=== PATIENT | female | born 1945 | race Caucasian/White ===

== ENCOUNTER → 2017-02-07 | Outpatient (REF) | payer MEDICARE ==
[~2017-02-07] MED LIST: ASPI81TA85 PO; ATEN100T PO; ATEN50TA2 PO; DIOV320T6 PO; GLIM4TAB PO; JANU100T PO; LANTINJ4 SC; LASI40TA PO; MULT1TAB10 PO; OMEG12002 PO; PROAAER10 INH; PROBCAP8 PO; PROC90TA PO; SIMV80TA PO; VITA-182 PO
== END ==
LOC: M LAB REF 14:00
PROVIDERS: ATTEND Ophthalmology
DX: D23.12 Other benign neoplasm of skin of left eyelid, including canthus (principal)

== ENCOUNTER → 2017-03-11 | Outpatient (REF) | payer MEDICARE ==
[2017-03-11 15:02] LABS: FERRITIN 73 NG/ML (8-252); PERCENT SATURATION 22.6 % (13.2-45.0); TOTAL IRON BINDING CAPACITY 318 UG/DL (250-450)
[2017-03-11 15:47] LABS: FOLATE > 24.0 NG/ML; VITAMIN B12 LEVEL 837 PG/ML
== END ==
LOC: M LAB REF 13:29
PROVIDERS: ATTEND Internal Medicine Nephrology
DX: D64.9 Anemia, unspecified (principal)

== ENCOUNTER → 2017-07-21 | Outpatient (CLI) | payer MEDICARE | LOC: M RAD 12:37 | DX: I13.0 Hypertensive heart and chronic kidney disease with heart failure and stage 1 through stage 4 chronic kidney disease, or unspecified chronic kidney disease (principal); N18.3 Chronic kidney disease, stage 3 (moderate); E11.9 Type 2 diabetes mellitus without complications | CPT/HCPCS: G0365 ==

== ENCOUNTER 2017-10-30 07:19 | Day surgery (SDC) | payer MEDICARE ==
[2017-10-30] MEDS ORDERED: NS 1,000 ML IV (07:30)
[2017-10-30] MEDS ORDERED: LIDOCAINE 2% INJ 100 MG/5 ML SDV (FOR ANES.) As Ordered (07:32)
[2017-10-30] MEDS ORDERED: PROPOFOL 200 MG/20 ML VIAL As Ordered (07:32)
[2017-10-30] MEDS ORDERED: MIDAZOLAM INJ 2 MG/2 ML VIAL (J2250) As Ordered (07:32)
[2017-10-30] MEDS ORDERED: fentaNYL 100 MCG/2 ML INJECTION (J3010) As Ordered (07:33)
[2017-10-30 08:43] LABS: POTASSIUM SERUM 3.9 MEQ/L (3.5-5.1)
[2017-10-30 08:50] LABS: BEDSIDE GLUCOSE 204 MG/DL (83-110)
[2017-10-30] MEDS ORDERED: HumaLOG INSULIN (NovoLOG) PER UNIT As Ordered (08:54)
[2017-10-30] MEDS: HumaLOG INSULIN (NovoLOG) PER UNIT SC (09:05)
[2017-10-30] MEDS: ATENOLOL 25 MG TAB PO (09:12)
[2017-10-30] MEDS: BUPIVACAINE HCL 0.5% 10 ML VIAL As Ordered (10:07)
[2017-10-30] MEDS: HEPARIN SOD (PORCINE) 5000 UNITS/ML VIAL As Ordered (10:07)
[2017-10-30] MEDS: LIDOCAINE 1% MDV 20ML VIAL As Ordered (10:07)
[2017-10-30] MEDS ORDERED: ePHEDrine SULFATE 25 MG/5 ML(5MG/ML) SYRINGE As Ordered ×2 (10:12→10:16)
[2017-10-30] MEDS ORDERED: LABETALOL HCL 100 MG/20 ML VIAL As Ordered (10:20)
[2017-10-30] MEDS ORDERED: ONDANSETRON 4MG/2ML VIAL (J2405) As Ordered (10:27)
== END 2017-10-30 13:05 | disposition home or self-care (01) ==
LOC: M SDC 07:19
DX: N18.9 Chronic kidney disease, unspecified (principal); I12.9 Hypertensive chronic kidney disease with stage 1 through stage 4 chronic kidney disease, or unspecified chronic kidney disease; E78.5 Hyperlipidemia, unspecified; E10.9 Type 1 diabetes mellitus without complications; Z79.4 Long term (current) use of insulin; Z88.8 Allergy status to other drugs, medicaments and biological substances; Z79.899 Other long term (current) drug therapy; Z79.82 Long term (current) use of aspirin; Z86.73 Personal history of transient ischemic attack (TIA), and cerebral infarction without residual deficits; K21.9 Gastro-esophageal reflux disease without esophagitis
CPT/HCPCS: 36821

== ENCOUNTER → 2017-11-27 | Outpatient (REF) | payer MEDICARE ==
[2017-11-27 18:13] LABS: URINE TOTAL PROTEIN 451.2 MG/DL (0-12)
[2017-12-01 13:05] LABS: ALBUMIN % 54.1 % (55.8-66.1)
[2017-12-01 13:06] LABS: ALBUMIN 3.79 GM/DL (3.29-5.55); ALPHA-1-GLOBULIN % 4.6 % (2.9-4.9); ALPHA-1-GLOBULINS 0.32 GM/DL (0.17-0.41); ALPHA-2-GLOBULINS % 18.6 % (7.1-11.8); BETA-1-GLOBULINS 0.41 GM/DL (0.28-0.60); BETA-1-GLOBULINS % 5.9 % (4.7-7.2); BETA-2-GLOBULINS 0.42 GM/DL (0.19-0.55); GAMMA GLOBULIN % 10.8 % (11.1-18.8); GAMMA GLOBULINS 0.76 GM/DL (0.65-1.58)
[2017-12-02 00:06] LABS: KAPPA/LAMBDA RATIO URINE 7.61 (2.04-10.37)
== END ==
LOC: M LAB REF 17:11
DX: R80.9 Proteinuria, unspecified (principal)
CPT/HCPCS: 84165

== ENCOUNTER → 2017-12-26 | Outpatient (CLI) | payer MEDICARE | LOC: M IRPRO 07:58 | DX: Z53.8 Procedure and treatment not carried out for other reasons (principal) ==

== ENCOUNTER 2018-01-29 08:33 | Day surgery (SDC) | payer MEDICARE ==
[2018-01-29] MEDS: ISOVUE-300 61% 50ML VIAL (Q9967) As Ordered (07:19)
[2018-01-29] MEDS ORDERED: D5W/0.2% SODIUM CHLORIDE 1,000 ML IV (08:45)
[2018-01-29 09:49] LABS: BEDSIDE GLUCOSE 236 MG/DL (83-110)
[2018-01-29] MEDS ORDERED: HumaLOG INSULIN (NovoLOG) PER UNIT As Ordered (09:53)
[2018-01-29] MEDS ORDERED: PROPOFOL 200 MG/20 ML VIAL As Ordered ×2 (09:56→11:06)
[2018-01-29] MEDS: HumaLOG INSULIN (NovoLOG) PER UNIT SC (09:56)
[2018-01-29] MEDS ORDERED: LIDOCAINE 2% INJ 100 MG/5 ML SDV (FOR ANES.) As Ordered (09:56)
[2018-01-29] MEDS ORDERED: fentaNYL 100 MCG/2 ML INJECTION (J3010) As Ordered (09:56)
[2018-01-29] MEDS ORDERED: MIDAZOLAM INJ 2 MG/2 ML VIAL (J2250) As Ordered (09:57)
[2018-01-29] MEDS ORDERED: NS 1,000 ML IV (10:00)
[2018-01-29] MEDS ORDERED: LABETALOL HCL 100 MG/20 ML VIAL As Ordered (10:21)
[2018-01-29] MEDS: HEPARIN SOD (PORCINE) 5000 UNITS/ML VIAL As Ordered (10:50)
[2018-01-29] MEDS: LIDOCAINE 1% SDV INJ 30 ML VIAL As Ordered (10:50)
[2018-01-29] MEDS: BUPIVACAINE HCL 0.5% 30 ML VIAL As Ordered (10:50)
[2018-01-29] MEDS ORDERED: ONDANSETRON 4MG/2ML VIAL (J2405) As Ordered (11:23)
== END 2018-01-29 13:00 | disposition home or self-care (01) ==
LOC: M SDC 08:33
DX: E11.22 Type 2 diabetes mellitus with diabetic chronic kidney disease (principal); I12.9 Hypertensive chronic kidney disease with stage 1 through stage 4 chronic kidney disease, or unspecified chronic kidney disease; N18.9 Chronic kidney disease, unspecified; E78.5 Hyperlipidemia, unspecified; I25.10 Atherosclerotic heart disease of native coronary artery without angina pectoris; T82.868A Thrombosis due to vascular prosthetic devices, implants and grafts, initial encounter; Z86.73 Personal history of transient ischemic attack (TIA), and cerebral infarction without residual deficits; Z79.4 Long term (current) use of insulin
CPT/HCPCS: 36821

== ENCOUNTER → 2018-05-28 | Outpatient (CLI) | payer MEDICARE ==
[~2018-05-28] MED LIST changes: -ASPI81TA85 PO; -ATEN100T PO; -ATEN50TA2 PO; -DIOV320T6 PO; -GLIM4TAB PO; +ISOVUE-300 61% 50ML VIAL (Q9967) As Ordered; -JANU100T PO; -LANTINJ4 SC; -LASI40TA PO; +LIDOCAINE 2% MDV 20 ML VIAL As Ordered; -MULT1TAB10 PO; -OMEG12002 PO; -PROAAER10 INH; -PROBCAP8 PO; -PROC90TA PO; -SIMV80TA PO; -VITA-182 PO
== END ==
LOC: M IRPRO 08:39
DX: N18.6 End stage renal disease (principal); Z53.8 Procedure and treatment not carried out for other reasons

== ENCOUNTER → 2018-06-19 | Outpatient (REF) | payer MEDICARE ==
[~2018-06-19] MED LIST changes: +ALEN70TA57 PO; +ASPI81TA85 PO; +ATEN100T PO; +ATEN50TA2 PO; +CALC1CAP31; +DIOV320T6 PO; +GLIM4TAB PO; +HYDR10TAB PO; -ISOVUE-300 61% 50ML VIAL (Q9967) As Ordered; +JANU100T PO; +JANU25TA PO; +LANTINJ4 SC; +LASI40TA9 PO; -LIDOCAINE 2% MDV 20 ML VIAL As Ordered; +MULT1TAB10 PO; +OMEG12002 PO; +PROAAER10 INH; +PROBCAP4 PO; +PROBCAP8 PO; +PROC90TA PO; +RENATAB5 PO; +SIMV80TA13 PO; +VITA-182 PO; +VITA-199 PO; +VITA1TAB27 PO
[2018-06-19 13:58] LABS: CHOLESTEROL LEVEL 216 MG/DL (<200); CHOLESTEROL RISK RATIO 3.085 (<5); HDL CHOLESTEROL 70 MG/DL (>40); LDL CHOLESTEROL 112 MG/DL (<100); NON-HDL-C 146 MG/DL; TRIGLYCERIDES LEVEL 168 MG/DL (<150)
[2018-06-19 14:15] LABS: HEPATITIS B SURFACE ANTIBODY NEGATIVE (POSITIVE)
[2018-06-19 14:59] LABS: HEPATITIS B CORE ANTIBODY IGM NEGATIVE (NEGATIVE); HEPATITIS C VIRUS ABY INDEX 0.1 INDEX (<0.8)
[2018-06-19 15:01] LABS: HEPATITIS B SURFACE ANTIGEN QNS (NEGATIVE)
== END ==
LOC: M LAB REF 13:08
PROVIDERS: ATTEND Internal Medicine Nephrology
DX: N18.5 Chronic kidney disease, stage 5 (principal)

== ENCOUNTER → 2018-07-09 | Outpatient (CLI) | payer MEDICARE ==
[~2018-07-09] MED LIST changes: +HEPARIN 1,000 UNITS/ML 10ML VIAL (FOR RADIOLOGY& DIALYSIS ONLY) As Ordered ONE; +LIDOCAINE 2% MDV 20 ML VIAL As Ordered ONE
--- NOTE | 2018-07-09 14:03 | ROOPDOC ---
[facility] Report Of Operation Report of Operation DATE OF PROCEDURE: 07/09/2018 PREPROCEDURE DIAGNOSES: End-stage renal disease requiring access for renal replacement therapy. Dysfunctional right brachiocephalic arteriovenous fistula with bleeding and hematoma formation. POSTPROCEDURE DIAGNOSES: End-stage renal disease requiring access for renal replacement therapy. Dysfunctional right brachiocephalic arteriovenous fistula with bleeding and hematoma formation. PROCEDURE: Ultrasound guided right internal jugular vein cannulation. Fluoroscopic guided right internal jugular vein 19 cm tip to cuff tunneled central venous catheter insertion. ATTENDING SURGEON: DR. Bobbi Huang M.D. MANUFACTURING DESIGN ENGINEER: Maria Isabel Cortes INDICATION:Patient is an 73-year-old female who has renal failure who requires access for renal replacement therapy. Patient has a right brachiocephalic arterial venous fistula which was used successfully once and since has not been able to be used due to extravasation, difficulty with cannulation and hematoma formation. Patient will undergo placement of a tunneled central venous catheter for hemodialysis access while the right upper extremity hematoma resolves and the patient will require a right brachiocephalic arteriovenous fistulogram to evaluate the fistula and possibly perform angioplasty for maturation of the fistula. Patient will undergo ultrasound and fluoroscopic guided placement of a right internal jugular vein tunneled central venous catheter. The procedure was described and explained to the patient in detail including drawing of pictures demonstrating the procedure and pertinent anatomy. Risks, benefits and alternative treatment options were discussed with the patient. Alternative treatment options included but were not limited to no intervention with continued conservative management. Benefits included but were not limited to access for hemodialysis until permanent access for renal replacement therapy is created and functioning. Risks included, but were not limited to infection, bleeding, pneumothorax, hemothorax, cannulation site deep venous thrombosis, possible need for open surgical intervention, allergic reaction or complication from prepping and draping materials, possible need for transfusion of blood products, anesthetic complications and/or reaction to sedation medications, cerebrovascular accident, myocardial infarction, pulmonary embolus, deep venous thrombosis, loss of limb, loss of life, poor satisfaction, poor outcome and or results. Risks of not performing the procedure included but were not limited to inability to obtain renal replacement therapy via hemodialysis and . The patient's questions were answered. The patient voices understanding and acceptance of these risks, benefits and alternative treatment options and agrees to proceed with an ultrasound and fluoroscopic guided right internal jugular vein tunneled central venous catheter insertion for access for renal replacement therapy via hemodialysis. All of the patient's questions were answered. There were no promises or guarantees made to the patient regarding the outcome or results of the procedure. ANESTHESIA: Local with 20 mL of 2% lidocaine. EBL: 15 ml. IVF: 100 ml. FLUORO TIME: 0.1 minutes. CONTRAST: None. COMPLICATIONS: None. DRAINS: None. SPECIMENS: None. IMPLANTS: Right internal jugular vein tunneled central venous catheter with use of a 19 cm tip to cuff [employer] [place] dual lumen hemodialysis catheter. DESCRIPTION OF PROCEDURE: Patient was taken to the angiography suite, placed supine on the angiography room table and then prepped and draped in a standard surgical fashion. A timeout was conducted by myself and the team members in the room confirming the correct patient, procedure and laterality. Ultrasound guidance was used to cannulate the right internal jugular vein, using a micropuncture needle, after anesthetizing the overlying skin and subcutaneous tissue with 2% lidocaine. The cannulation of the right internal jugular vein was performed with real-time concurrent visualization of the entry of the micropuncture needle into the right internal jugular vein with a hardcopy image preserved. The ultrasound showed the right internal jugular vein to be widely patent, easily compressible and free of thrombus. The micropuncture wire was advanced through the micropuncture needle which was upsized to a micropuncture sheath. An Amplatz wire was advanced through the micropuncture sheath which was then used to sequentially dilate the right internal jugular vein under fluoroscopic guidance. An introducer sheath was then placed over the Amplatz wire using fluoroscopic guidance and the wire was removed. The catheter was tunneled through a puncture wound in the right chest after anesthetizing the overlying skin and subcutaneous tissue with 2% lidocaine and brought out through a puncture wound at the right internal jugular vein entry site. The catheter was then advanced through the introducer sheath which had been positioned under fluoroscopic guidance. The catheter was positioned under fluoroscopic guidance with the tip in the superior vena cava right atrial junction. Both ports of the catheter were aspirated, noted to aspirate easily and then flushed with heparinized saline. The catheter was secured to the right anterior chest wall using #2-0 Prolene suture after anesthetizing the overlying skin and subcutaneous tissue with 2% lidocaine. The puncture wound in the right neck was closed using #3-0 Monocryl in inverted interrupted fashion. Dressings were applied. The patient tolerated the procedure well. All instrument, sponge and needle counts were correct at the end of the case. There were no complications. Dr. Huang was present for and directed the entire case. Patient was transferred to the recovery area and subsequently discharged in stable condition. The patient was going to dialysis unit for hemodialysis directly. The tunneled cent ral venous catheter is stable for use for hemodialysis access. The procedure and results were discussed with the patient in the postprocedure holding area with all of her questions being answered. RADIOLOGIC SUPERVISION AND INTERPRETATION: The initial ultrasound showed the right internal jugular vein to be easily compressible, widely patent and free of thrombus. Ultrasound was used to guide cannulation of the right internal jugular vein with real-time concurrent visualization of the entry of the needle into the right internal jugular vein with a hardcopy image preserved. Fluoroscopic guidance was then used to sequentially dilate the right internal jugular vein, place an introducer sheath and position the catheter with the tip in the superior vena cava/right atrial junction. Final fluoroscopic image showed the catheter to be in good position and good alignment with no pneumo- or hemothorax noted, with the tip of the catheter in the superior vena cava/right atrial junction. The tunneled central venous catheter is stable for use for hemodialysis access. Augustine Huang MD Jul 09, 2018 14:03
== END | disposition home or self-care (01) ==
LOC: M IRPRO 09:42
PROVIDERS: ATTEND Surgery Vascular Surgery
DX: N18.6 End stage renal disease (principal); Z99.2 Dependence on renal dialysis; T82.838D Hemorrhage due to vascular prosthetic devices, implants and grafts, subsequent encounter
CPT/HCPCS: 36558; 76937; 77001; C1750; C1769; C1894

== ENCOUNTER → 2018-08-14 | Outpatient (CLI) | payer MEDICARE ==
[~2018-08-14] MED LIST changes: -HEPARIN 1,000 UNITS/ML 10ML VIAL (FOR RADIOLOGY& DIALYSIS ONLY) As Ordered ONE; +ISOVUE-300 61% 50ML VIAL (Q9967) As Ordered ONE; +MIDAZOLAM INJ 2 MG/2 ML VIAL (J2250) As Ordered ONE; +fentaNYL 100 MCG/2 ML INJECTION (J3010) As Ordered ONE
--- NOTE | 2018-08-14 12:43 | ROOPDOC ---
[facility] Report Of Operation Report of Operation DATE OF PROCEDURE: 08/14/18 PREPROCEDURE DIAGNOSES: Stage IV chronic renal insufficiency with poor maturation right upper extremity brachiocephalic AV fistula. POSTPROCEDURE DIAGNOSES: Same. PROCEDURE: 1. Ultrasound-guided access, antegrade and retrograde, right cephalic vein 2. Right upper extremity fistulogram and central venogram 3. Angioplasty of the proximal cephalic vein from an antegrade access with a 7 x 100 Jermyn balloon 4. Angioplasty of the cephalic vein near the AV anastomosis from a retrograde access with a 6 x 40 testing balloon 5. Completion venograms SURGEON: Arabella Tirado MD ANESTHESIA: 5 mL of lidocaine local anesthesia. Conscious IV sedation was superv ised by Dr. Tirado during the entire procedure and the patient was independently monitored by registered nurse assigned to the Department of radiology using automated blood pressure, EKG and pulse oximetry the detailed conscious sedation record is stored in the hospital information system. The following is a conscious sedation record including starting and times: Versed 0.5 mg IV, fentanyl 25 g IV, start time at 09:35, and time 10:39. The patient tolerated sedation well. Postprocedure, she was monitored and remained stable, and was discharged in stable condition. INDICATION FOR PROCEDURE: Ms. Marsh is a 73-year-old patient with chronic renal insufficiency, stage IV progressing toward end stage renal disease requiring access for dialysis. She had a right upper extremity brachiocephalic fistula creation that has been slow to mature and on exam during follow-up in the office we found the thrill was somewhat weak and difficult to feel in the upper arm. We discussed the risks, benefits, alternatives to a fistulogram with potential intervention to see if we could improve flow and maturation. She was agreeable to proceed and informed consent was obtained. INTERPRETATION: 1. The AV anastomosis was widely patent 2. There was an 80% stenosis in the cephalic vein a few centimeters distal to the AV anastomosis focally 3. There was 60% narrowing in the cephalic vein in the shoulder and a focal area of 70% narrowing in the cephalic vein near the junction with the subclavian vein 4. After angioplasty, the stenosis near the AV anastomosis still had about 30% residual stenosis but had significant improvement in flow 5. After angioplasty, the more proximal areas of stenosis were significantly improved with less than 20% residual stenosis PROCEDURE NOTE: The patient was brought to the angiographic suite in stable condition. Her right upper extremity was prepped and draped in a sterile fashion. A timeout was performed. Ultrasound was used to antegrade access to the cephalic vein after anesthetizing the skin with local anesthesia. A wire was passed through this access and a micro-sheath was placed. A Glidewire was advanced into the central system under fluoroscopic guidance. The sheath was exchanged for a 5 [place] sheath and flushed with saline. Venogram was performed and we noted that the more proximal cephalic vein in the shoulder and near the junction with the subclavian vein seemed a little stenotic and we felt this was part of the reason that she had slow maturation. We selected a 7 x 100 Jermyn balloon and angioplastied along the length of the cephalic vein in the shoulder and the upper arm and across the junction and subclavian vein. He translation was for 3 minutes. Following this there was marked improvement in the flow throughout the cephalic vein, but still some stenosis near the shoulder, therefore we did a second angioplasty for three-minute inflation, and following this there is a marked improvement in flow with no significant residual stenosis. We then compressed the cephalic vein proximal to the end of the sheath and performed a reflux study to examine the AV anastomosis in the inflow. We found the AV anastomosis to be widely patent, but a few centimeters proximal to this there was an 80% stenosis in the cephalic vein. I felt this was significant enough that it may impede maturation, therefore we placed a Prolene suture at the existing sheath site and removed. The sheath and gentle pressure was held for a few minutes for good hemostasis. Then, we utilized ultrasound to access the cephalic vein retrograde from the upper arm after anesthetizing the skin with local anesthesia. A wire was passed through this access and a micro-sheath was placed. A Glidewire was advanced through the sheath and then through the AV anastomosis into the brachial artery, and we exchanged her sheath for the 5 [place] sheath now in a retrograde fashion. The sheath was flushed with saline. Over the wire, we placed a 6 x 40 Jermyn balloon across the area of stenosis and inflated the balloon. There was a waist on the balloon despite full inflat ions burst pressures, but it appeared to dilate to almost profile. After 3 minutes of angioplasty, there still appeared to be about a 30% residual stenosis but it was markedly improved from pre-angioplasty dilation. The thrill improved in the upper arm and was easier to palpate over the bicep area. This concluded her procedure. A suture was placed at the sheath site. The sheath was removed. Pressure was held for 5 minutes for good hemostasis. Sterile dressings were placed. No hematoma was present at either access site. She tolerated the procedure well. The patient was taken back to recovery in stable condition and monitored, and eventually discharged home in stable condition. We will see her back in the office in 1-2 weeks to check her status and hopefully we'll see a marked improvement in her fistula maturation. ESTIMATED BLOOD LOSS: Approximately 2 mL. COMPLICATIONS: None. ARABELLA TIRADO MD Aug 14, 2018 12:43
== END | disposition home or self-care (01) ==
LOC: M IRPRO 08:36
PROVIDERS: ATTEND Surgery Vascular Surgery
DX: T82.858A Stenosis of other vascular prosthetic devices, implants and grafts, initial encounter (principal); N18.4 Chronic kidney disease, stage 4 (severe)
CPT/HCPCS: 36902; 36907; 99152; 99153; C1725; C1769; C1894; J2250; J3010; Q9967

== ENCOUNTER 2018-09-15 16:19 | Inpatient (IN) | payer MEDICARE ==
[~2018-09-15] VITALS: Ht 162.6 cm; Wt 79.9 kg
[~2018-09-15 16:19] MED LIST changes: -ISOVUE-300 61% 50ML VIAL (Q9967) As Ordered ONE; -LIDOCAINE 2% MDV 20 ML VIAL As Ordered ONE; -MIDAZOLAM INJ 2 MG/2 ML VIAL (J2250) As Ordered ONE; -fentaNYL 100 MCG/2 ML INJECTION (J3010) As Ordered ONE
[2018-09-15] MEDS: OSELTAMIVIR PHOSPHATE 30MG CAPSULE PO SCH (18:00)
[2018-09-15 19:30] VITALS: BP 140/82
[2018-09-15] MEDS: HumaLOG INSULIN (NovoLOG) PER UNIT SC SCH (21:00)
[2018-09-15] MEDS ORDERED: IPRATROPIUM 0.5MG/ALBUTEROL 2.5MG INH SOL UD 3ML (DUONEB)(J7620) NEB PRN (22:15)
[2018-09-15] MEDS ORDERED: GLUCAGON FOR INJ 1 MG VIAL (J1610) SC PRN (22:15)
[2018-09-15] MEDS ORDERED: GLUCOSE 4 GM CHEW TABLET PO PRN (22:15)
[2018-09-15] MEDS ORDERED: DEXTROSE 50% 50 ML SYRINGE IV PRN (22:15)
[2018-09-15] MEDS ORDERED: ONDANSETRON 4MG/2ML VIAL (J2405) IV PRN (22:15)
[2018-09-15] MEDS ORDERED: OMEG100011 PO (22:17)
[2018-09-15] MEDS ORDERED: ASPI81TAEC PO (22:17)
[2018-09-15] MEDS ORDERED: ATOR40TA75 PO (22:17)
[2018-09-15] MEDS ORDERED: HYDR-3911 PO (22:17)
[2018-09-15] MEDS ORDERED: GLIP5TAB8 PO (22:17)
[2018-09-15] MEDS ORDERED: BACITAB PO (22:17)
[2018-09-15] MEDS ORDERED: NEXI20CA PO (22:17)
--- NOTE | 2018-09-15 22:33 | HPEPDOC ---
[facility] Medical History & Physical Date of Admission Sep 15, 2018 Other Provider Grisel Christianson Attending Physician: GLADYS GAN MD History and Physical CHIEF COMPLAINT: dizziness HISTORY OF PRESENT ILLNESS: Patient is 73-year-old female with past medical history of end-stage renal disease on HD Friday, diabetes mellitus, history of CVA brought into the hospital post dialysis with complaints of dizziness and fevers. Patient reportedly had no symptoms today until after dialysis when she noted to be dizzy with a fever and felt nauseated. She was noted to be positive for influenza prior to arrival with desaturations down to 80s. Patient reports overall feeling unwell with some wheezing and nausea and but otherwise had no other specific complaints. She denies any recent sick contact or travels. No diarrhea. PAST MEDICAL HISTORY: 1. Influenza. 2. Diabetes mellitus [id number]. 3. History of CVA. 4. Recurrent bronchitis PAST SURGICAL HISTORY: Denies tobacco, alcohol or drug use. FAMILY HISTORY: Mother has diabetes and congestive heart failure Father had diabetes ALLERGIES: Please see below. REVIEW OF SYSTEMS: General: generalized unwell Eyes: Denies visual changes/pain HENT: Denies hearing changes, discharge, sore throat Cardiovascular: denies chest pain, palpitations Pulmonary: no cough, dyspnea, wheezing GI: nausea+, denies vomiting or abdominal pain : denies dysuria, urinary frequency Neuro: denies numbness or weakness HOME MEDICATIONS: Please see below. PHYSICAL EXAMINATION: General: No acute distress, Alert Eyes: Normal sclera, EOMI, ANGEL HENT: Atraumatic, neck supple, moist mucous membranes Cardiovascular: Normal rate, normal rhythm. No murmurs appreciated. Pulmonary: mild expiratory wheezing b/l. GI: Soft, nontender, nondistended Skin: Warm and dry Neuro: CN grossly intact. No focal deficits. Strengths equal b/l. Psych: oriented x 3 LABORATORY DATA: See below. IMAGING: f/u CXR MICROBIOLOGY: Please see below. ASSESSMENT: 1. Influenza 2. ESRD on HD T/T/Sat 3. hx CVA 4. DM . PLAN: 1. Influenza - Start on tamiflu. 30 mg now and after HD only. - Clinically appeared well now, not sure if she will need to stay for more than 2 days. 2. ESRD on HD T/T/Sat - Completed HD session today. Next one should be , will consult Nephro. Unsure if patient will stay here that long. 3. hx CVA - Resume home meds 4. DM - Hold home oral glycemic meds now. Start on ISS. Patient is high risk due to influenza with underlying comorbidities Estimated length of stay 2 days with expected disposition to home. Home Medications Scheduled (Gisel-Soraida) 1 Tab Tab, 1 TAB PO DAILY Aspirin (Aspirin EC) 81 Mg Tabec, 81 MG PO QHS Atenolol (Atenolol) 100 Mg Tab, 100 MG PO QPM Atenolol (Atenolol) 50 Mg Tab, 50 MG PO QAM Atorvastatin Calcium (Atorvastatin Calcium) 40 Mg Tab, 40 MG PO QHS Esomeprazole Magnesium Trihydr (Nexium) 20 Mg Cap, 20 MG PO DAILY Glipizide (Glipizide) 5 Mg Tab, 5 MG PO BID Hydralazine HCl (Hydralazine HCl) 50 Mg Tab, 50 MG PO TID Lactobacillus Acidophilus (Bacid) 1 Tab Tab, 1 TAB PO DAILY Nifedipine (Procardia Xl) 90 Mg Tab, 90 MG PO DAILY [place] 3 Polyunsat Fatty Acids ([place] 3 1000 mg) 1 Cap Cap, 1 CAP PO BID Sitagliptin Phosphate (Januvia) 25 Mg Tab, 25 MG PO QHS Scheduled PRN Albuterol Sulfate (Proair Hfa) 108 Mcg/Act Aer, 2 PUFFS INH Q4H PRN for SHORTNESS OF BREATH Allergies Coded Allergies: tramadol (Verified Adverse Reaction, Mild, VOMITING, 09/15/18) GLADYS GAN MD Sep 15, 2018 22:33
[2018-09-15] MEDS: OMEGA-3 1000MG CAPSULE PO SCH (22:54)
[2018-09-15] MEDS: ATORVASTATIN 20 MG TAB PO SCH (22:54)
[2018-09-15] MEDS: **hydrALAZINE** 50 MG TAB PO SCH (22:54)
[2018-09-15] MEDS: ATENOLOL 50 MG TAB PO SCH (22:55)
[2018-09-15] MEDS: ASPIRIN 81 MG ENTERIC TAB PO SCH (22:55)
[2018-09-15] MEDS: ACETAMINOPHEN TAB 650MG DOSE (2X325MG) PO PRN (23:03)
[2018-09-16 02:00] VITALS: BP 162/70
[2018-09-16] MEDS: IPRATROPIUM 0.5MG/ALBUTEROL 2.5MG INH SOL UD 3ML (DUONEB)(J7620) NEB SCH ×4 (02:00→19:18)
[2018-09-16 06:00] VITALS: BP 148/66
[2018-09-16 06:05] LABS: HEMATOCRIT 32.2 % (36.0-47.0); HEMOGLOBIN 10.8 g/dl (12.0-15.5); MEAN CORPUSCULAR HEMOGLOBIN 32.6 pg (27.0-33.0); MEAN CORPUSCULAR HGB CONC 33.5 g/dl (32.0-36.5); MEAN CORPUSCULAR VOLUME 97.3 fl (80.0-96.0); PLATELET COUNT, AUTOMATED 157 10^3/uL (150-450); RED BLOOD COUNT 3.31 10^6/uL (4.00-5.40); WHITE BLOOD COUNT 6.2 10^3/uL (4.0-10.0)
[2018-09-16 06:19] LABS: CALCIUM LEVEL 8.2 MG/DL (8.8-10.2); CREATININE FOR GFR 3.57 MG/DL (0.55-1.30); GLOMERULAR FILTRATION RATE 13.4 (>39); POTASSIUM SERUM 4.1 MEQ/L (3.5-5.1)
--- NOTE | 2018-09-16 08:05 | REP ---
Portable chest x-ray: Single view. History: Wheezing. Findings: A right-sided tunnel catheter is seen in place with its tip in the expected location of the superior vena cava. There is linear opacity in the perihilar and base region on the left consistent with plate-like atelectasis. Heart is not enlarged. There are degenerative changes in the thoracic spine. The aorta is calcific. Pulmonary vasculature is not increased. Impression: Perihilar discoid atelectasis versus scarring. Tunneled central venous catheter noted. Otherwise no acute disease. Electronically Signed by Saleem Carranza MD 09/16/2018 07:56 A
[2018-09-16] MEDS: HumaLOG INSULIN (NovoLOG) PER UNIT SC SCH ×4 (10:14→20:13)
[2018-09-16] MEDS: OMEGA-3 1000MG CAPSULE PO SCH ×2 (10:14→20:14)
[2018-09-16] MEDS: PANTOPRAZOLE 20 MG TAB PO SCH (10:15)
[2018-09-16] MEDS: **hydrALAZINE** 50 MG TAB PO SCH ×3 (10:15→20:15)
[2018-09-16] MEDS: NIFEdipine 30 MG XL TAB PO SCH (10:15)
[2018-09-16] MEDS: ATENOLOL 50 MG TAB PO SCH ×2 (10:16→20:14)
[2018-09-16] MEDS ORDERED: OSEL30CA PO (13:48)
--- NOTE | 2018-09-16 13:54 | IPNPDOC ---
Date Seen The patient was seen on 09/16/18. Progress Note SUBJECTIVE: Patient says "I feel much better." No c/o chills. still with low grade temp overnight. no cough. pulse on on room air not documented. still on supplemental o2. cxr: no acute dz. PHYSICAL EXAMINATION: VITALS: PLS SEE BELOW General: No acute distress, Alert Eyes: Normal sclera, EOMI, ANGEL HENT: Atraumatic, neck supple, moist mucous membranes Cardiovascular: Normal rate, normal rhythm. No murmurs appreciated. Pulmonary: mild expiratory wheezing b/l. GI: Soft, nontender, nondistended Skin: Warm and dry Neuro: CN grossly intact. No focal deficits. Strengths equal b/l. Psych: oriented x 3 LABORATORY DATA, MICROBIOLOGY, IMAGING STUDIES: PLS SEE BELOW ASSESSMENT/PLAN: Patient is 73-year-old female with past medical history of end-stage renal disease on HD Friday, diabetes mellitus, history of CVA transferred from [facility] where she presented status post dialysis with complaints of dizziness and fevers. Patient reportedly had no symptoms today until after dialysis when she noted to be dizzy with a fever and felt nauseated. She was noted to be positive for influenza prior to arrival with desaturations down to 80s. Patient reports overall feeling unwell with some wheezing and nausea and but otherwise had no other specific complaints. She denies any recent sick contact or travels. No diarrhea. Influenza - Start on tamiflu. 30 mg now and after HD only. - Clinically appeared well now, not sure if she will need to stay for more than 2 days. -on supplemental oxygen. will check o2 sat on room air with ambulation -cxr: no acute dz. tunneled catheter. ESRD on HD T/T/Sat - Completed HD session today. Next one should be , will consult Nephro. Unsure if patient will stay here that long. hx CVA - Resume home meds DM - Hold home oral glycemic meds now. Start on ISS. disposition: dc home if passes hse. VS, I&O, 24H, Fishbone Vital Signs/I&O Vital Signs Date Time Temp Pulse Resp B/P (MAP) Pulse Ox O2 Delivery O2 Flow Rate FiO2 09/16/18 10:16 70 156/58 09/16/18 06:00 98.1 20 92 2.0 I&O- Last 24 Hours up to 6 AM 09/16/18 06:00 Intake Total 750 ml Output Total 700 ml Balance 50 ml Laboratory Data 24H LABS Laboratory Tests 2 09/15/18 22:41: Bedside Glucose (Misc Panel) 241H 09/16/18 05:46: Nucleated Red Blood Cells % (auto) 0.0, Anion Gap 9, Glomerular Filtration Rate 13.4L, Blood Urea Nitrogen 28H, Creatinine 3.57H, Sodium Level 137, Potassium Level 4.1, Chloride Level 98, Carbon Dioxide Level 30, Calcium Level 8.2L 09/16/18 11:42: Bedside Glucose (Misc Panel) 188H CBC/BMP Laboratory Tests 09/16/18 05:46 Red Blood Count 3.31 L, Mean Corpuscular Volume 97.3 H, Mean Corpuscular Hemoglobin 32.6, Mean Corpuscular Hemoglobin Concent 33.5, Red Cell Distribution Width 12.7, Calcium Level 8.2 L OTTONIEL JOHNS MD Sep 16, 2018 13:52
[2018-09-16 14:00] VITALS: BP 162/68
[2018-09-16 18:00] VITALS: BP 148/65
[2018-09-16] MEDS: ATORVASTATIN 20 MG TAB PO SCH (20:14)
[2018-09-16] MEDS: ASPIRIN 81 MG ENTERIC TAB PO SCH (20:14)
[2018-09-16 22:00] VITALS: BP 149/66
[2018-09-17 02:00] VITALS: BP 140/68
[2018-09-17] MEDS: IPRATROPIUM 0.5MG/ALBUTEROL 2.5MG INH SOL UD 3ML (DUONEB)(J7620) NEB SCH ×4 (02:00→18:18)
[2018-09-17 06:00] VITALS: BP 140/70
[2018-09-17] MEDS: NIFEdipine 30 MG XL TAB PO SCH (06:31)
[2018-09-17] MEDS: OMEGA-3 1000MG CAPSULE PO SCH ×2 (06:31→22:19)
[2018-09-17] MEDS: **hydrALAZINE** 50 MG TAB PO SCH ×3 (06:31→21:00)
[2018-09-17] MEDS: PANTOPRAZOLE 20 MG TAB PO SCH (06:31)
[2018-09-17] MEDS: ATENOLOL 50 MG TAB PO SCH ×2 (06:32→21:00)
[2018-09-17] MEDS: ACETAMINOPHEN TAB 650MG DOSE (2X325MG) PO PRN (06:36)
[2018-09-17] MEDS: HumaLOG INSULIN (NovoLOG) PER UNIT SC SCH ×4 (07:36→22:15)
[2018-09-17 10:00] VITALS: BP 144/66
[2018-09-17 10:37] LABS: HEMOGLOBIN 10.6 g/dl (12.0-15.5); MEAN CORPUSCULAR HEMOGLOBIN 33.5 pg (27.0-33.0); MEAN CORPUSCULAR HGB CONC 34.2 g/dl (32.0-36.5); MEAN CORPUSCULAR VOLUME 98.1 fl (80.0-96.0); PLATELET COUNT, AUTOMATED 158 10^3/uL (150-450); RED BLOOD COUNT 3.16 10^6/uL (4.00-5.40); WHITE BLOOD COUNT 6.3 10^3/uL (4.0-10.0)
[2018-09-17 11:13] LABS: CALCIUM LEVEL 8.1 MG/DL (8.8-10.2); CREATININE FOR GFR 4.38 MG/DL (0.55-1.30); GLOMERULAR FILTRATION RATE 10.6 (>39)
--- NOTE | 2018-09-17 12:12 | CR ---
DATE OF CONSULTATION: 09/17/2018 NEPHROLOGY CONSULTATION FOR: Nolvia Barajas MD REASON FOR CONSULTATION: To assist in the management of end-stage renal disease. HISTORY OF PRESENT ILLNESS: Mrs. Marsh is a 73-year-old female with known history of type 2 diabetes, hypertension, prior stroke and end-stage renal disease. She was seen in dialysis outpatient clinic on Friday and found to have 102 fever. She was advised to come to the emergency room for ruling out influenza as patient who sits next to her was tested positive for influenza A. Patient went home from dialysis and fell at home as soon as she entered. She was then brought to emergency room and was admitted. She was also tested positive for flu. She did receive her complete dialysis treatments on Friday. PAST MEDICAL AND SURGICAL HISTORY: Significant for: 1. History of type 2 diabetes. 2. Hypertension. 3. Prior stroke. 4. History of end-stage renal disease. 5. History of recurrent bronchitis. 6. Influenza A. PERSONAL AND SOCIAL HISTORY: Patient denies any alcohol or tobacco use. She lives at home by herself. Family history is negative for end-stage renal disease. ALLERGIES: The patient has allergy to TRAMADOL. MEDICATIONS: Her home medications include: - aspirin 81 mg daily - atenolol 100 mg in evening and 50 mg in morning - atorvastatin 40 mg daily - Nexium 20 mg daily - glipizide 5 mg twice a day - hydralazine 50 mg three times a day - nifedipine XL 90 mg 1 tablet daily - Odanah-3 1000 mg twice a day - Januvia 25 mg at bedtime REVIEW OF SYSTEMS: Patient denies any fever or chills at present. She did have 102 fever on Friday. Ears, nose and throat are unremarkable. Cardiovascular system negative for dyspnea or chest pain. Respiratory system is significant for cough and flu. Gastrointestinal (GI) system is negative for nausea, vomiting or diarrhea. Genitourinary () system is negative for dysuria or hematuria. Endocrine system is significant for type 2 diabetes and secondary hyperparathyroidism. Neurological system is significant for prior stroke. She denies any seizure history. Hematological system is significant for anemia of chronic kidney disease. She is only on aspirin and not on any other anticoagulation. Psychosocial system is significant for depression. Skin is negative for rash or ulcers. Musculoskeletal system is significant for history of a fall at home prior to admission. PHYSICAL EXAMINATION: Temperature 97.6 degrees Fahrenheit, heart rate 17 per minute and respiratory rate 16 per minute. Blood pressure 144/66 mmHg and oxygen saturation 97% on 1 liter oxygen. Head is atraumatic. Neck is supple and jugular venous distention (JVD) is not abnormally elevated. She has no oral thrush or ulcers. Heart sounds are regular, and lungs sound clear to auscultation bilaterally. Abdomen soft and nontender, and bowel sounds are normal. Extremities have no cyanosis or clubbing. Neurologically, she is awake, alert and oriented times three. Today's labs show a WBC count 6.3, hemoglobin 10.6 and hematocrit 31.0. Platelets 158. Chemistry from yesterday showed sodium 137, potassium 4.1, CO2 of 30, BUN 28 and creatinine 3.57. Calcium level was 8.2. She had just completed her dialysis treatment prior to this labs. Today's chemistry is still pending. She had a chest x-ray done in emergency room, which showed some perihilar atelectasis and tunneled hemodialysis catheter. No other acute fracture or infiltrate. PROBLEMS: 1. End-stage renal disease. Patient did complete her dialysis treatment on 09/15/2018. She is due for dialysis today and we will plan to dialyze her this afternoon. Her electrolytes are pending from today. 2. Hypertension. Blood pressure seems very well controlled on current antihypertensive meds. I would recommend to continue with the same. 3. Influenza. Patient should be treated mostly symptomatically. She is also getting Tamiflu 30 mg after each dialysis, which is appropriate dose. Her symptoms have already improved significantly. 4. Congestive heart failure. At present, her volume status is very well compensated. She will be dialyzed today and we will remove about 1.5 liters fluid as tolerated. Thank you for involving me in the care of Mrs. Marsh. I will follow her along with you. CHAZ
[2018-09-17 14:00] VITALS: BP 135/63
[2018-09-17] MEDS: OSELTAMIVIR PHOSPHATE 30MG CAPSULE PO SCH (17:56)
[2018-09-17 18:00] VITALS: BP 121/70
--- NOTE | 2018-09-17 18:27 | IPNPDOC ---
Date Seen The patient was seen on 09/17/18. Progress Note SUBJECTIVE: The patient tells me she is feeling better she still having some shortness of breath does not feel quite as strong as usual but otherwise no specific complaints at this time PHYSICAL EXAMINATION: VITALS: PLS SEE BELOW General: No acute distress, Alert oriented 3 Eyes: Normal sclera, EOMI, ANGEL HENT: Atraumatic, neck supple, moist mucous membranes Cardiovascular: Normal rate, normal rhythm. No murmurs appreciated. Pulmonary: mild expiratory wheezing b/l. Abdomen: Soft, nontender, nondistended LABORATORY DATA, MICROBIOLOGY, IMAGING STUDIES: PLS SEE BELOW ASSESSMENT/PLAN: Patient is 73-year-old female with past medical history of end-stage renal disease with hypoxic respiratory failure secondary to influenza and she feels improved could consider steroids Influenza -Continue with tamiflu. 30 mg after HD only. - Clinically appears well now,on supplemental oxygen. Has not cleared PTOT hasn't. Continue with nebulizer treatments ESRD on HD T/T/Sat - Nephrology consult placed for hemodialysis today hx CVA -Continue with atenolol and aspirin hydralazine unclear to me why she is not on a statin will defer to her outpatient providers DM -Continue with sliding scale. 6 uncontrolled. Hypertension Continue with nifedipine and atenolol disposition: Pending improvement in her O2 requirement and passing PTOT VS, I&O, 24H, Daveboncurtis Vital Signs/I&O Vital Signs Date Time Temp Pulse Resp B/P (MAP) Pulse Ox O2 Delivery O2 Flow Rate FiO2 09/17/18 17:36 1.0 09/17/18 16:31 135/63 09/17/18 10:00 97.6 71 16 97 I&O- Last 24 Hours up to 6 AM 09/17/18 06:00 Intake Total 1200 ml Output Total 1150 ml Balance 50 ml Laboratory Data 24H LABS Laboratory Tests 2 09/17/18 10:18: Nucleated Red Blood Cells % (auto) 0.0, Anion Gap 10, Glomerular Filtration Rate 10.6L, Blood Urea Nitrogen 43#H, Creatinine 4.38H, Sodium Level 130#L, Potassium Level 4.0, Chloride Level 96L, Carbon Dioxide Level 24, Calcium Level 8.1L, Procalcitonin 0.46 CBC/BMP Laboratory Tests 09/17/18 10:18 Red Blood Count 3.16 L, Mean Corpuscular Volume 98.1 H, Mean Corpuscular Hemoglobin 33.5 H, Mean Corpuscular Hemoglobin Concent 34.2, Red Cell Distribution Width 12.7, Calcium Level 8.1 L MOOSE MCLAIN MD Sep 17, 2018 18:27
[2018-09-17 22:00] VITALS: BP 148/66
[2018-09-17] MEDS: ATORVASTATIN 20 MG TAB PO SCH (22:19)
[2018-09-17] MEDS: ASPIRIN 81 MG ENTERIC TAB PO SCH (22:19)
[2018-09-18 02:00] VITALS: BP 142/70
[2018-09-18] MEDS: IPRATROPIUM 0.5MG/ALBUTEROL 2.5MG INH SOL UD 3ML (DUONEB)(J7620) NEB SCH ×2 (02:00→08:05)
[2018-09-18 06:00] VITALS: BP 152/68
[2018-09-18] MEDS: HumaLOG INSULIN (NovoLOG) PER UNIT SC SCH ×2 (08:22→12:28)
[2018-09-18] MEDS: OMEGA-3 1000MG CAPSULE PO SCH (08:22)
[2018-09-18] MEDS: PANTOPRAZOLE 20 MG TAB PO SCH (08:22)
[2018-09-18] MEDS: NIFEdipine 30 MG XL TAB PO SCH (08:22)
[2018-09-18 08:23] VITALS: BP 160/62
[2018-09-18 08:23] LABS: HEMATOCRIT 33.8 % (36.0-47.0); HEMOGLOBIN 11.5 g/dl (12.0-15.5); MEAN CORPUSCULAR HEMOGLOBIN 33.1 pg (27.0-33.0); MEAN CORPUSCULAR VOLUME 97.4 fl (80.0-96.0); PLATELET COUNT, AUTOMATED 168 10^3/uL (150-450); RED BLOOD COUNT 3.47 10^6/uL (4.00-5.40); WHITE BLOOD COUNT 4.8 10^3/uL (4.0-10.0)
[2018-09-18] MEDS: **hydrALAZINE** 50 MG TAB PO SCH (08:23)
[2018-09-18] MEDS: ATENOLOL 50 MG TAB PO SCH (08:23)
[2018-09-18 08:49] LABS: CALCIUM LEVEL 8.4 MG/DL (8.8-10.2); CREATININE FOR GFR 3.5 MG/DL (0.55-1.30); GLOMERULAR FILTRATION RATE 13.7 (>39); POTASSIUM SERUM 4.3 MEQ/L (3.5-5.1)
--- NOTE | 2018-09-18 18:11 | DSES ---
DATE OF ADMISSION: 09/15/2018 DATE OF DISCHARGE: 09/18/2018 DISCHARGE DIAGNOSIS: Influenza. SECONDARY DIAGNOSES: 1. End-stage renal disease. 2. History of cerebrovascular accident (CVA). 3. Diabetes mellitus. 4. Hypertension. 5. Hypoxic respiratory failure. HOSPITAL COURSE: The patient is a 73-year-old female who presented from dialysis where she was found to have a cough and hypoxic, was checked for influenza and found to be positive. She was hypoxic. She was admitted to the hospitalist service. She was started on Tamiflu and oxygen therapy. She did improve fairly quickly. She was able to weaned to room air and was able to work past physical therapy and occupational therapy. She was continued on Tamiflu. At this time, the patient is doing much better. OBJECTIVE: The patient tells me that she is feeling well. She is breathing easier. She is getting close to her normal. No other complaints. SUBJECTIVE: VITAL SIGNS: Temperature 97, pulse 72, respiratory rate 20, blood pressure 152/68, oxygen saturation 95% on room air. GENERAL: She is a pleasant, elderly female sitting in the recliner. She does not appear to be in any acute distress. NEUROLOGIC: Cranial nerves are grossly intact. HEENT: She has moist mucous membranes. No appreciable elevation of her central venous pressure (CVP). CARDIOVASCULAR: S1, S2, regular. RESPIRATORY: Quite clear with good air movement and improved aeration from the previous day's examination. ABDOMEN: Obese. EXTREMITIES: No clubbing, cyanosis, or edema. LABORATORY STUDIES: WBC 4.8, hemoglobin 11.5, and platelet count is 168. Chemistry Panel: Sodium 131, potassium 4.3, chloride 97, bicarbonate 25, BUN 29, creatinine 3.5. IMAGING STUDIES: The patient did have a chest x-ray on 09/16/2018 that revealed perihilar and discoid atelectasis versus scarring, tunneled central venous catheter. Otherwise, no acute disease. ASSESSMENT AND PLAN: This is a 73-year-old female with influenza. 1. Hypoxic respiratory failure, secondary to influenza. She did have an oxygen requirement which now has resolved. She is at her baseline. She is continued on Tamiflu after dialysis days and will continue to do so to complete a 10-day course. 2. End-stage renal disease, on hemodialysis Friday, , Friday. Nephrology consult was greatly appreciated. She did have her regular scheduled hemodialysis while hospitalized. 3. Diabetes. Continue with Januvia, glipizide upon discharge. She is on a reasonable diabetic regimen. 4. Hypertension. Continue with atenolol, hydralazine, and nifedipine. 5. History of a cerebrovascular accident (CVA). Her blood pressure is controlled. She is on an aspirin. It is unclear to me why she is not on a statin. I will defer her to outpatient providers. DISPOSITION: She is being discharged home. Her clinical syndrome has resolved. She is to followup with her primary care provider (PCP) within seven days, followup with nephrology for dialysis as scheduled. She is to walk with a walker. She is to have a renal diet. MEDICATIONS AT THE TIME OF DISCHARGE: - Tamiflu 30 mg by mouth Friday, , Friday for three more doses - albuterol ProAir HFA two puffs inhaled every four hours as needed for shortness of breath - aspirin 81 mg at bedtime - atenolol 100 mg every evening and 50 mg every morning - atorvastatin 40 mg at bedtime - Nexium 20 mg daily - glipizide 5 mg twice a day - hydralazine 50 mg three times a day - Bacid one tablet daily - nifedipine extended release 90 mg daily - Arcola-3 polyunsaturated fatty acids one capsule by mouth twice a day - Gisel-Soraida one tablet daily - Januvia 25 mg at bedtime 45 minutes spent organizing disposition and coordinating care.
== END 2018-09-18 15:53 | disposition home or self-care (01) | DRG 193 ==
LOC: M MSPAV 19:29 → INTOOBSV 19:29 → OBSVTOIN 19:29
PROVIDERS: ADMIT General Practice; ATTEND Internal Medicine
PROC: 5A1D70Z Performance of Urinary Filtration, Intermittent, Less than 6 Hours Per Day (ICD-10-PCS; principal; 2018-09-17)
DX: J10.1 Influenza due to other identified influenza virus with other respiratory manifestations (principal); N18.6 End stage renal disease; J96.91 Respiratory failure, unspecified with hypoxia; I13.2 Hypertensive heart and chronic kidney disease with heart failure and with stage 5 chronic kidney disease, or end stage renal disease; N25.81 Secondary hyperparathyroidism of renal origin; E11.22 Type 2 diabetes mellitus with diabetic chronic kidney disease; J42 Unspecified chronic bronchitis; D63.1 Anemia in chronic kidney disease; Z99.2 Dependence on renal dialysis; Z86.73 Personal history of transient ischemic attack (TIA), and cerebral infarction without residual deficits; Z79.82 Long term (current) use of aspirin; Z79.84 Long term (current) use of oral hypoglycemic drugs; Z79.899 Other long term (current) drug therapy; Z88.5 Allergy status to narcotic agent; I50.9 Heart failure, unspecified

== ENCOUNTER → 2018-12-11 | Outpatient (CLI) | payer MEDICARE ==
[~2018-12-11] MED LIST changes: -ALEN70TA57 PO; +ALEN70TA74 PO; +ASPI81TAEC PO; +ATOR40TA75 PO; +BACITAB PO; +BUPIVACAINE HCL 0.5% 10 ML VIAL As Ordered ONE; +GLIP5TAB8 PO; +HYDR-3911 PO; +LIDOCAINE 2% MDV 20 ML VIAL As Ordered ONE; +NEXI20CA PO; +OMEG100011 PO; +OSEL30CA PO
--- NOTE | 2018-12-11 11:47 | ROOPDOC ---
[facility] Report Of Operation Report of Operation DATE OF PROCEDURE: PREPROCEDURE DIAGNOSES: End-stage renal disease,. POSTPROCEDURE DIAGNOSES: End-stage renal disease, . PROCEDURE: internal jugular vein tunneled central venous catheter removal. SURGEON: Dr. Bobbi Huang M.D. ROBOT PROGRAMMER: None INDICATION: Patient is Patient will undergo removal of the internal jugular vein tunneled central venous catheter. The procedure was explained and described to the patient in detail including drawing of pictures describing the procedure and pertinent anatomy associated with the procedure. Risks, benefits and alternative treatment options were discussed with the patient. Benefits included but were not limited to removal of the catheter with reduction in complications from central venous catheters. Alternative treatment options included but were not limited to no intervention. Risks included but were not limited to infection, bleeding, pneumothorax, hemothorax, possible need for open surgical intervention, adverse or allergic reaction to the local anesthetic, adverse or allergic reaction to the material used for surgical prepping and draping, nerve injury, cerebrovascular accident, myocardial infarction, pulmonary embolus, deep venous thrombosis, poor satisfaction, poor outcome, poor results, loss of limb and loss of life. Risks of not performing the procedure included but were not limited to infection, bleeding, central venous stenosis and/or thrombosis, loss of life and poor outcome. Patient's questions were answered. Patient voices understanding of these risks, benefits and alternative treatment options. Patient voices acceptance of these risks, benefits and alternative treatment options and consents to proceed with internal jugular vein tunneled central venous catheter removal. There were no promises or guarantees made to the patient regarding the procedure or outcome. ANESTHESIA: ESTIMATED BLOOD LOSS: mL IV FLUIDS: DRAINS: None CONTRAST: None COMPLICATIONS: None IMPLANTS: None SPECIMENS: None PROCEDURE: Patient was prepped and draped in a standard surgical fashion. A time out was completed by myself and all the team members in the room involved at the initiation of the procedure, confirming the correct patient , procedure and laterality. Manual traction was applied to the catheter which release the subcutaneous cuff spontaneously. [The skin and subcutaneous tissue overlying the catheter and tunnelled subcutaneous cuff were then anesthetized with 2% lidocaine. The cuff was then sharply dissected free via the entry site in the chest.] The catheter was then removed and manual compression applied at the exit site in the chest and at the internal jugular vein entry site for hemostasis. Once hemostasis was achieved, dressings were then applied. Patient tolerated the procedure well and was in stable condition at the end of the removal of the tunneled central venous catheter. All instrument, sponge and needle counts were correct at the end of the case. There were no complications. Dr. Huang was present for and directed the entire case. Patient was [discharged] in stable condition. The procedure and results were discussed with the patient at the end of the case with all of their questions being answered. The procedure and the results were discussed with the patient's at the end of the case with all of their questions being answered. Augustine Huang MD Dec 11, 2018 10:54
== END | disposition home or self-care (01) ==
LOC: M IRPRO 08:15
PROVIDERS: ATTEND Surgery Vascular Surgery
DX: Z45.2 Encounter for adjustment and management of vascular access device (principal); N18.6 End stage renal disease

== ENCOUNTER → 2018-12-25 | Outpatient (REF) | payer MEDICARE ==
[~2018-12-25] MED LIST changes: -BUPIVACAINE HCL 0.5% 10 ML VIAL As Ordered ONE; -GLIM4TAB PO; +GLIM4TAB5 PO; -LIDOCAINE 2% MDV 20 ML VIAL As Ordered ONE
== END ==
LOC: M LAB REF 12:17
PROVIDERS: ATTEND Ophthalmology
DX: N18.6 End stage renal disease (principal)

== ENCOUNTER → 2019-03-02 | Outpatient (REF) | payer MEDICARE ==
[~2019-03-02] MED LIST changes: +GLIM4TAB PO; -GLIM4TAB5 PO
== END ==
LOC: EEVIPCON 17:13 → M LAB REF 17:13
PROVIDERS: ATTEND Nurse Practitioner Family
DX: N39.0 Urinary tract infection, site not specified (principal)

== ENCOUNTER 2019-07-24 18:25 | Inpatient (IN) | payer MEDICARE ==
[~2019-07-24] VITALS: Ht 162.6 cm; Wt 86.0 kg
[~2019-07-24 18:25] MED LIST changes: -GLIM4TAB PO; +GLIM4TAB5 PO
[2019-07-24] MEDS ORDERED: PIPERACILLIN/TAZOBACTAM SOD 2.25 GM in D5W MINI-BAG PLUS 50 ML IV ONE (19:15)
[2019-07-24] MEDS ORDERED: LANTINJ4 SC (19:17)
[2019-07-24] MEDS ORDERED: D 202000 PO (19:21)
[2019-07-24] MEDS ORDERED: SEVE800T3 PO (19:21)
[2019-07-24] MEDS ORDERED: VANCOMYCIN HCL 500 MG in D5W MINI-BAG PLUS 100 ML IV ONE (20:00)
[2019-07-24 20:03] LABS: BASO # 0.1 10^3/uL (0.0-0.2); BASO % 0.9 % (0.0-1.0); EOS # 0.2 10^3/uL (0.0-0.5); EOS % 2.7 % (0.0-3.0); HEMATOCRIT 27.5 % (36.0-47.0); HEMOGLOBIN 9.1 g/dl (12.0-15.5); LYMPH # 1.2 10^3/uL (1.5-5.0); LYMPH % 18.3 % (24.0-44.0); MEAN CORPUSCULAR HGB CONC 33.1 g/dl (32.0-36.5); MEAN CORPUSCULAR VOLUME 99.6 fl (80.0-96.0); MONO # 0.7 10^3/uL (0.0-0.8); MONO % 9.8 % (0.0-5.0); NEUTROPHILS # 4.5 10^3/uL (1.5-8.5); PLATELET COUNT, AUTOMATED 259 10^3/uL (150-450); RED BLOOD COUNT 2.76 10^6/uL (4.00-5.40); WHITE BLOOD COUNT 6.6 10^3/uL (4.0-10.0)
[2019-07-24 20:06] LABS: VENOUS BASE EXCESS 5.9 (-2.0-2.0); VENOUS HCO3 29.6 MEQ/L (23.0-27.0); VENOUS PARTIAL PRESSURE CO2 39.8 mmHg (38.0-50.0); VENOUS STANDARD HCO3 29.8 MEQ/L; VENOUS TOTAL CO2 30.9 MEQ/L (24.0-28.0)
[2019-07-24 20:26] LABS: CALCIUM LEVEL 8.5 MG/DL (8.8-10.2); CREATININE FOR GFR 2.9 MG/DL (0.55-1.30); GLOMERULAR FILTRATION RATE 16.9 (>39); POTASSIUM SERUM 4.2 MEQ/L (3.5-5.1)
--- NOTE | 2019-07-24 21:07 | HPEPDOC ---
[facility] Medical History & Physical Date of Admission Jul 24, 2019 Date of Service: Jul 24, 2019 Primary Care Physician: A Other Provider Grisel Reddy Attending Physician: ALISIA VILA MD History and Physical TIME OF SERVICE: 9:35 PM CHIEF COMPLAINT: Sent by breeder hen service technician HISTORY OF PRESENT ILLNESS: This is a 74-year-old patient that was sent by her breeder hen service technician because she was found to have gram-positive positive blood cultures that drawn at an outside hospital. Currently the patient reports feeling well. Today she denies having nausea, vomiting, fevers, chills or diarrhea. Of note, she did feel a little bit weak yesterday, had a fever and was started on azithromycin. REVIEW OF SYSTEMS: 12 point review of systems negative except as listed in HPI PAST MEDICAL/ SURGICAL HISTORY: ESRD TTS IDDM History of CVA Chronic HTN SOCIAL HISTORY: She doesn't smoke FAMILY HISTORY: n/a ALLERGIES: Please see below. HOME MEDICATIONS: Please see below. PHYSICAL EXAMINATION: VITAL SIGNS: Please see below. GEN: well-nourished / well developed/ NAD INTEGUMENT: not flushed/ not jaundice / she has an AV fistula at the right upper extremity with a patent thrill HEENT: NCAT / mucus membranes moist and pink CVS: RRR/NMRG/ trace lower extremity edema LUNGS: clear to auscultation bilaterally on room air ABDOMEN: contour (flat) / soft & not tender with palpation MSK/EXTREMITIES: range of motion intact in all 4 extremities NEURO: CN 2-12 are grossly intact / speech is not dysarthric PSYCH: alert and oriented to person place and time/ able to understand and follow all commands LABORATORY DATA: See below. IMAGING: Chest x-ray there appears to be cardiomegaly and slight congestion but the final read is pending MICROBIOLOGY: Please see below. ASSESSMENT: Ms. Marsh is a 74-year-old female with a history of ESRD, IDDM, chronic HTN and remote history of CVA who is admitted for evaluation of possible bacteremia. PLAN: 1. Possible gram-positive bacteremia. Today the patient is a symptomatic and does not have a SIRS criteria, this may be due to the fact that she is ready and antibiotics. Plan: admit to medical floor/stop azithromycin and continue Zosyn/follow up repeat blood cultures/obtain final blood culture, results from [facility] [place] 2. ESRD w ACD TTS via right AV fistula. Her Hg is down to 9.1 from 11.5 in September of 2018 Plan: Follow-up Is/ Os & daily weights / renal diet/ pending iron panel w B12 the day time team can discuss if she is a candidate for epogen with Nephrology / continue vitamin D and Sevelamer 3. IDDM Plan: f/u accuchecks & A1C / hypoglycemia protocol / sliding scale insulin / hold glipizide and sitagliptin /continue with detemir 10 units in the morning 4. Chronic HTN Plan: Nifedipine, atenolol, hydralazine 5. History of CVA Plan: Atorvastatin, aspirin 6. Obesity Her BMI is 32 kg/m2, she has co-existing DM This complicates care. Plan: can f/u w PCP for STOP BANG / recommend cardiovascular exercise for 40 min 4-5 days a week DVT PROPHYLAXIS DISPOSITION: Home. After more than 2 midnight's stay Vital Signs Vital Signs Date Time Temp Pulse Resp B/P (MAP) Pulse Ox O2 Delivery O2 Flow Rate FiO2 07/24/19 18:25 97.9 73 18 195/79 (117) 97 Room Air Laboratory Data Labs 24H Laboratory Tests 2 07/24/19 19:50: Immature Granulocyte % (Auto) 0.3, Neutrophils (%) (Auto) 68.0H, Lymphocytes (%) (Auto) 18.3L, Monocytes (%) (Auto) 9.8H, Eosinophils (%) (Auto) 2.7, Basophils (%) (Auto) 0.9, Neutrophils # (Auto) 4.5, Lymphocytes # (Auto) 1.2L, Monocytes # (Auto) 0.7, Eosinophils # (Auto) 0.2, Basophils # (Auto) 0.1, Nucleated Red Blood Cells % (auto) 0.0, Blood Gas Bicarbonate Standard 29.8, Venous Blood pH 7.490H, Venous Blood Partial Pressure CO2 39.8, Venous Blood Partial Pressure O2 102.0H, Venous Blood Total Carbon Dioxide 30.9H, Venous Blood HCO3 29.6H, Venous Blood Oxygen Saturation 97.0H, Venous Blood Base Excess 5.9H, Anion Gap 7L, Glomerular Filtration Rate 16.9L, Calcium Level 8.5L 07/24/19 19:51: Lactic Acid Level 1.0 CBC/BMP Laboratory Tests 07/24/19 19:50 Microbiology Microbiology 07/24/19 Blood Culture, Received Pending Home Medications Scheduled Aspirin (Aspirin EC) 81 Mg Tabec, 81 MG PO QHS Atenolol (Atenolol) 100 Mg Tab, 100 MG PO QPM Atenolol (Atenolol) 50 Mg Tab, 50 MG PO QAM Atorvastatin Calcium (Atorvastatin Calcium) 40 Mg Tab, 40 MG PO QHS Azithromycin (Azithromycin) 250 Mg Tablet, 250 MG PO ASDIRECTED 2 the first day followed by 1 for days 2-5 Cholecalciferol (Vitamin D3) (Vitamin D3) 2,000 Unit Tablet, 2,000 UNITS PO DAILY Esomeprazole Magnesium (Nexium) 20 Mg Cap, 20 MG PO DAILY Folic Acid/Vit B Complex and C (Gisel-Soraida Tablet) 1 Tab Tab, 1 TAB PO DAILY Glipizide (Glipizide) 5 Mg Tab, 5 MG PO BID Hydralazine HCl (Hydralazine HCl) 50 Mg Tab, 50 MG PO TID Insulin Glargine,Hum.rec.anlog (Lantus Solostar) 100 Unit/1 Ml Insuln.pen, 10 UNIT SC QAM L.acidoph/L.bulg/B.bif/S.therm (Bacid Caplet) 1 Tab Tab, 1 TAB PO DAILY Nifedipine (Procardia Xl) 90 Mg Tab, 90 MG PO DAILY Hammond-3 Fatty Acids/Fish Oil (Hammond 3 1,000 mg Softgel) 1 Cap Cap, 1 CAP PO BID Sevelamer Carbonate (Sevelamer Carbonate) 800 Mg Tablet, 800 MG PO TID Sitagliptin Phosphate (Januvia) 25 Mg Tab, 25 MG PO QHS Scheduled PRN Albuterol Sulfate (Proair Hfa) 108 Mcg/Act Aer, 2 PUFFS INH Q4H PRN for SHORTNESS OF BREATH Allergies Coded Allergies: tramadol (Verified Adverse Reaction, Mild, VOMITING, 09/15/18) A-FIB/CHADSVASC A-FIB History Current/History of A-Fib/PAF?: No Current PO Anticoag Therapy: No ALISIA VILA MD Jul 24, 2019 21:07
[2019-07-24] MEDS ORDERED: ACETAMINOPHEN TAB 650MG DOSE (2X325MG) PO PRN (21:15)
[2019-07-24] MEDS ORDERED: MAALOX 30 ML SUSP *UDC PO PRN (21:15)
[2019-07-24] MEDS ORDERED: MOM 30ML SUSPENSION UDC PO PRN (21:15)
[2019-07-24] MEDS ORDERED: AZIT-10 PO (21:52)
[2019-07-24] MEDS: atenoloL 50 MG TAB PO SCH (22:13)
[2019-07-24] MEDS: **hydrALAZINE** 50 MG TAB PO SCH (22:13)
[2019-07-24 23:45] VITALS: BP 158/78
[2019-07-25] MEDS ORDERED: ALBUTEROL 90 MCG/ACT 8GM HFA INHALER INH PRN (01:30)
[2019-07-25] MEDS ORDERED: PIPERACILLIN/TAZOBACTAM SOD 3.375 GM in D5W MINI-BAG PLUS 50 ML IV SCH (04:00)
[2019-07-25] MEDS ORDERED: GLUCOSE 4 GM CHEW TABLET PO PRN ×2 (05:15→20:15)
[2019-07-25] MEDS ORDERED: GLUCAGON FOR INJ 1 MG VIAL (J1610) SC PRN ×2 (05:15→20:15)
[2019-07-25] MEDS ORDERED: DEXTROSE 50% 50 ML SYRINGE IV PRN ×2 (05:15→20:15)
[2019-07-25] MEDS: HEPARIN SOD (PORCINE) 5000 UNITS/ML VIAL (J1644 PER 1000UNITS) SC SCH ×3 (05:56→20:49)
[2019-07-25 06:00] VITALS: BP 150/78
[2019-07-25] MEDS ORDERED: VANCOMYCIN HCL 500 MG, VIAL MATE ADAPTER 1 EACH in D5W 250 ML IV ONE (06:00)
[2019-07-25 07:02] LABS: HEMATOCRIT 26.6 % (36.0-47.0); HEMOGLOBIN 8.7 g/dl (12.0-15.5); MEAN CORPUSCULAR HEMOGLOBIN 32.8 pg (27.0-33.0); MEAN CORPUSCULAR HGB CONC 32.7 g/dl (32.0-36.5); MEAN CORPUSCULAR VOLUME 100.4 fl (80.0-96.0); PLATELET COUNT, AUTOMATED 233 10^3/uL (150-450); RED BLOOD COUNT 2.65 10^6/uL (4.00-5.40); WHITE BLOOD COUNT 5.8 10^3/uL (4.0-10.0)
[2019-07-25 07:17] LABS: HEMOGLOBIN A1c 7.8 %
[2019-07-25 07:34] LABS: CALCIUM LEVEL 8.5 MG/DL (8.8-10.2); GLOMERULAR FILTRATION RATE 11.7 (>39); PERCENT SATURATION 44.6 % (13.2-45.0); POTASSIUM SERUM 3.6 MEQ/L (3.5-5.1)
[2019-07-25] MEDS: (RENVELA) SEVELAMER **CARBONate** 800 MG TAB PO SCH ×3 (08:00→16:54)
[2019-07-25] MEDS: DOCUSATE SODIUM 100 MG CAP PO SCH ×2 (09:00→20:42)
[2019-07-25] MEDS ORDERED: VANCOMYCIN INTERMITTENT/PULSE DOSING BY CLINICAL PHARMACIST PER DOSING PROTOCOL XX SCH (09:15)
--- NOTE | 2019-07-25 09:18 | REP ---
Clinical: Chest pain. Technique: PA and lateral. Comparison: None. Findings: Mild cardiomegaly cannot be excluded. Lung rizo demonstrate chronic-appearing interstitial changes. No focal consolidation, effusion, or pneumothorax. Skeletal structures demonstrate age-related changes. Impression: No prior examinations for comparison. Chronic interstitial changes are suspected. Differential diagnosis would include viral pneumonia / reactive airway disease. Electronically Signed by Alex Batista MD 07/25/2019 09:09 A
[2019-07-25] MEDS: OMEGA-3 1000MG CAPSULE PO SCH ×2 (10:11→20:49)
[2019-07-25] MEDS: VITAMIN D 1,000 INTERNATIONAL UNITS TABLET PO SCH (10:12)
[2019-07-25] MEDS: LEVEMIR (INSULIN DETEMIR) 1 UNITS/0.01ML SC SCH (10:12)
[2019-07-25] MEDS: PANTOPRAZOLE 20 MG TAB PO SCH (10:13)
[2019-07-25] MEDS: NIFEdipine 30 MG XL TAB PO SCH (10:13)
[2019-07-25] MEDS: **hydrALAZINE** 50 MG TAB PO SCH ×3 (10:14→20:48)
[2019-07-25] MEDS: LACTOBACILLUS ACIDOPHILUS CAP (BACID) PO SCH (10:14)
[2019-07-25] MEDS: atenoloL 50 MG TAB PO SCH ×2 (10:14→20:49)
[2019-07-25] MEDS ORDERED: DARBEPOETIN 100 MCG/0.5 ML *DIALYSIS* SYRINGE (J0882) IV SCH (10:15)
[2019-07-25] MEDS ORDERED: VANCOMYCIN HCL 1,000 MG, VIAL MATE ADAPTER 1 EACH in D5W 250 ML IV ONE (12:00)
[2019-07-25 14:00] VITALS: BP 150/66
--- NOTE | 2019-07-25 15:03 | REP ---
Clinical: Bacteremia. Technique: Axial noncontrast images from the thoracic inlet to the upper abdomen with coronal and sagittal re-formations. Findings: Chronic age-related interstitial changes noted. Mild bibasilar atelectasis/early consolidations along with subtle lower lobe ground-glass opacities suggest a early pneumonia. Trace associated pleural reactions are identified. No pneumothorax. Tracheobronchial tree is patent. No significant adenopathy. Further evaluation of the mediastinum demonstrates atherosclerotic changes to the thoracic aorta and coronary arteries without aortic aneurysm. Mild cardiomegaly. No pericardial effusion. Skeletal structures demonstrate age-related degenerative changes. Impression: Findings suggest early bibasilar atelectasis/pneumonia. Electronically Signed by Alex Batista MD 07/25/2019 02:54 P
--- NOTE | 2019-07-25 19:18 | CR ---
DATE OF CONSULTATION: 07/25/2019 REQUESTING PHYSICIAN: Dr. Taty Sanderson. CONSULTING PHYSICIAN: Dr. Waller. REASON FOR CONSULTATION: Management of end-stage renal disease and hemodialysis. CHIEF COMPLAINT: Patient was sent from nephrology office because of positive blood cultures. HISTORY OF PRESENT ILLNESS: Nadya Marsh is a 74-year-old female with past medical history of end-stage renal disease on hemodialysis every Friday. , Friday. She gets dialysis done at [facility] [place]. She is known to nephrology service from outpatient hemodialysis and from nephrology office. She was complaining of having weakness with a progressive shortness of breath for the last four days. Patient also had fever spikes at home. Initially, the shortness of breath was a attributed to fluid overload. We tried to remove more fluid during dialysis. However, patient started having cramps with that. Later on, when she complained that she was having fevers as well, she was empirically covered with azithromycin. Blood cultures were sent from the dialysis center and I was called by [employer] yesterday because of critical results, that she was growing gram-positive cocci in pairs in two out of two blood cultures that were drawn at dialysis center. I immediately called patient's home number and I talked to her yesterday and I asked her to come to the emergency room. Patient presented to the emergency room overnight. She was admitted under the hospitalist service. Nephrology service was called for further help in the management of this patient. I saw and evaluated the patient today morning at the bedside. Patient reports that her fevers and chills are significantly better. She reports her shortness of breath is also getting better. Her repeat cultures were sent yesterday and she is currently getting intravenous (IV) vancomycin. PAST MEDICAL HISTORY: 1. End-stage renal disease on hemodialysis every Friday, , Friday. 2. Diabetes mellitus type 2, insulin dependent. 3. History of costovertebral angle (CVA). 4. Hypertension with chronic kidney disease. 5. Anemia in end-stage renal disease. PAST SURGICAL HISTORY: Status post arteriovenous (AV) fistula creation. ALLERGIES: Patient is allergic to TRAMADOL. FAMILY HISTORY: No significant family history of end-stage renal disease requiring hemodialysis. SOCIAL HISTORY: Patient lives at home. She denies any smoking, illicit drug abuse or alcohol abuse. REVIEW OF SYSTEMS: CONSTITUTIONAL: Patient reported fevers and chills at home about three days ago. EYES: She denies any blurry vision, double vision. EARS, NOSE AND THROAT (ENT): She denies any dysphagia, odynophagia CARDIOVASCULAR: She denies any chest pain or palpitations. RESPIRATORY: She does report some shortness of breath at home. GASTROINTESTINAL (GI): She denies any nausea, vomiting. GENITOURINARY: She denies any dysuria, hematuria. She does report decreased urine output. MUSCULOSKELETAL: She does report cramps in the extremities during dialysis. CENTRAL NERVOUS SYSTEM (BOARD CERTIFIED MUSIC THERAPIST): She denies any strokes or seizures. PSYCHOLOGICAL: She denies any depression or anxiety. ENDOCRINE: She reports history of diabetes. HEMATOLOGY/ONCOLOGY: She denies any easy bleeding or bruising. All other review of systems is negative. PHYSICAL EXAMINATION: GENERAL: Patient is awake, alert, oriented times three, laying in bed, in no apparent distress. VITAL SIGNS: Temperature is 98.4 degrees Fahrenheit, blood pressure is 150/66, pulse is 73, respiratory rate of 18, saturating 92% on room air. HEAD AND NECK EXAM: Extraocular muscles intact. Pupils equally round and reactive to light. Mucous membranes are moist. Neck is supple. There is no jugular venous distention (JVD).. CARDIOVASCULAR: S1, S2. Regular rate. No edema of the bilateral lower extremities. RESPIRATORY: Mildly decreased breath sounds at the bases with mild respiratory crackles. ABDOMEN: Soft. Positive bowel sounds. Nontender. No organomegaly. MUSCULOSKELETAL: No clubbing or cyanosis. She has a right upper arm AV fistula with positive thrill and bruit. CENTRAL NERVOUS SYSTEM (BOARD CERTIFIED MUSIC THERAPIST): No focal deficit. Power is 5/5 in all extremities. PSYCHOLOGIC: Normal mood and affect. SKIN: No rashes or ulcers. LABORATORY REVIEW: Complete blood count (CBC) showed a WBC of 5.8, hemoglobin 8.7, platelets of 233. Basic metabolic panel (BMP) showed sodium 137, potassium 3.6, chloride 99, bicarbonate 28, BUN 34, creatinine is 4, glucose 238. A1c 7.8. iron is 82, total iron binding capacity (TIBC) 184, transferrin saturation 44.6, ferritin is 801. MICROBIOLOGY: Blood cultures done at [facility] yesterday are negative so far. Blood cultures at [facility] were growing gram positive cocci in pairs. IMAGING: A chest x-ray done yesterday showed interstitial changes. Differential diagnosis included viral pneumonia versus reactive airway disease. A CAT scan without contrast was done today morning which showed early bibasilar pneumonia. CURRENT INPATIENT MEDICATIONS: Patient got he initially started on Zosyn. Later on, she was started on IV vancomycin. She is on Tylenol as needed. She is getting DuoNeb nebulizations. Mylanta as needed, aspirin 81 mg daily, atenolol 100 mg at bedtime, Lipitor 40 mg at bedtime. I have started her on Aranesp 200 mcg IV at bedtime once a week, Colace 100 mg by mouth twice a day, hydralazine 50 mg by mouth three times a day, insulin Levemir 10 units in the morning, Milk of Magnesia as needed, nifedipine XL 90 mg by mouth daily, [place] 3 fish oil twice a day, Protonix 40 mg by mouth daily, Renvela 800 mg three times a day with meals, vitamin D 2000 units by mouth daily. ASSESSMENT: A 74-year-old female with past medical history of diabetes mellitus type 2 insulin dependent, hypertension, end-stage renal disease on hemodialysis every Friday, , Friday, admitted this time with pneumonia and gram-positive cocci bacteremia. PLAN: 1. Gram-positive cocci bacteremia. Initial cultures from dialysis show gram-positive cocci in pairs. Most likely it is Streptococcal pneumoniae, which is showing early infiltrate on the CAT scan. Patient is already on IV vancomycin, which adequately covers for Streptococcal infection. IV Zosyn has been stopped. Further tapering down of the antibiotics will be done once the sensitivity results come back; however, to cover the atypical pneumonia, I would start the patient on azithromycin as well. 2. End-stage renal disease. Patient's regular dialysis days are Friday, , Friday. She was dialyzed yesterday. Next hemodialysis will be done on Friday, as per her regular schedule. 3. Hypertension with hypertensive heart disease in end-stage renal disease. Continue current dose of atenolol, hydralazine and nifedipine. 4. Anemia in end-stage renal disease. Patient has been started on Aranesp with dialysis. No need of blood transfusion at this time. 5. Diabetes mellitus type 2 insulin dependent. Continue current dose of insulin Levemir, insulin sliding scale. 6. Chronic kidney disease, mineral bone disease. Continue current dose of Renvela with meals. 7. Bilateral lower lobe pneumonia. Pneumonia on the CAT scan is most likely etiology for gram-positive cocci bacteremia. I have also ordered an echocardiogram to rule out the possibility of vegetation. Thank you for involving me in the care of this patient. I shall be happy to follow the patient along with you tomorrow morning.
[2019-07-25] MEDS: ASPIRIN 81 MG ENTERIC TAB PO SCH (20:48)
[2019-07-25] MEDS: ATORVASTATIN 20 MG TAB PO SCH (20:48)
[2019-07-25] MEDS: AZITHROMYCIN INJ 500 MG, VIAL MATE ADAPTER 1 EACH in D5W 250 ML IV SCH (20:48)
[2019-07-25] MEDS: HumaLOG INSULIN (NovoLOG) PER UNIT SC SCH (21:00)
[2019-07-25] MEDS ORDERED: atenoloL 50 MG TAB PO SCH (21:00)
[2019-07-25 22:00] VITALS: BP 148/78
--- NOTE | 2019-07-25 22:38 | IPNPDOC ---
Date Seen The patient was seen on 07/25/19. Progress Note SUBJECTIVE: 74-year-old female with past medical history of end-stage renal disease on hemodialysis, hypertension and diabetes mellitus presents from home with outpatient blood cultures growing gram-positive cocci. Patient was having fevers and fatigue, cultures were drawn by broomcorn grader, both sets growing gram- positive cocci. Patient was started on Zosyn upon admission, seen in the morning, asymptomatic and comfortable in chair, reports she is at her baseline level of health, chills and fever have resolved. She has no complaints at this time, denies any shortness of breath, chest pain, nausea, vomiting, abdominal pain or diarrhea. 10 point review of system is negative except for above PHYSICAL EXAMINATION: VITAL SIGNS: Please see below. GENERAL: No distress HEENT: Normocephalic, atraumatic, moist mucous membranes NECK: Supple CARDIOVASCULAR EXAMINATION: S1, S2, systolic murmur appreciated RESPIRATORY EXAMINATION: Clear to auscultation, no wheezing ABDOMINAL EXAMINATION: Soft, nontender, nondistended, positive bowel sounds EXTREMITIES: [Right upper extremity AV fistula NEUROLOGICAL EXAMINATION: Alert and oriented 3, no focal deficits PSYCHIATRIC EXAMINATION: Calm and cooperative LABORATORY DATA, IMAGING STUDIES, MICROBIOLOGY: Please see below. ASSESSMENT AND PLAN: 74-year-old female with past medical history of end-stage renal disease, hypertension and diabetes mellitus, was admitted due to outpatient cultures growing gram-positive cocci. PROBLEMS: 1. Bacteremia: Outpatient cultures grew gram-positive cocci in 2 sets, continue vancomycin and Zithromax, CT with early pneumonia, TTE pending. Repeat cultures pending. 2. End-stage renal disease: Hemodialysis on Friday, and Friday, management as per nephrology. 3. Diabetes mellitus: Continue Levemir 10 units along with sliding scale insulin coverage with meals and at bedtime. 4. Hypertension: Continue atenolol, Procardia and hydralazine DVT prophylaxis: Heparin subcutaneous GI prophylaxis: Protonix VS, I&O, 24H, Fishbone Vital Signs/I&O Vital Signs Date Time Temp Pulse Resp B/P (MAP) Pulse Ox O2 Delivery O2 Flow Rate FiO2 07/25/19 20:49 74 146/60 07/25/19 14:00 98.4 18 92 Room Air I&O- Last 24 Hours up to 6 AM 07/25/19 06:00 Intake Total 50 ml Output Total 200 ml Balance -150 ml Laboratory Data 24H LABS Laboratory Tests 2 07/25/19 06:41: Nucleated Red Blood Cells % (auto) 0.0, Anion Gap 10, Glomerular Filtration Rate 11.7L, Estimated Mean Plasma Glucose 177H, Hemoglobin A1c 7.8, Calcium Level 8.5L, Magnesium Level 2.0, Iron Level 82, Total Iron Binding Capacity 184L, Transferrin % Saturation 44.6, Ferritin 801H 07/25/19 16:24: Bedside Glucose (Misc Panel) 281H 07/25/19 20:43: Bedside Glucose (Misc Panel) 244H CBC/BMP Laboratory Tests 07/25/19 06:41 Microbiology Microbiology 07/25/19 Blood Culture, Received Pending 07/24/19 Blood Culture - Preliminary, Resulted No growth after 24 hours . All specim... KAREEN LOGAN MD Jul 25, 2019 22:38
[2019-07-26 06:00] VITALS: BP 158/92
[2019-07-26 06:02] LABS: HEMATOCRIT 26.4 % (36.0-47.0); HEMOGLOBIN 8.5 g/dl (12.0-15.5); MEAN CORPUSCULAR HEMOGLOBIN 32.4 pg (27.0-33.0); MEAN CORPUSCULAR HGB CONC 32.2 g/dl (32.0-36.5); MEAN CORPUSCULAR VOLUME 100.8 fl (80.0-96.0); PLATELET COUNT, AUTOMATED 227 10^3/uL (150-450); RED BLOOD COUNT 2.62 10^6/uL (4.00-5.40); WHITE BLOOD COUNT 5.7 10^3/uL (4.0-10.0)
[2019-07-26] MEDS: HEPARIN SOD (PORCINE) 5000 UNITS/ML VIAL (J1644 PER 1000UNITS) SC SCH ×3 (06:02→21:00)
[2019-07-26 06:22] LABS: CALCIUM LEVEL 8.7 MG/DL (8.8-10.2); CREATININE FOR GFR 5.21 MG/DL (0.55-1.30); GLOMERULAR FILTRATION RATE 8.6 (>39); POTASSIUM SERUM 3.5 MEQ/L (3.5-5.1)
[2019-07-26] MEDS ORDERED: VANCOMYCIN HCL 1,000 MG, VIAL MATE ADAPTER 1 EACH in D5W 250 ML IV SCH (07:00)
--- NOTE | 2019-07-26 07:03 | PHACANCOPD ---
PHARMACY VANCOMYCIN DOSING Pt Demographics Demographics Patient Age:74 , Weight:84.100 , Gender: female Adjusted Body Weight Date: 07/26/19, Adjusted Body Weight: Kg Events Past 24 Hours Events Past 24 Hours: YES: Dialysis Vancomycin Vancomycin Target Ranges: 15-20 mcg/ml Vancomycin Load Y/N: No Load Dose Date Time Vancomycin Load Dose: Date: Time: Vancomycin Dose Date: 07/26/19. Current Vancomycin Dose: [VANCO 1 GM HD] Intermittent Dosing?: No Labs Micro Microbiology 07/25/19 Blood Culture - Preliminary, Resulted No growth after 24 hours . All specim... 07/24/19 Blood Culture - Preliminary, Resulted No growth after 24 hours . All specim... Creatinine Clearance Date:07/26/19. Creatinine Clearance: [~8]. Assessment and Plan Maintaining Current Dose?: Yes Reason for dose change: No Dose Change Pharmacist Note Pharmacist Note Date: 07/26/19. Pharmacist note:74 YOF to begin dialysis T,TH,Sa.SCR this am:5.21,CRCL~8,Received 1 gram Vancomycin 07/25@12noon.Random drawn this am=15.5. Will administer Vancomycin 500mg IV X1@12noon today and begin HD regimen w/ Vancomycin 1 gram after HD on treatment days,Random is ordered for tomorrow w/am labs ILYA [facility] Jul 26, 2019 07:03
[2019-07-26] MEDS: (RENVELA) SEVELAMER **CARBONate** 800 MG TAB PO SCH ×3 (08:00→17:48)
--- NOTE | 2019-07-26 10:04 | IPN ---
DATE: 07/26/2019 Nadya is seen while rounding for the hospitalist. She was admitted after having positive blood cultures with gram positive cocci, reportedly Strep pneumo per nephrology note (Cultures were drawn at [facility] and not available through [facility]). She is currently on vancomycin and azithromycin. CT of the chest suggested possible infiltrates. Echocardiogram is still pending. Technically, she feels well without cough, shortness of breath, fever or chills. PHYSICAL EXAMINATION: 98.2, 158/92, afebrile. General Appearance: Alert, conversant, in no distress. Lungs: Clear. Heart: Regular rhythm. Abdomen: Soft. Nontender. No peripheral edema. LABS: White count 5.7, hemoglobin 8.5, platelets 277. Sodium 138, potassium 3.5. Hemoglobin A1c 7.8%. IMPRESSION: 1. Gram positive bacteremia, reportedly Strep pneumo. Will await for nephrology to round to confirm this as they have access to those culture reports. Continue her current antibiotic regimen. Transthoracic echo pending. For Strep pneumo, I do not think she will need transesophageal echocardiogram. Current blood cultures are pending. 2. Diabetes. Adequate control for her age with hemoglobin A1c of under 8. 3. Hypertension. Well controlled on current regimen. 4. End stage renal disease. Dialysis Friday, , Friday per nephrology.
[2019-07-26] MEDS: OMEGA-3 1000MG CAPSULE PO SCH ×2 (10:12→21:00)
[2019-07-26] MEDS: VITAMIN D 1,000 INTERNATIONAL UNITS TABLET PO SCH (10:12)
[2019-07-26] MEDS: atenoloL 50 MG TAB PO SCH ×2 (10:12→21:00)
[2019-07-26] MEDS: DOCUSATE SODIUM 100 MG CAP PO SCH ×2 (10:12→20:37)
[2019-07-26] MEDS: **hydrALAZINE** 50 MG TAB PO SCH ×3 (10:12→20:59)
[2019-07-26] MEDS: NIFEdipine 30 MG XL TAB PO SCH (10:13)
[2019-07-26] MEDS: PANTOPRAZOLE 20 MG TAB PO SCH (10:13)
[2019-07-26] MEDS: LACTOBACILLUS ACIDOPHILUS CAP (BACID) PO SCH (10:13)
[2019-07-26] MEDS: HumaLOG INSULIN (NovoLOG) PER UNIT SC SCH ×4 (10:14→21:00)
[2019-07-26] MEDS: LEVEMIR (INSULIN DETEMIR) 1 UNITS/0.01ML SC SCH (10:14)
[2019-07-26] MEDS ORDERED: VANCOMYCIN HCL 500 MG in D5W MINI-BAG PLUS 100 ML IV ONE (12:00)
[2019-07-26 12:15] LABS: FOLATE 23.7 NG/ML (>5.4)
[2019-07-26 14:00] VITALS: BP 138/68
[2019-07-26] MEDS ORDERED: **VANCO AFTER HD** MISC XX SCH (16:00)
--- NOTE | 2019-07-26 18:31 | IPNPDOC ---
Text Note Date of Service The patient was seen on 07/26/19. NOTE This note pertains to the nephrology service with Ben Waller MD super vising my work. Please see E attestation below. SUBJECTIVE: Patient was seen at bedside this morning. She has no additional complaints at this time. OBJECTIVE: VITALS: Please see below. GENERAL: Pt appears stated age and is lying in bed in no acute distress. HEENT: Normocephalic, atraumatic. CARDIOVASCULAR: Regular rate and rhythm. No murmurs, rubs, or gallops. PULMONARY: Clear to auscultation b/l. No wheezes, rales, or rhonchi. PSYCHIATRIC: Pt is calm and cooperative. She answers questions appropriately. ASSESSMENT/PLAN: 1. Gram-positive cocci bacteremia - Initial cultures from dialysis show gram-positive cocci in pairs. Streptococcal pneumoniae is most likely. - Blood cultures drawn during this admission (after initiation of antibiotics) have showed no growth after 24 hours. - Continue IV vancomycin (day 3) and azithromycin (day 4). From a nephrology standpoint, pt will likely be stable for discharge after dialysis tomorrow. 2. End-stage renal disease - Pt's regular dialysis days are Friday, , and Friday. She was last dialyzed on Friday. - She is scheduled for inpatient hemodialysis tomorrow. 3. Hypertension with hypertensive heart disease in end-stage renal disease - Continue current dose of atenolol, hydralazine, and nifedipine. 4. Anemia in end-stage renal disease - Continue Aranesp with dialysis. No need for blood transfusion at this time. 5. Insulin-dependent diabetes mellitus type 2 - Continue current insulin detemir regimen and insulin sliding scale. 6. Chronic kidney disease, mineral bone disease - Continue current dose of Renvela with meals. 7. Bilateral lower lobe pneumonia - Pneumonia on the CAT scan is most likely etiology for gram-positive cocci bacteremia. - Echocardiogram was ordered and performed; report is pending. VS,Fishbone, I+O VS, Fishbone, I+O Laboratory Tests 07/26/19 05:35 Vital Signs Date Time Temp Pulse Resp B/P (MAP) Pulse Ox O2 Delivery O2 Flow Rate FiO2 07/26/19 10:12 152/84 07/26/19 06:00 98.2 62 18 90 Room Air I&O- Last 24 Hours up to 6 AM 07/26/19 06:00 Intake Total 120 ml Output Total 450 ml Balance -330 ml GME ATTESTATION GME ATTESTATION My faculty preceptor for this patient encounter was physically present during the encounter and was fully available. All aspects of the patient interview, examination, medical decision making process, and medical care plan development were reviewed and approved by the faculty preceptor. The faculty preceptor is aware and concurs with the plan as stated in the body of this note and will attest to such by his/her cosignature. ATTENDING NOTE Pt was seen and examined with the student today AM A/P ESRD Streptoccal /bacteremia Bilateral pneumonia HTN Cont gavino Camacho. DC after HD tomorrow. Finish 2 week of Abx after negative culture. Follow Echo. THANG VERMA OMS-III Jul 26, 2019 13:11 BEN WALLER MD Jul 26, 2019 22:07
[2019-07-26 20:59] VITALS: BP 158/64
[2019-07-26] MEDS: ASPIRIN 81 MG ENTERIC TAB PO SCH (20:59)
[2019-07-26] MEDS: AZITHROMYCIN INJ 500 MG, VIAL MATE ADAPTER 1 EACH in D5W 250 ML IV SCH (20:59)
[2019-07-26] MEDS: ATORVASTATIN 20 MG TAB PO SCH (21:00)
[2019-07-26 22:00] VITALS: BP 158/64
[2019-07-27 06:00] VITALS: BP 130/62
[2019-07-27] MEDS: DOCUSATE SODIUM 100 MG CAP PO SCH (06:50)
[2019-07-27] MEDS: HEPARIN SOD (PORCINE) 5000 UNITS/ML VIAL (J1644 PER 1000UNITS) SC SCH (06:50)
[2019-07-27] MEDS: LACTOBACILLUS ACIDOPHILUS CAP (BACID) PO SCH (06:50)
[2019-07-27 06:51] LABS: HEMATOCRIT 27.5 % (36.0-47.0); HEMOGLOBIN 8.9 g/dl (12.0-15.5); MEAN CORPUSCULAR HEMOGLOBIN 32.8 pg (27.0-33.0); MEAN CORPUSCULAR HGB CONC 32.4 g/dl (32.0-36.5); MEAN CORPUSCULAR VOLUME 101.5 fl (80.0-96.0); PLATELET COUNT, AUTOMATED 266 10^3/uL (150-450); RED BLOOD COUNT 2.71 10^6/uL (4.00-5.40); WHITE BLOOD COUNT 6.3 10^3/uL (4.0-10.0)
[2019-07-27] MEDS: OMEGA-3 1000MG CAPSULE PO SCH (06:51)
[2019-07-27] MEDS: VITAMIN D 1,000 INTERNATIONAL UNITS TABLET PO SCH (06:51)
[2019-07-27] MEDS: PANTOPRAZOLE 20 MG TAB PO SCH (06:51)
[2019-07-27] MEDS: (RENVELA) SEVELAMER **CARBONate** 800 MG TAB PO SCH ×2 (07:08→11:45)
[2019-07-27 07:16] LABS: ALBUMIN 3.2 GM/DL (3.2-5.2); CALCIUM LEVEL 8.9 MG/DL (8.8-10.2); CREATININE FOR GFR 6.2 MG/DL (0.55-1.30); PHOSPHORUS LEVEL 4.6 MG/DL (2.5-4.9); POTASSIUM SERUM 4.2 MEQ/L (3.5-5.1); VANCOMYCIN RANDOM 18.4 UG/ML
[2019-07-27] MEDS: NIFEdipine 30 MG XL TAB PO SCH (08:08)
[2019-07-27] MEDS: LEVEMIR (INSULIN DETEMIR) 1 UNITS/0.01ML SC SCH (08:09)
[2019-07-27] MEDS: HumaLOG INSULIN (NovoLOG) PER UNIT SC SCH ×2 (08:10→11:44)
[2019-07-27] MEDS: **hydrALAZINE** 50 MG TAB PO SCH (09:00)
[2019-07-27] MEDS ORDERED: HEPARIN 1,000 UNITS/ML 10ML VIAL (FOR RADIOLOGY& DIALYSIS ONLY)(J1644-10) IV ONE (12:00)
--- NOTE | 2019-07-27 12:12 | ECHO ---
DATE OF PROCEDURE: 07/26/2019 DATE OF : 1945 AGE: 74 HEIGHT: 64 inches WEIGHT: 185 pounds BODY SURFACE AREA: 1.9 meters squared INPATIENT: 4 [place] - Room 4220 REFERRING PHYSICIAN: Dr. Waller INDICATION: Dyspnea. MEASUREMENTS 2-D Measurements: RV: 4.2 cm LV: 4.2 cm Septum: 1.3 cm Posterior wall: 1.3 cm Aortic root: 3.1 cm LA: 4.7 cm LVEF: 75% Doppler Measurements: AV: 1.64 m/s LVOT: 0.8 m/s LVOT diameter: 2.1 cm MV - E 157 A 109 EA A ratio 1.4 Early mitral deceleration time: 116 ms E prime medial: 5.7 A prime medial: 8 E prime lateral: 6 Average E/E prime ratio: 26.8 PV: 1.25 m/s Pulmonary artery acceleration time: 70 ms RVSP: 77 mmHg IVC: 2.4 cm COMMENTS: Normal sinus rhythm without intraventricular conduction disturbance. M-mode and two-dimensional echocardiography was performed with pulsed, continuous wave, color flow and tissue Doppler studies. Mild concentric left ventricle hypertrophy with hyperkinetic wall motion. At least moderately dilated left atrium. Somewhat difficult to define left ventricular diastolic function in the presence of this degree of mitral insufficiency, but undoubtedly her mean left atrial pressure is significantly elevated. Interatrial septum was still bulging towards the right atrium and estimated right atrial pressure was 20 mmHg. Mildly dilated right ventricle with normal wall motion and severe pulmonary hypertension. At least mild to moderately dilated right atrium and inferior vena cava with reduced respiratory collapse in keeping with an elevated central venous pressure/heart failure. Mild aortic valvular sclerosis without stenosis and only trace insufficiency. Normal aortic dimensions. Moderate mitral annular calcification with some thickening of the mitral leaflets with adequate leaflet excursion, but moderately severe mitral insufficiency. Normal appearing tricuspid valve with at least mild insufficiency. No apparent intracardiac mass or pericardial effusion.
[2019-07-27] MEDS ORDERED: AZIT500T5 PO (13:31)
--- NOTE | 2019-07-27 13:59 | DS.PDOC ---
Discharge Summary General Date of Admission Jul 24, 2019 at 20:58 Date of Discharge 07/27/2019 Attending Physician: REBECCA LOZANO MD Specialist/Consultants Involve: BEN GOSS MD Discharge Summary PROCEDURES PERFORMED DURING STAY: None. ADMITTING/DISCHARGE DIAGNOSES: 1. Gram-positive bacteremia with Streptococcus viridans 2. Diabetes 3. Hypertension 4. End-stage renal disease 5. Anemia and end-stage renal disease 6. Bilateral lower lobe pneumonia COMPLICATIONS/CHIEF COMPLAINT: Patient was sent by men's golf coach secondary to gram-positive bacteremia HISTORY OF PRESENT ILLNESS/HOSPITAL COURSE: Patient is a 74-year-old female who had blood cultures drawn at her dialysis center and [facility]. Patient was sent by nephrology to the hospital for further treatment. Patient says that she did feel a little bit weak and had a fever and was started on azithromycin. Patient had a shortness of breath which was initially attributed to fluid overload however, since the patient was spiking fevers at home this was thought to may be caused by pneumonia. Patient had blood cultures drawn which showed gram-positive cocci in pairs and 2 of the 2 blood cultures that were drawn. The patient's men's golf coach, Dr. Goss call the patient and advised her to com e to the hospital to be admitted. Patient says that her fever and chills are significantly better and she is feeling quite well on the day of discharge. An echocardiogram was performed and did not show any vegetation however, did show moderately severe mitral insufficiency with moderate mitral annular calcification. Throughout her hospitalization, patient did not grow any positive blood cultures . Patient was feeling well on the day of discharge and was deemed ready for discharge with continued outpatient antibiotics with dialysis. Patient will be following up with Cardiology as an outpatient for evaluation within 2 weeks. Will continue with 2 weeks of antibiotic therapy with Vancomycin during HD. DISCHARGE MEDICATIONS: Please see below. ALLERGIES: Please see below. PHYSICAL EXAMINATION ON DISCHARGE: Vitals: (see below) General: Alert and oriented female patient who is sitting in the chair when I walked into the room. Patient was in no acute distress. HEENT: Normocephalic, atraumatic, moist mucous membranes. Neck: No lymphadenopathy or thyromegaly Cardiac: Regular rate and rhythm, grade 2/6 systolic murmur heard over the right second intercostal space. Pulm: Clear to auscultation bilaterally. No wheezes, rhonchi, rales Abd: Nondistended, nontender to palpation, normal bowel sounds Ext: No edema bilateral lower extremities LABORATORY DATA: Please see below. IMAGING: A chest x-ray performed on 07/24/2019 was reported to show no prior examinations for comparison. Chronic interstitial changes are suspected. Differential diagnosis would include viral pneumonia/reactive airway disease. A CT of the chest without contrast performed on 07/25/2019 was reported to show findings suggestive early bibasilar atelectasis/pneumonia An echocardiogram performed on 07/26/[address] Augustine Albrecht as: Normal sinus rhythm without intraventricular conduction disturbance. M-mode and two-dimensional echocardiography was performed with pulsed, continuous wave, color flow and tissue Doppler studies. Mild concentric left ventricle hypertrophy with hyperkinetic wall motion. At least moderately dilated left atrium. Somewhat difficult to define left ventricular diastolic function in the presence of this degree of mitral insufficiency, but undoubtedly her mean left atrial pressure is significantly elevated. Interatrial septum was still bulging towards the right atrium and estimated right atrial pressure was 20 mmHg. Mildly dilated right ventricle with normal wall motion and severe pulmonary hypertension. At least mild to moderately dilated right atrium and inferior vena cava with reduced respiratory collapse in keeping with an elevated central venous pressure/heart failure. Mild aortic valvular sclerosis without stenosis and only trace insufficiency. Normal aortic dimensions. Moderate mitral annular calcification with some thickening of the mitral leaflets with adequate leaflet excursion, but moderately severe mitral insufficiency. Normal appearing tricuspid valve with at least mild insufficiency. No apparent intracardiac mass or pericardial effusion. PROGNOSIS: Fair ACTIVITY: As tolerated. DIET: Renal diet with consistent carbohydrate DISCHARGE PLAN/DISPOSITION: Discharge home DISCHARGE INSTRUCTIONS: 1. Follow-up with nephrology within the next 7-10 days. 2. Continue dialysis on a Friday, , and Friday schedule with vancomycin to be given after dialysis treatment. This has been arranged by Dr. Goss. 3. Follow-up with cardiology within the next 2 weeks to follow-up echocardiogram findings of moderately severe mitral insufficiency with moderate mitral annular calcifications 4. Follow-up with primary care physician in 7-10 days. DISCHARGE CONDITION: Stable. TIME SPENT ON DISCHARGE: 30 minutes. Vital Signs/I&Os Vital Signs Date Time Temp Pulse Resp B/P (MAP) Pulse Ox O2 Delivery O2 Flow Rate FiO2 07/27/19 06:00 98.8 63 17 130/62 (84) 91 Room Air I&O- Last 24 Hours up to 6 AM 07/27/19 06:00 Intake Total 1395 ml Output Total 450 ml Balance 945 ml Laboratory Data Labs 24H Laboratory Tests 2 07/26/19 16:43: Bedside Glucose (Misc Panel) 181H 07/26/19 20:49: Bedside Glucose (Misc Panel) 202H 07/27/19 06:36: Nucleated Red Blood Cells % (auto) 0.0, Anion Gap 11, Glomerular Filtration Rate 7.0L, Calcium Level 8.9, Phosphorus Level 4.6, Albumin 3.2, Random Vancomycin Level 18.4 CBC/BMP Laboratory Tests 07/27/19 06:36 FSBS Laboratory Tests Test 07/26/19 16:43 07/26/19 20:49 Range/Units Bedside Glucose (Misc Panel) 181 202 83-110 MG/DL Microbiology Microbiology 07/25/19 Blood Culture - Preliminary, Resulted No Growth after 48 hours. All Specime... 07/24/19 Blood Culture - Preliminary, Resulted No Growth after 48 hours. All Specime... Discharge Medications Scheduled Aspirin (Aspirin EC) 81 Mg Tabec, 81 MG PO QHS, (Reported) Atenolol (Atenolol) 100 Mg Tab, 100 MG PO QPM, (Reported) Atenolol (Atenolol) 50 Mg Tab, 50 MG PO QAM, (Reported) Atorvastatin Calcium (Atorvastatin Calcium) 40 Mg Tab, 40 MG PO QHS, (Reported) Azithromycin (Azithromycin) 500 Mg Tablet, 1 TAB PO DAILY Cholecalciferol (Vitamin D3) (Vitamin D3) 2,000 Unit Tablet, 2,000 UNITS PO DAILY, (Reported) Esomeprazole Magnesium (Nexium) 20 Mg Cap, 20 MG PO DAILY, (Reported) Folic Acid/Vit B Complex and C (Gisel-Soraida Tablet) 1 Tab Tab, 1 TAB PO DAILY, (Reported) Glipizide (Glipizide) 5 Mg Tab, 5 MG PO BID, (Reported) Hydralazine HCl (Hydralazine HCl) 50 Mg Tab, 50 MG PO TID, (Reported) Insulin Glargine,Hum.rec.anlog (Lantus Solostar) 100 Unit/1 Ml Insuln.pen, 10 UNIT SC QAM, (Reported) L.acidoph/L.bulg/B.bif/S.therm (Bacid Caplet) 1 Tab Tab, 1 TAB PO DAILY, (Reported) Nifedipine (Procardia Xl) 90 Mg Tab, 90 MG PO DAILY, (Reported) [place]-3 Fatty Acids/Fish Oil ([place] 3 1,000 mg Softgel) 1 Cap Cap, 1 CAP PO BID, (Reported) Sevelamer Carbonate (Sevelamer Carbonate) 800 Mg Tablet, 800 MG PO TID, (Reported) Sitagliptin Phosphate (Januvia) 25 Mg Tab, 25 MG PO QHS, (Reported) Scheduled PRN Albuterol Sulfate (Proair Hfa) 108 Mcg/Act Aer, 2 PUFFS INH Q4H PRN for SHORTNESS OF BREATH, (Reported) Allergies Coded Allergies: tramadol (Verified Adverse Reaction, Mild, VOMITING, 09/15/18) GME ATTESTATION GME ATTESTATION My faculty preceptor for this patient encounter was physically present during the encounter and was fully available. All aspects of the patient interview, examination, medical decision making process, and medical care plan development were reviewed and approved by the faculty preceptor. The faculty preceptor is aware and concurs with the plan as stated in the body of this note and will at test to such by his/her cosignature. ATTENDING NOTE I, Rebecca Lozano, have independently examined this patient and performed my own physical exam, as well as reviewed the documentation and edited where necessary. I have discussed in detail with the resident / student the findings and plan of treatment as documented by the resident / student and edited their note. I agree with their findings and treatment plan and have edited their documentation. I will continue to follow the patient during this hospital stay. Time spend on discharge 35 minutes JAYA RAMIREZ DO Jul 27, 2019 13:59 REBECCA LOZANO MD Jul 27, 2019 14:52
[2019-07-27 14:35] VITALS: BP 132/64
--- NOTE | 2019-07-27 16:02 | IPNPDOC ---
Text Note Date of Service The patient was seen on 07/27/19. NOTE This note pertains to the nephrology service with Carolyn Waller MD super vising my work. Please see [facility] attestation below. SUBJECTIVE: Patient was seen at bedside this morning. Pt was asked about her dental history. She denies any recent dental work. She states that she does floss occasionally, and has a dentist which she has not seen for some time. She has no additional complaints at this time. OBJECTIVE: VITALS: Please see below. GENERAL: Pt appears stated age and is lying in bed in no acute distress. HEENT: Normocephalic, atraumatic. DENTAL: No apparent abscesses, swelling, or exudate. Pt has several damaged teeth. CARDIOVASCULAR: Regular rate and rhythm. No murmurs, rubs, or gallops. PULMONARY: Clear to auscultation b/l. No wheezes, rales, or rhonchi. PSYCHIATRIC: Pt is calm and cooperative. She answers questions appropriately. ASSESSMENT/PLAN: 1. Gram-positive cocci bacteremia - [facility] dialysis clinic cultures came back positive for Streptococcus viridans. The result printout was added to pt's chart. This organism is vancomycin- sensitive, and Dr. Waller has contacted [facility] dialysis clinic to arrange for pt to complete the IV vancomycin course as an outpatient through 08/08/2019. Pt's bacteremia is possible via infection through her damaged teeth. She was encouraged to see a dentist soon after discharge. Echocardiogram was done yesterday to assess for possible vegetations. - Blood cultures drawn during this admission (after initiation of antibiotics) have showed no growth after 48 hours. - Continue IV vancomycin (day 4). Discontinue azithromycin (day 5) today. - Pt will be dialyzed today. From a nephrology standpoint, pt will be stable for discharge if yesterday's echocardiogram does not reveal further unstable pathology. Report is pending. 2. End-stage renal disease - Pt's regular dialysis days are Friday, , and Friday. She was last dialyzed on Friday. - She will undergo inpatient dialysis today and then continue outpatient as scheduled. 3. Hypertension with hypertensive heart disease in end-stage renal disease - Continue current dose of atenolol, hydralazine, and nifedipine. 4. Anemia in end-stage renal disease - Continue Aranesp with dialysis. No need for blood transfusion at this time. 5. Insulin-dependent diabetes mellitus type 2 - Continue current insulin detemir regimen and insulin sliding scale. 6. Chronic kidney disease, mineral bone disease - Continue current dose of Renvela with meals. 7. Bilateral lower lobe pneumonia - Pneumonia found on CT scan is most likely etiology for gram-positive cocci bacteremia. - Echocardiogram was ordered and performed; report is still pending. VS,Fishbone, I+O VS, Fishbone, I+O Laboratory Tests 07/27/19 06:36 Vital Signs Date Time Temp Pulse Resp B/P (MAP) Pulse Ox O2 Delivery O2 Flow Rate FiO2 07/27/19 06:00 98.8 63 17 130/62 (84) 91 Room Air I&O- Last 24 Hours up to 6 AM 07/27/19 06:00 Intake Total 1395 ml Output Total 450 ml Balance 945 ml GME ATTESTATION GME ATTESTATION My faculty preceptor for this patient encounter was physically present during the encounter and was fully available. All aspects of the patient interview, examination, medical decision making process, and medical care plan development were reviewed and approved by the faculty preceptor. The faculty preceptor is aware and concurs with the plan as stated in the body of this note and will attest to such by his/her cosignature. THANG VERMA S-III Jul 27, 2019 11:42
== END 2019-07-27 16:42 | disposition home or self-care (01) | DRG 193 ==
LOC: M ED 18:25 → M ED INP 20:58 → M MSPAV 23:41
PROVIDERS: ADMIT Internal Medicine; ATTEND Internal Medicine
PROC: 5A1D70Z Performance of Urinary Filtration, Intermittent, Less than 6 Hours Per Day (ICD-10-PCS; principal; 2019-07-27)
DX: J15.4 Pneumonia due to other streptococci (principal); N18.6 End stage renal disease; R78.81 Bacteremia; I13.2 Hypertensive heart and chronic kidney disease with heart failure and with stage 5 chronic kidney disease, or end stage renal disease; E11.22 Type 2 diabetes mellitus with diabetic chronic kidney disease; Z86.73 Personal history of transient ischemic attack (TIA), and cerebral infarction without residual deficits; E66.9 Obesity, unspecified; Z68.32 Body mass index [BMI] 32.0-32.9, adult; Z79.82 Long term (current) use of aspirin; Z79.4 Long term (current) use of insulin; Z79.899 Other long term (current) drug therapy; Z88.8 Allergy status to other drugs, medicaments and biological substances; E11.65 Type 2 diabetes mellitus with hyperglycemia; D63.1 Anemia in chronic kidney disease; I50.9 Heart failure, unspecified

== ENCOUNTER 2020-03-21 19:20 | Inpatient (IN) | payer MEDICARE ==
[~2020-03-21] VITALS: Ht 162.6 cm; Wt 82.9 kg
[~2020-03-21 19:20] MED LIST changes: -ASPI81TA85 PO; +ASPI81TA86 PO; +AZIT-10 PO; +AZIT500T5 PO; +D 202000 PO; +SEVE800T3 PO
[2020-03-21 20:30] VITALS: BP 172/70
[2020-03-21] MEDS: HumaLOG INSULIN (NovoLOG) PER UNIT SC SCH (21:00)
[2020-03-21 22:04] LABS: BASO % 0.2 % (0.0-1.0); EOS % 0.2 % (0.0-3.0); HEMATOCRIT 27.5 % (36.0-47.0); HEMOGLOBIN 9.2 g/dl (12.0-15.5); LYMPH % 21.8 % (24.0-44.0); MEAN CORPUSCULAR HEMOGLOBIN 33.6 pg (27.0-33.0); MEAN CORPUSCULAR HGB CONC 33.5 g/dl (32.0-36.5); MEAN CORPUSCULAR VOLUME 100.4 fl (80.0-96.0); MONO # 0.5 10^3/uL (0.0-0.8); MONO % 10.7 % (0.0-5.0); NEUTROPHILS # 3.1 10^3/uL (1.5-8.5); NEUTROPHILS % 66.9 % (36.0-66.0); PLATELET COUNT, AUTOMATED 178 10^3/uL (150-450); RED BLOOD COUNT 2.74 10^6/uL (4.00-5.40); WHITE BLOOD COUNT 4.7 10^3/uL (4.0-10.0)
[2020-03-21 22:15] LABS: INR 1.05; PROTHROMBIN TIME 13.9 SECONDS (12.5-14.3)
[2020-03-21 22:16] LABS: PARTIAL THROMBOPLASTIN TIME 28.4 SECONDS (24.2-38.5)
[2020-03-21 22:19] LABS: D-DIMER QUANT 1616.12 ng/ml (<500)
[2020-03-21 22:24] LABS: ALBUMIN 2.7 GM/DL (3.2-5.2); ALT/SGPT 25 U/L (12-78); BILIRUBIN,DIRECT 0.1 MG/DL (0.0-0.2); BILIRUBIN,TOTAL 0.3 MG/DL (0.2-1.0); BLOOD UREA NITROGEN 44 MG/DL (7-18); CALCIUM LEVEL 8.1 MG/DL (8.8-10.2); CARBON DIOXIDE LEVEL 29 MEQ/L (21-32); CHLORIDE LEVEL 98 MEQ/L (98-107); CK-MB VALUE MASS 1.5 NG/ML (<3.6); CPK CREATINE PHOSPHOKINASE 76 U/L (26-192); CREATININE FOR GFR 6.03 MG/DL (0.55-1.30); FERRITIN 1622 NG/ML (8-252); GLOMERULAR FILTRATION RATE 7.3 (>39); GLUCOSE, FASTING 124 MG/DL (70-100); LDH LACTATE DEHYDROGENASE 218 U/L (84-246); MB/CK RELATIVE INDEX 1.97 (< OR =4); NT-PRO BNP 9410 PG/ML (<125); POTASSIUM SERUM 3.9 MEQ/L (3.5-5.1); SODIUM LEVEL 135 MEQ/L (136-145); TOTAL PROTEIN 6.6 GM/DL (6.4-8.2); TRIGLYCERIDES LEVEL 218 MG/DL (<150); TROPONIN I < 0.02 NG/ML (< 0.10)
[2020-03-21] MEDS ORDERED: HYDR-3910 PO ×3 (22:47)
[2020-03-21] MEDS ORDERED: D31000TA2 PO (22:47)
[2020-03-21] MEDS ORDERED: LEVO250T12 PO (22:47)
[2020-03-21] MEDS ORDERED: NS 1,000 ML IV SCH (23:30)
[2020-03-21] MEDS: AZITHROMYCIN INJ 500 MG, VIAL MATE ADAPTER 1 EACH in D5W 250 ML IV SCH (23:41)
[2020-03-21] MEDS ORDERED: ALBUTEROL 90 MCG/ACT 8GM HFA INHALER INH PRN (23:45)
--- NOTE | 2020-03-21 23:50 | HPEPDOC ---
[facility] Medical History & Physical Date of Admission Mar 21, 2020 Date of Service: Mar 21, 2020 History and Physical CHIEF COMPLAINT: Need for isolation hemodialysis due to Covid HISTORY OF PRESENT ILLNESS: Patient is a 75-year-old female with a past medical history of CVA with left-sided residual weakness, insulin-dependent diabetes, HLD, HTN, ESRD on HD MWF. Patient was transferred to [facility] from [facility] to get hemodialysis in isolation as she tested positive for covid. Chest x-ray at [facility] was reviewed and showed a suspected pneumonia. Patient denies any shortness of breath at this time and is sitting comfortably on room air saturating at 97% when I saw her. Patient had hemanalysis yesterday and 2.4 L were removed. Nephrology was consulted and patient to get dialysis tomorrow. Patient has a right-sided fistula. Patient endorses some chills cough and clear sputum but no fevers. He has a history of chronic lower back pain which sometimes bothers her. She was treated about 5 days ago empirically for UTI. Patient notes that 3 of her family members recently visiting are all positive for covid She endorses some mild shortness of breath with exertion but feels it has now resolved. PAST MEDICAL HISTORY: CVA with left-sided residual weakness, insulin-dependent diabetes, HLD, HTN, ESRD on HD MWF SOCIAL HISTORY: Patient denies drinking alcohol or smoking tobacco or using illicit drugs. FAMILY HISTORY: Noncontributory ALLERGIES: Please see below. REVIEW OF SYSTEMS: Constitutional: No sweating or weight loss Eyes: No eye pain or acute blurred vision HENT: No complaints of headache or sore throat Cadiovascular: No Chest pain or palpitations Pulm: No SOB currently. has a mild cough with clear sputum Gastrointestinal: No N/V, no abdominal pain. Genitourinary: No dysuria or hematuria Musculoskeletal: No back pain or joint pain Skin: No rash or jaundice Neurological: No weakness. HOME MEDICATIONS: Please see below. PHYSICAL EXAMINATION: Constitutional: Awake and alert, in no apparent distress ENT: Sclera are clear. Mucosa is moist. Respiratory: Lungs CTA bilaterally. No respiratory distress. No use of accessory muscles. Cardiovascular: RRR S1 and S2 are normal, no murmur Gastrointestinal: Abdomen is soft, non distended, non tender, BS present. Musculoskeletal: No edema. Mental Status: A&O x3, normal affect Skin: Warm, dry LABORATORY DATA: See below. IMAGING: Chest x-ray from [facility] reviewed showing pneumonia. MICROBIOLOGY: Please see below. ASSESSMENT/PLAN Patient is a 75-year-old female with a past medical history of CVA with left- sided residual weakness, insulin-dependent diabetes, HLD, HTN, ESRD on HD MWF. Patient was transferred to [facility] from [facility] to get hemodialysis in isolation as she tested positive for covid. Chest x-ray at [facility] was reviewed and showed a suspected pneumonia. Patient admitted to receive hemodialysis in isolation room and for Covid pneumonia. # COVID PNA: IV ceftx, azithro. ID, pulm consulted. gentle IVF hydration. Decadron. Albutrol inhaler PRN. ferritin, D-dimer 1600, LDH, CRP, procalcitonin. repeat CXR. BCx.UCx.Follow up on EKG for qtc # ESRD on HD: Isolation. dialysis per nephro. # DM: Hold home meds. ISS, accuchecks, hypoglycemic protocol. # HTN: continue home meds. Monitor and titrate. # Hx CVA: asa, statin # Anemia: likely ACD. goal ok for ESRD patient. # DVT proph: lovenox 40 daily therapeutic for covid with ESRD. Check with nephro in AM for preferred dosing. Check with Pulm in am if they wish to continue with decadron. Vital Signs Vital Signs Date Time Temp Pulse Resp B/P (MAP) Pulse Ox O2 Delivery O2 Flow Rate FiO2 03/21/20 20:30 98.0 74 16 172/70 (104) 97 Room Air Laboratory Data Labs 24H Laboratory Tests 2 03/21/20 21:48: Bedside Glucose (Misc Panel) 105 03/21/20 21:49: Immature Granulocyte % (Auto) 0.2, Neutrophils (%) (Auto) 66.9H, Lymphocytes (%) (Auto) 21.8L, Monocytes (%) (Auto) 10.7H, Eosinophils (%) (Auto) 0.2, Basophils (%) (Auto) 0.2, Neutrophils # (Auto) 3.1, Lymphocytes # (Auto) 1.0L, Monocytes # (Auto) 0.5, Eosinophils # (Auto) 0.0, Basophils # (Auto) 0.0, Nucleated Red Blood Cells % (auto) 0.0, Prothrombin Time 13.9, Prothromb Time International Ratio 1.05, Activated Partial Thromboplast Time 28.4, Fibrinogen 417, D-Dimer, Quantitative 1616.12H, Anion Gap 8, Glomerular Filtration Rate 7.3L, Lactic Acid Level 1.0, Calcium Level 8.1L, Ferritin 1622H, Total Bilirubin 0.3, Direct Bilirubin 0.1, Aspartate Amino Transf (AST/SGOT) 35, Alanine Aminotransferase (A LT/SGPT) 25, Alkaline Phosphatase 126H, Lactate Dehydrogenase 218, Total Creatine Kinase 76, Creatine Kinase MB 1.5, Creatine Kinase MB Relative Index 1.97, Troponin I < 0.02, C-Reactive Protein, Quantitative 1.00H, JJ-Ykl-[id number]-Type Natriuretic Peptide 9410H, Total Protein 6.6, Albumin 2.7L, Albumin/Globulin Ratio 0.7L, Triglycerides Level 218H CBC/BMP Laboratory Tests 03/21/20 21:49 Home Medications Scheduled Aspirin (Aspirin EC) 81 Mg Tabec, 81 MG PO QHS Atenolol (Atenolol) 100 Mg Tab, 100 MG PO QHS Atorvastatin Calcium (Atorvastatin Calcium) 40 Mg Tab, 40 MG PO QHS Cholecalciferol (Vitamin D3) (Vitamin D3) 1,000 Unit Tablet, 2,000 UNITS PO DAILY Esomeprazole Magnesium (Nexium) 20 Mg Cap, 20 MG PO DAILY Folic Acid/Vit B Complex and C (Gisel-Soraida Tablet) 1 Tab Tab, 1 TAB PO DAILY Glipizide (Glipizide) 5 Mg Tab, 5 MG PO BID Hydralazine HCl (Hydralazine HCl) 25 Mg Tablet, 50 MG PO 4XWK FRIDAY, FRIDAY, FRIDAY AND FRIDAY: TAKES 50MG IN THE MORNING Hydralazine HCl (Hydralazine HCl) 25 Mg Tablet, 25 MG PO 3XW FRIDAY, FRIDAY AND FRIDAY: TAKES 25 MG IN THE MORNING PRIOR TO DIALYSIS Hydralazine HCl (Hydralazine HCl) 25 Mg Tablet, 50 MG PO BID IN THE AFTERNOON AND AT BEDTIME Insulin Glargine,Hum.rec.anlog (Lantus Solostar) 100 Unit/1 Ml Insuln.pen, 10 UNIT SC DAILY Levofloxacin (Levofloxacin) 250 Mg Tablet, 250 MG PO QPM WAS TAKING IN AFTERNOON: LAST DOSE WAS TO BE TODAY 03/21/20 Nifedipine (Procardia Xl) 90 Mg Tab, 90 MG PO QHS [place]-3 Fatty Acids/Fish Oil ([place] 3 1,000 mg Softgel) 1 Cap Cap, 1 CAP PO BID Sevelamer Carbonate (Sevelamer Carbonate) 800 Mg Tablet, 1,600 MG PO WM Scheduled PRN Albuterol Sulfate (Proair Hfa) 108 Mcg/Act Aer, 2 PUFFS INH Q4H PRN for SHORTNESS OF BREATH Allergies Coded Allergies: tramadol (Verified Adverse Reaction, Mild, VOMITING, 09/15/18) A-FIB/CHADSVASC A-FIB History Current/History of A-Fib/PAF?: No ROBBIE GUADALUPE MD Mar 21, 2020 23:45
[2020-03-22] VITALS (20 sets, daily range): BP systolic 83–199; BP diastolic 43–79
[2020-03-22] MEDS ORDERED: GLUCOSE 4GM CHEW TABLET PO PRN
[2020-03-22] MEDS ORDERED: GLUCAGON INJ 1MG VIAL SC PRN
[2020-03-22] MEDS ORDERED: DEXTROSE 50% 50 ML SYRINGE IV PRN
[2020-03-22] MEDS: **hydrALAZINE HCL** 25 MG TAB PO SCH ×4 (00:38→22:29)
[2020-03-22] MEDS ORDERED: PNEUMOCOCCAL VACCINE 0.5ML SYRINGE (PNEUMOVAX 23) IM SCH (01:00)
[2020-03-22] MEDS ORDERED: atenoloL 50 MG TAB PO ONE (02:00)
[2020-03-22] MEDS ORDERED: NIFEdipine 30 MG XL TAB PO ONE (02:00)
[2020-03-22] MEDS: cefTRIAXone SOD 1 GM in D5W MINI-BAG PLUS 50 ML IV SCH (02:24)
[2020-03-22] MEDS ORDERED: ONDANSETRON 4MG/2ML VIAL As Ordered ONE (06:12)
[2020-03-22] MEDS ORDERED: ONDANSETRON 4MG/2ML VIAL IV ONE (06:30)
[2020-03-22 06:42] LABS: HEMATOCRIT 28.2 % (36.0-47.0); HEMOGLOBIN 9.5 g/dl (12.0-15.5); MEAN CORPUSCULAR HEMOGLOBIN 33.8 pg (27.0-33.0); MEAN CORPUSCULAR HGB CONC 33.7 g/dl (32.0-36.5); MEAN CORPUSCULAR VOLUME 100.4 fl (80.0-96.0); PLATELET COUNT, AUTOMATED 172 10^3/uL (150-450); RED BLOOD COUNT 2.81 10^6/uL (4.00-5.40); WHITE BLOOD COUNT 5.8 10^3/uL (4.0-10.0)
[2020-03-22 07:14] LABS: ALBUMIN 2.7 GM/DL (3.2-5.2); BILIRUBIN,TOTAL 0.2 MG/DL (0.2-1.0); CALCIUM LEVEL 8.4 MG/DL (8.8-10.2); CREATININE FOR GFR 6.56 MG/DL (0.55-1.30); GLOMERULAR FILTRATION RATE 6.6 (>39); POTASSIUM SERUM 4.2 MEQ/L (3.5-5.1); TOTAL PROTEIN 6.6 GM/DL (6.4-8.2)
[2020-03-22] MEDS: HumaLOG INSULIN (NovoLOG) PER UNIT SC SCH ×4 (07:30→20:31)
[2020-03-22] MEDS ORDERED: ACETAMINOPHEN TAB 650MG DOSE (2X325MG) As Ordered ONE (08:34)
[2020-03-22] MEDS: PANTOPRAZOLE 20 MG TAB PO SCH (08:54)
[2020-03-22] MEDS: (RENVELA) SEVELAMER **CARBONate** 800 MG TAB PO SCH ×3 (08:54→17:09)
[2020-03-22] MEDS: HEPARIN SOD (PORCINE) 5000UNITS/ML 1ML VIAL/SYRINGE SQ SCH ×2 (08:55→20:35)
[2020-03-22] MEDS: ACETAMINOPHEN TAB 650MG DOSE (2X325MG) PO PRN ×3 (08:56→23:04)
[2020-03-22] MEDS ORDERED: dexameTHASONE 4 MG/ML 1ML VIAL (J1100 PER 1MG) IV SCH (09:00)
[2020-03-22] MEDS ORDERED: ENOXAPARIN 40MG/0.4ML SYRINGE (J1650 PER 10MG) SC SCH (09:00)
[2020-03-22] MEDS ORDERED: DARBEPOETIN 100 MCG/0.5 ML *DIALYSIS* SYRINGE (J0882) IV SCH (09:15)
--- NOTE | 2020-03-22 12:30 | IPNPDOC ---
Subjective Date Seen The patient was seen on 03/22/20. Subjective Chief Complaint/HPI Patient is a 75 year old female with ESRD on dialysis MWF here for dialysis in the setting of COVID positive patient. She tells me that about a week ago, she was at a family gathering and started coughing after aspirating on apple cider vinegar. The cough persisted as a dry cough. Then, some of her family members tested positive for COVID. Since she was receiving dialysis, she was also tested for COVID. She was positive. She was transferred here since [facility] dialysis center cannot handle COVID patients. This morning, she had a temp erature of 100.9 which improved with Tylenol. She was seen with the nurse today in PPE equipment. She feels okay. No change in taste. Still has persistent dry cough. Denies chest pain, dyspnea, abdominal pain, or dysuria. Constitutional: Reports: Fever Pulmonary: Denies: Dyspnea Cardiovascular: Denies: Chest Pain Gastrointestinal: Denies: Abdominal Pain Genitourinary: Denies: Dysuria Objective Physical Examination General Exam: Positive: Alert, Cooperative, No Acute Distress Eye Exam: Positive: EOMI; Negative: Sclera icteric ENT Exam: Positive: Atraumatic Neck Exam: Positive: Supple Chest Exam: Positive: Clear to auscultation Heart Exam: Positive: Rate Normal, Regular Rhythm Abdomen Exam: Positive: Normal bowel sounds, Soft; Negative: Tenderness Extremity Exam: Positive: Edema (Mild bilateral pitting edema) Neuro Exam: Positive: Normal Speech Psych Exam: Positive: Mental status NL, Mood NL Assessment /Plan Assessment Patient is a 75 year old female with ESRD on dialysis MWF here for dialysis in the setting of COVID positive patient. [facility] dialysis center cannot handle COVID positive patients which is why she was transferred to [facility]. During morning rounds, spoke with team about disposition. Unknown when she would be able to go back to outpatient dialysis. She may be COVID positive for several weeks. Plan/VTE VTE Prophylaxis Ordered?: Yes Plan 1. COVID PNA -IV ceftriaxone and azithromcyin -No Decadron as patient is not on ventilator -EKG obtained this morning, will follow up with results -Pending procalcitonin 2. ESRD on dialysis MWF -Nephrology following, recommendations appreciated -Dialysis today -Continue Sevelamer 3. HTN -Continue atenolol, nifedipine, and hydralazine 4. DM -Continue insulin sliding scale 5. History of CVA -Continue statin and aspirin 6. Anemia -Secondary to ESRD -Darbepoetin timo during hemodialysis today 7. DVT ppx -Heparin subq BID. Confirmed with nephrology VS, I&O, 24H, Fishbone Vital Signs/I&O Vital Signs Date Time Temp Pulse Resp B/P (MAP) Pulse Ox O2 Delivery O2 Flow Rate FiO2 03/22/20 09:00 99.1 76 18 146/63 (90) 94 Room Air 03/22/20 06:00 2.0 I&O- Last 24 Hours up to 6 AM 03/22/20 06:00 Intake Total 1065 ml Output Total 275 ml Balance 790 ml Laboratory Data 24H LABS Laboratory Tests 2 03/21/20 21:48: Bedside Glucose (Misc Panel) 105 03/21/20 21:49: Immature Granulocyte % (Auto) 0.2, Neutrophils (%) (Auto) 66.9H, Lymphocytes (%) (Auto) 21.8L, Monocytes (%) (Auto) 10.7H, Eosinophils (%) (Auto) 0.2, Basophils (%) (Auto) 0.2, Neutrophils # (Auto) 3.1, Lymphocytes # (Auto) 1.0L, Monocytes # (Auto) 0.5, Eosinophils # (Auto) 0.0, Basophils # (Auto) 0.0, Nucleated Red Blood Cells % (auto) 0.0, Prothrombin Time 13.9, Prothromb Time International Ratio 1.05, Activated Partial Thromboplast Time 28.4, Fibrinogen 417, D-Dimer, Quantitative 1616.12H, Anion Gap 8, Glomerular Filtration Rate 7.3L, Lactic Acid Level 1.0, Calcium Level 8.1L, Ferritin 1622H, Total Bilirubin 0.3, Direct Bilirubin 0.1, Aspartate Amino Transf (AST/SGOT) 35, Alanine Aminotransferase (ALT/SGPT) 25, Alkaline Phosphatase 126H, Lactate Dehydrogenase 218, Total Creatine Kinase 76, Creatine Kinase MB 1.5, Creatine Kinase MB Relative Index 1.97, Troponin I < 0.02, C-Reactive Protein, Quantitative 1.00H, QX-[place]-G-Type Natriuretic Peptide 9410H, Total Protein 6.6, Albumin 2.7L, Albumin/Globulin Ratio 0.7L, Triglycerides Level 218H 03/22/20 06:00: Nucleated Red Blood Cells % (auto) 0.0, Anion Gap 8, Glomerular Filtration Rate 6.6L, Calcium Level 8.4L, Total Bilirubin 0.2, Aspartate Amino Transf (AST/SGOT) 35, Alanine Aminotransferase (ALT/SGPT) 25, Alkaline Phosphatase 123H, Total Protein 6.6, Albumin 2.7L, Albumin/Globulin Ratio 0.7L 03/22/20 08:31: Bedside Glucose (Misc Panel) 43L 03/22/20 08:52: Bedside Glucose (Misc Panel) 65L CBC/BMP Laboratory Tests 03/21/20 21:49 03/22/20 06:00 Microbiology Microbiology 03/22/20 Blood Culture, Received Pending 03/22/20 Blood Culture, Received Pending GUADALUPE JOHNSON DO Mar 22, 2020 12:30
[2020-03-22 18:57] LABS: PERCENT SATURATION 15.9 % (13.2-45.0)
[2020-03-22] MEDS ORDERED: IRON SUCROSE 100MG 5ML VIAL (J1756 PER 1MG) IV SCH (20:30)
[2020-03-22] MEDS: ATORVASTATIN 20 MG TAB PO SCH (20:33)
[2020-03-22] MEDS: ASPIRIN 81 MG ENTERIC TAB PO SCH (20:34)
[2020-03-22] MEDS: NIFEdipine 30 MG XL TAB PO SCH ×2 (20:46→22:27)
[2020-03-22] MEDS: atenoloL 50 MG TAB PO SCH ×2 (20:47→22:28)
[2020-03-22] MEDS ORDERED: CYCLOBENZAPRINE 5MG TABLET PO ONE (21:45)
[2020-03-22] MEDS: AZITHROMYCIN INJ 500 MG, VIAL MATE ADAPTER 1 EACH in D5W 250 ML IV SCH (23:00)
[2020-03-23] VITALS (14 sets, daily range): BP systolic 127–178; BP diastolic 53–106
[2020-03-23] MEDS: cefTRIAXone SOD 1 GM in D5W MINI-BAG PLUS 50 ML IV SCH (01:25)
[2020-03-23] MEDS ORDERED: hydrALAZINE 20MG/ML 1ML VIAL (J0360 PER 20MG) IV ONE (01:45)
[2020-03-23 04:55] LABS: HEMATOCRIT 25.3 % (36.0-47.0); HEMOGLOBIN 8.4 g/dl (12.0-15.5); MEAN CORPUSCULAR HEMOGLOBIN 33.3 pg (27.0-33.0); MEAN CORPUSCULAR HGB CONC 33.2 g/dl (32.0-36.5); MEAN CORPUSCULAR VOLUME 100.4 fl (80.0-96.0); PLATELET COUNT, AUTOMATED 148 10^3/uL (150-450); RED BLOOD COUNT 2.52 10^6/uL (4.00-5.40); WHITE BLOOD COUNT 4.4 10^3/uL (4.0-10.0)
[2020-03-23 05:28] LABS: CALCIUM LEVEL 7.7 MG/DL (8.8-10.2); CREATININE FOR GFR 4.83 MG/DL (0.55-1.30); GLOMERULAR FILTRATION RATE 9.4 (>39); POTASSIUM SERUM 3.8 MEQ/L (3.5-5.1)
[2020-03-23] MEDS: HumaLOG INSULIN (NovoLOG) PER UNIT SC SCH ×4 (07:30→21:00)
[2020-03-23] MEDS: ACETAMINOPHEN TAB 650MG DOSE (2X325MG) PO PRN ×4 (07:35→21:07)
[2020-03-23] MEDS: (RENVELA) SEVELAMER **CARBONate** 800 MG TAB PO SCH ×3 (07:36→17:02)
[2020-03-23] MEDS: HEPARIN SOD (PORCINE) 5000UNITS/ML 1ML VIAL/SYRINGE SQ SCH ×2 (07:36→21:09)
[2020-03-23] MEDS: PANTOPRAZOLE 20 MG TAB PO SCH (07:36)
[2020-03-23] MEDS ORDERED: DARBEPOETIN 200MCG/0.4ML *DIALYSIS* SYRINGE (J0882 PER 1MCG) IV SCH (10:15)
[2020-03-23] MEDS: **hydrALAZINE HCL** 25 MG TAB PO SCH ×2 (13:44→21:09)
[2020-03-23] MEDS: guaiFENesin ER 600 MG TAB PO SCH ×2 (14:35→21:09)
[2020-03-23 16:03] LABS: HEPATITIS B SURFACE ANTIGEN NEGATIVE (NEGATIVE)
--- NOTE | 2020-03-23 16:31 | IPNPDOC ---
Subjective Date Seen The patient was seen on 03/23/20. Subjective Chief Complaint/HPI Patient is a 75 year old female with ESRD on dialysis MWF here for dialysis in the setting of COVID positive patient. Overnight, her oxygenation dropped to 86% and was put on NC, 2L. When she was awake, she saturated well at room air and NC was removed. She may have underlying KYLE causing periodic desaturations. She denies any problems overnight. Denies dyspnea in the night time. Denies dyspnea in the day time. Denies chest pain or abdominal pain. She felt a little weak. Otherwise she lives at home independently and drives herself to dialysis. We spoke about the possibility of going home tomorrow, pending results of physical therapy and response of her dialysis center. One of her main concerns is getting home from the hospital. Pulmonary: Reports: Cough; Denies: Dyspnea Cardiovascular: Denies: Chest Pain Gastrointestinal: Denies: Abdominal Pain Musculoskeletal: Reports: Spasms (During dialysis yesterday) Neurological: Reports: Weakness Objective Physical Examination General Exam: Positive: Alert, Cooperative, No Acute Distress Eye Exam: Positive: EOMI; Negative: Sclera icteric ENT Exam: Positive: Atraumatic Neck Exam: Positive: Supple Chest Exam: Positive: Clear to auscultation Heart Exam: Positive: Rate Normal, Regular Rhythm Abdomen Exam: Positive: Normal bowel sounds, Soft; Negative: Tenderness Extremity Exam: Positive: Edema (Mild bilateral pitting edema) Neuro Exam: Positive: Normal Speech Psych Exam: Positive: Mental status NL, Mood NL Assessment /Plan Assessment Patient is a 75 year old female with ESRD on dialysis MWF here for dialysis in the setting of COVID positive patient. [facility] dialysis center cannot h andle COVID positive patients which is why she was transferred to [facility]. During morning rounds, spoke with team about disposition. PFS communicating with [facility] (dialysis center) about dialysis set up for COVID patients. Will need to work out transportation home, otherwise, she says she can drive to dialysis center. May need to figure out other logistics such as shopping/groceries/food Plan/VTE VTE Prophylaxis Ordered?: Yes Plan 1. COVID PNA -IV ceftriaxone and azithromcyin -No Decadron as patient is not on ventilator -Procalcitonin low at 0.28 2. ESRD on dialysis MWF -Nephrology following, recommendations appreciated -Dialysis T,Th,Sat -Continue Sevelamer -PFS working with [facility] for [employer] dialysis logistics 3. HTN -Continue atenolol, nifedipine, and hydralazine 4. DM -Continue insulin sliding scale 5. History of CVA -Continue statin and aspirin 6. Anemia -Secondary to ESRD -Darbepoetin timo during hemodialysis today 7. DVT ppx -Heparin subq BID. Confirmed with nephrology Dispo: Pending physical therapy recommendations, how she does overnight, and dialysis logistics VS, I&O, 24H, Fishbone Vital Signs/I&O Vital Signs Date Time Temp Pulse Resp B/P (MAP) Pulse Ox O2 Delivery O2 Flow Rate FiO2 03/23/20 14:00 71 18 162/67 (98) 94 Room Air 03/23/20 12:00 99.8 03/23/20 08:00 1.0 I&O- Last 24 Hours up to 6 AM 03/23/20 06:00 Intake Total 1185 ml Output Total 1675 ml Balance -490 ml Laboratory Data 24H LABS Laboratory Tests 2 03/22/20 16:56: Bedside Glucose (Misc Panel) 123H 03/22/20 17:12: Urine Color YELLOW, Urine Appearance HAZY, Urine pH 7.0, Urine Specific Starks 1.013, Urine Protein 3+H, Urine Glucose (UA) 1+H, Urine Ketones NEGATIVE, Urine Blood NEGATIVE, Urine Nitrite NEGATIVE, Urine Bilirubin NEGATIVE, Urine U robilinogen 0.2, Urine Leukocyte Esterase NEGATIVE, Urine WBC (Auto) 1, Urine RBC (Auto) 2, Urine Hyaline Casts (Auto) 0, Urine Bacteria (Auto) NEGATIVE, Urine Squamous Epithelial Cells 10, Urine Sperm (Auto) , Iron Level 28L, Total Iron Binding Capacity 176L, Transferrin % Saturation 15.9 03/22/20 20:29: Bedside Glucose (Misc Panel) 97 03/23/20 04:43: Nucleated Red Blood Cells % (auto) 0.0, Anion Gap 8, Glomerular Filtration Rate 9.4L, Calcium Level 7.7L 03/23/20 07:30: Bedside Glucose (Misc Panel) 94 03/23/20 11:42: Bedside Glucose (Misc Panel) 214H CBC/BMP Laboratory Tests 03/23/20 04:43 Microbiology Microbiology 03/22/20 Blood Culture - Preliminary, Resulted No growth after 24 hours . All specim... 03/22/20 Blood Culture - Preliminary, Resulted No growth after 24 hours . All specim... GUADALUPE JOHNSON DO Mar 23, 2020 16:31
[2020-03-23 16:32] LABS: HIV 1&2 SCREEN CENTAUR NEGATIVE (NEGATIVE)
--- NOTE | 2020-03-23 19:25 | ECGEPIP ---
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
[2020-03-23] MEDS: ATORVASTATIN 20 MG TAB PO SCH (21:08)
[2020-03-23] MEDS: atenoloL 50 MG TAB PO SCH (21:08)
[2020-03-23] MEDS: ASPIRIN 81 MG ENTERIC TAB PO SCH (21:08)
[2020-03-23] MEDS: NIFEdipine 30 MG XL TAB PO SCH (21:08)
[2020-03-24] VITALS (8 sets, daily range): BP systolic 111–213; BP diastolic 51–82
[2020-03-24] MEDS: AZITHROMYCIN INJ 500 MG, VIAL MATE ADAPTER 1 EACH in D5W 250 ML IV SCH (00:21)
[2020-03-24] MEDS: cefTRIAXone SOD 1 GM in D5W MINI-BAG PLUS 50 ML IV SCH (01:37)
[2020-03-24] MEDS: ACETAMINOPHEN TAB 650MG DOSE (2X325MG) PO PRN ×2 (01:37→05:12)
[2020-03-24 05:26] LABS: HEMATOCRIT 26.2 % (36.0-47.0); HEMOGLOBIN 8.6 g/dl (12.0-15.5); MEAN CORPUSCULAR HEMOGLOBIN 33.3 pg (27.0-33.0); MEAN CORPUSCULAR HGB CONC 32.8 g/dl (32.0-36.5); MEAN CORPUSCULAR VOLUME 101.6 fl (80.0-96.0); PLATELET COUNT, AUTOMATED 155 10^3/uL (150-450); RED BLOOD COUNT 2.58 10^6/uL (4.00-5.40); WHITE BLOOD COUNT 4.3 10^3/uL (4.0-10.0)
[2020-03-24 05:59] LABS: ALBUMIN 2.2 GM/DL (3.2-5.2); CALCIUM LEVEL 7.5 MG/DL (8.8-10.2); CREATININE FOR GFR 6.79 MG/DL (0.55-1.30); GLOMERULAR FILTRATION RATE 6.3 (>39); PHOSPHORUS LEVEL 4.8 MG/DL (2.5-4.9); POTASSIUM SERUM 4.3 MEQ/L (3.5-5.1)
--- NOTE | 2020-03-24 07:22 | CR ---
DATE OF CONSULTATION: 03/22/2020 REQUESTING PHYSICIAN: Dr. Yeu Montejo CONSULTING PHYSICIAN: Dr. Cabrera REASON FOR CONSULTATION: Management of end-stage renal disease, on hemodialysis. HISTORY OF PRESENT ILLNESS: History of obtained from chart review and discussion with other healthcare providers. Patient is a 75-year-old female, previously known to me from dialysis unit with a past medical history of end- stage renal disease, on hemodialysis on a Friday, Friday, Friday schedule, history of cerebrovascular accident (CVA) with left-sided weakness, insulin- dependent diabetes mellitus, hypertension, dyslipidemia, and other comorbid conditions mentioned below. Patient was transferred from [facility] to [facility] for hemodialysis and isolation, as she recently tested positive for COVID after three of her family members also tested positive. Patient reports intermittent fevers, chills, occasional cough with clear sputum, on and off back pain, and mild dyspnea on exertion. Has intermittently required oxygen. Dialysis was arranged for her in isolation in the intensive care unit (ICU). MEDICAL HISTORY: 1. As above, end-stage renal disease, on hemodialysis. 2. Hypertension. 3. Dyslipidemia. 4. Insulin-dependent diabetes mellitus. 5. CVA with left-sided residual weakness. SURGICAL HISTORY: Right upper extremity arteriovenous (AV) fistula. SOCIAL HISTORY: Denies alcohol, drugs, or tobacco. FAMILY HISTORY: No significant family history of end-stage renal disease requiring dialysis. REVIEW OF SYSTEMS: CONSTITUTIONAL: Intermittent fevers and chills. EYES: Denies blurry vision or double vision. ENT: Denies dysphagia or odynophagia. CARDIOVASCULAR: Denies chest pain or palpitations. RESPIRATORY: Reports occasional shortness of breath and cough with clear sputum and episodic desaturation. GASTROINTESTINAL: Denies nausea or vomiting. GENITOURINARY: Makes less urine. Denies dysuria. ENDOCRINE: Reports diabetes and secondary hyperparathyroidism of renal origin. MUSCULOSKELETAL: Reports chronic back pain. Denies gout. HEMATOLOGIC: Reports anemia of chronic renal failure. Denies anticoagulant use. NEUROLOGIC: Denies seizure or syncope. SKIN: Denies any new rashes or ulcers. Vital signs: Maximum temperature 100.9, current temperature 99.1, pulse 70, respiratory rate 16, blood pressure 112/64, saturating 94% on room air. Goal dialysis fluid removal today is 1500 mL. Patient was not examined by myself due to COVID positivity. She was observed from outside the room. Awake, alert, oriented in no apparent distress. Talking on the phone, feeding herself. Extraocular muscles are intact. Makes eye contact. Moving all four extremities. LABORATORY DATA: White count 5.8, hemoglobin 9.5, platelets 172. Sodium 133, potassium 4.2, BUN 47, TSAT 15%. Procalcitonin is pending. Blood cultures are pending. INPATIENT MEDICATIONS: - azithromycin 500 mg IV daily - ceftriaxone 1 gram IV daily - aspirin 81 mg by mouth every night - Tylenol as needed - atenolol 100 mg by mouth every night - Lipitor 40 mg by mouth every night - Aranesp 200 mcg with dialysis - heparin 5000 units subcutaneous every 12 hours - hydralazine 50 mg by mouth twice a day - insulin - Procardia XL 90 mg by mouth every night - Protonix 20 mg by mouth daily - Renvela 1600 mg by mouth with meals PROBLEMS: 1. End-stage renal disease, on hemodialysis on a Friday, Friday, Friday schedule. She is being dialyzed in isolation today with goal fluid removal of 1500 mL. Patient was not examined during the dialysis treatment due to COVID positivity. Volume status and electrolytes are acceptable. Fistula is in good use. No changes are being made to the current prescription. 2. Anemia on chronic renal failure. Hemoglobin is suboptimal. Iron stores are reviewed, and Venofer is ordered with dialysis treatment along with the usual Aranesp. 3. Hypertension. Blood pressures are acceptable, and no changes are being made to the current medications. Atenolol, hydralazine, and nifedipine. 4. COVID pneumonia. She is on IV ceftriaxone and azithromycin as per the primary team. She is presently not requiring supplemental oxygen but is having occasional fever and chills. [facility]
[2020-03-24] MEDS: HumaLOG INSULIN (NovoLOG) PER UNIT SC SCH ×4 (08:37→21:00)
[2020-03-24] MEDS: HEPARIN SOD (PORCINE) 5000UNITS/ML 1ML VIAL/SYRINGE SQ SCH ×2 (08:38→21:16)
[2020-03-24] MEDS: (RENVELA) SEVELAMER **CARBONate** 800 MG TAB PO SCH ×3 (08:38→17:58)
[2020-03-24] MEDS: PANTOPRAZOLE 20 MG TAB PO SCH (08:38)
[2020-03-24] MEDS: guaiFENesin ER 600 MG TAB PO SCH ×2 (08:38→21:15)
[2020-03-24] MEDS: **hydrALAZINE HCL** 25 MG TAB PO SCH ×2 (13:17→21:14)
[2020-03-24 17:12] LABS: HEPATITIS B CORE ANTIBODY IGG Negative (Negative); MYCOPLASMA PNEUMONIAE IgG 235 U/mL (0-99); MYCOPLASMA PNEUMONIAE IgM <770 U/mL (0-769)
[2020-03-24] MEDS: ASPIRIN 81 MG ENTERIC TAB PO SCH (21:12)
[2020-03-24] MEDS: atenoloL 50 MG TAB PO SCH (21:13)
[2020-03-24] MEDS: NIFEdipine 30 MG XL TAB PO SCH (21:15)
[2020-03-24] MEDS: ATORVASTATIN 20 MG TAB PO SCH (21:16)
[2020-03-24] MEDS ORDERED: hydrALAZINE 20MG/ML 1ML VIAL (J0360 PER 20MG) IV ONE (23:00)
[2020-03-24] MEDS ORDERED: CYCLOBENZAPRINE 5MG TABLET PO ONE (23:00)
[2020-03-25] VITALS (13 sets, daily range): BP systolic 101–164; BP diastolic 50–67
[2020-03-25] MEDS: MOXIFLOXACIN 400 MG TAB PO SCH (06:08)
[2020-03-25] MEDS: (RENVELA) SEVELAMER **CARBONate** 800 MG TAB PO SCH ×3 (09:46→17:48)
[2020-03-25] MEDS: HumaLOG INSULIN (NovoLOG) PER UNIT SC SCH ×4 (09:46→20:33)
[2020-03-25] MEDS: HEPARIN SOD (PORCINE) 5000UNITS/ML 1ML VIAL/SYRINGE SQ SCH (09:47)
[2020-03-25] MEDS: PANTOPRAZOLE 20 MG TAB PO SCH (09:47)
[2020-03-25] MEDS: guaiFENesin ER 600 MG TAB PO SCH ×2 (09:47→20:32)
[2020-03-25] MEDS: **hydrALAZINE HCL** 25 MG TAB PO SCH ×2 (14:00→20:33)
[2020-03-25] MEDS: BENZONATATE 100 MG CAP PO SCH ×2 (18:13→20:32)
[2020-03-25] MEDS: ATORVASTATIN 20 MG TAB PO SCH (20:32)
[2020-03-25] MEDS: NIFEdipine 30 MG XL TAB PO SCH (20:32)
[2020-03-25] MEDS: ASPIRIN 81 MG ENTERIC TAB PO SCH (20:32)
[2020-03-25] MEDS: atenoloL 50 MG TAB PO SCH (20:33)
[2020-03-25] MEDS: ACETAMINOPHEN TAB 650MG DOSE (2X325MG) PO PRN (20:34)
[2020-03-26] MEDS: MOXIFLOXACIN 400 MG TAB PO SCH (05:58)
[2020-03-26 08:00] VITALS: BP 121/56
[2020-03-26] MEDS: PANTOPRAZOLE 20 MG TAB PO SCH (09:26)
[2020-03-26] MEDS: (RENVELA) SEVELAMER **CARBONate** 800 MG TAB PO SCH ×3 (09:26→18:20)
[2020-03-26] MEDS: guaiFENesin ER 600 MG TAB PO SCH ×2 (09:26→21:40)
[2020-03-26] MEDS: BENZONATATE 100 MG CAP PO SCH ×3 (09:26→21:41)
[2020-03-26] MEDS: HumaLOG INSULIN (NovoLOG) PER UNIT SC SCH ×4 (09:26→21:00)
[2020-03-26 13:29] VITALS: BP 136/60
[2020-03-26] MEDS: **hydrALAZINE HCL** 25 MG TAB PO SCH ×2 (13:30→21:40)
--- NOTE | 2020-03-26 15:43 | IPN ---
DATE: 03/25/2020 SUBJECTIVE: Mrs. Marsh is seen this afternoon during hemodialysis. She has been admitted to [facility] due to COVID positive test. She has no symptoms and has been feeling well. She has known history of end-stage renal disease and has been on maintenance hemodialysis. Patient/family services has already made arrangements for her to have outpatient dialysis in her chronic unit, however, she could not be dialyzed today, so that is why she is still here and being dialyzed here in the hospital. She remains in isolation. PHYSICAL EXAMINATION: VITALS: Temperature 98 degree Fahrenheit, heart rate 68 per minute, respiratory rate 20 per minute, blood pressure 140/56 mmHg and oxygen saturation 90% on room air. HEENT: Head is atraumatic. NECK: Supple and without JVD or thyroid enlargement. HEART: Heart sounds are regular. LUNGS: Clear to auscultation. ABDOMEN: Soft and benign. EXTREMITIES: Without any cyanosis or clubbing. LABORATORY REVIEW: She did not have any new labs done today. Yesterday, sodium 133, potassium 4.3, BUN 52, creatinine 6.79. Calcium 7.5. Albumin 2.2. WBC 4.3, hemoglobin 8.6, hematocrit 26.2. PROBLEMS: 1. End-stage renal disease: Patient is currently being dialyzed on her bedside in isolation. She is tolerating dialysis well. We are using a 3.0 mEq bath for her potassium. 2. Congestive heart failure: Her volume status seems reasonably well compensated. We are removing 1.5 liter of fluid. She usually does not gain too much weight between dialysis treatments. 3. Hyponatremia: She has mild chronic hyponatremia, which is stable and unchanged. No changes are being made today. 4. Anemia: She has chronic anemia due to end-stage renal disease and has not required any transfusions. She remains on Aranesp 200 mcg once a week. 5. COVID-19 positive: She remains in isolation and currently is symptomatic. MTDD
[2020-03-26 20:00] VITALS: BP 154/66
[2020-03-26] MEDS: ASPIRIN 81 MG ENTERIC TAB PO SCH (21:40)
[2020-03-26] MEDS: ATORVASTATIN 20 MG TAB PO SCH (21:40)
[2020-03-26] MEDS: atenoloL 50 MG TAB PO SCH (21:41)
[2020-03-26] MEDS: NIFEdipine 30 MG XL TAB PO SCH (21:41)
[2020-03-27 05:10] LABS: HEMATOCRIT 25.2 % (36.0-47.0); HEMOGLOBIN 8.2 g/dl (12.0-15.5); MEAN CORPUSCULAR HEMOGLOBIN 32.5 pg (27.0-33.0); MEAN CORPUSCULAR HGB CONC 32.5 g/dl (32.0-36.5); PLATELET COUNT, AUTOMATED 211 10^3/uL (150-450); RED BLOOD COUNT 2.52 10^6/uL (4.00-5.40); WHITE BLOOD COUNT 5.9 10^3/uL (4.0-10.0)
[2020-03-27 05:43] LABS: CALCIUM LEVEL 7.5 MG/DL (8.8-10.2); CREATININE FOR GFR 6.63 MG/DL (0.55-1.30); GLOMERULAR FILTRATION RATE 6.5 (>39); POTASSIUM SERUM 4.1 MEQ/L (3.5-5.1)
[2020-03-27 08:00] VITALS: BP 129/58
[2020-03-27] MEDS: (RENVELA) SEVELAMER **CARBONate** 800 MG TAB PO SCH ×3 (08:08→17:56)
[2020-03-27] MEDS: HumaLOG INSULIN (NovoLOG) PER UNIT SC SCH ×4 (08:08→21:00)
[2020-03-27] MEDS: PANTOPRAZOLE 20 MG TAB PO SCH (08:22)
[2020-03-27] MEDS: guaiFENesin ER 600 MG TAB PO SCH ×2 (08:22→20:55)
[2020-03-27] MEDS: BENZONATATE 100 MG CAP PO SCH ×3 (08:22→20:57)
--- NOTE | 2020-03-27 09:30 | REP ---
PORTABLE CHEST X-RAY: SINGLE VIEW HISTORY: COVID. COMPARISON: Chest x-ray 07/24/2019. FINDINGS: Oxygen delivery tubing is seen. There is mild linear fibrosis in the left base. There is a linear opacity obliquely overlying the right hilus consistent with plate-like atelectasis as well. There is a subtle opacity in the right base, which may be early infiltrate. No other definite infiltrate is apparent. Heart is not felt to be enlarged. The aorta is tortuous. There are degenerative changes in the thoracic spine. IMPRESSION: Question early infiltrate right base. Linear fibrosis left base. Discoid atelectasis right perihilar region. MTDD
[2020-03-27 14:00] VITALS: BP 160/65
[2020-03-27] MEDS: **hydrALAZINE HCL** 25 MG TAB PO SCH ×2 (14:30→20:57)
[2020-03-27 20:00] VITALS: BP 147/60
[2020-03-27] MEDS: FLUTICASONE PROP 0.05% NASAL SPRAY 16 GM (FLONASE) NARES SCH (20:55)
[2020-03-27] MEDS: ATORVASTATIN 20 MG TAB PO SCH (20:55)
[2020-03-27] MEDS: atenoloL 50 MG TAB PO SCH (20:56)
[2020-03-27] MEDS: ASPIRIN 81 MG ENTERIC TAB PO SCH (20:56)
[2020-03-27] MEDS: NIFEdipine 30 MG XL TAB PO SCH (20:57)
[2020-03-28 08:34] VITALS: BP 157/65
[2020-03-28] MEDS: BENZONATATE 100 MG CAP PO SCH ×3 (09:40→21:40)
[2020-03-28] MEDS: (RENVELA) SEVELAMER **CARBONate** 800 MG TAB PO SCH ×3 (09:40→17:42)
[2020-03-28] MEDS: PANTOPRAZOLE 20 MG TAB PO SCH (09:40)
[2020-03-28] MEDS: HumaLOG INSULIN (NovoLOG) PER UNIT SC SCH ×4 (09:40→21:00)
[2020-03-28] MEDS: FLUTICASONE PROP 0.05% NASAL SPRAY 16 GM (FLONASE) NARES SCH ×2 (09:41→21:42)
[2020-03-28] MEDS: guaiFENesin ER 600 MG TAB PO SCH ×2 (09:41→21:42)
[2020-03-28] MEDS ORDERED: IRON SUCROSE 100MG 5ML VIAL (J1756 PER 1MG) IV SCH (11:00)
[2020-03-28] MEDS: **hydrALAZINE HCL** 25 MG TAB PO SCH ×2 (14:00→21:41)
[2020-03-28 14:19] VITALS: BP 138/58
--- NOTE | 2020-03-28 14:57 | NOCOX ---
DATE: 03/27/2020 ORDERING PROVIDER: Isaak Yoder Resting oxygen saturation was 88% on room air with a heart rate of 67. A total sample of 8 hours and 25 minutes was recorded. There was variable oxygen desaturation along with variation in heart rate with heart rate ranging 57-94. Oxygen saturation ranged 80%-97%. The longest continuous time with an oxygen saturation less than 89% was 2 minutes and 44 seconds. The total cumulative time with an oxygen saturation less than 88% was 24 minutes and 8 seconds. Throughout the entire evening, there were Alexander-Acuna respirations. IMPRESSION: Alexander-Acuna respirations with hypoxia. The patient qualifies for nocturnal oxygen therapy. If there is concern for obstructive sleep apnea, consider referral for diagnostic polysomnogram. EARLD
--- NOTE | 2020-03-28 15:02 | IPN ---
DATE: 03/28/2020 SUBJECTIVE: Mrs. Marsh is seen this morning. She is here in isolation with a COVID positive test. She is dialysis dependent and was last dialyzed on Friday. Initially plan was for her to be discharged on Friday; however, she could not be discharged as there is no transportation for her to bring her to outpatient dialysis clinic due to COVID positive test. Now nursing staff reports that she is likely to go tomorrow if she remains afebrile. PHYSICAL EXAMINATION: Temperature 96.8 degrees Fahrenheit, heart rate 64 per minute, respiratory rate 18 per minute. Blood pressure 157/65 mmHg and oxygen saturation 92% on room air. Her physical exam has been essentially unchanged. No JVD or peripheral edema. She has clear lungs and regular heart sounds. Abdomen: Soft and benign. LABORATORY DATA: Her labs done yesterday showed WBC count is 5.9, hemoglobin 8.2, hematocrit 25.2. Sodium 133 and potassium 4.1. BUN 56 and creatinine 6.5. PROBLEMS: 1. End-stage renal disease: Patient will be dialyzed this afternoon. She is likely to be discharged tomorrow and then she will get outpatient dialysis. 2. Anemia: She has iron deficiency and end-stage renal disease. We will give her Venofer 100 mg with dialysis. 3. Hypertension: Blood pressure has been well controlled and no changes are being made. 4. Disposition: Patient is likely to be discharged to home tomorrow if she remains afebrile and if arrangements for her outpatient dialysis and transportation get finalized. MTDReji
[2020-03-28] MEDS: ATORVASTATIN 20 MG TAB PO SCH (21:40)
[2020-03-28 21:41] VITALS: BP 152/66
[2020-03-28] MEDS: NIFEdipine 30 MG XL TAB PO SCH (21:41)
[2020-03-28] MEDS: ASPIRIN 81 MG ENTERIC TAB PO SCH (21:41)
[2020-03-28] MEDS: atenoloL 50 MG TAB PO SCH (21:42)
[2020-03-29 08:00] VITALS: BP 152/70
[2020-03-29] MEDS: PANTOPRAZOLE 20 MG TAB PO SCH (08:03)
[2020-03-29] MEDS: guaiFENesin ER 600 MG TAB PO SCH (08:03)
[2020-03-29] MEDS: (RENVELA) SEVELAMER **CARBONate** 800 MG TAB PO SCH ×2 (08:03→13:05)
[2020-03-29] MEDS: BENZONATATE 100 MG CAP PO SCH (08:03)
[2020-03-29] MEDS: HumaLOG INSULIN (NovoLOG) PER UNIT SC SCH ×2 (08:03→13:05)
[2020-03-29] MEDS: FLUTICASONE PROP 0.05% NASAL SPRAY 16 GM (FLONASE) NARES SCH (08:03)
--- NOTE | 2020-03-29 10:33 | DS.PDOC ---
Discharge Summary General Date of Admission Mar 21, 2020 at 20:27 Date of Discharge March 29, 2020 Discharge Summary DISCHARGE DIAGNOSES: COVID-19 Pneumonia end-stage renal disease, on hemodialysis on a Friday, Friday, Friday schedule, history of cerebrovascular accident (CVA) with left-sided weakness, insulin-dependent diabetes mellitus, hypertension, dyslipidemia, COMPLICATIONS/CHIEF COMPLAINT: SOB, Fever, Chills, needs maintenance dialysis. HISTORY OF PRESENT ILLNESS: 75-year-old female with a past medical history of end-stage renal disease, on hemodialysis on a Friday, Friday, Friday schedule, history of cerebrovascular accident (CVA) with left-sided weakness, insulin-dependent diabetes mellitus, hypertension, dyslipidemia, and other comorbid conditions mentioned below. Carina ent was transferred from [facility] to [facility] from [facility] to get hemodialysis in isolation as she tested positive for covid with 3 family members being positive at home. Chest x-ray at [facility] was reviewed and showed a suspected pneumonia. Patient denies any shortness of breath at this time and is sitting comfortably on room air saturating at 97%[facility] Dialysis was arranged for her in isolation in the intensive care unit (ICU).Nephrology was consulted and patient to get dialysis via her right-sided fistula. HOSPITAL COURSE: COVID PNA -treated with IV ceftriaxone and azithromcyin,No Decadron as patient is not on ventilator,Procalcitonin low at 0.28 ESRD on dialysis MWF -Nephrology managed her dialysis needs HTN -controlled on her home doses of atenolol, nifedipine, and hydralazine DM -she was kept on a renal consistent carbs diet with fingersticks and insulin sliding scale with coverage History of CVA -Continued her statin and aspirin Anemia -Secondary to ESRD -given Darbepoetin timo during hemodialysis today DVT ppx -Heparin subq BID. C DISCHARGE MEDICATIONS: Please see below. ALLERGIES: Please see below. LABORATORY DATA: Please see below. IMAGING: PORTABLE CHEST X-RAY: SINGLE VIEW HISTORY: COVID. COMPARISON: Chest x-ray 07/24/2019. FINDINGS: Oxygen delivery tubing is seen. There is mild linear fibrosis in the left base. There is a linear opacity obliquely overlying the right hilus consistent with plate-like atelectasis as well. There is a subtle opacity in the right base, which may be early infiltrate. No other definite infiltrate is apparent. Heart is not felt to be enlarged. The aorta is tortuous. There are degenerative changes in the thoracic spine. IMPRESSION: Question early infiltrate right base. Linear fibrosis left base. Discoid atelectasis right perihilar region. PROCEDURES DURING THIS ADMISSION: NOCTURNAL OXIMETRY: IMPRESSION: Alexander-Acuna respirations with hypoxia. The patient qualifies for nocturnal oxygen therapy. If there is concern for obstructive sleep apnea, consider referral for diagnostic polysomnogram. DD: ROD SMITHP 03/28/20 0800 DT: MADDIE 03/28/20 100 DS: CANDY 03/29/20137 <Electronically signed by ROD SMITHP> 03/29/20137 TIME SPENT ON DISCHARGE: 30 MIN Vital Signs/I&Os Vital Signs Date Time Temp Pulse Resp B/P (MAP) Pulse Ox O2 Delivery O2 Flow Rate FiO2 03/29/20 08:00 97.2 68 16 152/70 (97) 92 Room Air 03/26/20 20:15 2.0 I&O- Last 24 Hours up to 6 AM 03/29/20 06:00 Intake Total 1080 ml Output Total 1500 ml Balance -420 ml Laboratory Data Labs 24H Laboratory Tests 2 03/28/20 12:07: Bedside Glucose (Misc Panel) 247H 03/28/20 21:38: Bedside Glucose (Misc Panel) 160H 03/29/20 07:50: Bedside Glucose (Misc Panel) 288H FSBS Laboratory Tests Test 03/28/20 12:07 03/28/20 21:38 03/29/20 07:50 Range/Units Bedside Glucose (Misc Panel) 247 160 288 83-110 MG/DL Microbiology Microbiology 03/22/20 Blood Culture - Final, Complete NO GROWTH AFTER 5 DAYS 03/22/20 Blood Culture - Final, Complete NO GROWTH AFTER 5 DAYS Discharge Medications Scheduled Aspirin (Aspirin EC) 81 Mg Tabec, 81 MG PO QHS, (Reported) Atenolol (Atenolol) 100 Mg Tab, 100 MG PO QHS, (Reported) Atorvastatin Calcium (Atorvastatin Calcium) 40 Mg Tab, 40 MG PO QHS, (Reported) Cholecalciferol (Vitamin D3) (Vitamin D3) 1,000 Unit Tablet, 2,000 UNITS PO DAILY, (Reported) Esomeprazole Magnesium (Nexium) 20 Mg Cap, 20 MG PO DAILY, (Reported) Folic Acid/Vit B Complex and C (Gisel-Soraida Tablet) 1 Tab Tab, 1 TAB PO DAILY, (Reported) Glipizide (Glipizide) 5 Mg Tab, 5 MG PO BID, (Reported) Hydralazine HCl (Hydralazine HCl) 25 Mg Tablet, 50 MG PO 4XWK, (Reported) FRIDAY, FRIDAY, FRIDAY AND FRIDAY: TAKES 50MG IN THE MORNING Hydralazine HCl (Hydralazine HCl) 25 Mg Tablet, 25 MG PO 3XW, (Reported) FRIDAY, FRIDAY AND FRIDAY: TAKES 25 MG IN THE MORNING PRIOR TO DIALYSIS Hydralazine HCl (Hydralazine HCl) 25 Mg Tablet, 50 MG PO BID, (Reported) IN THE AFTERNOON AND AT BEDTIME Insulin Glargine,Hum.rec.anlog (Lantus Solostar) 100 Unit/1 Ml Insuln.pen, 10 UNIT SC DAILY, (Reported) Nifedipine (Procardia Xl) 90 Mg Tab, 90 MG PO QHS, (Reported) Ellington-3 Fatty Acids/Fish Oil (Ellington 3 1,000 mg Softgel) 1 Cap Cap, 1 CAP PO BID, (Reported) Sevelamer Carbonate (Sevelamer Carbonate) 800 Mg Tablet, 1,600 MG PO WM, (Reported) Scheduled PRN Albuterol Sulfate (Proair Hfa) 108 Mcg/Act Aer, 2 PUFFS INH Q4H PRN for SHORTNES S OF BREATH, (Reported) Allergies Coded Allergies: tramadol (Verified Adverse Reaction, Mild, VOMITING, 09/15/18) OTTONIEL JOHNS MD Mar 29, 2020 10:21
[2020-03-29 13:05] VITALS: BP 167/70
[2020-03-29] MEDS: **hydrALAZINE HCL** 25 MG TAB PO SCH (13:05)
== END 2020-03-29 15:26 | disposition home health service (06) | DRG 177 ==
LOC: M ICU 20:27 → EEVIPCON 20:27
PROVIDERS: ADMIT Family Medicine; ATTEND General Practice
PROC: 5A1D70Z Performance of Urinary Filtration, Intermittent, Less than 6 Hours Per Day (ICD-10-PCS; principal; 2020-03-21)
DX: U07.1 COVID-19 (principal); J18.9 Pneumonia, unspecified organism; N18.6 End stage renal disease; I13.2 Hypertensive heart and chronic kidney disease with heart failure and with stage 5 chronic kidney disease, or end stage renal disease; I69.354 Hemiplegia and hemiparesis following cerebral infarction affecting left non-dominant side; N25.81 Secondary hyperparathyroidism of renal origin; E87.1 Hypo-osmolality and hyponatremia; R06.3 Periodic breathing; R09.02 Hypoxemia; I50.9 Heart failure, unspecified; E11.22 Type 2 diabetes mellitus with diabetic chronic kidney disease; D63.1 Anemia in chronic kidney disease; E78.5 Hyperlipidemia, unspecified; M54.5 Low back pain; Z99.2 Dependence on renal dialysis; Z79.4 Long term (current) use of insulin; Z79.82 Long term (current) use of aspirin; Z79.899 Other long term (current) drug therapy; Z88.5 Allergy status to narcotic agent

== ENCOUNTER 2020-05-15 11:18 | Outpatient (CLI) | payer MEDICARE ==
[~2020-05-15] VITALS: Ht 162.6 cm; Wt 82.9 kg
[~2020-05-15 11:18] MED LIST changes: +D31000TA2 PO; +HYDR-3910 PO; +LEVO250T12 PO
[2020-05-15 11:52] VITALS: BP 145/64
[2020-05-15 13:36] VITALS: BP 171/71
[2020-05-15 13:50] VITALS: BP 142/62
[2020-05-15 14:50] VITALS: BP 150/70
[2020-05-15 15:36] VITALS: BP 136/78
== END 2020-05-15 16:15 | disposition home or self-care (01) ==
LOC: M INFU 11:18
PROVIDERS: ATTEND Internal Medicine Nephrology
DX: N18.6 End stage renal disease (principal); D63.1 Anemia in chronic kidney disease
CPT/HCPCS: 36415; 36430; 86850; 86900; 86901; 86920; P9016

== ENCOUNTER 2020-06-16 11:52 | Inpatient (IN) | payer MEDICARE ==
[~2020-06-16] VITALS: Ht 162.6 cm; Wt 83.1 kg
[2020-06-16] MEDS ORDERED: ACETAMINOPHEN TAB 650MG DOSE (2X325MG) PO PRN (17:00)
[2020-06-16 17:30] VITALS: BP 165/76
--- NOTE | 2020-06-16 17:43 | REP ---
INDICATION: chf COMPARISON: 03/22/2020 TECHNIQUE: Portable AP view of the chest FINDINGS: Examination is limited by portable technique, underpenetration and poor inspiratory effort. Mediastinum and cardiac silhouette are stable. Lung rizo demonstrate stable chronic interstitial changes. Mild pulmonary vascular congestion as well as subtle left lower lobe airspace disease cannot be excluded. No obvious effusion. No pneumothorax. IMPRESSION: 1. Stable chronic changes. 2. Examination limitations cannot exclude mild pulmonary vascular congestion or subtle left lower lobe airspace disease. <Electronically signed by Alex Batista > 06/16/20 [id number]
[2020-06-16] MEDS ORDERED: GLUCOSE 4GM CHEW TABLET PO PRN (18:15)
[2020-06-16] MEDS ORDERED: GLUCAGON INJ 1MG VIAL SC PRN (18:15)
[2020-06-16] MEDS ORDERED: DEXTROSE 50% 50 ML SYRINGE IV PRN (18:15)
--- NOTE | 2020-06-16 18:29 | HPEPDOC ---
General Date of Admission Jun 16, 2020 at 16:32 Date of Service: Jun 16, 2020 Chief Complaint The patient is a 75-year-old female admitted with a reason for visit of Fluid Overload. Source: Patient, RN/, Old records History of Present Illness 75-year-old female with a past medical history of end-stage renal disease, on hemodialysis on a Friday, Friday, Friday schedule, history of cerebrovascular accident (CVA) with left-sided weakness, insulin-dependent diabetes mellitus, hypertension, dyslipidemia, obesity, COVID-19 pneumonia in Mar 2020, CHF was transferred from [facility] to [facility] from [facility] for fluid overload needing urgent dialysis. Patient presented to [facility] for sudden onset chest pain and SOB which woke her up from sleep this morning. She thought she was having a heart attack so she called the EMS. She did not have any dizziness or nausea or diaphoresis. Her chest pain was located retrosternally was about 8/10 and dull aching in nature. She was also having SOB and coughing. Work up in Outside hospital was negative for any ACS. Here she complained of SOB and cough and some heaviness of chest but not as bad as in the morning. She was admitted for CHF exacerbation with fluid overload needing urgent HD. Home Medications Scheduled Aspirin (Aspirin EC) 81 Mg Tabec, 81 MG PO QHS, (Reported) Atenolol (Atenolol) 100 Mg Tab, 100 MG PO QHS, (Reported) Atorvastatin Calcium (Atorvastatin Calcium) 40 Mg Tab, 40 MG PO QHS, (Reported) Cholecalciferol (Vitamin D3) (Vitamin D3) 1,000 Unit Tablet, 2,000 UNITS PO DAILY, (Reported) Esomeprazole Magnesium (Nexium) 20 Mg Cap, 20 MG PO DAILY, (Reported) Folic Acid/Vit B Complex and C (Gisel-Soraida Tablet) 1 Tab Tab, 1 TAB PO DAILY, (Reported) Glipizide (Glipizide) 5 Mg Tab, 5 MG PO BID, (Reported) Hydralazine HCl (Hydralazine HCl) 25 Mg Tablet, 50 MG PO 4XWK, (Reported) FRIDAY, FRIDAY, FRIDAY AND FRIDAY: TAKES 50MG IN THE MORNING Hydralazine HCl (Hydralazine HCl) 25 Mg Tablet, 25 MG PO 3XW, (Reported) FRIDAY, FRIDAY AND FRIDAY: TAKES 25 MG IN THE MORNING PRIOR TO DIALYSIS Hydralazine HCl (Hydralazine HCl) 25 Mg Tablet, 50 MG PO BID, (Reported) IN THE AFTERNOON AND AT BEDTIME Insulin Glargine,Hum.rec.anlog (Lantus Solostar) 100 Unit/1 Ml Insuln.pen, 10 UNIT SC DAILY, (Reported) Nifedipine (Procardia Xl) 90 Mg Tab, 90 MG PO QHS, (Reported) [place]-3 Fatty Acids/Fish Oil ([place] 3 1,000 mg Softgel) 1 Cap Cap, 1 CAP PO BID, (Reported) Sevelamer Carbonate (Sevelamer Carbonate) 800 Mg Tablet, 1,600 MG PO WM, (Reported) Scheduled PRN Albuterol Sulfate (Proair Hfa) 108 Mcg/Act Aer, 2 PUFFS INH Q4H PRN for SHORTNESS OF BREATH, (Reported) Allergies Coded Allergies: tramadol (Verified Adverse Reaction, Mild, VOMITING, 09/15/18) Past Medical History Medical History ESRD Right heart failure Diastolic CHF Severe mitral regurgitation Severe pulmonary hypertension Obesity Dm HTN LVH HLD Alexander davies respiration with nocturnal hypoxia. Surgical History AVF creation. Family History Mother has diabetes and congestive heart failure Father had diabetes Social History * Smoker: Denies Alcohol: Denies Drugs: denies A-FIB/CHADSVASC A-FIB History Current/History of A-Fib/PAF?: No Review of Systems Constitutional: Denies: Chills, Fever, Night Sweats Eyes: Denies: Pain, Vision change ENT: Denies: Head Aches, Ear Pain, Dysphagia Skin: Denies: Rash, Lesions, Breakdown Pulmonary: Reports: Dyspnea, Cough Cardiovascular: Reports: Chest Pain, Edema Gastrointestinal: Denies: Nausea, Vomiting, Abdominal Pain, Diarrhea Genitourinary: Denies: Dysuria, Frequency, Incontinence, Retention Physical Examination General Exam: Positive: Alert, Cooperative, Mild Distress Eye Exam: Positive: PERRLA, Conjunctiva & lids normal, EOMI; Negative: Sclera icteric ENT Exam: Positive: Atraumatic, Mucous membr. moist/pink, Pharynx Normal Neck Exam: Positive: Supple, JVD; Negative: thyromegaly Chest Exam: Positive: Normal air movement, Diminished (at saul bases), Other (Bilateral basal crackles) Heart Exam: Positive: Rate Normal, Regular Rhythm, Normal S1, Normal S2, Murmurs (systolic murmur present); Negative: Rubs Telemetry: Positive: No significant arrhythmia Abdomen Exam: Positive: Normal bowel sounds, Soft; Negative: Tenderness, Hepatospenomegaly Extremity Exam: Positive: Edema (3+ bipedal edema.); Negative: Clubbing, Cyanosis Skin Exam: Positive: Nl turgor and temperature; Negative: Breakdown, Lesion Vital Signs Vital Signs Date Time Temp Pulse Resp B/P (MAP) Pulse Ox O2 Delivery O2 Flow Rate FiO2 06/16/20 17:30 98.3 69 20 165/76 (105) 92 Nasal Cannula 2.0 Assessment/Plan 75-year-old female with a past medical history of end-stage renal disease, on hemodialysis on a Friday, Friday, Friday schedule, history of cerebrovascular accident (CVA) with left-sided weakness, insulin-dependent diabetes mellitus, hypertension, dyslipidemia, obesity, COVID-19 pneumonia in Mar 2020, CHF was transferred from [facility] from [facility] for fluid overload needing urgent dialysis. Patient presented to [facility] for sudden onset chest pain and SOB which woke her up from sleep this morning. She thought she wa s having a heart attack so she called the EMS. She was ruled out for ACS. Here she complained of SOB and cough and some heaviness of chest but not as bad as in the morning. She was admitted for CHF exacerbation. Diastolic CHF exacerbation and acute on chronic right heart failure fluid overload to be managed by HD. ESRD with fluid overload will go for urgent HD today. Nephrology managed her dialysis needs Severe mitral regurgitation and severe pulmonary hypertension fluid management by HD. HTN with hypertensive heart disease atenolol, nifedipine, and hydralazine will put hold parameters as we want high BP to be able to remove good amouts of fluid during HD. DM Levemir and lispro FS Ac and HS. History of CVA with residual left weakness statin and aspirin Anemia Secondary to ESRD DVT ppx Heparin subq BID. C Plan / VTE VTE Prophylaxis Ordered?: Yes SRINI LUGO MD Jun 16, 2020 18:29
[2020-06-16 18:48] LABS: HEMATOCRIT 28.4 % (36.0-47.0); MEAN CORPUSCULAR HEMOGLOBIN 32.6 pg (27.0-33.0); MEAN CORPUSCULAR HGB CONC 31.7 g/dl (32.0-36.5); MEAN CORPUSCULAR VOLUME 102.9 fl (80.0-96.0); PLATELET COUNT, AUTOMATED 218 10^3/uL (150-450); RED BLOOD COUNT 2.76 10^6/uL (4.00-5.40); WHITE BLOOD COUNT 10.3 10^3/uL (4.0-10.0)
[2020-06-16 19:15] LABS: ALBUMIN 3.1 GM/DL (3.2-5.2); ALT/SGPT 31 U/L (12-78); BILIRUBIN,TOTAL 0.7 MG/DL (0.2-1.0); BLOOD UREA NITROGEN 44 MG/DL (7-18); CALCIUM LEVEL 8.7 MG/DL (8.8-10.2); CARBON DIOXIDE LEVEL 27 MEQ/L (21-32); CHLORIDE LEVEL 99 MEQ/L (98-107); CPK CREATINE PHOSPHOKINASE 44 U/L (26-192); CREATININE FOR GFR 5.18 MG/DL (0.55-1.30); GLOMERULAR FILTRATION RATE 8.6 (>39); GLUCOSE, FASTING 277 MG/DL (70-100); MB/CK RELATIVE INDEX 2.27 (< OR =4); PHOSPHORUS LEVEL 3.2 MG/DL (2.5-4.9); POTASSIUM SERUM 4.7 MEQ/L (3.5-5.1); SODIUM LEVEL 135 MEQ/L (136-145); TOTAL PROTEIN 7.1 GM/DL (6.4-8.2); TROPONIN I < 0.02 NG/ML (< 0.10)
[2020-06-16] MEDS: HumaLOG INSULIN (NovoLOG) PER UNIT SC SCH (21:00)
[2020-06-16 22:00] VITALS: BP 155/75
[2020-06-16] MEDS: atenoloL 50 MG TAB PO SCH (22:23)
[2020-06-16] MEDS: DOCUSATE SODIUM 100MG CAPSULE PO SCH (22:23)
[2020-06-17 06:00] VITALS: BP 161/62
[2020-06-17 07:02] LABS: BASO % 0.3 % (0.0-1.0); EOS # 0.1 10^3/uL (0.0-0.5); EOS % 0.8 % (0.0-3.0); HEMATOCRIT 29.3 % (36.0-47.0); HEMOGLOBIN 9.3 g/dl (12.0-15.5); LYMPH # 0.6 10^3/uL (1.5-5.0); MEAN CORPUSCULAR HEMOGLOBIN 33.7 pg (27.0-33.0); MEAN CORPUSCULAR HGB CONC 31.7 g/dl (32.0-36.5); MEAN CORPUSCULAR VOLUME 106.2 fl (80.0-96.0); MONO # 0.9 10^3/uL (0.0-0.8); MONO % 9.6 % (0.0-5.0); NEUTROPHILS # 7.2 10^3/uL (1.5-8.5); NEUTROPHILS % 81.8 % (36.0-66.0); PLATELET COUNT, AUTOMATED 186 10^3/uL (150-450); RED BLOOD COUNT 2.76 10^6/uL (4.00-5.40); WHITE BLOOD COUNT 8.9 10^3/uL (4.0-10.0)
[2020-06-17 07:29] LABS: CALCIUM LEVEL 8.5 MG/DL (8.8-10.2); CREATININE FOR GFR 3.64 MG/DL (0.55-1.30); POTASSIUM SERUM 4.3 MEQ/L (3.5-5.1)
[2020-06-17] MEDS: HumaLOG INSULIN (NovoLOG) PER UNIT SC SCH ×4 (08:09→20:21)
[2020-06-17] MEDS: atenoloL 50 MG TAB PO SCH ×2 (08:10→20:22)
[2020-06-17] MEDS: DOCUSATE SODIUM 100MG CAPSULE PO SCH ×2 (08:10→20:21)
[2020-06-17] MEDS: HEPARIN SOD (PORCINE) 5000UNITS/ML 1ML VIAL/SYRINGE SC SCH ×2 (08:10→20:22)
[2020-06-17] MEDS: NEPHRO-VIT TAB (NEPHROCAPS) PO SCH (09:00)
[2020-06-17] MEDS ORDERED: LEVEMIR (INSULIN DETEMIR) 1 UNITS/0.01ML SC SCH (09:00)
[2020-06-17] MEDS ORDERED: SODIUM CHLORIDE 0.9% 1000ML IV PRN (10:30)
[2020-06-17] MEDS ORDERED: LIDOCAINE 1% SDV 5ML VIAL SC PRN (10:30)
--- NOTE | 2020-06-17 11:54 | IPNPDOC ---
Subjective Date Seen The patient was seen on 06/17/20. Subjective Chief Complaint/HPI Patient feeling better today after HD last night. Cough and chest heaviness better. She is going for UF today. Objective Physical Examination General Exam: Positive: Alert, Cooperative, No Acute Distress Eye Exam: Positive: PERRLA, Conjunctiva & lids normal, EOMI; Negative: Sclera icteric ENT Exam: Positive: Atraumatic, Mucous membr. moist/pink, Pharynx Normal Neck Exam: Positive: Supple, JVD; Negative: thyromegaly Chest Exam: Positive: Normal air movement, Diminished (at saul bases), Other (crackles at the right base.) Heart Exam: Positive: Rate Normal, Regular Rhythm, Normal S1, Normal S2, Murmurs (systolic murmur present); Negative: Rubs Telemetry: Positive: No significant arrhythmia Abdomen Exam: Positive: Normal bowel sounds, Soft; Negative: Tenderness, Hepatospenomegaly Extremity Exam: Positive: Edema (2+ bipedal edema), Other (right upper arm fistula); Negative: Clubbing, Cyanosis Skin Exam: Positive: Nl turgor and temperature; Negative: Breakdown, Lesion Assessment /Plan Assessment 75-year-old female with a past medical history of end-stage renal disease, on hemodialysis on a Friday, Friday, Friday schedule, history of cerebrovascular accident (CVA) with left-sided weakness, insulin-dependent diabetes mellitus, hypertension, dyslipidemia, obesity, COVID-19 pneumonia in Mar 2020, CHF was transferred from [facility] from [facility] for fluid overload needing urgent dialysis. Patient presented to [facility] for sudden onset chest pain and SOB which woke her up from sleep this morning. She thought she was having a heart attack so she called the EMS. She was ruled out for ACS. Here she complained of SOB and cough and some heaviness of chest but not as bad as in the morning. She was admitted for CHF exacerbation. Diastolic CHF exacerbation and acute on chronic right heart failure fluid overload to be managed by HD. I/O, 2 gm Na diet, fluid restriction 1.5 liter. ESRD with fluid overload will go for urgent HD today. Nephrology managed her dialysis needs continue sevelemer, nephrovite. Severe mitral regurgitation and severe pulmonary hypertension fluid management by HD. HTN with hypertensive heart disease atenolol, nifedipine, and hydralazine will hold nifedipine and hydralazine. will put hold parameters as we want higher BP to be able to remove good amounts of fluid during HD. Hyponatremia due to volume overload and hyperglycemia DM Levemir and lispro FS Ac and HS. History of CVA with residual left weakness statin and aspirin Anemia Secondary to ESRD DVT ppx Heparin subq BID. C Plan/VTE VTE Prophylaxis Ordered?: Yes VS, I&O, 24H, Fishbone Vital Signs/I&O Vital Signs Date Time Temp Pulse Resp B/P (MAP) Pulse Ox O2 Delivery O2 Flow Rate FiO2 06/17/20 08:10 60 156/76 06/17/20 08:00 2.0 06/17/20 06:00 98.6 20 98 Nasal Cannula I&O- Last 24 Hours up to 6 AM 06/17/20 06:00 Intake Total 500 ml Output Total 3000 ml Balance -2500 ml Laboratory Data 24H LABS Laboratory Tests 2 06/16/20 18:29: Nucleated Red Blood Cells % (auto) 0.0, Anion Gap 9, Glomerular Filtration Rate 8.6L, Calcium Level 8.7L, Phosphorus Level 3.2, Total Bilirubin 0.7, Aspartate Amino Transf (AST/SGOT) 22, Alanine Aminotransferase (ALT/SGPT) 31, Alkaline Phosphatase 160H, Total Creatine Kinase 44, Creatine Kinase MB 1.0, Creatine Kinase MB Relative Index 2.27, Troponin I < 0.02, Total Protein 7.1, Albumin 3.1L, Albumin/Globulin Ratio 0.8L 06/16/20 22:08: Bedside Glucose (Misc Panel) 199H 06/17/20 06:09: Nucleated Red Blood Cells % (auto) 0.0, Anion Gap 9, Glomerular Filtration Rate 13.0L, Calcium Level 8.5L, Immature Granulocyte % (Auto) 0.5, Neutrophils (%) (Auto) 81.8H, Lymphocytes (%) (Auto) 7.0L, Monocytes (%) (Auto) 9.6H, Eosinophils (%) (Auto) 0.8, Basophils (%) (Auto) 0.3, Neutrophils # (Auto) 7.2, Lymphocytes # (Auto) 0.6L, Monocytes # (Auto) 0.9H, Eosinophils # (Auto) 0.1, Basophils # (Auto) 0.0 06/17/20 11:28: Bedside Glucose (Misc Panel) 144H CBC/BMP Laboratory Tests 06/16/20 18:29 06/17/20 06:09 SRINI LUGO MD Jun 17, 2020 11:54
[2020-06-17] MEDS: (RENVELA) SEVELAMER **CARBONate** 800 MG TAB PO SCH ×2 (12:29→18:20)
[2020-06-17] MEDS: PANTOPRAZOLE 20 MG TAB PO SCH (12:29)
--- NOTE | 2020-06-17 12:37 | IPN ---
PROGRESS NOTE DATE: 06/17/2020 SUBJECTIVE: The patient is seen and examined this morning sitting out of bed in a chair. She reports her breathing is much more comfortable since she was dialyzed yesterday and had 3 liters of fluid removed. She is for an extra dialysis treatment this afternoon. I discussed discharge plans with her as well. She denies any fever, chills, nausea, vomiting or diarrhea. She complains of chronic leg edema. PHYSICAL EXAMINATION: VITAL SIGNS: Temperature is 98.6, pulse is 80, respiratory rate is 20, blood pressure is 161/62, saturating 98% on 2 liter nasal cannula. Dialysis yesterday removed 3 liters. Weight on the bed scale today is 83.1 kg. GENERAL: The patient is seen sitting out of bed to the chair. Elderly female, obese, awake, alert and oriented x3. In no apparent distress. HEENT: Extraocular muscles are intact. Tongue is moist. NECK: Supple. Jugular veins were not elevated while she was sitting upright. HEART: Heart sounds are regular. S1 and S2. There is a systolic murmur. EXTREMITIES: There is 2+ leg edema on the right and 1+ leg edema on the left. There are diminished breath sounds at the bases with rale. ABDOMEN: Obese and soft. EXTREMITIES: Negative for clubbing or cyanosis but do show pitting edema bilaterally. There is a fistula in the arm which is patent. NEUROLOGIC: She was oriented x3, interactive and conversational. LABORATORY DATA: White count 8.9, hemoglobin 9.3, platelets 186,000, sodium 130, potassium 4.3. INPATIENT MEDICATIONS: Reviewed by myself. She was started on Heparin subcutaneously and her insulin was adjusted by the Primary Service and she was started on Nephro-Soraida one tablet daily. The remainder of medications are unchanged from prior. PROBLEMS: 1. Decompensated congestive heart failure (diastolic congestive heart failure and chronic right heart failure). The patient had three liters of fluid removed with dialysis yesterday. She is receiving an extra ultrafiltration session today to remove another 2 to 2.5 liters of fluid. She will need her dry weight to be adjusted in the outpatient hemodialysis unit. She has trouble removing aggressive fluid with dialysis because of hypotension of hemodialysis and her antihypertensives are being adjusted in view of the same. 2. Endstage renal disease, on hemodialysis with present fluid overload and decompensated heart failure. She was dialyzed yesterday with 3 liters of fluid removed. She will be dialyzed today with another 2 to 2.5 liters of fluid to removed. Outpatient dialysis is Friday, Friday and Friday. Her dry weight will be adjusted as an outpatient. Continue oral fluid restriction 1.5 liters daily. 3. Hypertension. At home, she takes Atenolol, hydralazine and Nifedipine. She complains of hypotension with hemodialysis in her outpatient unit. Because of that, she has become hypervolemic. Once she is discharged this time, she should be discontinued off of hydralazine. She can continue atenolol and Nifedipine. Her blood pressures will improve with fluid removal. 4. Hyponatremia, it is due to fluid overload and also due to hyperglycemia, insulin was adjusted by the primary team and we are doing an extra filtration treatment today to remove further fluid. 5. Disposition: Patient is being taken for an additional ultra filtration session this afternoon and will most likely be able to be optimized for discharge on June 18.
[2020-06-17 14:00] VITALS: BP 131/88
[2020-06-17] MEDS: glipiZIDE (GLUCOTROL) 5 MG TAB PO SCH (18:20)
[2020-06-17] MEDS: LEVEMIR (INSULIN DETEMIR) 1 UNITS/0.01ML SC SCH (20:21)
[2020-06-17] MEDS ORDERED: ASPIRIN 81 MG ENTERIC TAB PO SCH (21:00)
[2020-06-17] MEDS ORDERED: ATORVASTATIN 20 MG TAB PO SCH (21:00)
[2020-06-17 22:00] VITALS: BP 147/82
[2020-06-18 06:00] VITALS: BP 140/81
[2020-06-18 06:52] LABS: BASO # 0.1 10^3/uL (0.0-0.2); BASO % 0.8 % (0.0-1.0); EOS # 0.2 10^3/uL (0.0-0.5); EOS % 3.5 % (0.0-3.0); HEMATOCRIT 27.4 % (36.0-47.0); HEMOGLOBIN 8.6 g/dl (12.0-15.5); LYMPH # 1.1 10^3/uL (1.5-5.0); LYMPH % 16.9 % (24.0-44.0); MEAN CORPUSCULAR HEMOGLOBIN 32.6 pg (27.0-33.0); MEAN CORPUSCULAR HGB CONC 31.4 g/dl (32.0-36.5); MEAN CORPUSCULAR VOLUME 103.8 fl (80.0-96.0); MONO # 0.8 10^3/uL (0.0-0.8); MONO % 12.8 % (0.0-5.0); NEUTROPHILS # 4.2 10^3/uL (1.5-8.5); NEUTROPHILS % 65.7 % (36.0-66.0); PLATELET COUNT, AUTOMATED 226 10^3/uL (150-450); RED BLOOD COUNT 2.64 10^6/uL (4.00-5.40); WHITE BLOOD COUNT 6.3 10^3/uL (4.0-10.0)
[2020-06-18 07:24] LABS: CALCIUM LEVEL 8.7 MG/DL (8.8-10.2); CREATININE FOR GFR 5.27 MG/DL (0.55-1.30); GLOMERULAR FILTRATION RATE 8.5 (>39)
[2020-06-18] MEDS: HumaLOG INSULIN (NovoLOG) PER UNIT SC SCH (07:30)
[2020-06-18] MEDS: glipiZIDE (GLUCOTROL) 5 MG TAB PO SCH (07:30)
[2020-06-18] MEDS: LEVEMIR (INSULIN DETEMIR) 1 UNITS/0.01ML SC SCH (08:16)
[2020-06-18 08:25] VITALS: BP 157/80
[2020-06-18] MEDS: HEPARIN SOD (PORCINE) 5000UNITS/ML 1ML VIAL/SYRINGE SC SCH (08:25)
[2020-06-18] MEDS: NEPHRO-VIT TAB (NEPHROCAPS) PO SCH (08:25)
[2020-06-18] MEDS: PANTOPRAZOLE 20 MG TAB PO SCH (08:25)
[2020-06-18] MEDS: DOCUSATE SODIUM 100MG CAPSULE PO SCH (08:25)
[2020-06-18] MEDS: atenoloL 50 MG TAB PO SCH (08:25)
[2020-06-18] MEDS: (RENVELA) SEVELAMER **CARBONate** 800 MG TAB PO SCH (08:25)
[2020-06-18] MEDS ORDERED: ATEN100T PO (09:41)
--- NOTE | 2020-06-18 09:55 | DS.PDOC ---
Discharge Summary General Date of Admission Jun 16, 2020 at 16:32 Date of Discharge 06/18/20 Discharge Summary PROCEDURES PERFORMED DURING STAY: [None]. DISCHARGE DIAGNOSES: Acute on chronic Diastolic CHF Acute on chronic right heart failure ESRD with fluid overload Severe Mitral regurgitation Severe Pulmonary hypertension. Hypertensive with hypertensive heart disease. Hyponatremia Diabetes HLD Obesity Anemia of Chronic disease. H/O CVA with residual left weakness. COMPLICATIONS/CHIEF COMPLAINT: Fluid Overload. HOSPITAL COURSE: 75-year-old female with a past medical history of end-stage renal disease, on hemodialysis on a Friday, Friday, Friday schedule, history of cerebrovascular accident (CVA) with left-sided weakness, insulin-dependent diabetes mellitus, hypertension, dyslipidemia, obesity, COVID-19 pneumonia in Mar 2020, CHF was transferred [facility] from [facility] for fluid overload needing urgent dialysis. Patient presented to [facility] for sudden onset chest pain and SOB which woke her up from sleep this morning. She thought she was having a heart attack so she called the EMS. She was ruled out for ACS. Here she complained of SOB and cough and some heaviness of chest but not as bad as in the morning. She was admitted for CHF exacerbation. Diastolic CHF exacerbation and acute on chronic right heart failure fluid overload to be managed by HD. I/O, 2 gm Na diet, fluid restriction 1.5 liter. ESRD with fluid overload will go for urgent HD today. Nephrology managed her dialysis needs continue sevelemer, nephrovite. Severe mitral regurgitation and severe pulmonary hypertension fluid management by HD. HTN with hypertensive heart disease Has episodes of low BP during dialysis we want higher BP to be able to remove good amounts of fluid during HD. atenolol dose reduced from 150mg to 100 mg stopped hydralazine will continue Nifedipine 90 mg daily. Hyponatremia due to volume overload and hyperglycemia DM glipizide. HLD atorvastatin History of CVA with residual left weakness statin and aspirin Anemia Secondary to ESRD DVT ppx Heparin subq BID. C DISCHARGE MEDICATIONS: Please see below. ALLERGIES: Please see below. PHYSICAL EXAMINATION ON DISCHARGE: VITAL SIGNS: Please see below. General Exam: Positive: Alert, Cooperative, No Acute Distress Eye Exam: Positive: PERRLA, Conjunctiva & lids normal, EOMI; Negative: Sclera icteric ENT Exam: Positive: Atraumatic, Mucous membr. moist/pink, Pharynx Normal Neck Exam: Positive: Supple, Negative: thyromegaly, JVD Chest Exam: Positive: Normal air movement, clear to auscultation. Heart Exam: Positive: Rate Normal, Regular Rhythm, Normal S1, Normal S2, Murmurs (systolic murmur present); Negative: Rubs Telemetry: Positive: No significant arrhythmia Abdomen Exam: Positive: Normal bowel sounds, Soft; Negative: Tenderness, Hepatosplenomegaly Extremity Exam: Positive: Edema (2+ bipedal edema), Other (right upper arm fistula); Negative: Clubbing, Cyanosis Skin Exam: Positive: Nl turgor and temperature; Negative: Breakdown, Lesion LABORATORY DATA: Please see below. ACTIVITY: [As tolerated]. DIET: 2 gm sodium, 1.5 l fluid retention, carb consistent DISCHARGE PLAN: Home DISCHARGE INSTRUCTIONS: Follow up Dr Cabrera in 1 to 2 weeks DISCHARGE CONDITION: [Stable]. TIME SPENT ON DISCHARGE: 35 minutes. Vital Signs/I&Os Vital Signs Date Time Temp Pulse Resp B/P (MAP) Pulse Ox O2 Delivery O2 Flow Rate FiO2 06/18/20 08:25 60 157/80 06/18/20 06:00 98.6 18 95 Room Air 06/17/20 14:00 2.0 I&O- Last 24 Hours up to 6 AM 06/18/20 06:00 Intake Total 828 ml Output Total 2500 ml Balance -1672 ml Laboratory Data Labs 24H Laboratory Tests 2 06/17/20 11:28: Bedside Glucose (Misc Panel) 144H 06/17/20 18:14: Bedside Glucose (Misc Panel) 218H 06/17/20 19:59: Bedside Glucose (Misc Panel) 227H 06/18/20 06:10: Immature Granulocyte % (Auto) 0.3, Neutrophils (%) (Auto) 65.7, Lymphocytes (%) (Auto) 16.9L, Monocytes (%) (Auto) 12.8H, Eosinophils (%) (Auto) 3.5H, Basophils (%) (Auto) 0.8, Neutrophils # (Auto) 4.2, Lymphocytes # (Auto) 1.1L, Monocytes # (Auto) 0.8, Eosinophils # (Auto) 0.2, Basophils # (Auto) 0.1, Nucleated Red Blood Cells % (auto) 0.0, Anion Gap 8, Glomerular Filtration Rate 8.5L, Calcium Level 8.7L 06/18/20 08:26: Bedside Glucose (Misc Panel) 110 CBC/BMP Laboratory Tests 06/18/20 06:10 FSBS Laboratory Tests Test 06/17/20 11:28 06/17/20 18:14 06/17/20 19:59 06/18/20 08:26 Range/Units Bedside Glucose (Misc Panel) 144 218 227 110 83-110 MG/DL Discharge Medications Scheduled Aspirin (Aspirin EC) 81 Mg Tabec, 81 MG PO QHS, (Reported) Atenolol (Atenolol) 100 Mg Tab, 100 MG PO QHS Atorvastatin Calcium (Atorvastatin Calcium) 40 Mg Tab, 40 MG PO QHS, (Reported) Cholecalciferol (Vitamin D3) (Vitamin D3) 1,000 Unit Tablet, 1,000 UNITS PO QHS, (Reported) Esomeprazole Magnesium (Nexium) 20 Mg Cap, 20 MG PO DAILY, (Reported) Folic Acid/Vit B Complex and C (Gisel-Soraida Tablet) 1 Tab Tab, 1 TAB PO QHS, (Reported) Glipizide (Glipizide) 5 Mg Tab, 5 MG PO BID, (Reported) Insulin Glargine,Hum.rec.anlog (Lantus Solostar) 100 Unit/1 Ml Insuln.pen, 10 UNIT SC DAILY, (Reported) Nifedipine (Procardia Xl) 90 Mg Tab, 90 MG PO DAILY, (Reported) Sevelamer Carbonate (Sevelamer Carbonate) 800 Mg Tablet, 800 MG PO TID, (Reported) WITH MEALS Scheduled PRN Albuterol Sulfate (Proair Hfa) 108 Mcg/Act Aer, 2 PUFFS INH Q4H PRN for SHORTNESS OF BREATH, (Reported) Allergies Coded Allergies: tramadol (Verified Adverse Reaction, Mild, VOMITING, 09/15/18) SRINI LUGO MD Jun 18, 2020 09:55
--- NOTE | 2020-06-18 17:12 | IPN ---
PROGRESS NOTE DATE: 06/18/2020 SUBJECTIVE: Nadya is seen and examined this morning at the bedside. She feels good, reports that her breathing is back to baseline, she wants to go home. She was dialyzed yesterday with 2500 mL of fluid removed, that was an extra treatment for her, her next dialysis will be Friday as an outpatient. Vital signs: Temperature 98.6, pulse 65, respiratory rate 18, blood pressure 140/81, saturating 95% on room air. Intake yesterday was 1130, dialysis removed 2500, net negative 1300, weight in the bed scale today is not recorded. General: Patient is seen sitting out of bed to the chair, elderly female, awake, awake, oriented, interactive, conversational, no apparent distress. Extraocular muscles are intact. Tongue is moist. Neck is supple. Jugular veins were not elevated while she was sitting upright. Heart sounds are regular, S1, S2, there is a systolic murmur. Extremities show 1+ leg edema on the right leg and trace edema on the left leg. Lungs show symmetric air entry with no crackles. Abdomen is obese and soft. Extremities are negative for clubbing or cyanosis. There is some asymmetric pitting edema right more so than left. There is a fistula in the arm which is patent. Neurologic: She is oriented times three, interactive and conversational. Today's labs show white count 6.3, hemoglobin 8.6, platelet 226, sodium 134, potassium 4.0. INPATIENT MEDICATIONS: Reviewed by myself and no change as compared to yesterday. PROBLEMS: 1. End-stage renal disease on hemodialysis on a Friday, Friday, Friday schedule. Patient came in with fluid overload. She had hypotension of hemodialysis as an outpatient and was having inadequate fluid removed with her outpatient hemodialysis treatments. She was dialyzed in the hospital on Friday and she had an extra ultrafiltration session on Friday and her volume status is now much improved. We will adjust her dry weight as an outpatient and I have also cut back her antihypertensives so that we are able to remove more fluid with her dialysis treatments as an outpatient. 2. Decompensated congestive heart failure (diastolic congestive heart failure and chronic right heart failure). Volume status is principally regulated by dialysis. She had a total of 5.5 liters removed the past 2 days with her two treatments. Her dry weight will be adjusted outpatient. She will continue on chronic fluid restriction and her antihypertensive regimen is scaled back in view of hypotension of hemodialysis which was previously limiting the amount of fluid that was removed. 3. Hypertension. Continue home regimen of atenolol and nifedipine. I have instructed her to take hydralazine on non-dialysis days only, 25 mg three times a day. She should not take hydralazine on dialysis days because of hypotension of hemodialysis. 4. Anemia of chronic renal failure. She will continue with the usual Aranesp and iron in the outpatient dialysis unit. 5. Hypervolemic hyponatremia. It was due to fluid overload and it has improved nicely with fluid removal and dialysis. 6. Disposition. Patient is acceptable for discharge from nephrology point of view and will followup in the outpatient dialysis unit on 06/19/2020.
== END 2020-06-18 13:42 | disposition home or self-care (01) | DRG 291 ==
LOC: M MSPAV 16:32
PROVIDERS: ADMIT Internal Medicine; ATTEND Internal Medicine Nephrology
DX: I13.2 Hypertensive heart and chronic kidney disease with heart failure and with stage 5 chronic kidney disease, or end stage renal disease (principal); N18.6 End stage renal disease; I50.33 Acute on chronic diastolic (congestive) heart failure; E87.1 Hypo-osmolality and hyponatremia; E11.9 Type 2 diabetes mellitus without complications; E66.9 Obesity, unspecified; D63.1 Anemia in chronic kidney disease; I34.0 Nonrheumatic mitral (valve) insufficiency; I27.20 Pulmonary hypertension, unspecified; I69.364 Other paralytic syndrome following cerebral infarction affecting left non-dominant side; Z79.4 Long term (current) use of insulin; E78.5 Hyperlipidemia, unspecified; Z79.82 Long term (current) use of aspirin; Z79.899 Other long term (current) drug therapy; Z88.8 Allergy status to other drugs, medicaments and biological substances

== ENCOUNTER 2020-08-02 22:29 | Observation (INO) | payer MEDICARE ==
[~2020-08-02] VITALS: Ht 162.6 cm; Wt 78.6 kg
[~2020-08-02 22:29] MED LIST changes: -ALEN70TA74 PO; +ALEN70TA82 PO; +ASPIRIN 81 MG ENTERIC TAB PO SCH; +ATORVASTATIN 20 MG TAB PO SCH; +HumaLOG INSULIN (NovoLOG) PER UNIT SC SCH; +VITAMIN D 1,000 INTERNATIONAL UNITS TABLET PO SCH; +atenoloL 50 MG TAB PO SCH
[2020-08-02 23:26] VITALS: BP 106/51
--- OUTSIDE RECORDS SUMMARY | 2020-08-02 23:35 | CCD | Continuity of Care Document ---
Author Author [facility] Address [address] [place] [address] Phone Support Name Relationship Address Phone [place] [address] Shantel Ramos PRS [address] [place] [address] Doctor Provided, Family No [place] [address] [place] [address] [place] [address] [place] [address] Reginaldo Lucero PRS [address] [place] [address] [place] Mas PRS [address] [place] [address] [place] [address] [place] [address] Reginaldo King PRS [address] [place] [address] Juan Rai PRS [address] [place] [address] Allergies, Adverse Reactions, Alerts Allergen Type Severity Reaction Last Updated Verified Status tramadol Adverse Reaction Mild Nausea/Vomit/Gastric June 16 9:08am Yes Active Medications Medication Status Dose Units Route Directions Qty Days Start Date End Date Instructions Atenolol Discontinued 100 MG PO At Bedtime 135 February 17, 2019 12:16pm September 07, 2019 7:26am Insulin Glargine (Lantus Solostar U-100 Insulin) 100 unit/mL (3 mL) insulin pen Discontinued 10 UNIT SQ daily February 17, 2019 12:20pm April 22, 2019 11:43am Albuterol Sulfate (Proventil Hfa) 90 mcg /actuation HFA aerosol inhaler Discontinued 1 PUFFS INH NEEDED 8.5 August 18, 2019 1:36pm August 22 9:13am Atorvastatin Active 40 MG PO At Bedtime August 18, 2019 1:36pm Glipizide Active 5 MG PO 2 Times Per Day 180 90 August 04, 2019 1:22pm Glimepiride Discontinued 4 MG PO 2 Times Per Day November 24, 2014 4:37pm June 18, 2018 4:07pm Valsartan (Diovan) 320 MG tablet Dis continued 320 MG PO Once Per Day November 24, 2014 4:37 pm October 04, 2016 2:14am Calcitriol Discontinued 0.25 MCG PO Week days January 16, 2016 6:20am August 17, 2018 2:19pm Esomeprazole Magnesium (Nexium) 20 MG ca psule,delayed release(DR/EC) Discontinued 10 MG PO Once Per Day IF NEEDED January 16, 2016 6:20am August 17, 2018 2:19pm Alendronate Discontinued 70 MG PO TU@0700 October 04, 2016 2:13am June 18, 2018 4:07pm Atenolol Discontinued 100 MG PO At Bedtime October 04, 2016 9:38am September 25, 2018 8:27am Sitagliptin (Januvia) 50 MG tablet D iscontinued 25 MG PO A t Bedtime October 04, 2016 9:4 4am August 17, 2018 2:19pm Ciprofloxacin Hcl Discontinued 250 MG PO 0600,1800 October 06, 2016 9:00am June 18, 2018 4:07pm B Complex-Vitamin C-Folic Acid (Nephro-V ite Tablet) 0.8 MG tablet Discontinued 1 TAB PO Once Per Day September 15, 2018 12:26pm September 25, 2018 8:27am Atenolol Discontinued 1 TAB PO Once Per Day September 15, 2018 12:26pm September 07, 2019 7:26am Esomeprazole Magnesium Active 1 TAB PO Once Per Day September 15, 2018 12:26pm Albuterol Sulfate (Proventil Hfa) 6.7 GM HFA aerosol i nhaler Discontinued 1 PUFFS INH NEEDED September 15, 2018 12:32pm March 4th, 2 020 1:36pm Ciprofloxacin Hcl (Cipro) 250 mg tablet Discontinued 250 MG PO 2 Times Per Day March 16, 2020 2:32pm April 06, 2020 10:16am Atenolol Discontinued 50 MG PO Once Per Day September 26, 2015 6:49am June 18, 2018 4:07pm Insulin Glargine (Lantus U-100 Insulin) 100 UNIT/1 ML solution Discontinued 20 UNITS SQ Once Per Day September 26, 2015 6:53am June 18, 2018 4:07pm Nifedipine (Procardia) 10 MG capsule Discontinued 90 MG PO O nce Per Day September 26, 2015 6:53am August 17, 2018 2:19pm Aspirin (Aspirin Low-Strength) 81 MG tablet,chewable Active 81 MG PO Once Per Day September 26, 2015 6:53am Sitagliptin (Januvia) 100 MG tablet Discontinued 100 MG PO Once Per Day September 26, 2015 6:53am October 04, 2016 9:52am Multivitamin (Daily Multiple) 1 EACH tablet Discontinued 1 EACH PO Once Per Day September 26, 2015 6:56am September 15, 2018 12:27pm Furosemide (Lasix) 40 MG tablet Disc ontinued 40 MG PO O nce Per Day September 26, 2015 6: 56am October 06, 2016 9:05am Simvastatin Discontinued 80 MG PO At Bedtime September 26, 2015 6:56am June 18, 2018 4:07pm Cholecalciferol (Vitamin D3) (Vitamin D3) 1000 UNIT ca psule Discontinued 1000 UNIT PO Once Per Day September 26, 2015 6:56am August 17 019 2:19pm [place]-3 Fatty Acids-Fish Oil (One-Per-Da y [place]-3) 1 EACH capsule,delayed release(DR/EC) Active 3 EACH PO 2 Times Per Day September 26, 2015 6:56am Lactobacillus Acidophilus (Probiotic) 1 EACH capsule Discontinued 1 EACH PO Once Per Day September 26, 2015 6:56am June 18, 2018 4:07pm Atorvastatin Discontinued 1 TAB PO At Bedtime June 18, 2018 4:08pm March 01, 2019 9:05am Hydralazine Discontinued 2 TAB PO Three times a day June 18, 2018 4:08pm July 08, 2019 4:48pm Nifedipine Discontinued 1 TAB PO Once Per Day June 18, 2018 4:08pm February 17, 2019 12:16pm Glipizide Discontinued 1 TAB PO 2 Times Per Day June 18, 2018 4:08pm May 07, 2019 3:40pm Sitagliptin (Januvia) 25 MG tablet D iscontinued 1 TAB PO A t Bedtime June 18, 2018 4: 08pm November 24, 2018 8:37am Insulin Glargine (Lantus Solostar) 100 UNIT/1 ML insul in pen Discontinued Mc 2018 4:08pm August 17, 2018 2:19pm Amoxicillin Discontinued 500 MG PO Every 8 hours 30 June 18, 2018 4:22pm August 17, 2018 2:19pm Loratadine Discontinued 10 MG PO Once Per Day 30 June 18, 2018 4:22pm August 17, 2018 2:19pm Alendronate Sodium Discontinued 70 MG PO 1 Time Per Week 12 August 10 9 4:25pm August 10, 2018 4:26pm Alendronate Sodium Discontinued 70 MG PO 1 Time Per Week August 10 9 4:26pm September 15, 2018 12:29pm Alendronate Sodium Discontinued 70 MG PO 1 Time Per Week 12 September 29, 2018 7 :09am September 29, 2018 7:10am Alendronate Sodium Discontinued 70 MG PO 1 Time Per Week 12 September 29, 2018 7 :10am February 17, 2019 12:16pm Nifedipine Discontinued 90 MG PO daily October 30, 2018 7:54am October 24, 2019 11:05pm Sitagliptin (Januvia) 25 mg tablet D iscontinued 25 MG PO A t Bedtime November 24, 2018 8: 37am October 27, 2019 10:57am Blood Sugar Diagnostic (Blood Glucose Test) strip Active 0 .ROUTE .MEDSUPPLY December 10, 2018 2:57pm use one strip to t est glucose three times a day Pen Needle, Diabetic (Comfort Ez Pen Nee dles) 31 gauge x 1/4" needle Active 0 .ROUTE .MEDSUPPLY 100 January 25, 2019 2:52pm USE ONE PER DAY WITH INSULIN PEN Atorvastatin Discontinued 40 MG PO At Bedtime March 01, 2019 9:05am August 18, 2019 1:36pm Insulin Glargine (Lantus Solostar U-100 Insulin) 100 unit/mL (3 mL) insulin pen Active 10 UNIT SQ daily April 22, 2019 11:42am Glipizide Discontinued 5 MG PO 2 Times Per Day 180 90 May 07, 2019 3:40pm August 04, 2019 1:22pm Blood Sugar Diagnostic (Accu-Chek Evelyn Plus Test Strp ) strip Active 0 .ROUTE .MEDSUPPLY 100 June 15, 2019 1:22pm Dx E11.9 - use to test BS BID and PRN Hydralazine Discontinued 50 MG PO Three times a day 180 30 July 08, 2019 4:48pm June 12, 2020 11:54am Albuterol Sulfate (Proair Hfa) 90 mcg/ac tuation HFA aerosol inhaler Active 1 INH IH Four Times a Day 18 August 23, 2019 9:12am Atenolol Active 150 MG PO At Bedtime 135 90 September 07, 2019 7:25am Sitagliptin (Januvia) 25 mg tablet D iscontinued 25 MG PO d aily 90 90 October 27, 2019 10: 56am April 06, 2020 10:17am Nifedipine Active 90 MG PO daily 90 90 January 17, 2020 9:36am Pen Needle, Diabetic (Relion Pen [place] ) 32 gauge x 5/32" needle Active 0 .ROUTE .MEDSUPPLY 100 March 30, 2020 3:28pm use one pen needle once daily with Insulin pen Hydralazine Active 0 .ROUTE .COMPLEX 180 June 12, 2020 11:54am TAKE 2 TABLETS BY MOUTH THREE TIMES KULDIP Y Problems Active Problems Medical Problem Onset Date Status Urinary tract infection October 04, 2016 Active Pneumonia due to COVID-19 virus Active Influenza A Active Diabetes mellitus Acti ve Hypoxemia Active Hyperlipidemia Active Neoplasm of uncertain behavior Active Sepsis Active End stage renal disease on dialysis Active E coli bacteremia October 04, 2016 Active Procedures Procedure Date Performed Status Xray Chest One View June 16 1 9:02am completed Influenza-Like Illness (PCR) June 16, 2020 completed June 16, 2020 comp leted DIG MAMMO DIAG RT 2D ONLY April 202019 9:33am completed US Breast - Limited Unilat April 20, 2020 10:12am completed Xray Chest One View March 21 0 1:45pm completed CT Thorax without contrast March 212019 2:58pm completed Blood Culture March 21, 2020 completed Urine Culture March 21, 2020 completed SARS-CoV-2 (PCR) Interpretation Octo 2019 completed 3D DIG MAMMO SCREEN BILAT April 042019 1:27pm completed US Breast - Complete Bilat March 172019 1:47pm completed Urine Culture March 15, 2020 completed Xray Chest 2 view PA/LAT August 18, 2019 2:06pm completed Xray Chest 2 view PA/LAT July 3:00pm completed Blood Culture July 22, 2019 cancelled Relevant Diagnostic Tests and/or Laboratory Data Laboratory Results Test Date/Time Result Interpretation Reference Range Result Comment Performing Site White Blood Count June 16, 2020 8:55am 12.0 10e3/uL 4.45-10.71 [facility], [address] [place] [address] [phone] White Blood Count March 21, 2020 2:05pm 5.5 10e3/uL 4.45-10.71 [facility], [address] [place] [address] [id number] Red Blood Count June 16, 2020 8:55am 2.80 10e6/uL 4.20-5.40 [facility], [address] [place] [address] 55045 Red Blood Count March 21, 2020 2:05pm 3.12 10e6/uL 4.20-5.40 [facility], [address] [place] [address] 52033 Hemoglobin June 16, 2020 8:55am 9.6 g/dL 10.7-15.4 [facility], [address] [place] [address] 77074 Hemoglobin March 21, 2020 2:05pm 10.4 g/dL 10.7-15.4 [facility], [address] [place] [address] 09250 Hematocrit June 16, 2020 8:55am 29.7 % 37-47 [facility], [address] [place] [address] 88558 Hematocrit March 21, 2020 2:05pm 31.5 % 37-47 [facility], [address] [place] [address] 74574 Mean Corpuscular Volume June 16, 2020 8:55am 106.1 fl 80-96 [facility], [address] [place] [address] 60875 Mean Corpuscular Volume March 21, 2020 2:05pm 101.0 fl 80-96 [facility], [address] [place] [address] 58058 Mean Corpuscular Hemoglobin June 16, 2020 8:55am 34.3 pg 27-31 [facility], [address] [place] [address] Mean Corpuscular Hemoglobin March 21, 2020 2:05pm 33.3 pg -31 [facility], [address] [place] [address] 31969 Mean Corpuscular Hemoglobin Concent June 16, 2020 8:55am 32.3 g/dl 37 [facility], [address] [place] [address] Mean Corpuscular Hemoglobin Concent March 21, 2020 2:05pm 33.0 g/dl 37 [facility], [address] [place] [address] 92662 Red Cell Distribution Width June 16, 2020 8:55am 15 % 11-15 [facility], [address] [place] [address] Red Cell Distribution Width March 21, 2020 2:05pm 13 % 11-15 [facility], [address] [place] [address] 09303 Platelet Count June 16, 2020 8:55am 231 10e3/ul 130-472 [facility], [address] [place] [address] Platelet Count March 21, 2020 2:05pm 189 10e3/ul 130-472 [facility], [address] [place] [address] 30253 Mean Platelet Volume June 16 8:55am 11.7 fl 9.1-13.1 [facility], [address] [place] [address] 91482 Mean Platelet Volume March 21 2:05pm 10.6 fl 9.1-13.1 [facility], [address] [place] [address] 58794 Neutrophils (%) (Auto) June 16, 2020 8:55am 88.4 % 41-77 [facility], [address] [place] [address] 91110 Neutrophils (%) (Auto) March 21, 2020 2:05pm 75.5 % 41-[address] [place] [address] LABORATORY, [address] [place] [address] 54855 Absolute Neutrophil June 16 8:55am 10.6 # 1.7-7.6 [facility], [address] [place] [address] 58934 Absolute Neutrophil March 21 2:05pm 4.2 # 1.7-7.6 [facility], [address] [place] [address] 10730 Lymphocytes (%) (Auto) June 16, 2020 8:55am 2.9 % 14-46 [facility], [address] [place] [address] 17787 Lymphocytes (%) (Auto) March 21, 2020 2:05pm 15.0 % 14-46 [facility], [address] [place] [address] 12879 Lymphocytes # (Auto) June 16 8:55am 0.4 # 0.6-4.6 [facility], [address] [place] [address] 85848 Lymphocytes # (Auto) March 21 2:05pm 0.8 # 0.6-4.6 [facility], [address] [place] [address] 60751 Monocytes (%) (Auto) June 16 8:55am 7.3 % 4-12 [facility], [address] [place] [address] 78691 Monocytes (%) (Auto) March 21 2:05pm 7.6 % 4-12 [facility], [address] [place] [address] 19754 Monocytes # June 16, 2020 8:55am 0.9 # 0.2-1.2 [facility], [address] [place] [address] 22250 Monocytes # March 21, 2020 2:05pm 0.4 # 0.2-1.2 [facility], [address] [place] [address] 48424 Eosinophils (%) (Auto) June 16, 2020 8:55am 0.7 % 0-7 [facility], [address] [place] [address] 40876 Eosinophils (%) (Auto) March 21, 2020 2:05pm 1.1 % 0-7 [facility], [address] [place] [address] 23418 Absolute Eosinophils (CBC) June 162020 8:55am 0.1 # 0.0-0.5 [facility], [address] [place] [address] 45733 Absolute Eosinophils (CBC) March 212019 2:05pm 0.1 # 0.0-0.5 [facility], [address] [place] [address] 22527 Basophils (%) (Auto) June 16 8:55am 0.4 % 0.4-1.3 [facility], [address] [place] [address] 98397 Basophils (%) (Auto) March 21 2:05pm 0.4 % 0.4-1.3 [facility], [address] [place] [address] Absolute Basophils (CBC) June 8:55am 0.1 # 0.0-0.2 [facility], [address] [place] [address] Absolute Basophils (CBC) March 2:05pm 0.0 # 0.0-0.2 [facility], [address] [place] [address] 74514 Immature Granulocyte % (Auto) Januar y 2020 8:55am 0.3 % 0-2 [facility], [address] [place] [address] Immature Granulocyte % (Auto) Octobe r 2019 2:05pm 0.4 % 0-2 [facility], [address] [place] [address] 12706 Absolute Immature Granulocyte (auto June 16, 2020 8:55am 0.0 # 0-0.1 [facility], [address] [place] [address] Absolute Immature Granulocyte (auto March 21, 2020 2:05pm 0.0 # 0-0.1 [facility], [address] [place] [address] 84657 Add Manual Differential June 16, 2020 8:55am Manual diff added [facility], [address] [place] [address] 42291 Add Manual Differential March 21, 2020 2:05pm No [facility], [address] [place] [address] 68714 Differential Total Cells Counted Nguyễn uary 2020 8:55am [address] [facility], [address] [place] [address] 78947 Neutrophils (Manual) June 16 8:55am 90 % 41-77 [facility], [address] [place] [address] 20021 Lymphocytes (Manual) June 16 8:55am 4 % 14-46 [facility], [address] [place] [address] 59565 Monocytes (Manual) June 16, 2020 8:55a m 6 % 4-12 [facility], [address] [place] [address] 74098 Platelet Estimate June 16, 2020 8:55am Appears normal NORMAL [facility], [address] [place] [address] 11832 RBC Morphology 2 June 16, 2020 8:55am Appears normal NORMAL [facility], [address] [place] [address] 98268 Prothrombin Time March 21, 2020 2:05pm 10.5 SECONDS 9.6-12.3 [facility], [address] [place] [address] 45717 INR International Normalized [facility] 2:05pm 1.0 0.9-1.1 THE INR IS OPERATIONALLY DEFINED FOR SANDRA SH PLASMA FROMPATIENTS STABILIZED ON ORAL ANTICOAGULANTS. ROUTINE ANTICOAGULANT THERAPY 2.0-3.0RECURRENT SYSTEMIC EMBOLISM/HEART VALVE REPLACEMENT 2.5-3.5 [facility], [address] [place] [address] 73171 Partial Thromboplastin Time - Lior O mn2019 2:05pm TNP No Reportable ResultEARLY REACTION ERROR,ALTERNATIVE METHOD UNAVAILABLE [facility], [address] [place] [address] 27332 D-Dimer June 16, 2020 8:55am 2.19 mg/L 0.0-0.50 PLEASE NOTE: THIS TEST WAS PERFORMED USING A PARTICLE-ENHANCED, IMMUNOTURBIDIMETRIC ASSAY AND HAS A SINGLE,CLINICALLY DERIVED CUTOFF OF 0.50 MG/L. [facility], [address] [place] [address] 94780 Urine Color March 16, 2020 10:45am Yellow [facility], [address] [place] [address] 33297 Urine Color March 21, 2020 1:45pm Yellow [facility], [address] [place] [address] 36753 Urine Color March 15, 2020 2:30pm Yellow [facility], [address] [place] [address] 31266 Urine Appearance March 21, 2020 1:45pm Turbid CLEAR [facility], [address] [place] [address] 09165 Urine Appearance March 16, 2020 10:45am Clear [facility]AR [facility], [address] [place] [address] 66217 Urine Appearance March 15 0 2:30pm Cloudy [facility]AR [facility], [address] [place] [address] Urine pH March 21, 2020 1:45pm 8.5 [facility], [address] [place] [address] 43681 Urine pH March 16, 2020 10:45am 8.5 [facility], [address] [place] [address] Urine pH March 15, 2020 2:30pm 7.5 [facility], [address] [place] [address] 13023 Urine Specific [place] March 21, 2020 1:45pm 1.011 [facility], [address] [place] [address] 98715 Urine Specific [place] March 16, 2020 10:45am 1.011 [facility], [address] [place] [address] 66609 Urine Specific [place] February 2:30pm 1.017 [facility], [address] [place] [address] 77843 Urine Leukocyte Esterase March 10:45am Trace NEGATIVE [facility], [address] [place] [address] 34693 Urine Leukocyte Esterase March 1:45pm Negative NEGATIVE [facility], [address] [place] [address] Urine Leukocyte Esterase February 162019 2:30pm Negative NEGATIVE [facility], [address] [place] [address] 29749 Urine Nitrite March 16, 2020 10:45am Negative NEGATIVE [facility], [address] [place] [address] 53343 Urine Nitrate March 21, 2020 1:45pm Negative NEGATIVE [facility], [address] [place] [address] 71358 Urine Nitrate March 15, 2020 2:30pm Negative NEGATIVE [facility], [address] [place] [address] 03629 Urine Protein March 21, 2020 1:45pm 300 mg/dl NEGATIVE [facility], [address] [place] [address] 79491 Urine Protein March 16, 2020 10:45am 300 mg/dl NEGATIVE [facility], [address] [place] [address] 85345 Urine Protein March 15, 2020 2:30pm 300 mg/dl NEGATIVE [facility], [address] [place] [address] 27405 Urine Glucose March 21, 2020 1:45pm 250 mg/dl NEGATIVE [facility], [address] [place] [address] 38470 Urine Glucose March 16, 2020 10:45am 250 mg/dl NEGATIVE [facility], [address] [place] [address] 28522 Urine Glucose March 15, 2020 2:30pm 250 mg/dl NEGATIVE [facility], [address] [place] [address] 56398 Urine Ketones March 21, 2020 1:45pm Negative NEGATIVE [facility], [address] [place] [address] 70797 Urine Ketones March 16, 2020 10:45am Negative NEGATIVE [facility], [address] [place] [address] 46769 Urine Ketones March 15, 2020 2:30pm Negative NEGATIVE [facility], [address] [place] [address] Urine Urobilinogen March 21, 2020 1:45p m 0.2 eu/dl [facility], [address] [place] [address] Urine Urobilinogen March 16, 2020 10:45am 0.2 eu/dl [facility], [address] [place] [address] Urine Urobilinogen March 15 2:30pm 1 eu/dl [facility], [address] [place] [address] Urine Bilirubin March 21, 2020 1:45pm Negative NEGATIVE [facility], [address] [place] [address] Urine Bilirubin March 16, 2020 10:45am Negative NEGATIVE [facility], [address] [place] [address] Urine Bilirubin March 15, 2020 2:30p m Negative NEGATIVE [facility], [address] [place] [address] Urine Blood March 16, 2020 10:45am Negative NEGATIVE [facility], [address] [place] [address] Urine Blood March 21, 2020 1:45pm Trace NEGATIVE [facility], [address] [place] [address] Urine Blood March 15, 2020 2:30pm Negative NEGATIVE [facility], [address] [place] [address] Microscopic Urinalysis Comment Octob 2019 10:45am Microscopic added [facility], [address] [place] [address] Add Urine Microanalysis March 21, 2020 1:45pm Microscopic added [facility], [address] [place] [address] Add Urine Microanalysis March 152019 2:30pm Microscopic added [facility], [address] [place] [address] Urine RBC March 21, 2020 1:45pm 0-1 /hpf [facility], [address] [place] [address] Urine WBC March 16, 2020 10:45am 8-12 /hpf [facility], [address] [place] [address] Urine WBC March 21, 2020 1:45pm 2-4 /hpf [facility], [address] [place] [address] Urine WBC March 15, 2020 2:30pm 2-4 /hpf [facility], [address] [place] [address] Urine Squamous Epithelial Cells Octo 2019 1:45pm Many /hpf [facility], [address] [place] [address] Urine Squamous Epithelial Cells Octo 2019 10:45am Moderate /hpf [facility], [address] [place] [address] Urine Squamous Epithelial Cells Sept emb2019 2:30pm Moderate /hpf [facility], [address] [place] [address] Urine Bacteria March 16, 2020 10:45am Large amount NEGATIVE [facility], [address] [place] [address] 82607 Urine Bacteria March 21, 2020 1:45pm Moderate amount NEGATIVE A Culture has been added to this specime n per established criteria [facility], [address] [place] [address] 70027 Urine Bacteria March 15, 2020 2:30pm Large amount NEGATIVE A Culture has been added to this specimen per established criteria [facility], [address] [place] [address] 92434 Venous Blood pH (Temp Corrected) Nguyễn uary 2020 8:55am 7.48 7.25-7.45 [facility], [address] [place] [address] [id number] Venous Blood pCO2 (Temp Corrected) J anuary 2020 8:55am 39.3 mmHg 41.0-51.0 [facility], [address] [place] [address] [id number] Venous Blood pO2 (Temp Corrected) Ja nuary 2020 8:55am 43.1 mmHg 25.0-40.0 [facility], [address] [place] [address] Venous Blood Oxygen Saturation Janua ry 2020 8:55am 78.3 % 70-76 [facility], [address] [place] [address] [id number] Venous Blood HCO3 June 16, 2020 8:55am 29.0 mmol/L 22.0-26.0 [facility], [address] [place] [address] [id number] Venous Blood Base Excess June 8:55am 5.1 -3.0-3.0 [facility], [address] [place] [address] Venous Blood Total Carbon Dioxide Ja nuary 2020 8:55am 30.2 mmol/L 23-30 [facility], [address] [place] [address] [id number] FiO2 June 16, 2020 8:55am 21 % [facility], [address] [place] [address] [id number] Blood Urea Nitrogen June 16 10:30am 40 mg/dL 03-08 [facility], [address] [place] [address] [id number] Blood Urea Nitrogen March 21 2:05pm 39 mg/dL 03-08 [facility], [address] [place] [address] [id number] Sodium Level June 16, 2020 10:30am 138 mmol/L 132-146 [facility], [address] [place] [address] [id number] Sodium Level March 21, 2020 2:05pm 134 mmol/L 132-146 [facility], [address] [place] [address] [id number] Potassium Level June 16, 2020 10:30am 4.4 mmol/L 3.5-5.5 [facility], [address] [place] [address] [id number] Potassium Level March 21, 2020 2:05pm 3.9 mmol/L 3.5-5.5 [facility], [address] [place] [address] [id number] Chloride Level June 16, 2020 10:30am 101 mmol/l 99-109 [facility], [address] [place] [address] 30223 Chloride Level March 21, 2020 2:05pm 96 mmol/l 99-109 [facility], [address] [place] [address] 47431 Carbon Dioxide Level June 16 10:30am 26 mmol/l 20-31 [facility], [address] [place] [address] 21972 Carbon Dioxide Level March 21 2:05pm 31 mmol/l 20-31 [facility], [address] [place] [address] 83067 Anion Gap June 16, 2020 10:30am 15 mmol/l 8-16 [facility], [address] [place] [address] 86492 Anion Gap March 21, 2020 2:05pm 11 mmol/l 8-16 [facility], [address] [place] [address] 64405 Glucose Level June 16, 2020 10:30am 330 mg/dL 74-106 [facility], [address] [place] [address] 41582 Glucose Level March 21, 2020 2:05pm 156 mg/dL 74-106 [facility], [address] [place] [address] 73209 Creatinine June 16, 2020 10:30am 4.5 mg/dL 0.5-1.1 [facility], [address] [place] [address] Creatinine March 21, 2020 2:05pm 5.7 mg/dL 0.5-1.1 Called to JULIAN Mendoza@ 1548 by Mariluz Sauer. Results read back. Repeated by: Mariluz Sauer 03/21/20 1548.Result Confirmation: 5.60 mg/dL [facility], [address] [place] [address] 29903 Glomerular Filtration Rate Calc Mc debi 2020 10:30am 10 ml/min ABOVE 60 [facility], [address] [place] [address] 14694 Glomerular Filtration Rate Calc Octo gamal 2019 2:05pm 7 ml/min ABOVE 60 [facility], [address] [place] [address] 78119 Alanine Aminotransferase (ALT/SGPT) June 16, 2020 10:30am 37 U/L 10-49 [facility], [address] [place] [address] Alanine Aminotransferase (ALT/SGPT) March 21, 2020 2:05pm 29 U/L 10-49 [facility], [address] [place] [address] 80446 Aspartate Amino Transf (AST/SGOT) Ja nuary 2020 10:30am 28 U/L 0-33 [facility], [address] [place] [address] 79830 Aspartate Amino Transf (AST/SGOT) Oc tober 2019 2:05pm 40 U/L 0-33 [facility], [address] [place] [address] 01499 Alkaline Phosphatase June 16 10:30am 198 U/L 45-129 [facility], [address] [place] [address] 82602 Alkaline Phosphatase March 21 2:05pm 141 U/L 45-129 [facility], [address] [place] [address] 71366 Calcium Level June 16, 2020 10:30am 8.6 mg/dL 8.5-10.1 [facility], [address] [place] [address] 77334 Calcium Level March 21, 2020 2:05pm 8.8 mg/dL 8.5-10.1 [facility], [address] [place] [address] 98861 Total Bilirubin June 16, 2020 10:30am 0.6 mg/dL 0.3-1.2 [facility], [address] [place] [address] Total Bilirubin March 21, 2020 2:05pm 0.3 mg/dL 0.3-1.2 [facility], [address] [place] [address] Albumin June 16, 2020 10:30am 3.2 g/dL 3.2-4.8 [facility], [address] [place] [address] Albumin March 21, 2020 2:05pm 2.9 g/dL 3.2-4.8 [facility], [address] [place] [address] Serum Total Protein June 16 10:30am 7.2 g/dL 5.7-8.2 [facility], [address] [place] [address] Serum Total Protein March 21 2:05pm 8.0 g/dL 5.7-8.2 [facility], [address] [place] [address] Lactic Acid Level March 21, 2020 2:05pm 1.3 mmol/L 0.5-2.2 [facility], [address] [place] [address] Phosphorus Level June 16, 2020 10:30am 2.4 mg/dL 2.4-5.1 [facility], [address] [place] [address] Magnesium Level June 16, 2020 10:30am 2.2 mg/dL 1.3-2.7 [facility], [address] [place] [address] Creatine Kinase June 16, 2020 10:30am 36 U/L 33-211 [facility], [address] [place] [address] Creatine Kinase MB June 16, 2020 10:30am Less than 1.0 ng/mL 0. 0-5.0 [facility], [address] [place] [address] Troponin I June 16, 2020 2:00pm Less than 0.015 ng/mL 0.00-0.09 Less than 0.09 NG/ML Negative0.10 - 0.77 NG/ML High Risk0.78 NG/ML or Greater Positive The WHO defined the cutoff (definition for diagnosis of UT)for this method as 0.78 ng/ml. [facility], [address] [place] [address] 70105 Surgical Pathology Specimen July 14, 2019 7:56am See scanned report [facility], [address] [facility] [address] Pro-B-Type Natriuretic Peptide Tray blackburn 2020 10:30am 32159.00 pg/mL 0.00-17 5 Called to JULIAN GALLARDO @ 1053 by Ruth jules. Results read back. [facility], [address] [place] [address] 12859 Microbiology Results Procedure Source Result Collection Date/Time Result Date/Time Result Comment Performing Site Urine Culture Urine,voided March 21, 2020 2:45pm March 1:13pm [facility], [address] [place] [address] Urine Culture Urine,clean catch March 15, 2020 3:30pm March 17, 2020 7:12am [facility], [address] [place] [address] Blood Culture Venous blood No growth. March 21, 2020 3:05pm March 3:11pm [facility], [address] [place] [address] 58240 SARS-CoV-2 (PCR) Interpretation Naso pharyngeal SARS-CoV-2 detected March 21 4:50pm March 21, 2020 5:06pm [facility], [address] [place] [address] Influenza-Like Illness (PCR) Nasopharyngea l No Organisms Detected June 16, 2020 1:04pm June 16, 2020 1:36pm [facility], [address] [place] [address] 99198 Nasopharyngeal June 16, 2020 1:04pm June 16, 2020 1:36pm [facility], [address] [place] [address] 52835 Diagnostic Imaging Reports Report Dictated Date/Time Dictated By Status Radiology Report July 22, 2019 3:07pm Lc Solorzano MD completed [address] [id number] [phone] NAME SEX PT STATUS ACCOUNT NUMBER Valerio Marsh REG REF [id number] ORDERING PHYSICIAN LOCATION MEDICAL RECORD NO. Josed Deborah Garvey M.D. LAB [id number] ATTENDING PHYSICIAN DATE OF DATE OF EXAM/TIME Grisel Christianson MD 1945 07/22/19 / 1499 TYPE / EXAM Xray Chest 2 view PA/LAT REASON FOR EXAM DYSPNEA COMPARISON: October 04, 2016 and September 15, 2018 FINDINGS: Mild cardiomegaly is seen. The mediastinal silhouette is remarkable for fullness of the main pulmonary arteries. Elevation of the right hemidiaphragm is a stable finding. Plate atelectasis is seen towards the left lung base. Small pleural effusion is seen on the right. Pulmonary vascular congestion is appreciated. There is no acute osseous abnormality. Moderate degenerative changes are seen at the right shoulder joint. IMPRESSION: 1. Platelike atelectasis towards left lung base. Stable elevation of the right hemidiaphragm. Small effusion seen on the right. 2. No focal pulmonary consolidation. However, pulmonary vascular congestion. 3. Cardiomegaly . Reported By Lc Solorzano MD on 07/22/19 1507 Signed By Lc Solorzano MD on 07/22/19 1510 Date Time CC: Lc Solorzano MD; Grisel Christianson MD Techn: [facility] Trans Dt/Tm: Trans by: DT Prt Dt/Tm: [id number]: Total DLP = 0.00 mGy-cm Fluoroscopy Time (in secs): Radiology Report August 18, 2019 2:09pm Lc Solorzano MD completed [facility] [address] [place] [address] [phone] NAME SEX PT STATUS ACCOUNT NUMBER Valerio Marsh REG REF [id number] ORDERING PHYSICIAN LOCATION MEDICAL RECORD NO. Grisel Christianson MD RAD [id number] ATTENDING PHYSICIAN DATE OF DATE OF EXAM/TIME Grisel Christianson MD 1945 08/18/19 / 1406 TYPE / EXAM Xray Chest 2 view PA/LAT REASON FOR EXAM cough COMPARISON: July 22, 2019 FINDINGS: The cardiac silhouette is top normal in size. The recess silhouette is within normal limits. However, fullness of the central pulmonary arteries is suggested. Clinical correlation advised. Prominence of the bronchopulmonary markings has a upper lung predominance, suggesting pulmonary vascular congestion. Clinical correlation advised. The costophrenic angles are slightly blunted, suggesting small pleural effusions. No focal pulmonary consolidation is seen. However, plate atelectasis is seen in the left lower lung. No acute osseous abnormality is seen. IMPRESSION: 1. Cardiomegaly. 2. No focal pulmonary consolidation. Small pleural effusions suggested bilaterally. 3. Probable pulmonary vascular congestion. Clinical correlation advised. Reported By Lc Solorzano MD on 08/18/19 1409 Signed By Lc Solorzano MD on 08/18/19 1415 Date Time CC: Lc Solorzano MD; Grisel Christianson MD Techn: CUMME Trans Dt/Tm: Trans by: DT Prt Dt/Tm: 1593-1305: Total DLP = 0.00 mGy-cm Fluoroscopy Time (in secs): Stress Test January 18, 2020 9:27am Rehan Blackwood completed STRESS TEST CONSULTATION NAME: VALERIO MARSH : 1945 AGE: 75 MR#: [id number] ADMITTING DATE: 01/18/[address]: DISCHARGE DATE: ATTENDING DR: Shannon Mas [facility] ROOM#: PROCEDURE Lexiscan Cardiolite. INDICATIONS FOR PROCEDURE Exertional dyspnea. Abnormal EKG. End-stage renal disease on hemodynamically. Essential hypertension. Type 2 diabetes. DESCRIPTION OF PROCEDURE Informed consent obtained from the patient. The patient's resting blood pressure 164/84. The resting electrocardiogram demonstrated sinus mechanism at 79 beats per minute. Anteroseptal infarction, age indeterminate. Nonspecific ST and T-wave changes. Patient received Lexiscan 0.4 mg intravenously over 20 seconds, followed by Cardiolite injection. The blood pressure fell to a lv of 144/60. The heart rate increased to a peak of 77 beats per minute. The patient did develop chest discomfort, she rated it at a 6 on a scale of 10. There were no diagnostic EKG changes. No rhythm disturbances with Lexiscan infusion. IMPRESSION Lexiscan-induced chest pain. No Lexiscan-induced EKG changes. Appropriate hemodynamic response to Lexiscan infusion. Appropriate chronotropic response to Lexiscan infusion. No Lexiscan-induced ectopy. Overall this represented a clinically positive, electrocardiographically negative pharmacologic stress study. RECOMMENDATIONS Await nuclear imaging, submitted separately. CC: Griesl Christianson MD <Electronically signed by Rehan Blackwood MD> Rehan Blackwood MD 02/08/20 1024 Rehan Blackwood M.D. Cosigner: D: ANGEL 01/18/20 0927 T: LOW 01/18/20 1152 CC: Rehan Blackwood M.D.; Grisel Christianson MD LAST EDIT: Radiology Report January 18, 2020 4:45pm Rehan Blackwood completed [facility] [address] [place] [address] [phone] NAME SEX PT STATUS ACCOUNT NUMBER VALERIO MARSH REG REF [id number] ORDERING PHYSICIAN LOCATION MEDICAL RECORD NO. Shannon Brand DOUGH PANNER [facility] EKG [id number] ATTENDING PHYSICIAN DATE OF DATE OF EXAM/TIME Grisel Christianson MD 1945 01/18/20699 TYPE / EXAM NM Nuclear Stress Test REASON FOR EXAM SOB, HTN, HIGH CHOLESTEROL, CARDIAC ARRHYTHMIA PROCEDURE: Myocardial perfusion imaging. INDICATION FOR PROCEDURE: Exertional dyspnea. Abnormal EKG. End-stage renal disease on hemodialysis. Essential hypertension. Diabetes. DESCRIPTION OF PROCEDURE: Gated myocardial perfusion SPECT imaging was performed, using the rest-stress sequence. Technetium 99m sestamibi was injecte d intravenously: 8.12 millicuries with rest, 26.2 millicuries with stress. Stress testing dictated under separate cover. FINDINGS: 1. Significant breast attenuation artifa ct was identified and recognized. There was mild bowel attenuation artifact. 2. Normal myocardial perfusion at rest a nd stress without evidence of ischemia or infarct. 3. Polar quarter mapping confirmed the a trevor findings. 4. Gated SPECT ejection fraction of 64% without regional wall motion abnormality. IMPRESSION: 1. Normal myocardial perfusion. 2. Normal myocardial function. RECOMMENDATIONS: Follow up with [facility] to discuss valvular heart disease. Results and recommendations communicated directly to the patient. Reported By Rehan Blackwood MD on 01/18/20 1645 Signed By Rehan Blackwood MD on 02/08/20 1022 <<Signature on File>> Date Time CC: Rehan Blackwood M.D.; Grisel Christianson MD Techn: GRAMR Trans Dt/Tm: 01/18/20 1725 Trans by: EDMAR Prt Dt/Tm: : Total DLP = 0.00 mGy-cm : Total Radiation Dose = 0.0000 mSv Lifetime Dose: 0 mSv Radiology Report March 21, 2020 3:18pm Jennifer Payan MD completed [facility] [facility] [id number] [place] [address] [phone] NAME SEX PT STATUS ACCOUNT NUMBER VALERIO MARSH [facility] [id number] ORDERING PHYSICIAN LOCATION MEDICAL RECORD NO. Reginaldo Lucero MD ER [id number] ATTENDING PHYSICIAN DATE OF DATE OF EXAM/TIME Grisel Christianson MD 1945 03/21/205 TYPE / EXAM Xray Chest One View REASON FOR EXAM cough and fever COMPARISON: 09/15/2018 FINDINGS: The heart size and appears stable. The right hilar region appears more prominent on today's study than on previously seen exams. There is a somewhat rounded but poorly defined area of opacity in the right lower lobe that appears new. Subsegmental atelectatic change versus scarring in the left CP angle is unchanged. There has been interval removal of the patient's central line. No pneumothorax is seen. IMPRESSION: New opacity in the right lower lobe is of uncertain etiology. CT chest is recommended for further evaluation Reported By Jennifer Payan MD on 03/21/20 1518 Signed By Jennifer Payan MD on 03/21/20 1521 Date Time CC: Jennifer Payan MD; Grisel Christianson MD Techn: BAIAB Trans Dt/Tm: Trans by: DT Prt Dt/Tm: [id number]: Total DLP = 0.00 mGy-cm Fluoroscopy Time (in secs): Radiology Report March 21, 2020 4:12pm Jennifer Payan MD completed [facility] [address] [place], [place] [address] [phone] NAME SEX PT STATUS ACCOUNT NUMBER VALERIO MARSH [facility] [id number] ORDERING PHYSICIAN LOCATION MEDICAL RECORD NO. Reginaldo Lucero MD ER [id number] ATTENDING PHYSICIAN DATE OF DATE OF EXAM/TIME Grisel Christianson MD 1945 03/21/20 / 1558 TYPE / EXAM CT Thorax without contrast REASON FOR EXAM RLL opacity COMPARISON: Chest x-ray from today TECHNIQUE: Non-Enhanced Multidetector-Row Chest Computed Tomography images were acquired. FINDINGS: Pulmonary Parenchyma and Airways: There are patchy areas of opacity seen bilaterally involving the upper and lower lobes largest demonstrated within the left pulmonary upper lobe best seen on series 2 image 35/97. Pleural Space: No pleural fluid or thickening is present. Heart and Pericardium: The cardiac chambers are normal in size. No pericardial fluid or thickening is present. Mediastinum and Marisol: No mediastinal mass is present. No enlarged lymph nodes are present. Thoracic Vessels: No vascular abnormality is present. Osseous Structures and Chest Wall: No pathologic osseous or soft-tissue process is present. Upper Abdomen: No pathologic process is present in the imaged portion of the upper abdomen. Additional findings: A small right-sided pulmonary nodule is identified in the periphery of the right lower lobe measuring approximately 5 mm best seen on sagittal sequences 98/109. This is probably unrelated to today's concerns. Severe calcifications are seen throughout the major arteries and aorta and the visualized portions of the abdomen, there especially prominent in the left kidney IMPRESSION: . Patchy areas of opacity noted in the lungs bilaterally these findings are co mpatible with the presence of bilateral areas of pneumonia. Given today's concerns, that would be compatible with the presence of pelaez virus. Fleischner Criteria A. Solid Nodules Nodule Type <6mm 6-8mm >8mm Single Low Risk No routine follow-up CT at 6-12 months, then [address] at 18-[address] at 3 months, PET/CT, or tissue sampling High Risk Optional CT at [address] at 6-12 months, then consider CT at 18- [address] at 3 months, PET /CT, or tissue sampling Multiple Low Risk No routine follow-up CT at 3-6 months, then [address] at 18-[address] at 3-6 months, then consider CT at 18-24 months High Risk Optional CT at [address] at 3-6 months, then consider CT at 18- [address] at 3-6 months, then consid er CT at 18-24 months B. Subsolid Nodules Single <6mm 6mm or greater Ground Glass No routine follow-up CT at 6-12 months to confirm persistence, then CT every 2 years until 5 years. Part Solid No routine follow-up CT at 3-6 months to confirm persistence. If unchanged and solid component remains <6mm, annual CT should be performed for [address] at 3-6 months, if stable, consider CT at [address] at 3-6 months. Subsequent management based on the most suspicious nodule(s). Dose reduction was performed utilizing CARE dose with automated adjustment of the kV and MAS according to patient size, iterative reconstruction, automated exposure control, as well as adaptive dose shielding. Reported By Jennifer Payan MD on 03/21/20 1612 Signed By Jennifer Payan MD on 03/21/20 1624 Date Time CC: Jennifer Payan MD; Grisel Christianson MD Techn: CHET Trans Dt/Tm: Trans by: DEANN Prt Dt/Tm: [id number]: Total DLP = 219.00 mGy-cm 4232-4155: Total Radiation Dose = 2.8470 mSv Lifetime Dose: 2.8470 mSv Radiology Report April 05, 2020 8:25am Anand Gore DO completed [facility] [address] [place] [address] [phone] NAME SEX PT STATUS ACCOUNT NUMBER VALERIO MARSH REG REF [id number] ORDERING PHYSICIAN LOCATION MEDICAL RECORD NO. Grisel Christianson MD MAMMO [id number] ATTENDING PHYSICIAN DATE OF DATE OF EXAM/TIME Grisel Christianson MD 1945 04/04/201426 TYPE / EXAM 3D DIG MAMMO SCREEN BILAT REASON FOR EXAM Screening for breast cancer LAST CLINICAL BREAST EXAM: 08/18/2019 FIVE YEAR RISK: 2.3% LIFETIME RISK: 5.3% FAMILY HISTORY OF BREAST CARCINOMA: None COMPARISON: 06/18/2018 2D bilateral digital mammogram in the CC and MLO projections was performed with supplemental 3D tomosynthesis of both breasts. FINDINGS: Craniocaudad and oblique lateral views of the breasts were obtained. The breasts are extremely dense, which lowers the sensitivity of mammography. There is a group of indeterminate calcification in the right breast upper outer quadrant posterior depth that was not definitely seen on prior study. IMPRESSION: Group of indeterminate calcification in the right breast upper outer quadrant posterior depth. Further evaluation with magnified CC and lateral views of the right upper outer quadrant of the breast as well as screening ultrasound is recommended. OVERALL FINAL ASSESSMENT OF FINDINGS BI-RADS 0 - Incomplete: Needs Additional Imaging Evaluation OVERALL FINAL ASSESSMENT OF THE BREAST COMPOSITION Breast Density Classification: D Description: The breasts are extremely dense, which lowers the sensitivity of mammography. This mammogram was read with the assistance of M-LivQuik, an FDA-approved computer- aided detection system for mammography. Reported By Anand Gore DO on 04/05/20824 Signed By Anand Gore DO on 04/05/20831 Date Time CC: Anand Gore DO; Grisel Christianson MD Techn: PELBU Trans Dt/Tm: Trans by: DT Prt Dt/Tm: 4529-5502: Total DLP = 0.00 mGy-cm 0581-6788: Total Radiation Dose = 0.0000 mSv Lifetime Dose: 2.8470 mSv Radiology Report April 05, 2020 8:36am Anand Gore DO completed [place] [place] [address] [place] [address] [phone] NAME SEX PT STATUS ACCOUNT NUMBER MARBELLAVALERIO Colt Noel REG REF [id number] ORDERING PHYSICIAN LOCATION MEDICAL RECORD NO. Grisel Christianson MD MAMMO [id number] ATTENDING PHYSICIAN DATE OF DATE OF EXAM/TIME Grisel Christianson MD 1945 04/04/201446 TYPE / EXAM US Breast - Complete Bilat REASON FOR EXAM DENSE BREASTS BILATERAL ABVS 3D SCREENING ULTRASOUND COMPARISON: None FINDINGS: No disturbing-appearing cystic or solid mass identified. IMPRESSION: No sonographic evidence of malignancy. OVERALL FINAL ASSESSMENT OF FINDINGS BI-RADS 2 - Benign findings. Reported By Anand Gore DO on 04/05/20 0836 Signed By Anand Gore DO on 04/05/20 0837 Date Time CC: Anand Gore DO; Grisel Christianson MD Techn: NOREM Trans Dt/Tm: Trans by: DT Prt Dt/Tm: 0981-8892: Total DLP = 0.00 mGy-cm 5834-1702: Total Radiation Dose = 0.0000 mSv Lifetime Dose: 2.8470 mSv Radiology Report April 30, 2020 6:40a m Anand Gore DO completed [place] [address] [place] [address] [phone] NAME SEX PT STATUS ACCOUNT NUMBER VALERIO MARSH REG REF [id number] ORDERING PHYSICIAN LOCATION MEDICAL RECORD NO. Grisel Christianson MD MAMMO [id number] ATTENDING PHYSICIAN DATE OF DATE OF EXAM/TIME Grisel Christianson MD 1945 04/20/20932 TYPE / EXAM DIG MAMMO DIAG RT 2D ONLY REASON FOR EXAM RT BREAST X VIEWS COMPARISON: 04/04/2020 FINDINGS: There is redemonstration of a group of indeterminate calcifications in the right breast upper outer quadrant posterior depth. IMPRESSION: Redemonstration of a group of indeterminate calcifications in the right breast upper outer quadrant posterior depth. No mass or lesion was identified on screening ultrasound from 04/04/2020. Stereotactic biopsy is recommended. OVERALL FINAL ASSESSMENT OF FINDINGS BI-RADS 4 - Suspicious Abnormality. This mammogram was read with the assistance of MDonnaLivQuik, an FDA-approved computer-aided detection system for mammography. Reported By Anand Gore DO on 04/30/2040 Signed By Anand Gore DO on 04/30/20 0650 Date Time CC: Anand Gore DO; Grisel Christianson MD Techn: PELBU Trans Dt/Tm: Trans by: DT Prt Dt/Tm: 2844-1274: Total DLP = 0.00 mGy-cm 7179-9555: Total Radiation Dose = 0.0000 mSv Lifetime Dose: 2.8470 mSv Radiology Report April 30, 2020 6:54a dayton Gore DO completed [facility] [address] [place] [address] [phone] NAME SEX PT STATUS ACCOUNT NUMBER VALERIO MARSH REG REF [id number] ORDERING PHYSICIAN LOCATION MEDICAL RECORD NO. Grisel Christianson MD MAMMO [id number] ATTENDING PHYSICIAN DATE OF DATE OF EXAM/TIME Grisel Christianson MD 1945 04/20/201011 TYPE / EXAM US Breast - Limited Unilat REASON FOR EXAM RT BREAST X VIEWS COMPARISON: None Multiple images of the right breast at the upper outer quadrant were obtained, encompassing the area of clinical concern. FINDINGS: No cystic or solid mass identified. IMPRESSION: No sonographic evidence of a mass. OVERALL FINAL ASSESSMENT OF FINDINGS BI-RADS 1 - Negative. Reported By Anand Gore DO on 04/30/20653 Signed By Anand Gore DO on 04/30/20654 Date Time CC: Anand Gore DO; Grisel Christianson MD Techn: BUSMI Trans Dt/Tm: Trans by: DT Prt Dt/Tm: : Total DLP = 0.00 mGy-cm 8589-3300: Total Radiation Dose = 0.0000 mSv Lifetime Dose: 2.8470 mSv Health Concerns Health Concerns may be documented in an alternate section. Advance Directives Advance Directive Response Recorded Date/Time Advanced Directive Yes J anuary 2020 8:14am MOLST No November 19, 2019 10:35am Advance Directives on File or in chart? No November 19, 2019 10:35am Does Patient have a DNR? 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 Pneumonia due to COVID-19 virus Encounters Encounter Location(s) [facility] rival/Admit Date Discharge/Depart Date Provider(s) Departed Physician/Provider Office Visit [facility] Dermatology July 14, 2019 7:37am July 14, 2019 8:19am Shantel menjivar Registered Referred [facility] Drop Off July 14, 2019 7:56am Shantel Ramos Registered Referred [facility] Drop Off July 22, 2019 10:45am Ronak Garvey Departed Physician/Provider Office Visit [facility] August 04, 2019 12:58pm August 04, 2019 1:25pm Grisel Christianson MD Departed Physician/Provider Office Visit [facility] August 18, 2019 1:02pm August 18, 2019 1:34pm Grisel abel MD Registered Referred [facility]-Radiology August 18, 2019 1:52pm Grisel Christianson MD Departed Emergency [facility]-Emergency Room ER August 19, 2019 3:07pm August 19, 2019 7:33pm null Registered Referred [facility]-EKG January 18, 2020 6:17am Shannon Mas Departed Physician/Provider Office Visit [facility] March 02, 2020 12:20pm March 02, 2020 1:10pm Grisel Christianson MD Registered Referred [facility]-Laboratory March 15, 2020 2:16pm Melvi Cabrera Departed Emergency [facility]-Emergency Room ER March 16, 2020 9:37am March 16, 2020 2:50pm null Departed Emergency [facility]Emergency Room ER March 21, 2020 11:35am March 21, 2020 6:36pm null Registered Referred [facility]-Mammography April 04, 2020 1:04pm Grisel Christianson MD Departed Physician/Provider Office Visit [facility] April 06, 2020 9:42am April 06, 2020 10:22am Grisel Christianson MD Registered Referred [facility]-Mammography April 20, 2020 9:03am Grisel Christianson MD Departed Emergency [facility]Emergency Room ER June 16, 2020 8:05am June 16, 2020 3:43pm null Recent Diagnosis Onset Date Neoplasm of uncertain behavior Pneumonia due to COVID-19 virus Assessments Diagnosis Onset Date Res olution Status Neoplasm of uncertain behavior acute Pneumonia due to COVID-19 virus acute Family History Relationship Condition A ge at Onset Recorded Date/Time Not Specified Diabetes mellitus Unknown Functional Status No Functional Status information available Goals Goals may be documented in an alternate section. Immunizations No Immunization Information Available Mental Status Observation Response [place]rem[place] e Recorded Impairments No impairments or barriers June 16, 2020 8:06am Medical Equipment No Medical Equipment Information available Insurance Providers Guarantor VALERIO MARSH Address [address] [place] [phone] Contact Info. Home Phone: Payer Policy Id Coverage Id Subscriber's Name Subscriber Id Effective Date Expiration Date [employer] [id number] VALERIO ALVAREZUCHER [id number] [employer] [id number] VALERIO MARSH [id number] [employer] Medicare [id number] VALERIO ALVAREZUCHER [id number] 2014 [facility] [id number] VALERIOLean[employer]s [id number] [employer] [id number] VALERIO Gregory [employer] [id number] Self Pay Self N/A [facility] [id number] [employer]ERIO [employer] [id number] Plan of Treatment meds, records reviewed, much improved, cleared by PH, see as scheduled, labs done by nephrology generally doing well,discussed stopping januvia, monitor BS,additional med if n eeded, adjust BP med around dialysis, will schedule mammo reviewed records, x rays, labs, doing better, still receiving antibiotic, discus sed fluid status, difficulty laying down at night, ? cardiac vs pulmonary, cardiac refrral recomme nded , had echo in hospital, see 2 weeks Left inner canthus and vertex scalp repeat CXR ordered, has cardiology appt this week,, mammo ordered, see 2 weeks Future Tests Future scheduled test information is unavailable Pending Tests Pending diagnostic test information is unavailable Future Visits Future appointment information is unavailable Referrals to Other Providers Referral information is unavailable Future Procedures Future procedure information is unavailable Future Medications Future medication information is unavailable Patient Instructions DASH Eating Plan (GEN) Hypertension (GEN) Urinary Tract Infection in Women (ED) Hypertension (ED) Social History Smoking Status Status Date of Observation Never smoker June 16, 2020 8:44a m Observation Status Date of Observation Not November 19, 2019 Observation Status Observation Response Tremayne e of Response Smoking Status Never smoker June 16, 2020 8:44am Alcohol Use No June 162020 8:44am Substance Use No June 16, 2020 8:44am Inhalant Use No November 10:35am Assigned Sex Female Vital Signs Vital Reading Result Ref erence Range Collection Date/Time Height 63 [in_i] July 14, 2019 7:39am Weight 185.00 [lb_av] July 14, 2019 7:39am Heart Rate 74 /min 60-100 July 14, 2019 7:39am Oxygen saturation by Pulse oximetry 9 % 95- 100 July 14, 2019 7:39am BP Systolic 186 mm[Hg] July 14, 2019 7:39am BP Diastolic 34 mm[Hg] July 14, 2019 7:39am BMI (Body Mass Index) 32.8 kg/m2 July 14, 2019 7:39am Height 63 [in_i] August 04, 2019 1:05pm Weight 189.00 [lb_av] August 04, 2019 1:05pm Heart Rate 64 /min 60-100 August 04, 2019 1:05pm Respiratory rate 12 /min 12-24 August 04, 2019 1:05pm Oxygen saturation by Pulse oximetry 98 % 95- 100 August 04, 2019 1:05pm BP Systolic 128 mm[Hg] August 04, 2019 1:05pm BP Diastolic 64 mm[Hg] August 04, 2019 1:05pm BMI (Body Mass Index) 33.5 kg/m2 August 04, 2019 1:05pm Height 63 [in_i] August 18, 2019 1:11pm Weight 189.00 [lb_av] August 18, 2019 1:11pm Heart Rate 68 /min 60-100 August 18, 2019 1:11pm Respiratory rate 12 /min 12-24 August 18, 2019 1:11pm Oxygen saturation by Pulse oximetry 96 % 95- 100 August 18, 2019 1:11pm BP Systolic 126 mm[Hg] August 18, 2019 1:11pm BP Diastolic 62 mm[Hg] August 18, 2019 1:11pm BMI (Body Mass Index) 33.5 kg/m2 August 18, 2019 1:11pm Height 64 [in_i] August 19, 2019 3:26pm Weight 187.00 [lb_av] August 19, 2019 3:26pm Body Temperature 98.1 [degF] 97.6-99.5 August 19, 2019 7:28pm Heart Rate 60 /min 60-100 August 19, 2019 7:28pm Respiratory rate 18 /min 12-August 19, 2019 7:28pm Oxygen saturation by Pulse oximetry 98 % 95- 100 August 19, 2019 7:28pm BP Systolic 170 mm[Hg] August 19, 2019 7:28pm BP Diastolic 78 mm[Hg] August 19, 2019 7:28pm Height 64 [in_i] March 02, 2020 1:52pm Weight 180.77 [lb_av] March 02, 2020 1:52pm Heart Rate 87 /min 60-100 March 02, 2020 1:52pm Respiratory rate 12 /min -March 02, 2020 1:52pm Oxygen saturation by Pulse oximetry 98 % 95- 100 March 02, 2020 1:52pm BP Systolic 142 mm[Hg] March 02, 2020 1:52pm BP Diastolic 78 mm[Hg] March 02, 2020 1:52pm BMI (Body Mass Index) 31.0 kg/m2 March 02, 2020 1:52pm Height 64 [in_i] March 16, 2020 10:38am Weight 183.90 [lb_av] March 16, 2020 10:38am Body Temperature 98.5 [degF] 97.6-99.5 March 16, 2020 3:40pm Heart Rate 64 /min 60-100 March 16, 2020 3:40pm Respiratory rate 18 /min 06-08March 16, 2020 3:40pm Oxygen saturation by Pulse oximetry 97 % 95- 100 March 16, 2020 3:40pm BP Systolic 124 mm[Hg] March 16, 2020 3:40pm BP Diastolic 60 mm[Hg] March 16, 2020 3:40pm Height 64 [in_i] March 21, 2020 12:36pm Weight 185.00 [lb_av] March 21, 2020 12:36pm Body Temperature 98.4 [degF] 97.6-99.5 March 21, 2020 6:48pm Heart Rate 74 /min 60-100 March 21, 2020 6:48pm Respiratory rate 18 /min -March 21, 2020 6:48pm Oxygen saturation by Pulse oximetry 96 % 95- 100 March 21, 2020 6:48pm BP Systolic 167 mm[Hg] March 21, 2020 6:48pm BP Diastolic 76 mm[Hg] March 21, 2020 6:48pm Height 64 [in_i] April 06, 2020 10:59am Weight 183.00 [lb_av] April 06, 2020 10:59am BMI (Body Mass Index) 31.4 kg/m2 April 06, 2020 10:59am Height 64 [in_i] June 16, 2020 8:06am Weight 183.00 [lb_av] June 16, 2020 8:06am Body Temperature 98.8 [degF] 97.6-99.5 June 16, 2020 3:07pm Heart Rate 68 /min 60-100 June 16, 2020 3:07pm Respiratory rate 16 /min 12-24 June 16, 2020 3:07pm Oxygen saturation by Pulse oximetry 93 % 95- 100 June 16, 2020 3:07pm BP Systolic 144 mm[Hg] June 16, 2020 3:07pm BP Diastolic 58 mm[Hg] June 16, 2020 3:07pm
--- OUTSIDE RECORDS SUMMARY | 2020-08-02 23:36 | CCD ---
Author Author [facility] Organization [facility] Address Unknown Phone Unavailable Care Team Providers Care Insurance Counsel Name Role Phone Colt Christianson MD Unavailable Unavailable Colt Christianson MD Unavailable Unavailable Colt Christianson MD Unavailable Unavailable Colt Christianson MD Unavailable Unavailable Colt Christianson MD Unavailable Unavailable Colt Christianson MD Unavailable Unavailable Colt Christianson MD Unavailable Unavailable Colt Christianson MD Unavailable Unavailable Colt Christianson MD Unavailable Unavailable Colt Christianson MD Unavailable Unavailable Colt Christianson MD Unavailable Unavailable Colt Christianson MD Unavailable Unavailable Colt Christianson MD Unavailable Unavailable Colt Christianson MD Unavailable Unavailable Colt Christianson MD Unavailable Unavailable Colt Christianson MD Unavailable Unavailable Colt Christianson MD Unavailable Unavailable Colt Christianson MD Unavailable Unavailable Colt Christianson MD Unavailable Unavailable Colt Christianson MD Unavailable Unavailable Colt Christianson MD Unavailable Unavailable Colt Christianson MD Unavailable Unavailable Colt Christianson MD Unavailable Unavailable Colt Christianson MD Unavailable Unavailable Colt Christianson MD Unavailable Unavailable Colt Christianson MD Unavailable Unavailable Colt Christianson MD Unavailable Unavailable Colt Christianson MD Unavailable Unavailable Colt Christianson MD Unavailable Unavailable Colt Christianson MD Unavailable Unavailable Colt Christianson MD Unavailable Unavailable Colt Christianson MD Unavailable Unavailable Colt Christianson MD Unavailable Unavailable Colt Christianson MD Unavailable Unavailable Colt Christianson MD Unavailable Unavailable Colt Christianson MD Unavailable Unavailable Colt Christianson MD Unavailable Unavailable Colt Christianson MD Unavailable Unavailable Colt Christianson MD Unavailable Unavailable Colt Christianson MD Unavailable Unavailable Colt Christianson MD Unavailable Unavailable Colt Christianson MD Unavailable Unavailable Colt Christianson MD Unavailable Unavailable Colt Christianson MD Unavailable Unavailable Colt Christianson MD Unavailable Unavailable Colt Christianson MD Unavailable Unavailable Colt Christianson MD Unavailable Unavailable Colt Christianson MD Unavailable Unavailable Colt Christianson MD Unavailable Unavailable Colt Christianson MD Unavailable Unavailable Colt Christianson MD Unavailable Unavailable Colt Christianson MD Unavailable Unavailable Colt Christianson MD Unavailable Unavailable Colt Christianson MD Unavailable Unavailable Colt Christianson MD Unavailable Unavailable Colt Christianson MD Unavailable Unavailable Colt Christianson MD Unavailable Unavailable Colt Christianson MD Unavailable Unavailable Colt Christianson MD Unavailable Unavailable Colt Christianson MD Unavailable Unavailable Colt Christianson MD Unavailable Unavailable Colt Christianson MD Unavailable Unavailable Colt Christianson MD Unavailable Unavailable Colt Christianson MD Unavailable Unavailable Colt Christianson MD Unavailable Unavailable Colt Christianson MD Unavailable Unavailable Colt Christianson MD Unavailable Unavailable Colt Christianson MD Unavailable Unavailable Colt Christianson MD Unavailable Unavailable Colt Christianson MD Unavailable Unavailable Colt Christianson MD Unavailable Unavailable Colt Christianson MD Unavailable Unavailable Colt Christianson MD Unavailable Unavailable Colt Christianson MD Unavailable Unavailable Colt Christianson MD Unavailable Unavailable Colt Christianson MD Unavailable Unavailable Colt Christianson MD Unavailable Unavailable Colt Christianson MD Unavailable Unavailable Colt Christianson MD Unavailable Unavailable Colt Christianson MD Unavailable Unavailable Colt Christianson MD Unavailable Unavailable Colt Christianson MD Unavailable Unavailable Colt Christianson MD Unavailable Unavailable Brian Felix MD Unavailable Unavailable Lockerbie, S Shantel SOFTWARE ENGINEER DEVELOPER-C Unavailable Unavailable Lockerbie, S Shantel SOFTWARE ENGINEER DEVELOPER-C Unavailable Unavailable Lockerbie, S Shantel SOFTWARE ENGINEER DEVELOPER-C Unavailable Unavailable Lockerbie, S Shantel SOFTWARE ENGINEER DEVELOPER-C Unavailable Unavailable Lockerbie, S Shantel SOFTWARE ENGINEER DEVELOPER-C Unavailable Unavailable Lockerbie, S Shantel SOFTWARE ENGINEER DEVELOPER-C Unavailable Unavailable Lockerbie, S Shantel SOFTWARE ENGINEER DEVELOPER-C Unavailable Unavailable Lockerbie, S Shantel SOFTWARE ENGINEER DEVELOPER-C Unavailable Unavailable Lockerbie, S Shantel SOFTWARE ENGINEER DEVELOPER-C Unavailable Unavailable Lockerbie, S Shantel SOFTWARE ENGINEER DEVELOPER-C Unavailable Unavailable Lockerbie, S Shantel SOFTWARE ENGINEER DEVELOPER-C Unavailable Unavailable Lockerbie, S Shantel SOFTWARE ENGINEER DEVELOPER-C Unavailable Unavailable Lockerbie, S Shantel SOFTWARE ENGINEER DEVELOPER-C Unavailable Unavailable Lockerbie, S Shantel SOFTWARE ENGINEER DEVELOPER-C Unavailable Unavailable Lockerbie, S Shantel SOFTWARE ENGINEER DEVELOPER-C Unavailable Unavailable Lockerbie, S Shantel SOFTWARE ENGINEER DEVELOPER-C Unavailable Unavailable Lockerbie, S Shantel SOFTWARE ENGINEER DEVELOPER-C Unavailable Unavailable Lockerbie, S Shantel SOFTWARE ENGINEER DEVELOPER-C Unavailable Unavailable Lockerbie, S Shantel SOFTWARE ENGINEER DEVELOPER-C Unavailable Unavailable Lockerbie, S Shantel SOFTWARE ENGINEER DEVELOPER-C Unavailable Unavailable Lockerbie, S Shantel SOFTWARE ENGINEER DEVELOPER-C Unavailable Unavailable Lockerbie, S Shantel SOFTWARE ENGINEER DEVELOPER-C Unavailable Unavailable PÉREZ, K MONICA MD Unavailable Unavailable PÉREZ, K MONICA MD Unavailable Unavailable PÉREZ, K MONICA MD Unavailable Unavailable PÉREZ, K MONICA MD Unavailable Unavailable PÉREZ, K MONICA MD Unavailable Unavailable PÉREZ, K MONICA MD Unavailable Unavailable PÉREZ, K MONICA MD Unavailable Unavailable PÉREZ, K MONICA MD Unavailable Unavailable PÉREZ, K MONICA MD Unavailable Unavailable PÉREZ, K MONICA MD Unavailable Unavailable PÉREZ, K MONICA MD Unavailable Unavailable PÉREZ, K MONICA MD Unavailable Unavailable PÉREZ, K MONICA MD Unavailable Unavailable PÉREZ, K MONICA MD Unavailable Unavailable PÉREZ, K MONICA MD Unavailable Unavailable PÉREZ, K MONICA MD Unavailable Unavailable PÉREZ, K MONICA MD Unavailable Unavailable PÉREZ, K MONICA MD Unavailable Unavailable PÉREZ, K MONICA MD Unavailable Unavailable PÉREZ, K MONICA MD Unavailable Unavailable PÉREZ, K MONICA MD Unavailable Unavailable PÉREZ, K MONICA MD Unavailable Unavailable PÉREZ, K MONICA MD Unavailable Unavailable PÉREZ, K MONICA MD Unavailable Unavailable PÉREZ, K MONICA MD Unavailable Unavailable PÉREZ, K MONICA MD Unavailable Unavailable PÉREZ, K MONICA MD Unavailable Unavailable PÉREZ, K MONICA MD Unavailable Unavailable PÉREZ, K MONICA MD Unavailable Unavailable PÉREZ, K MONICA MD Unavailable Unavailable PÉREZ, K MONICA MD Unavailable Unavailable PÉREZ, K MONICA MD Unavailable Unavailable PÉREZ, K MONICA MD Unavailable Unavailable PÉREZ, K MONICA MD Unavailable Unavailable PÉREZ, K MONICA MD Unavailable Unavailable PÉREZ, K MONICA MD Unavailable Unavailable PÉREZ, K MONICA MD Unavailable Unavailable PÉREZ, K MONICA MD Unavailable Unavailable PÉREZ, K MONICA MD Unavailable Unavailable PÉREZ, K MONICA MD Unavailable Unavailable PÉREZ, K MONICA Unavailable Unavailable PÉREZ, K MONICA MD Unavailable Unavailable PÉREZ, K MONICA MD Unavailable Unavailable PÉREZ, K MONICA MD Unavailable Unavailable PÉREZ K MONICA Unavailable Unavailable PÉREZ, K MONICA MD Unavailable Unavailable PÉREZ K MONICA MD Unavailable Unavailable Hamo, M Shannon LABORATORY IMMUNOLOGIST Unavailable Unavailable Hamo, M Shannon LABORATORY IMMUNOLOGIST Unavailable Unavailable Hamo, M Shannon LABORATORY IMMUNOLOGIST Unavailable Unavailable Hamo, M Shannon LABORATORY IMMUNOLOGIST Unavailable Unavailable Hamo, M Shannon LABORATORY IMMUNOLOGIST Unavailable Unavailable Hamo, M Shannon LABORATORY IMMUNOLOGIST Unavailable Unavailable Hamo, M Shannon LABORATORY IMMUNOLOGIST Unavailable Unavailable Hamo, M Shannon LABORATORY IMMUNOLOGIST Unavailable Unavailable Hamo, M Shannon LABORATORY IMMUNOLOGIST Unavailable Unavailable Hamo, M Shannon LABORATORY IMMUNOLOGIST Unavailable Unavailable Hamo, M Shannon LABORATORY IMMUNOLOGIST Unavailable Unavailable Hamo, M Shannon LABORATORY IMMUNOLOGIST Unavailable Unavailable Hamo, M Shannon LABORATORY IMMUNOLOGIST Unavailable Unavailable Hamo, M Shannon LABORATORY IMMUNOLOGIST Unavailable Unavailable Hamo, M Shannon LABORATORY IMMUNOLOGIST Unavailable Unavailable Hamo, M Shannon LABORATORY IMMUNOLOGIST Unavailable Unavailable Hamo, M Shannon LABORATORY IMMUNOLOGIST Unavailable Unavailable Hamo, M Shannon LABORATORY IMMUNOLOGIST Unavailable Unavailable Hamo, M Shannon LABORATORY IMMUNOLOGIST Unavailable Unavailable Hamo, M Shannon LABORATORY IMMUNOLOGIST Unavailable Unavailable Hamo, M Shannon LABORATORY IMMUNOLOGIST Unavailable Unavailable Vicky HICKEY MD Unavailable Unavailable Vicky HICKEY MD Unavailable Unavailable Vicky HICKEY MD Unavailable Unavailable Vicky HICKEY MD Unavailable Unavailable Vicky HCIKEY MD Unavailable Unavailable Vicky HICKEY MD Unavailable Unavailable Vicky HICKEY MD Unavailable Unavailable Vicky HICKEY MD Unavailable Unavailable Vicky HICKEY MD Unavailable Unavailable Vicky HICKEY MD Unavailable Unavailable Vicky HICKEY MD Unavailable Unavailable Vicky HICKEY MD Unavailable Unavailable Vicky HICKEY MD Unavailable Unavailable Vicky HICKEY MD Unavailable Unavailable Vicky HICKEY MD Unavailable Unavailable Vicky HICKEY MD Unavailable Unavailable Vicky HICKEY MD Unavailable Unavailable Vicky HICKEY MD Unavailable Unavailable Vicky HICKEY MD Unavailable Unavailable Vicky HICKEY MD Unavailable Unavailable Vicky HICKEY MD Unavailable Unavailable Vicky HICKEY MD Unavailable Unavailable Vicky HICKEY MD Unavailable Unavailable KELBERVicky MCLAUGHLIN MD Unavailable Unavailable KELBERMANVicky MD Unavailable Unavailable KELBERMANVicky MD Unavailable Unavailable KELBERMANVicky MD Unavailable Unavailable KELBERMANVicky MD Unavailable Unavailable KELBERMANVicky MD Unavailable Unavailable KELBERMANVicky MD Unavailable Unavailable KELBERMANVicky MD Unavailable Unavailable KELBERMANVicky MD Unavailable Unavailable KELBERMANVicky MD Unavailable Unavailable KELBERMANVicky MD Unavailable Unavailable KELBERMANVicky MD Unavailable Unavailable KELBERMANVicky MD Unavailable Unavailable KELBERMANVicky MD Unavailable Unavailable KELBERMANVicky MD Unavailable Unavailable KELBERMANVicky MD Unavailable Unavailable KELBERMANVicky MD Unavailable Unavailable KELBERMANVicky MD Unavailable Unavailable KELBERMANVicky MD Unavailable Unavailable KELBERVicky MCLAUGHLIN MD Unavailable Unavailable KELBERMANVicky MD Unavailable Unavailable KELBERMANVicky MD Unavailable Unavailable KELBERMANVicky MD Unavailable Unavailable KELBERMANVicky MD Unavailable Unavailable KELBERMANVicky MD Unavailable Unavailable TYREEBERVicky MCLAUGHLIN MD Unavailable Unavailable George Lucero MD Unavailable Unavailable Alysia, P Ronak AMAYA Unavailable Unavailable Alysia, P Ronak MD Unavailable Unavailable Alysia, P Khalireji MD Unavailable Unavailable Alysia, P Ronak MD Unavailable Unavailable Alysia, P Khbianca MD Unavailable Unavailable Alysia, P Ronak MD Unavailable Unavailable Alysia, P Khbianca MD Unavailable Unavailable Alysia, P Khalireji MD Unavailable Unavailable Alysia, P Khalireji MD Unavailable Unavailable Alysia, P Khalireji MD Unavailable Unavailable Alysia, P Khalireji MD Unavailable Unavailable Alysia, P Khalireji MD Unavailable Unavailable Alysia, P Khalireji MD Unavailable Unavailable Alysia, P Khalireji MD Unavailable Unavailable Alysia, P Khalireji MD Unavailable Unavailable Alysia, P Khalireji MD Unavailable Unavailable Alysia, P Khalireji MD Unavailable Unavailable Alysia, P Khalireji MD Unavailable Unavailable Alysia, P Khalid MD Unavailable Unavailable Alysia, P Khalireji MD Unavailable Unavailable Alysia, P Khalireji MD Unavailable Unavailable Alysia, P Khalireji MD Unavailable Unavailable Alysia, P Khalid MD Unavailable Unavailable Alysia, P Khalid MD Unavailable Unavailable Alysia, P Theodoraalid MD Unavailable Unavailable Alysia, P Khalid MD Unavailable Unavailable Alysia, P Khalid MD Unavailable Unavailable Alysia, P Khalid MD Unavailable Unavailable Alysia, P Khalid MD Unavailable Unavailable Alysia, P Khalid MD Unavailable Unavailable Alysia, P Khalid MD Unavailable Unavailable Alysia, P Khalid MD Unavailable Unavailable Alysia, P Khalid MD Unavailable Unavailable Alysia, P Khalid MD Unavailable Unavailable Alysia, P Khalid MD Unavailable Unavailable Alysia, P Khalid MD Unavailable Unavailable Alysia, P Khalid MD Unavailable Unavailable Alysia, P Khalid MD Unavailable Unavailable Alysia, P Khalid MD Unavailable Unavailable Alysia, P Khalid MD Unavailable Unavailable Alysia, P Khalid MD Unavailable Unavailable Alysia, P Khalid MD Unavailable Unavailable Alysia, P Khalid MD Unavailable Unavailable Alysia, P Khalid MD Unavailable Unavailable Alysia, P Khalid MD Unavailable Unavailable Alysia, P Khalid MD Unavailable Unavailable Alysia, P Khalid MD Unavailable Unavailable Alysia, P Khalid MD Unavailable Unavailable Alysia, P Khalid MD Unavailable Unavailable Alysia, P Khalid MD Unavailable Unavailable Hamo, M Shannon LABORATORY IMMUNOLOGIST Unavailable Unavailable Hamo, M Shannon LABORATORY IMMUNOLOGIST Unavailable Unavailable Hamo, M Shannon LABORATORY IMMUNOLOGIST Unavailable Unavailable Hamo, M Shannon LABORATORY IMMUNOLOGIST Unavailable Unavailable Hamo, M Shannon LABORATORY IMMUNOLOGIST Unavailable Unavailable Hamo, M Shannon LABORATORY IMMUNOLOGIST Unavailable Unavailable Hamo, M Shannon LABORATORY IMMUNOLOGIST Unavailable Unavailable Hamo, M Shannon LABORATORY IMMUNOLOGIST Unavailable Unavailable Hamo, M Shannon LABORATORY IMMUNOLOGIST Unavailable Unavailable Hamo, M Shannon LABORATORY IMMUNOLOGIST Unavailable Unavailable Hamo, M Shannon LABORATORY IMMUNOLOGIST Unavailable Unavailable Hamo, M Shannon LABORATORY IMMUNOLOGIST Unavailable Unavailable Hamo, M Shannon LABORATORY IMMUNOLOGIST Unavailable Unavailable Hamo, M Shannon LABORATORY IMMUNOLOGIST Unavailable Unavailable Hamo, M Shannon LABORATORY IMMUNOLOGIST Unavailable Unavailable Hamo, M Shannon LABORATORY IMMUNOLOGIST Unavailable Unavailable Hamo, M Shannon LABORATORY IMMUNOLOGIST Unavailable Unavailable Hamo, M Shannon LABORATORY IMMUNOLOGIST Unavailable Unavailable Hamo, M Shannon LABORATORY IMMUNOLOGIST Unavailable Unavailable Hamo, M Shannon LABORATORY IMMUNOLOGIST Unavailable Unavailable Hamo, M Shannon LABORATORY IMMUNOLOGIST Unavailable Unavailable Birchenough, L Amina SHADE MATCHER Unavailable Unavailable Birchenough, L Amina SHADE MATCHER Unavailable Unavailable Birchenough, L Amina SHADE MATCHER Unavailable Unavailable Birchenough, L Amina SHADE MATCHER Unavailable Unavailable Birchenough, L Amina SHADE MATCHER Unavailable Unavailable Birchenough, L Amina SHADE MATCHER Unavailable Unavailable Birchenough, L Amina SHADE MATCHER Unavailable Unavailable Birchenough, L Amina SHADE MATCHER Unavailable Unavailable Birchenough, L Amina SHADE MATCHER Unavailable Unavailable Birchenough, L Amina SHADE MATCHER Unavailable Unavailable [place]irchenough, L Amina SHADE MATCHER Unavailable Unavailable [place]irchenough, L Amina SHADE MATCHER Unavailable Unavailable Birchenough, L Amina SHADE MATCHER Unavailable Unavailable Birchenough, L Amina SHADE MATCHER Unavailable Unavailable Birchenough, L Amina SHADE MATCHER Unavailable Unavailable Birchenough, L Amina SHADE MATCHER Unavailable Unavailable Birchenough, L Amina SHADE MATCHER Unavailable Unavailable Birchenough, L Amina SHADE MATCHER Unavailable Unavailable [place]irchenough, L Amina SHADE MATCHER Unavailable Unavailable [place]henough, L Amina SHADE MATCHER Unavailable Unavailable [place]henough, L Amina SHADE MATCHER Unavailable Unavailable [place]hen[place], L Amina SHADE MATCHER Unavailable Unavailable [place]henough, L Amina SHADE MATCHER Unavailable Unavailable [place]henough, L Amina SHADE MATCHER Unavailable Unavailable [place]hen[place], L Amina SHADE MATCHER Unavailable Unavailable [place], L Amina SHADE MATCHER Unavailable Unavailable [place]hen[place], L Amina SHADE MATCHER Unavailable Unavailable [place]henough, L Amina SHADE MATCHER Unavailable Unavailable [place]henough, L Amina SHADE MATCHER Unavailable Unavailable Birchenough, L Amina SHADE MATCHER Unavailable Unavailable Birchenough, L Amina SHADE MATCHER Unavailable Unavailable [place]hen[place], L Amina SHADE MATCHER Unavailable Unavailable [place]hen[place], L Amina SHADE MATCHER Unavailable Unavailable [place]hen[place], L Amina SHADE MATCHER Unavailable Unavailable Melinda King MD Unavailable Unavailable Melinda King MD Unavailable Unavailable Melinda King MD Unavailable Unavailable DiBMelinda dickens MD Unavailable Unavailable DiBMelinda dickens MD Unavailable Unavailable DiBMelinda dickens MD Unavailable Unavailable ALYSIA, [id number] K. WAJEEHA DO Unavailable Unavail able ALYSIA, [id number] K. WAJEEHA DO Unavailable Unavail able ALYSIA, [id number] K. WAJEEHA DO Unavailable Unavail able ALYSIA, [id number] K. WAJEEHA DO Unavailable Unavail able ALYSIA, [id number] K. WAJEEHA DO Unavailable Unavail able Lizet Mcfarlane MD (Pasquale) Unavailable Unavailable Juan Rai DO Unavailable Unavailable Adan, N Neha PA-C Unavailable Unavailable Adan, N Neha PA-C Unavailable Unavailable Adan, N Neha PA-C Unavailable Unavailable Adan, N Neha PA-C Unavailable Unavailable Adan, N Neha PA-C Unavailable Unavailable Adan, N Neha PA-C Unavailable Unavailable Re-disclosure Warning The records that you are about to access may contain information from federally-assisted alcohol or drug abuse programs. If such information is present, then the following federally mandated warning applies: This information has been disclosed to you from records protected by federal confidentiality rules (42 CFR part 2). The federal rules prohibit you from making any further disclosure of this information unless further disclosure is expressly permitted by the written consent of the person to whom it pertains or as otherwise permitted by 42 CFR part 2. A general authorization for the release of medical or other information is NOT sufficient for this purpose. The Federal rules restrict any use of the information to criminally investigate or prosecute any alcohol or drug abuse patient.The records that you are about to access may contain highly sensitive health information, the redisclosure of which is protected by Article 27-F of the [facility] Public Health law. If you continue you may have access to information: Regarding HIV / AIDS; Provided by facilities licensed or operated by the [facility] Office of Mental Health; or Provided by the [facility] Office for People With Developmental Disabilities. If such information is present, then the following [facility] mandated warning applies: This information has been disclosed to you from confidential records which are protected by state law. State law prohibits you from making any further disclosure of this information without the specific written consent of the person to whom it pertains, or as otherwise permitted by law. Any unauthorized further disclosure in violation of state law may result in a fine or half-way sentence or both. A general authorization for the release of medical or other information is NOT sufficient authorization for further disc losure. Allergies and Adverse Reactions Type Description Substance Reaction Status Data Source(s ) Drug allergy tramadol Tramadol Nausea/Vomit/Gastric NM [facility] SYSTEMIC NO ALLERGIES ON FILE NO ALLERGIES ON FILE [facility] Family History Family Member Name Family Member Gender Family Member Status Date o f Status Description Data Source(s) Unknown Condition [facility] Unknown Condition [facility] Unknown Condition [facility] Unknown Condition [facility] Unknown Condition [facility] Unknown Condition [facility] Unknown Condition [facility] Unknown Condition [facility] Unknown Condition [facility] Encounters Encounter Providers Location Date Indications Data Source(s ) Outpatient 08/02/2020 05:45:00 PM EST HTN emerg ency crisis [facility] HTN emergency crisis Emergency Attender: Lizet Mcfarlane MDAttender: Brian hurtado MD 08/02/2020 04:36:00 PM EST - 08/02/2020 10:46:00 PM EST HEADACHE [facility] HEADACHE Patient discharged. Emergency Attender: Juan Rai DO 021 08:05:00 AM EST - 06/16/2020 03:43:[address] [facility] CHEST PAIN Patient discharged. Outpatient Attender: Grisel Christianson MD 04/20/2020 0 9:03:00 AM EST CALL BACK AND POSS US [facility] CALL BACK AND POSS US Outpatient Attender: Grisel Christianson MDReferrer: Grisel gordillo MD 04/06/2020 10:42:00 AM EDT - 04/06/2020 11:22:00 AM EDT [facility] Outpatient Attender: Grisel Christianson MD 04/04/2020 0 2:04:00 PM EDT SCREEN Z12.31 [facility] SCREEN Z12.31 Outpatient [id number] 03/21/2020 05:01:00 PM EDT ESRD [facility] ESRD Emergency Attender: George Lucero MD 11/2019 12:35:00 PM EDT - 03/21/2020 07:36:00 PM EDT WEAK,FATIGUE [facility] WEAK,FATIGUE Patient discharged. Emergency Attender: George King MD 06/2019 10:37:00 AM EDT - 03/16/2020 03:50:00 PM EDT FATIGUE,CHILLS [facility] FATIGUE,CHILLS Patient discharged. Outpatient Attender: [id number] CHAVEZ HATFIELD DO 03:16:00 PM EDT R39.15,R68.83 [facility] R39.15,R68.83 Outpatient Attender: Grisel STARKSeferrer: Grisel gordillo MD 03/02/2020 01:20:00 PM EDT - 03/02/2020 02:10:00 PM EDT [facility] Outpatient Attender: GEORGE HICKEY MD [facility] 02/03/2020 11:15:00 AM EDT [facility]) Outpatient Attender: Shannon Mas NP 01/18/2020 07:17: 00 AM EDT SOB, PALPITATIONS [facility] SOB, PALPITATIONS Outpatient Attender: Shannon Mas NP [facility] 12/06 04:15:00 PM EDT [facility] ([facility] Cardiology) 2E-CS 09/06/2019 12:01:51 PM EDT [facility] 09/01/2019 09:00:00 AM EDT [facility] 09/01/2019 08:59:30 AM EDT [facility] 08/27/2019 02:52:19 PM EDT [facility] Attender: MONICA ORTEZ MD 2E-CS 08/27/2019 02:50:21 PM EDT [facility] Outpatient Attender: Neha Adan PA-C [facility] 08/27/2019 02:00:00 PM EDT [facility] ([facility] Card[facility]) Emergency Attender: George Lucero MD 10/2019 03:07:00 PM EST - 08/19/2019 07:33:00 PM EST [facility] Outpatient Attender: Grisel Christianson MD 08/18/2019 01:52:0 0 PM EST J18.9 [facility] J18.9 Outpatient Attender: Grisel Christianson MDReferrer: Grisel gordillo MD 08/18/2019 01:02:00 PM EST - 08/18/2019 01:34:00 PM EST [facility] Outpatient 08/04/2019 01:27:00 PM EST [facility] Outpatient Attender: Grisel Christianson MDReferrer: Grisel gordillo MD 08/04/2019 12:58:00 PM EST - 08/04/2019 01:25:00 PM EST [facility] Outpatient Attender: Ronak Hatfield MDConsultant: Amina Mcdonald tarik AQUINO 07/22/2019 10:45:00 AM EST R06.00 [facility] Attender: Shantel BRANHAM 07/14/2019 07 :56:00 AM EST D48.9 [facility] D48.9 Outpatient Attender: Shantel COXCReferrer: Stephanie Christianson MD 07/14/2019 07:37:00 AM EST [facility] Medication Brand Name Start Date Product Form Dose Route Admi nistrative Instructions Pharmacy Instructions Status Indications Reaction Description Data Source(s) Hydralazine Hydrochloride 25 MG Oral Tablet Hydralazine 06/12/2020 11:54:29 AM EST 0 completed [facility] Pen Needle, Diabetic (Relion Pen Stanton) 32 gauge x 5/32" n eedle 03/30/2020 04:28:30 PM EDT 0 active [facility] Pen Needle, Diabetic (Relion Pen Stanton) 32 gauge x 5/32" n eedle 03/30/2020 04:28:30 PM EDT 0 active [facility] Ciprofloxacin 250 MG Oral Tablet Ciprofloxacin Hcl (Ci pro) 250 mg tablet Ciprofloxacin Hcl (Cipro) 250 mg tablet 03/16/2020 03:32:33 PM EDT 25 0 MG active [facility] Ciprofloxacin 250 MG Oral Tablet Ciprofloxacin Hcl (Ci pro) 250 mg tablet Ciprofloxacin Hcl (Cipro) 250 mg tablet 03/16/2020 03:32:33 PM EDT 25 0 MG completed [facility] Ciprofloxacin 250 MG Oral Tablet Ciprofloxacin Hcl (Ci pro) 250 mg tablet Ciprofloxacin Hcl (Cipro) 250 mg tablet 03/16/2020 03:32:33 PM EDT 25 0 MG completed [facility] Ciprofloxacin 250 MG Oral Tablet Ciprofloxacin Hcl (Ci pro) 250 mg tablet Ciprofloxacin Hcl (Cipro) 250 mg tablet 03/16/2020 03:32:33 PM EDT 25 0 MG active [facility] 24 HR Nifedipine 90 MG Extended Release Oral Tablet Nifedipi ne 01/17/2020 10:36:33 AM EDT 90 MG active [facility] 24 HR Nifedipine 90 MG Extended Release Oral Tablet Nifedipi ne 01/17/2020 10:36:33 AM EDT 90 MG active [facility] 24 HR Nifedipine 90 MG Extended Release Oral Tablet Nifedipi ne 01/17/2020 10:36:33 AM EDT 90 MG active [facility] 24 HR Nifedipine 90 MG Extended Release Oral Tablet Nifedipi ne 01/17/2020 10:36:33 AM EDT 90 MG active [facility] 24 HR Nifedipine 90 MG Extended Release Oral Tablet Nifedipi ne 01/17/2020 10:36:33 AM EDT 90 MG active [facility] sitagliptin 25 MG Oral Tablet Sitagliptin (Januvia) 25 mg tablet Sitagliptin (Januvia) 25 mg tablet 10/27/2019 11:56:48 [address] EDT [address] [facility] sitagliptin 25 MG Oral Tablet Sitagliptin (Januvia) 25 mg tablet Sitagliptin (Januvia) 25 mg tablet 10/27/2019 11:56:48 AM EDT [address] [facility] sitagliptin 25 MG Oral Tablet Sitagliptin (Januvia) 25 mg tablet Sitagliptin (Januvia) 25 mg tablet 10/27/2019 11:56:48 AM EDT [address] [facility] sitagliptin 25 MG Oral Tablet Sitagliptin (Januvia) 25 mg tablet Sitagliptin (Januvia) 25 mg tablet 10/27/2019 11:56:48 AM EDT 25 MG [facility] sitagliptin 25 MG Oral Tablet Sitagliptin (Januvia) 25 mg tablet Sitagliptin (Januvia) 25 mg tablet 10/27/2019 11:56:48 AM EDT 25 MG [facility] Atenolol 100 MG Oral Tablet Atenolol 09/07/2019 08:25:24 AM EDT 150 MG active [facility] Atenolol 100 MG Oral Tablet Atenolol 09/07/2019 08:25:24 AM EDT 150 MG active [facility] Atenolol 100 MG Oral Tablet Atenolol 09/07/2019 08:25:24 AM EDT 150 MG active [facility] Atenolol 100 MG Oral Tablet Atenolol 09/07/2019 08:25:24 AM EDT 150 MG active [facility] Atenolol 100 MG Oral Tablet Atenolol 09/07/2019 08:25:24 AM EDT 150 MG active [facility] Losartan Potassium 50 MG Oral Tablet Losartan Potassium 12:00:00 AM EDT ORAL active [facility] Albuterol Sulfate (Proair Hfa) 90 mcg/actuation HFA aerosol inhaler 08/23/2019 10:12:20 AM EDT 1 INH active [facility] Albuterol Sulfate (Proair Hfa) 90 mcg/actuation HFA aerosol inhaler 08/23/2019 10:12:20 AM EDT 1 INH active [facility] Albuterol Sulfate (Proair Hfa) 90 mcg/actuation HFA aerosol inhaler 08/23/2019 10:12:20 AM EDT 1 INH active [facility] Albuterol Sulfate (Proair Hfa) 90 mcg/actuation HFA aerosol inhaler 08/23/2019 10:12:20 AM EDT 1 INH active [facility] Albuterol Sulfate (Proair Hfa) 90 mcg/actuation HFA aerosol inhaler 08/23/2019 10:12:20 AM EDT 1 INH active [facility] atorvastatin 40 MG Oral Tablet Atorvastatin Atorvastatin 08/18/2019 01:36:20 PM EST 40 MG active [facility] atorvastatin 40 MG Oral Tablet Atorvastatin Atorvastatin 08/18/2019 01:36:20 PM EST 40 MG active [facility] atorvastatin 40 MG Oral Tablet Atorvastatin Atorvastatin 08/18/2019 01:36:20 PM EST 40 MG active [facility] atorvastatin 40 MG Oral Tablet Atorvastatin Atorvastatin 08/18/2019 01:36:20 PM EST 40 MG active [facility] atorvastatin 40 MG Oral Tablet Atorvastatin Atorvastatin 08/18/2019 01:36:20 PM EST 40 MG active [facility] atorvastatin 40 MG Oral Tablet Atorvastatin Atorvastatin 08/18/2019 01:36:20 PM EST 40 MG active [facility] Albuterol Sulfate (Proventil Hfa) 90 mcg/actuation HFA aeros ol inhaler 08/18/2019 01:36:01 PM EST 1 PUFFS completed [facility] Albuterol Sulfate (Proventil Hfa) 90 mcg/actuation HFA aeros ol inhaler 08/18/2019 01:36:01 PM EST 1 PUFFS completed [facility] Albuterol Sulfate 08/18/2019 01:36:01 PM EST 1 PUFFS active [facility] Albuterol Sulfate (Proventil Hfa) 90 mcg/actuation HFA aeros ol inhaler 08/18/2019 01:36:01 PM EST 1 PUFFS completed [facility] Albuterol Sulfate (Proventil Hfa) 90 mcg/actuation HFA aeros ol inhaler 08/18/2019 01:36:01 PM EST 1 PUFFS completed [facility] Albuterol Sulfate (Proventil Hfa) 90 mcg/actuation HFA aeros ol inhaler 08/18/2019 01:36:01 PM EST 1 PUFFS completed [facility] Glipizide 5 MG Oral Tablet Glipizide 08/04/2019 01:22:30 PM EST 5 MG active [facility] Glipizide 5 MG Oral Tablet Glipizide 08/04/2019 01:22:30 PM EST 5 MG active [facility] Glipizide 5 MG Oral Tablet Glipizide 08/04/2019 01:22:30 PM EST 5 MG active [facility] Glipizide 5 MG Oral Tablet Glipizide 08/04/2019 01:22:30 PM EST 5 MG active [facility] Glipizide 5 MG Oral Tablet Glipizide 08/04/2019 01:22:30 PM EST 5 MG active [facility] Glipizide 5 MG Oral Tablet Glipizide 08/04/2019 01:22:30 PM EST 5 MG active [facility] Glipizide 5 MG Oral Tablet Glipizide 08/04/2019 01:22:30 PM EST 5 MG active [facility] Glipizide 5 MG Oral Tablet Glipizide 08/04/2019 01:22:30 PM EST 5 MG active [facility] Hydralazine Hydrochloride 25 MG Oral Tablet Hydralazine 07/08/2019 04:48:11 PM EST 50 MG active [facility] Hydralazine Hydrochloride 25 MG Oral Tablet Hydralazine 07/08/2019 04:48:11 PM EST 50 MG active [facility] Hydralazine Hydrochloride 25 MG Oral Tablet Hydralazine 07/08/2019 04:48:11 PM EST 50 MG active [facility] Hydralazine Hydrochloride 25 MG Oral Tablet Hydralazine 07/08/2019 04:48:11 PM EST 50 MG active [facility] Hydralazine Hydrochloride 25 MG Oral Tablet Hydralazine 07/08/2019 04:48:11 PM EST 50 MG active [facility] Hydralazine Hydrochloride 25 MG Oral Tablet Hydralazine 07/08/2019 04:48:11 PM EST 50 MG active [facility] Hydralazine Hydrochloride 25 MG Oral Tablet Hydralazine 07/08/2019 04:48:11 PM EST 50 MG completed [facility] Hydralazine Hydrochloride 25 MG Oral Tablet Hydralazine 07/08/2019 04:48:11 PM EST 50 MG active [facility] Hydralazine Hydrochloride 25 MG Oral Tablet Hydralazine 07/08/2019 04:48:11 PM EST 50 MG active [facility] Blood Sugar Diagnostic (Accu-Chek Evelyn Plus Test Strp) stri p 06/15/2019 01:22:47 PM EST 0 active [facility] Blood Sugar Diagnostic (Accu-Chek Evelyn Plus Test Strp) stri p 06/15/2019 01:22:47 PM EST 0 active [facility] Blood Sugar Diagnostic (Accu-Chek Evelyn Plus Test Strp) stri p 06/15/2019 01:22:47 PM EST 0 active [facility] Blood Sugar Diagnostic 06/15/2019 01:22:47 PM EST 0 active [facility] Blood Sugar Diagnostic 06/15/2019 01:22:47 PM EST 0 active [facility] Blood Sugar Diagnostic 06/15/2019 01:22:47 PM EST 0 active [facility] Blood Sugar Diagnostic 06/15/2019 01:22:47 PM EST 0 active [facility] Blood Sugar Diagnostic (Accu-Chek Evelyn Plus Test Strp) stri p 06/15/2019 01:22:47 PM EST 0 active [facility] Blood Sugar Diagnostic (Accu-Chek Evelyn Plus Test Strp) stri p 06/15/2019 01:22:47 PM EST 0 active [facility] Glipizide 5 MG Oral Tablet Glipizide 05/07/2019 03:40:00 PM EST 5 MG completed [facility] Glipizide 5 MG Oral Tablet Glipizide 05/07/2019 03:40:00 PM EST 5 MG completed [facility] Glipizide 5 MG Oral Tablet Glipizide 05/07/2019 03:40:00 PM EST 5 MG completed [facility] Glipizide 5 MG Oral Tablet Glipizide 05/07/2019 03:40:00 PM EST 5 MG completed [facility] Glipizide 5 MG Oral Tablet Glipizide 05/07/2019 03:40:00 PM EST 5 MG completed [facility] Glipizide 5 MG Oral Tablet Glipizide 05/07/2019 03:40:00 PM EST 5 MG completed [facility] Glipizide 5 MG Oral Tablet Glipizide 05/07/2019 03:40:00 PM EST 5 MG completed [facility] Glipizide 5 MG Oral Tablet Glipizide 05/07/2019 03:40:00 PM EST 5 MG completed [facility] atorvastatin 40 MG Oral Tablet Atorvastatin Atorvastatin 03/01/2019 10:05:14 AM EDT 40 MG completed [facility] atorvastatin 40 MG Oral Tablet Atorvastatin Atorvastatin 03/01/2019 10:05:14 AM EDT 40 MG completed [facility] atorvastatin 40 MG Oral Tablet Atorvastatin Atorvastatin 03/01/2019 10:05:14 AM EDT 40 MG completed [facility] atorvastatin 40 MG Oral Tablet Atorvastatin Atorvastatin 03/01/2019 10:05:14 AM EDT 40 MG completed [facility] atorvastatin 40 MG Oral Tablet Atorvastatin Atorvastatin 03/01/2019 10:05:14 AM EDT 40 MG completed [facility] atorvastatin 40 MG Oral Tablet Atorvastatin Atorvastatin 03/01/2019 10:05:14 AM EDT 40 MG completed [facility] Atenolol 100 MG Oral Tablet Atenolol 02/17/2019 01:16:01 PM EDT 100 MG completed [facility] Atenolol 100 MG Oral Tablet Atenolol 02/17/2019 01:16:01 PM EDT 100 MG completed [facility] Atenolol 100 MG Oral Tablet Atenolol 02/17/2019 01:16:01 PM EDT 100 MG completed [facility] Atenolol 100 MG Oral Tablet Atenolol 02/17/2019 01:16:01 PM EDT 100 MG completed [facility] Atenolol 100 MG Oral Tablet Atenolol 02/17/2019 01:16:01 PM EDT 100 MG completed [facility] sitagliptin 25 MG Oral Tablet Sitagliptin (Januvia) 25 mg tablet Sitagliptin (Januvia) 25 mg tablet 11/24/2018 09:37:22 AM EDT 25 MG completed [facility] sitagliptin 25 MG Oral Tablet Sitagliptin (Januvia) 25 mg tablet Sitagliptin (Januvia) 25 mg tablet 11/24/2018 09:37:22 AM EDT 25 MG completed [facility] sitagliptin 25 MG Oral Tablet Sitagliptin (Januvia) 25 mg tablet Sitagliptin (Januvia) 25 mg tablet 11/24/2018 09:37:22 AM EDT 25 MG completed [facility] sitagliptin 25 MG Oral Tablet Sitagliptin (Januvia) 25 mg tablet Sitagliptin (Januvia) 25 mg tablet 11/24/2018 09:37:22 AM EDT 25 MG completed [facility] sitagliptin 25 MG Oral Tablet Sitagliptin (Januvia) 25 mg tablet Sitagliptin (Januvia) 25 mg tablet 11/24/2018 09:37:22 AM EDT 25 MG completed [facility] 24 HR Nifedipine 90 MG Extended Release Oral Tablet Nifedipi ne 10/30/2018 08:54:12 AM EDT 90 MG completed [facility] 24 HR Nifedipine 90 MG Extended Release Oral Tablet Nifedipi ne 10/30/2018 08:54:12 AM EDT 90 MG completed [facility] 24 HR Nifedipine 90 MG Extended Release Oral Tablet Nifedipi ne 10/30/2018 08:54:12 AM EDT 90 MG completed [facility] 24 HR Nifedipine 90 MG Extended Release Oral Tablet Nifedipi ne 10/30/2018 08:54:12 AM EDT 90 MG completed [facility] 24 HR Nifedipine 90 MG Extended Release Oral Tablet Nifedipi ne 10/30/2018 08:54:12 AM EDT 90 MG completed [facility] Albuterol Sulfate (Proventil Hfa) 6.7 GM HFA aerosol inhaler 09/15/2018 01:32:10 PM EDT 1 PUFFS completed [facility] Albuterol Sulfate (Proventil Hfa) 6.7 GM HFA aerosol inhaler 09/15/2018 01:32:10 PM EDT 1 PUFFS completed [facility] Albuterol Sulfate (Proventil Hfa) 6.7 GM HFA aerosol inhaler 09/15/2018 01:32:10 PM EDT 1 PUFFS completed [facility] Albuterol Sulfate (Proventil Hfa) 6.7 GM HFA aerosol inhaler 09/15/2018 01:32:10 PM EDT 1 PUFFS completed [facility] Albuterol Sulfate 09/15/2018 01:32:10 PM EDT 1 PUFFS completed [facility] Albuterol Sulfate (Proventil Hfa) 6.7 GM HFA aerosol inhaler 09/15/2018 01:32:10 PM EDT 1 PUFFS completed [facility] Atenolol 50 MG Oral Tablet Atenolol 09/15/2018 01:26:18 PM EDT 1 TAB completed [facility] Atenolol 50 MG Oral Tablet Atenolol 09/15/2018 01:26:18 PM EDT 1 TAB completed [facility] Atenolol 50 MG Oral Tablet Atenolol 09/15/2018 01:26:18 PM EDT 1 TAB completed [facility] Atenolol 50 MG Oral Tablet Atenolol 09/15/2018 01:26:18 PM EDT 1 TAB completed [facility] Atenolol 50 MG Oral Tablet Atenolol 09/15/2018 01:26:18 PM EDT 1 TAB completed [facility] Hydralazine Hydrochloride 25 MG Oral Tablet Hydralazine 06/18/2018 04:08:00 PM EST 2 TAB completed [facility] Hydralazine Hydrochloride 25 MG Oral Tablet Hydralazine 06/18/2018 04:08:00 PM EST 2 TAB completed [facility] Hydralazine Hydrochloride 25 MG Oral Tablet Hydralazine 06/18/2018 04:08:00 PM EST 2 TAB completed [facility] Hydralazine Hydrochloride 25 MG Oral Tablet Hydralazine 06/18/2018 04:08:00 PM EST 2 TAB completed [facility] Hydralazine Hydrochloride 25 MG Oral Tablet Hydralazine 06/18/2018 04:08:00 PM EST 2 TAB completed [facility] Hydralazine Hydrochloride 25 MG Oral Tablet Hydralazine 06/18/2018 04:08:00 PM EST 2 TAB completed [facility] Hydralazine Hydrochloride 25 MG Oral Tablet Hydralazine 06/18/2018 04:08:00 PM EST 2 TAB completed [facility] Hydralazine Hydrochloride 25 MG Oral Tablet Hydralazine 06/18/2018 04:08:00 PM EST 2 TAB completed [facility] Hydralazine Hydrochloride 25 MG Oral Tablet Hydralazine 06/18/2018 04:08:00 PM EST 2 TAB completed [facility] Insurance Providers Payer name Policy type / Coverage type Policy ID Covered libertarian ID Covered libertarian's relationship to christianson Policy Christianson Plan Information MEDICARE COMPLETE [id number] SP [id number] [facility] MEDICARE COMPLETE G [id number] Self [id number] MEDICARE COMPLETE-[facility] O [id number] S [id number] MEDICARE [id number] SP [id number] UNITED H [id number] Self [id number] MEDICARE [id number] SP [id number] A MEDICARE COMPLETE [id number] SP [id number] [facility] Other 0 Self 0 [facility] Other 0 Self 0 [facility] Other 0 Self 0 [facility] Other 0 Self 0 [facility] Other 0 Self 0 [facility] Other 0 Self 0 [facility] Other 0 Self 0 [facility] Other 0 Self 0 MEDICARE COMPLETE [id number] SP [id number] MEDICARE COMPLETE [id number] SP [id number] [facility] Other 0 Self 0 [facility] Other 0 Self 0 [facility] Other 0 Self 0 [facility] Other 0 Self 0 [facility] Other 0 Self 0 [facility] Other 0 Self 0 [facility] Other [facility] Self 0 [facility] Other 0 Self 0 [facility] Other 0 Self 0 [facility] Other 0 Self 0 [facility] Other [facility] Self 0 [facility] Other 0 Self 0 [facility] Other 0 Self 0 [facility] Other 0 Self 0 [facility] Other [facility] Self 0 [facility] [id number] SP [id number] [facility] [id number] SP [id number] [facility] [id number] SP [id number] [facility] [id number] SP [id number] [employer] [place] [id number] SP [id number] Problems, Conditions, and Diagnoses Code Display Name Description Problem Type Effective Dates Data Source(s) 88199027 Type 2 diabetes mellitus Type 2 diabetes mellitus Prob hernesto 02/03/2020 12:00:00 AM EDT [facility] 83440577 Pulmonary hypertension Pulmonary hypertension Problem 02/03/2020 12:00:00 AM EDT [facility] [id number] Walking disability Walking disability Problem 12:00:00 AM EDT [facility]) 41623236 Mitral valve disorder Mitral valve disorder Problem 12/07/2019 12:00:00 AM EDT [facility] [id number] Electrocardiogram abnormal Electrocardiogram abnormal Problem 12/07/2019 12:00:00 AM EDT [facility]) 86830692 End-stage renal disease End-stage renal disease Proble m 12/07/2019 12:00:00 AM EDT [facility]) HTN emergency crisis HTN emergency crisis Diagnosis 08/02/2020 05:45:00 PM [facility] ESRD ESRD Diagnosis 03/21/2020 05:01:00 PM [facility] Surgeries/Procedures Procedure Description Date Indications Data Source(s) Plain chest X-ray (procedure) 06/16/2020 09:02:00 AM E [facility] 06/16/2020 12:00:00 AM [facility] Influenza-Like Illness (PCR) 06/16/2020 12:00:00 AM ES T [facility] Ultrasonography of breast (procedure) 04/20/2020 10:12 :00 AM [facility] Unilateral radiographic imaging of breast (situation) 04/20/2020 09:33:00 AM [facility] US Breast - Complete Bilat 04/04/2020 02:47:00 PM [facility] US Breast - Complete Bilat 04/04/2020 02:47:00 PM [facility] Screening mammography (procedure) 04/04/2020 02:27:00 PM [facility] Screening mammography (procedure) 04/04/2020 02:27:00 PM [facility] CT Thorax without contrast 03/21/2020 03:58:00 PM [facility] CT Thorax without contrast 03/21/2020 03:58:00 [address] [facility] CT Thorax without contrast 03/21/2020 03:58:00 PM [facility] Plain chest X-ray (procedure) 03/21/2020 02:45:[address] [facility] Plain chest X-ray (procedure) 03/21/2020 02:45:[address] [facility] Plain chest X-ray (procedure) 03/21/2020 02:45:[address] [facility] SARS-CoV-2 (PCR) Interpretation 03/21/2020 12:00:00 AM [facility] Urine culture (procedure) 03/21/2020 12:00:00 AM [facility] Blood culture for bacteria, including anaerobic screen (proc edure) 03/21/2020 12:00:00 AM [facility] SARS-CoV-2 (PCR) Interpretation 03/21/2020 12:00:00 AM [facility] Urine culture (procedure) 03/21/2020 12:00:00 AM [facility] Blood culture for bacteria, including anaerobic screen (proc edure) 03/21/2020 12:00:00 AM [facility] Blood Culture 03/21/2020 12:00:00 AM [facility] Urine Culture 03/21/2020 12:00:00 AM [facility] SARS-CoV-2 (PCR) Interpretation 03/21/2020 12:00:00 AM EDT [facility] Urine culture (procedure) 03/15/2020 12:00:00 AM EDT [facility] Urine culture (procedure) 03/15/2020 12:00:00 AM EDT [facility] Urine culture (procedure) 03/15/2020 12:00:00 AM [facility] Urine Culture 03/15/2020 12:00:00 AM [facility] Myocardial Perfusion Imaging Tomographic (Spect) Multiple St udies 01/18/2020 12:00:00 AM EDT [facility] Cardiovascular Stress Test Physician Supervision Only 01/18/2020 12:00:00 AM EDT [facility] ([facility]) Cardiovascular Stress Test Interpretation & Report Only 01/18/2020 12:00:00 AM EDT [facility] ([facility]) ECG Complete 08/27/2019 12:00:00 AM EDT [facility] Diagnostic radiography of chest, combine d posteroanterior and lateral (procedure) 08/18/2019 02:06:00 PM [facility] Diagnostic radiography of chest, combine d posteroanterior and lateral (procedure) 08/18/2019 02:06:00 PM [facility] Diagnostic radiography of chest, combine d posteroanterior and lateral (procedure) 08/18/2019 02:06:00 PM [facility] Diagnostic radiography of chest, combine d posteroanterior and lateral (procedure) 08/18/2019 02:06:00 PM [facility] Diagnostic radiography of chest, combine d posteroanterior and lateral (procedure) 08/18/2019 02:06:00 PM [facility] Diagnostic radiography of chest, combine d posteroanterior and lateral (procedure) 08/18/2019 02:06:00 PM [facility] Diagnostic radiography of chest, combine d posteroanterior and lateral (procedure) 07/22/2019 03:00:00 PM [facility] Diagnostic radiography of chest, combine d posteroanterior and lateral (procedure) 07/22/2019 03:00:00 PM [facility] Diagnostic radiography of chest, combine d posteroanterior and lateral (procedure) 07/22/2019 03:00:00 PM [facility] Diagnostic radiography of chest, combine d posteroanterior and lateral (procedure) 07/22/2019 03:00:00 PM [facility] Diagnostic radiography of chest, combine d posteroanterior and lateral (procedure) 07/22/2019 03:00:00 PM [facility] Diagnostic radiography of chest, combine d posteroanterior and lateral (procedure) 07/22/2019 03:00:00 PM [facility] Diagnostic radiography of chest, combine d posteroanterior and lateral (procedure) 07/22/2019 03:00:00 PM [facility] Diagnostic radiography of chest, combine d posteroanterior and lateral (procedure) 07/22/2019 03:00:00 PM [facility] Blood culture for bacteria, including anaerobic screen (proc edure) 07/22/2019 12:00:00 AM [facility] Blood culture for bacteria, including anaerobic screen (proc edure) 07/22/2019 12:00:00 AM [facility] Blood culture for bacteria, including anaerobic screen (proc edure) 07/22/2019 12:00:00 AM [facility] Blood culture for bacteria, including anaerobic screen (proc edure) 07/22/2019 12:00:00 AM [facility] Blood culture for bacteria, including anaerobic screen (proc edure) 07/22/2019 12:00:00 AM [facility] Blood culture for bacteria, including anaerobic screen (proc edure) 07/22/2019 12:00:00 AM [facility] Blood culture for bacteria, including anaerobic screen (proc edure) 07/22/2019 12:00:00 AM [facility] Blood culture for bacteria, including anaerobic screen (proc edure) 07/22/2019 12:00:00 AM [facility] Results ID Date Data Source [id number] 08/02/2020 08:41:00 PM [facility] ED Physician Documentation NAME: VALERIO MARSH : 1945 AGE: 75 MR#: [id number] SERVICE DATE: 08/02/[address]: Jair Mcfarlane MD PRIMARY CARE DR: Grisel Christianson MD ROOM#: HPI (Adult, General) General Chief Complaint: CVA Stated Complaint: HEADACHE Time Seen by Provider: 08/02/20 16:37 History of Present Illness Narrative: 8:35PM: Recd signout from Dr Felix at change of shift. Chart read and patient personally examined by me. C: Headache. Patient is a 75-year-old female w ESRD hemodialysis MWF w PMH CVA w L hemiplegia. Today after completing dialysis patient developed severe headache followed by vomiting. EMS was called and patient was transported to this ED by ambulance where she was attended by Dr Felix. BP severely elevated. CT no acute. Rx. BP improved. Dr Felix spoke w Dr Yoder (Hospitalist @[facility] where hemodialysis is available; hemodialysis not available here at [facility]) who accepted transfer if BP satisfactory by 9:00 PM. Presently, patient states she feels better than earlier today. Still has GARCIA, but, less intense, "moderate". No nausea. Allergies/Home Meds Allergies Allergy/AdvReac Type Severity Reaction Status Date / Time tramadol AdvReac Mild Nausea/Vomi Verified 08/02/20 17:10 t/Gastric Home Medications Medication Instructions Recorded Confirmed Last Taken Type One-Per-Day Nisswa-3 3 ea PO BID 09/26/15 06/16/20 03/15/20 History aspirin [Aspirin Low-Strength] 81 mg PO DAILY tab 09/26/15 06/16/20 03/15/20 History esomeprazole magnesium 1 tab PO DAILY 09/15/18 06/16/20 03/15/20 History blood sugar diagnostic #100 each 12/10/18 06/16/20 Unknown Rx Comfort EZ Pen Stanton 31 gauge x #100 each NS 01/25/19 06/16/20 Unknown Rx 1/4" glipizide 5 mg tablet 5 mg PO BID 90 Days #180 tab 08/04/19 06/16/20 03/15/20 Rx atorvastatin 40 mg tablet 40 mg PO HS 90 Days #90 tab 08/18/19 06/16/20 03/15/20 Rx albuterol sulfate 90 mcg/actuation 1 inh IH QID PRN #18 gm 08/23/19 06/16/20 03/15/20 Rx aerosol inhaler atenolol 100 mg tablet 150 mg PO HS 90 Days #135 tab 09/07/19 06/16/20 03/15/20 Rx nifedipine 90 mg tablet,extended 90 mg PO QDAY 90 Days #90 tab 01/17/20 06/16/20 03/15/20 Rx release pen needle, diabetic 32 gauge x #100 ea 03/30/20 06/16/20 Unknown Rx 532" hydralazine 25 mg tablet See Rx Instructions .ROUTE 06/12/20 06/16/20 Unknown Rx .COMPLEX #180 tab insulin glargine 100 unit/mL (3 See Rx Instructions .ROUTE 07/24/20 Unknown Rx mL) subcutaneous pen .COMPLEX #12 ml Accu-Chek Evelyn Plus test strp See Rx Instructions .ROUTE 08/01/20 Unknown Rx .COMPLEX #100 ea NS PMH (from Triage) Patient Medical History PMH Reviewed/Updated as Needed: Yes PMH/PSH from Triage: Medical History (Updated 08/02/20 @ 21:13 by Lizet Mcfarlane MD) CVA (cerebral vascular accident) (Medical) I63.9 Diabetes mellitus (Medical) Hyperlipemia (Medical) Hypertension (Medical) Kidney disease (Medical) Osteoporosis (Medical) Pneumonia due to COVID-19 virus (Medical) U07.1, J12.89 Surgical History (Updated 12/08/18 @ 11:58 by excentos RI) History of - surgery (Surgical) right foot hammer toe History of colonoscopy (Surgical) Hx Drug Resistant Infections Hx MRSA: (Methicillin-resistant Staphylococcus aureus): No Hx VRE (Vancomycin-resistant enterococci): No Hx C.Diff: No Hx CRKP: No Hx Other Resistant Infection?: No Isolation: Standard precautions Hx Recent Travel Out of the country within 10 days (where): No Hx Fever: No Hx Fever with a rash?: No Nurse screening for coronavirus: Recent Travel outside the No country (where) Social History Does patient have suicidal/homicidal thoughts or ideation?: No Are you in a relationship with/Does anyone hit you, yell/swear at you, steal from you?: No Substance Use Hx Alcohol Use: No Hx Substance Use: No Hx Substance Use Treatment: No Smoking Status: Never smoker Vaccination History Hx/Date of Tetanus, Diphtheria Vaccination: Yes Hx/Date of Influenza Vaccination: Yes Hx/Date of Pneumococcal Vaccination: Yes [facility] Medical History CVA (cerebral vascular accident) Diabetes mellitus Hyperlipemia Hypertension Kidney disease Osteoporosis Pneumonia due to COVID-19 virus Surgical History History of - surgery History of colonoscopy Family History Mother Diabetes Father No problems noted. Social History Does the Patient have a Healthcare Proxy: Yes Does Patient have a DNR?: No Does Patient have a Living Will?: No Does the Patient have a MOLST?: No Advance Directives on File or in chart?: No Hx Recent Travel (where): No Smoking Status: Never smoker ROS Review of Systems Constitutional: Reports weakness (S/P CVA w L hemiplegia.); Denies fever and chills Respiratory: Denies cough and SOB Cardiovascular: Reports hypertension; Denies chest pain and syncope Gastrointestinal: Reports nausea and vomiting; Denies abdominal pain Neurologic: Reports weakness (S/P CVA w L hemiplegia.) and headache; Denies confusion, seizures and loss of consciousness Physical Exam General General appearance: alert and other (Chronically ill-appearing elderly white female NAD. No pallor,cyanosis, icterus, or diaphoresis. Alert. Herreid x3.) Head Head exam: Present atraumatic, normocephalic and other (BP (by me, left brachial which is where patient states her BP is usually tested, regular adult cuff) = 160/84. Pulse = 72 and regular.) Eye Eye exam: Absent scleral icterus and conjunctival injection Neck Neck exam: Present supple; Absent tenderness Respiratory Respiratory exam: Present normal lung sounds bilaterally; Absent respiratory distress, wheezes, rales and rhonchi Cardiovascular Cardiovascular Exam: Present regular rate and systolic murmur (There is a 1/6 systolic murmur max 2nd ICS RSB.); Absent rubs and JVD GI/Abdominal GI/Abdominal exam: Present Abd soft, bowel sounds present all quadrents and other; Absent tenderness, organomegaly and mass Extremities Exam Extremities exam: Present other (Shunt right arm. ) Neurological Exam Neurological exam: Present alert, oriented X3 and other (No ptosis. There is a mild left lower facial paresis. Left hemiplegia noted.) Vital Signs Vital Signs: Vital Signs 08/02/20 16:36 08/02/20 16:41 08/02/20 16:45 Temperature 96.9 F L Pulse Rate 68 72 75 Respiratory Rate 16 Blood Pressure 255/118 231/79 O2 Sat by Pulse Oximetry 96 08/02/20 16:46 08/02/20 16:47 08/02/20 17:19 Temperature Pulse Rate 75 73 70 Respiratory Rate 20 20 16 Blood Pressure 255/118 219/82 188/62 O2 Sat by Pulse Oximetry 94 L 96 97 08/02/20 17:39 Temperature Pulse Rate 70 Respiratory Rate 16 Blood Pressure 173/60 O2 Sat by Pulse Oximetry 96 MDM (neuro) Lab Data Lab Results 08/02/20 08/02/20 08/02/20 Range/Units 16:45 16:45 16:45 WBC 8.0 (4.45-10.71) 10e3/uL RBC 4.06 L (4.20-5.40) 10e6/uL Hgb 13.5 (10.7-15.4) g/dL Hct 41.7 (37-47) % MCV 102.7 H (80-96) fl MCH 33.3 H (27-31) pg MCHC 32.4 L (33-37) g/dl RDW 14 (11-15) % Plt Count 214 (130-472) 10e3/ul MPV 10.0 (9.1-13.1) fl Immature Gran % (Auto) 0.1 (0-2) % Neut % (Auto) 76.8 (41-77) % Lymph % (Auto) 12.6 L (14-46) % Rusk % (Auto) 8.2 (4-12) % Eos % (Auto) 1.7 (0-7) % Baso % (Auto) 0.6 (0.4-1.3) % Lymph # (Auto) 1.0 (0.6-4.6) # Abs Immat Gran (auto) 0.0 (0-0.1) # Add Manual Diff No Absolute Neutrophils 6.1 (1.7-7.6) # Monocytes # 0.7 (0.2-1.2) # Absolute Eosinophils 0.1 (0.0-0.5) # Absolute Basophils 0.1 (0.0-0.2) # PT 10.3 (9.6-12.3) SECONDS INR 1.0 (0.9-1.1) PTT (Lior) 24.7 (22.7-31.6) SECONDS Sodium 134 (132-146) mmol/L Potassium 4.1 (3.5-5.5) mmol/L Chloride 97 L (99-109) mmol/l Carbon Dioxide 31 (20-31) mmol/l Anion Gap 10 (8-16) mmol/l BUN 16 (9-23) mg/dL Creatinine 3.2 H (0.5-1.1) mg/dL GFR Calculation 14 (ABOVE 60) ml/min Glucose 182 H (74- 106) mg/dL Calcium 9.1 (8.5-10.1) mg/dL Total Bilirubin 0.4 (0.3-1.2) mg/dL AST 24 (0-33) U/L ALT 24 (10-49) U/L Alkaline Phosphatase 246 H (45-129) U/L Troponin I 0.019 (0.00- 0.09) ng/mL Serum Total Protein 8.5 H (5.7-8.2) g/dL Albumin 3.7 (3.2-4.8) g/dL Medical Decision Making 8:45 PM: nuclear monitoring technician: Sinus rhythm without ectopics. At this time patient appears stable. Anticipate transfer to [facility] where hemodialysis is available; hemodialysis is not available here at [facility] at this time. 9:00 PM: No new symptom. nuclear monitoring technician: Sinus rhythm without ectopics. BP (by me, left brachial) = 140/80. My working diagnosis: Headache. Hypertension. ESRD. ASCVD. Diabetes mellitus. Rx: Case discussed w Dr Yoder ([facility] Hospitalist) who accepts transfer. Condition: Fair. Stable for transfer. Plan Visit Medications Administered ED medications:: Medications Generic Name Dose Route Start Last Admin Trade Name Freq PRN Reason Stop Dose Admin Nicardipine/Sodium Chloride 40 mg in 200 mls @ 25 mls/hr 08/02/20 16:56 08/02/20 20:02 Cardene-Nacl 40 Mg/200 Ml Iv IVC 0 mg/hr TITR [place] 0 mls/hr Titration Protocol 5 MG/HR Discontinued Medications Generic Name Dose Route Start Last Admin Trade Name Freq PRN Reason Stop Dose Admin Labetalol HCl Confirm 08/02/20 16:41 08/02/20 16:45 Labetalol Hcl 5 Mg/Ml Cartridge Administered 08/02/20 16:42 20 mg Dose Administration 20 mg IVP .STK-MED ONE Nifedipine 60 mg 08/02/20 19:55 08/02/20 20:03 Nifedipine Xl 30 Mg Tab PO 08/02/20 19:56 Not Given NOW ONE Ondansetron HCl 8 mg 08/02/20 16:41 08/02/20 16:36 Ondansetron Hcl/Pf 4 Mg/2 Ml Sdv IVP 08/02/20 16:42 8 mg 1T ONE Administration Discharge Plan Admission/Discharge Dx Primary DC Diagnosis: Headache ED Provider: Lizet Mcfarlane ED Status: Transfer Pending Time Seen by Provider: 08/02/20 16:37 Triaged At: 08/02/20 16:36 Discharge Detail Disposition: Transfer - [facility] Med Rec New Prescriptions: No Action atorvastatin 40 mg tablet 40 mg PO HS 90 Days Qty: 90 RF: 3 glipizide 5 mg tablet 5 mg PO BID 90 Days Qty: 180 RF: 3 esomeprazole magnesium 20 MG capsule,delayed release(DR/EC) 1 tab PO DAILY RF: 0 aspirin [Aspirin Low-Strength] 81 MG tablet,chewable 81 mg PO DAILY RF: 0 One-Per-Day Nisswa-3 1 EACH capsule,delayed release(DR/EC) 3 ea PO BID RF: 0 (DME) Blood Glucose Test Strip See Dose Instructions .ROUTE .MEDSUPPLY Qty: 100 RF: 1 (DME) pen needle, diabetic [Comfort EZ Pen Stanton] 31 gauge x 1/4" needle See Dose Instructions .ROUTE .MEDSUPPLY Qty: 100 RF: 3 albuterol sulfate [ProAir HFA] 90 mcg/actuation HFA aerosol inhaler 1 inh IH QID PRN (Reason: shortness of breath or wheezing) Qty: 18 RF: 3 atenolol 100 mg tablet 150 mg PO HS 90 Days Qty: 135 RF: 3 nifedipine 90 mg tablet extended release 90 mg PO QDAY 90 Days Qty: 90 RF: 3 (DME) pen needle, diabetic [ReliOn Pen Stanton] 32 gauge x 5/32" needle See Rx Instructions .ROUTE .MEDSUPPLY Qty: 100 RF: 3 Discharge Problem: Diabetes mellitus, End stage renal disease on dialysis, ASCVD (arteriosclerotic cardiovascular disease), Hypertension Interventions Interventions: Neurological Assessment Last Done: 08/02/20 17:11 Report Signers: <Electronically signed by Lizet Mcfarlane MD> Lizet Mcfarlane MD 08/02/202113 Lizet Mcfarlane MD SIGNATURE DA Report Cosigners: D: MICHAEL 08/02/202040 T: MICHAEL 08/02/202040 CC: Grisel Christianson MD Name Value Range Interpretation Code Description Data Marla rce(s) Supporting Document(s) ID Date Data Source [id number] 08/02/2020 07:15:00 PM [facility] Radha Madhavi is a rapid, automated qualita tive anddifferentiation of Influenza type A,B and HZNN-[id number]-RT-PCR testNORMAL VALUE IS "NOT DETECTED".Limitations of the radha madhavi Influenza A/B & [id number] method.Modifications to manufacturers recommendation and proceduresmay alter performance of the test.Negative results do not preclude Influenza A,B or SARS- KKD9khxpryrcct and should not be used as the sole basis fortreatment or other management decisions. Results from theCobas Madhavi Influenza A/B & COV2 should be interpeted inconjunction with other laboratory and clinical dataavailable to the clinician.False negative results may occur if a specimen is improperlycollected, transported or handled. False negatives may occurif inadequate numbers of organisms are present in thespecimen.This test has not been evaluated for patients without signsand systoms of influenza and SARS-COV-2 infection.This assay has not been evaluated for patients receivingintranasal administered infl uenza vaccine.This assay has not been evaluated for immunocompromisedindividuals.This test cannot rule out diseases caused by other bacterialor viral pathogens.SARS-rel CoV RNA Resp Ql CLARI+probeFLUAV RNA Resp Ql CLARI+probeFLUBV RNA Resp Ql CLARI+probe Name Value Range Interpretation Code Description Data Marla rce(s) Supporting Document(s) ID Date Data Source [id number] 08/02/2020 07:15:00 PM [facility] Radha Madhavi is a rapid, automated qualita tive anddifferentiation of Influenza type A,B and FDEM-[id number]-[id number]-RT-PCR testNORMAL VALUE IS "NOT DETECTED".Limitations of the radha madhavi Influenza A/B & WMYR-OZP-4qqzjs method.Modifications to manufacturers recommendation and proceduresmay alter performance of the test.Negative results do not preclude Influenza A,B or SARS- DCP8izbybhijco and should not be used as the sole basis fortreatment or other management decisions. Results from theCobas Madhavi Influenza A/B & COV2 should be interpeted inconjunction with other laboratory and clinical dataavailable to the clinician.False negative results may occur if a specimen is improperlycollected, transported or handled. False negatives may occurif inadequate numbers of organisms are present in thespecimen.This test has not been evaluated for patients without signsand systoms of influenza and SARS-COV-2 infection.This assay has not been evaluated for patients receivingintranasal administered infl uenza vaccine.This assay has not been evaluated for immunocompromisedindividuals.This test cannot rule out diseases caused by other bacterialor viral pathogens.SARS-rel CoV RNA Resp Ql CLARI+probeFLUAV RNA Resp Ql CLARI+probeFLUBV RNA Resp Ql CLARI+probe Name Value Range Interpretation Code Description Data [facility] rce(s) Supporting Document(s) Extended hours FLU/COV2 NAAT L [facility] ID Date Data Source [id number] 08/02/2020 05:35:00 PM [facility] ED Physician Documentation NAME: VALERIO MARSH : 1945 AGE: 75 MR#: [id number] SERVICE DATE: 08/02/[address]: Brian Felix MD PRIMARY CARE DR: Grisel Christianson MD ROOM#: HPI (Adult, General) General Chief Complaint: CVA Stated Complaint: HEADACHE Resident LTC, travel outisde home, exposure to hot tubs:: No Time Seen by Provider: 08/02/20 16:37 Source: patient Exam Limitations: no limitations History of Present Illness Narrative: 75F hx of ESRD on dialysis MWF, HTN, HL, DM previous CVA with left sided deficits was at dialysis and completed her entire session but suddenly developed a several headache, had multiple episodes of nausea and vomiting and was immediately transported to the ED. Upon arrival had BP of 255 systolic, stating worst headache ever. Denies any new weakness, dysphagia, numbness, blurred vision, chest pain or SOB. History of Present Illness Timing/Duration: 1/[address] Injury/Event Occurred (if applicable): home Past Medical History Past Medical History: Nursing Past Medical History Has Been Reviewed Allergies/Home Meds Allergies Allergy/AdvReac Type Severity Reaction Status Date / Time tramadol AdvReac Mild Nausea/Vomi Verified 08/02/20 17:10 t/Gastric Home Medications Medication Instructions Recorded Confirmed Last Taken Type One-Per-Day Nisswa-3 3 ea PO BID 09/26/15 06/16/20 03/15/20 History aspirin [Aspirin Low-Strength] 81 mg PO DAILY tab 09/26/15 06/16/20 03/15/20 History esomeprazole magnesium 1 tab PO DAILY 09/15/18 06/16/20 03/15/20 History blood sugar diagnostic #100 each 12/10/18 06/16/20 Unknown Rx Comfort EZ Pen Stanton 31 gauge x #100 each NS 01/25/19 06/16/20 Unknown Rx 1/4" glipizide 5 mg tablet 5 mg PO BID 90 Days #180 tab 08/04/19 06/16/20 03/15/20 Rx atorvastatin 40 mg tablet 40 mg PO HS 90 Days #90 tab 08/18/19 06/16/20 03/15/20 Rx albuterol sulfate 90 mcg/actuation 1 inh IH QID PRN #18 gm 08/23/19 06/16/20 03/15/20 Rx aerosol inhaler atenolol 100 mg tablet 150 mg PO HS 90 Days #135 tab 09/07/19 06/16/20 03/15/20 Rx nifedipine 90 mg tablet,extended 90 mg PO QDAY 90 Days #90 tab 01/17/20 06/16/20 03/15/20 Rx release pen needle, diabetic 32 gauge x #100 ea 03/30/20 06/16/20 Unknown Rx 5/32" hydralazine 25 mg tablet See Rx Instructions .ROUTE 06/12/20 06/16/20 Unknown Rx .COMPLEX #180 tab insulin glargine 100 unit/mL (3 See Rx Instructions .ROUTE 07/24/20 Unknown Rx mL) subcutaneous pen .COMPLEX #12 ml Accu-Chek Evelyn Plus test strp See Rx Instructions .ROUTE 08/01/20 Unknown Rx .COMPLEX #100 ea NS Medication list updated and reviewed:: Yes Pain Assessment Pain Location: headache Pain Scale Used: Numeric Scale ER plan Plan of care and ER treatment: An ER treatment plan was discussed with patient and family PMH (from Triage) Patient Medical History PMH Reviewed/Updated as Needed: Yes PMH/PSH from Triage: Medical History (Updated 04/06/20 @ 12:15 by Grisel Christianson M.D.) CVA (cerebral vascular accident) (Medical) I63.9 Diabetes mellitus (Medical) Hyperlipemia (Medical) Hypertension (Medical) Kidney disease (Medical) Osteoporosis (Medical) Pneumonia due to COVID-19 virus (Medical) U07.1, J12.89 Surgical History (Updated 12/08/18 @ 11:58 by excentos RI) History of - surgery (Surgical) right foot hammer toe History of colonoscopy (Surgical) Hx Drug Resistant Infections Hx MRSA: (Methicillin-resistant Staphylococcus aureus): No Hx VRE (Vancomycin-resistant enterococci): No Hx C.Diff: No Hx CRKP: No Hx Other Resistant Infection?: No Isolation: Standard precautions Hx Recent Travel Out of the country within 10 days (where): No Hx Fever: No Hx Fever with a rash?: No Nurse screening for coronavirus: Recent Travel outside the No country (where) Social History Does patient have suicidal/homicidal thoughts or ideation?: No Are you in a relationship with/Does anyone hit you, yell/swear at you, steal from you?: No Substance Use Hx Alcohol Use: No Hx Substance Use: No Hx Substance Use Treatment: No Smoking Status: Never smoker Vaccination History Hx/Date of Tetanus, Diphtheria Vaccination: Yes Hx/Date of Influenza Vaccination: Yes Hx/Date of Pneumococcal Vaccination: Yes PFSH Medical History CVA (cerebral vascular accident) Diabetes hafsa litus Hyperlipemia Hypertension Kidney disease Osteoporosis Pneumonia due to COVID-19 virus Surgical History History of - surgery History of colonoscopy Family History Mother Diabetes Father No problems noted. Social History Does the Patient have a Healthcare Proxy: Yes Does Patient have a DNR?: No Does Patient have a Living Will?: No Does the Patient have a MOLST?: No Advance Directives on File or in chart?: No Hx Recent Travel (where): No Smoking Status: Never smoker ROS Review of Systems Constitutional: Denies fever and chills Eyes: Denies vision change and eye pain ENT: Denies mouth pain, ear discharge, nasal discharge and nasal congestion Respiratory: Denies cough, sputum and SOB w/exertion rest Cardiovascular: Denies chest pain and palpitations Gastrointestinal: Denies No Symptoms/Complaints, nausea, vomiting and abdominal pain Genitourinary-Female: Denies dysuria and frequency Musculoskeletal: Denies neck pain Skin/Breasts: Denies rash and lesions Neurologic: Reports headache; Denies weakness, numbness, incoordination, change in speech, confusion, dizziness, vertigo, seizures and muscle spasm Physical Exam General Limitations: no limitations General appearance: alert and in distress (due to severe pain and nausea) Head Head exam: Present atraumatic and normocephalic Eye Eye exam: Present normal apperance, PERRL and EOMI ENT ENT exam: Present normal exam and normal orophraynx Neck Neck exam: Present normal inspection and tenderness Respiratory Respiratory exam: Present normal lung sounds bilaterally and rales Cardiovascular Cardiovascular Exam: Present regular rate, normal rhythm and normal heart sounds GI/Abdominal GI/Abdominal exam: Present Abd soft, bowel sounds present all quadrents; Absent distended, tenderness, guarding and rebound Extremities Exam Extremities exam: Present other (chronic left sided paraplegia, motor 5/5 RUE/RLE, sensation intact to light touch, no ataxia) Back Exam Back exam: Present normal inspection and full ROM Neurological Exam Neurological exam: Present alert, oriented X3, CN II-XII intact and normal gait; Absent altered Skin Skin exam: Present warm, dry and intact Vital Signs Vital Signs: Vital Signs 08/02/20 16:36 08/02/20 16:41 08/02/20 16:45 Temperature 96.9 F L Pulse Rate 68 72 75 Respiratory Rate 16 Blood Pressure 255/118 231/79 O2 Sat by Pulse Oximetry 96 08/02/20 16:46 08/02/20 16:47 08/02/20 17:19 Temperature Pulse Rate 75 73 70 Respiratory Rate 20 20 16 Blood Pressure 255/118 219/82 188/62 O2 Sat by Pulse Oximetry 94 L 96 97 08/02/20 17:39 Temperature Pulse Rate 70 Respiratory Rate 16 Blood Pressure 173/60 O2 Sat by Pulse Oximetry 96 MDM (neuro) Lab Data Lab Results 08/02/20 08/02/20 08/02/20 Range/Units 16:45 16:45 16:45 WBC 8.0 (4.45-10.71) 10e3/uL RBC 4.06 L (4.20- 5.40) 10e6/uL Hgb 13.5 (10.7-15.4) g/dL Hct 41.7 (37-47) % MCV 102.7 H (80-96) fl MCH 33.3 H (27-31) pg MCHC 32.4 L (33-37) g/dl RDW 14 (11-15) % Plt Count 214 (130-472) 10e3/ul MPV 10.0 (9.1-13.1) fl Immature Gran % (Auto) 0.1 (0-2) % Neut % (Auto) 76.8 (41-77) % Lymph % (Auto) 12.6 L (14-46) % Rusk % (Auto) 8.2 (4-12) % Eos % (Auto) 1.7 (0-7) % Baso % (Auto) 0.6 (0.4-1.3) % Lymph # (Auto) 1.0 (0.6-4.6) # Abs I mmat Gran (auto) 0.0 (0-0.1) # Add Manual Diff No Absolute Neutrophils 6.1 (1.7-7.6) # Monocytes # 0.7 (0.2-1.2) # Absolute Eosinophils 0.1 (0.0-0.5) # Absolute Basophils 0.1 (0.0- 0.2) # PT 10.3 (9.6-12.3) SECONDS INR 1.0 (0.9-1.1) PTT (Lior) 24.7 (22.7-31.6) SECONDS Sodium 134 (132-146) mmol/L Potassium 4.1 (3.5-5.5) mmol/L Chloride 97 L (99-109) mmol/l Carbon Dioxide 31 (20-31) mmol/l Anion Gap 10 (8-16) mmol/l BUN 16 (9-23) mg/dL Creatinine 3.2 H (0.5-1.1) mg/dL GFR Calculation 14 (ABOVE 60) ml/min Glucose 182 H (74-106) mg/dL Calcium 9.1 (8.5-10.1) mg/dL Total Bilirubin 0.4 (0.3-1.2) mg/dL AST 24 (0-33) U/L ALT 24 (10-49) U/L Alkaline Phosphatase 246 H (45-129) U/L Troponin I 0.019 (0.00-0.09) ng/mL Serum Total Protein 8.5 H (5.7-8.2) g/dL Albumin 3.7 (3.2-4.8) g/dL EKG Data -: EKG Interpreted by Me EKG shows normal: sinus rhythm Rate: normal Previous EKG Comparison: no significant change Interpretation: no acute changes Sinus rate of 73, axis normal, Qtc 478, non-diagnostis for STEMi Radiology Data Radiology results: report reviewed and image reviewed No INH, only chronic findings Medical Decision Making 75F presented with markedly elevated BP of 255 systolic, nausea and vomiting with sudden onset headache after dialysis that was concerning for ICH. She received 20 labetalol and was immediately taken to CT which did not reveal acute billed, only chronic findings. Patient started on Nicardipine gtt for HTN emergency with goal BP of 170s systolic. Due to inability to perform dialysis at this center, hospitalist recommends transfer to dialysis center. [facility] has no beds, will attempt to discuss with [facility], RN production supervisor off shift informed me that it is shift change but will call me back. 1999: Discussed with Dr. Yoder, hospitalist at [facility]. They only have one ICU bed and the patient was only on 2.5 mg nicardipine. We decided to administer the patient home dose of hydralazine and Procardia 180 mg that she takes at night. He BP has remained stable at 166 systolic which is appropriate for her. She remains asymptomatic, without any deficits. Dr. Yoder would like a call back in one hour and if BP is table on PO meds, then he will take her and she can be admitted to the floor. Patient signed out to Dr. Norris at shift change pending BP monitoring. Critical Care Time Critical Care Time Critical Care Time: Yes ED Critical Care Time - [facility]: 31-74 Minutes Plan Visit Medications Administered ED medications:: Medications Generic Name Dose Route Start Last Admin Trade Name Freq PRN Reason Stop Dose Admin Nicardipine/Sodium Chloride 40 mg in 200 mls @ 25 mls/hr 08/02/20 16:56 08/02/20 20:02 Cardene-Nacl 40 Mg/200 Ml Iv IVC 0 mg/hr TITR [place] 0 mls/hr Titration Protocol 5 MG/HR Discontinued Medications Generic Name Dose Route Start Last Admin Trade Name Freq PRN Reason Stop Dose Admin Labetalol HCl Confirm 08/02/20 16:41 08/02/20 16:45 Labetalol Hcl 5 Mg/Ml Cartridge Administered 08/02/20 16:42 20 mg Dose Administration 20 mg IVP .STK-MED ONE Nifedipine 60 mg 08/02/20 19:55 08/02/20 20:03 Nifedipine Xl 30 Mg Tab PO 08/02/20 19:56 Not Given NOW ONE Ondansetron HCl 8 mg 08/02/20 16:41 08/02/20 16:36 Ondansetron Hcl/Pf 4 Mg/2 Ml Sdv IVP 08/02/20 16:42 8 mg 1T ONE Administration Discharge Plan Admission/Discharge Dx Primary DC Diagnosis: hypertensive emergency, Headache ED Provider: Brian Felix ED Status: Transfer Pending Time Seen by Provider: 08/02/20 16:37 Triaged At: 08/02/20 16:36 Discharge Detail Disposition: Transfer - [facility] Med Rec New Prescriptions: No Action atorvastatin 40 mg tablet 40 mg PO HS 90 Days Qty: 90 RF: 3 glipizide 5 mg tablet 5 mg PO BID 90 Days Qty: 180 RF: 3 esomeprazole magnesium 20 MG capsule,delayed release(DR/EC) 1 tab PO DAILY RF: 0 aspirin [Aspirin Low-Strength] 81 MG tablet,chewable 81 mg PO DAILY RF: 0 One-Per-Day Nisswa-3 1 EACH capsule,delayed release(DR/EC) 3 ea PO BID RF: 0 (DME) Blood Glucose Test Strip See Dose Instructions .ROUTE .MEDSUPPLY Qty: 100 RF: 1 (DME) pen needle, diabetic [Comfort EZ Pen Stanton] 31 gauge x 1/4" needle See Dose Instructions .ROUTE .MEDSUPPLY Qty: 100 RF: 3 albuterol sulfate [ProAir HFA] 90 mcg/actuation HFA aerosol inhaler 1 inh IH QID PRN (Reason: shortness of breath or wheezing) Qty: 18 RF: 3 atenolol 100 mg tablet 150 mg PO HS 90 Days Qty: 135 RF: 3 nifedipine 90 mg tablet extended release 90 mg PO QDAY 90 Days Qty: 90 RF: 3 (DME) pen needle, diabetic [ReliOn Pen Stanton] 32 gauge x 5/32" needle See Rx Instructions .ROUTE .MEDSUPPLY Qty: 100 RF: 3 Interventions Interventions: Neurological Assessment Last Done: 08/02/20 17:11 Report Signers: <Electronically signed by Brian Felix MD> Brain Felix MD 08/02/202019 Brian Felix MD SIGNATURE DA Report Cosigners: D: NOOFA 08/02/201734 T: NOOFA 08/02/201734 CC: Grisel Christianson MD Name Value Range Interpretation Code Description Data Marla rce(s) Supporting Document(s) ID Date Data Source [id number] 08/02/2020 05:01:00 PM EST [facility] [address] [id number] [phone] NAME SEX PT STATUS ACCOUNT NUMBER [facility]SH [facility] [id number] ORDERING PHYSICIAN LOCATION MEDICAL RECORD NO. Brian Felix MD [id number] ATTENDING PHYSICIAN DATE OF DATE OF EXAM/TIME Grisel Christianson MD 1945 08/02/201655 TYPE / EXAM CT HEAD STROKE PROTOCOL REASON FOR EXAM sudden headache VALERIO MARSH [id number] 1945 ADDENDUM Clinical History/Indication for Exam: sudden headache Called for Critical Findings by Yee Levy to IRON Meza on 08/02/2020 2:05PM [place] Time;Call for Critical Findings CT BRAIN WITHOUT INTRAVENOUS CONTRAST INDICATION: sudden headache TECHNIQUE: Axial computed tomography images of the head/brain without intravenous contrast. Sagittal and coronal reformatted images were created and reviewed. This CT exam was performed using one or more of the following dose reduction techniques: automated exposure control, adjustment of the mA and/or kV according to patient size, and/or use of iterative reconstruction technique. COMPARISON: No relevant prior studies available. FINDINGS: Brain: Chronic lacunar infarction right thalamus. Chronic lacunar infarction left elizabeth. Mild diffuse cerebral atrophy and chronic white matter microvascular disease. No acute hemorrhages, acute infarction, or mass effect is identifie d. Midline shift: None. Ventricles: Normal in caliber. Basal cisterns are clear. Bones/joints: Intact. No acute fracture. Soft tissues: Scalp is intact. Sinuses: Clear. Mastoid air cells: Clear. Orbits: Within normal limits. IMPRESSION: 1. Chronic lacunar infarction right thalamus. 2. Chronic lacunar infarction left elizabeth. 3. Mild diffuse cerebral atrophy and chronic white matter microvascular disease. 4. No acute hemorrhages, acute infarction, or mass effect is identified. Automatic exposure control was used as a dose lowering technique. Radiation Dose: CTDI is 38.89 mGy. DLP is 697 mGy-cm. REPORT SIGNATURE ON FILE 08/02/2020 (17:01 Eastern Time ) Signed by: Noble Stock MD, PhD. Addendum Reported By Noble Stock MD on 08/02/201700 Signed By Noble Stock MD on 08/02/201700 Trans Dt/Tm: Trans by: MEDQ [p pg] Clinical History/Indication for Exam: sudden headache Call for Critical Findings CT BRAIN WITHOUT INTRAVENOUS CONTRAST INDICATION: sudden headache TECHNIQUE: Axial computed tomography images of the head/brain without intravenous contrast. Sagittal and coronal reformatted images were created and reviewed. This CT exam was performed using one or more of the following dose reduction techniques: automated exposure control, adjustment of the mA and/or kV according to patient size, and/or use of iterative reconstruction technique. COMPARISON: No relevant prior studies available. FINDINGS: Brain: Chronic lacunar infarction right thalamus. Chronic lacunar infarction left elizabeth. Mild diffuse cerebral atrophy and chronic white matter microvascular disease. No acute hemorrhages, acute infarction, or mass effect is identified. Midline shift: None. Ventricles: Normal in caliber. Basal cisterns are clear. Bones/joints: Intact. No acute fracture. Soft tissues: Scalp is intact. Sinuses: Clear. Mastoid air cells: Clear. Orbits: Within normal limits. IMPRESSION: 1. Chronic lacunar infarction right thalamus. 2. Chronic lacunar infarction left elizabeth. 3. Mild diffuse cerebral atrophy and chronic white matter microvascular disease. 4. No acute hemorrhages, acute infarction, or mass effect is identified. Automatic exposure control was used as a dose lowering technique. Radiation Dose: CTDI is 38.89 mGy. DLP is 697 mGy-cm. REPORT SIGNATURE ON FILE 08/02/2020 (17:01 Eastern Time ) Signed by: Noble Stock MD, PhD. Reported By Noble Stock MD on 08/02/201700 Signed By Noble Stock MD on 08/02/201700 Date Time CC: Noble Stock MD; Grisel Christianson MD Techn: CUMME Trans Dt/Tm: Trans by: DT Prt Dt/Tm: 12: Total DLP = 0.00 mGy-cm : Total Radiation Dose = 0.0000 mSv Lifetime Dose: 2.8470 mSv Name Value Range Interpretation Code Description Data Marla rce(s) Supporting Document(s) ID Date Data Source [id number] 08/02/2020 04:54:00 PM EST [facility] Anticoagulant or Thrombolytic medication : Heparin Name Value Range Interpretation Code Description Data Marla rce(s) Supporting Document(s) Leukocytes [#/volume] in Blood by Automated count 8.0 10*3/uL 4.45-10 .71 N [facility] Erythrocytes [#/volume] in Blood by Automated count 4.06 10*6/uL 4.20-5.40 Below low normal [facility] Hemoglobin [Moles/volume] in Blood 13.5 g/dL 10.7-15.4 N [facility] Hematocrit [Volume Fraction] of Blood by Automated count 41.7 % 3 7-47 N [facility] Erythrocyte mean corpuscular volume [Ent itic volume] in Cord blood by Automated count 102.7 fL 80-96 Above high normal [facility] Erythrocyte mean corpuscular hemoglobin [Entitic mass] by Automated count 33.3 pg 27-31 Above high normal [facility] spital Erythrocyte mean corpuscular hemoglobin concentration [Mass/volume] in Cord blood 32.4 g/dL 33-37 Below low normal [facility] Erythrocyte distribution width [Entitic volume] by Automated count 14 % 11-15 N [facility] Platelets [#/volume] in Blood by Automated count 214 10*3/uL 130-472 N [facility] Platelet mean volume [Entitic volume] in Blood 10.0 fL 9.1-13.1 [facility] Neutrophils/100 leukocytes in Blood by Automated count 76.8 % 41- 77 [facility] Neutrophils [#/volume] in Blood by Automated count 6.1 U 1.7-7.6 N [facility] Lymphocytes/100 leukocytes in Blood by Automated count 12.6 % 14-46 Below low normal [facility] Lymphocytes [#/volume] in Blood by Automated count 1.0 U 0.6-4.6 N [facility] Monocytes/100 leukocytes in Blood by Automated count 8.2 % 4-12 N [facility] Monocytes [#/volume] in Blood by Automated count 0.7 U 0.2-1.2 N [facility] Eosinophils/100 leukocytes in Blood by Automated count 1.7 % 0-7 N [facility] Eosinophils [#/volume] in Blood by Automated count 0.1 U 0.0-0.5 N [facility] Basophils/100 leukocytes in Blood by Automated count 0.6 % 0.4-1 .3 N [facility] Basophils [#/volume] in Blood by Automated count 0.1 U 0.0-0.2 N [facility] NUCLEATED RED BLOOD CELL 0 % [facility] NUCLEATED RED BLOOD CELL# [address] [facility] Immature granulocytes [Presence] in Blood by Automated count 0-2 N [facility] Immature granulocytes [#/volume] in Blood by Automated count 0.0 U 0-0.1 N [facility] Manual Differential panel - Blood NO [facility] ID Date Data Source [id number] 08/02/2020 05:11:00 PM [facility] Anticoagulant or Thrombolytic medication : Heparin Name Value Range Interpretation Code Description Data Marla rce(s) Supporting Document(s) Prothrombin Time (Patient) 10.3 s 9.6-12.3 N [facility] INR 1.0 0.9-1.1 [facility] THE INR IS OPERATIONALLY DEFINED FOR SANDRA SH PLASMA FROMPATIENTS STABILIZED ON ORAL ANTICOAGULANTS.ROUTINE ANTICOAGULANT THERAPY 2.0-3.0RECURRENT SYSTEMIC EMBOLISM/HEART VALVE REPLACEMENT 2.5-3.5 aPTT.lupus sensitive (LA screen) 24.7 s 22.7-31.6 [facility] ID Date Data Source [id number] 08/02/2020 05:27:00 PM [facility] Anticoagulant or Thrombolytic medication : Heparin Name Value Range Interpretation Code Description Data Marla rce(s) Supporting Document(s) Urea nitrogen [Mass/volume] in Serum or Plasma 16 mg/dL 9-23 [facility] Sodium [Moles/volume] in Serum or Plasma 134 mmol/L 132-146 [facility] Potassium [Moles/volume] in Serum or Plasma 4.1 mmol/L 3.5-5.5 [facility] Chloride [Moles/volume] in Serum or Plasma 97 mmol/L 99-109 Belo w low normal [facility] Carbon dioxide, total [Moles/volume] in Serum or Plasma 31 mmol/L 20 -31 N [facility] Anion gap in Serum or Plasma 10 mmol/L 8-16 N L [facility] Glucose [Mass/volume] in Serum or Plasma 182 mg/dL 74-106 Above high normal [facility] Creatinine 3.2 mg/dL 0.5-1.1 Above high normal [facility] Glomerular filtration rate/1.73 sq M.pre dicted [Volume Rate/Area] in Serum or Plasma 14 ml/min ABOVE 60 [facility] ital Alanine aminotransferase [Enzymatic acti vity/volume] in Serum or Plasma by With P-5'-P 24 U/L 10-49 N [facility] ital Aspartate aminotransferase [Enzymatic ac tivity/volume] in Serum or Plasma by With P-5'-P 24 U/L 0-33 N [facility] pital Alkaline phosphatase [Enzymatic activity/volume] in Serum or Plasma 246 U/L 45-129 Above high normal [facility] Calcium [Mass/volume] in Serum or Plasma 9.1 mg/dL 8.5-10.1 [facility] Bilirubin.total [Mass/volume] in Serum or Plasma 0.4 mg/dL 0.3-1.2 [facility] Albumin [Mass/volume] in Serum or Plasma by Bromocresol purple (BCP) dye binding method 3.7 g/dL 3.2-4.8 N [facility] ital Protein [Mass/volume] in Serum or Plasma 8.5 g/dL 5.7-8.2 Above high normal [facility] ID Date Data Source [id number] 08/02/2020 05:27:00 PM EST [facility] Anticoagulant or Thrombolytic medication : Heparin Name Value Range Interpretation Code Description Data Marla rce(s) Supporting Document(s) Troponin I.cardiac [Mass/volume] in Serum or Plasma 0.019 ng/mL 0.00- 0.09 [facility] Less than 0.09 NG/ML Negative0.10 - 0.77 NG/ML High Risk0.78 NG/ML or Greater PositiveThe WHO defined the cutoff (definition for diagnosis of NM)for this method as 0.78 ng/ml. ID Date Data Source [id number] 06/16/2020 02:38:00 PM [facility] Name Value Range Interpretation Code Description Data Marla rce(s) Supporting Document(s) Troponin I.cardiac [Mass/volume] in Serum or Plasma Less Than 0.015 0.00-0.09 [facility] Less than 0.09 NG/ML Negative0.10 - 0.77 NG/ML High Risk0.78 NG/ML or Greater PositiveThe WHO defined the cutoff (definition for diagnosis of NM)for this method as 0.78 ng/ml. ID Date Data Source [id number] 06/16/2020 01:36:00 PM [facility] Radha Madhavi is a rapid, automated qualita tive anddifferentiation of Influenza type A,B and BYCT-PBO-0CIJE-RT-PCR testNORMAL VALUE IS "NOT DETECTED".Limitations of the radha madhavi Influenza A/B & APKB-[id number]-[id number] method.Modifications to manufacturers recommendation and proceduresmay alter performance of the test.Negative results do not preclude Influenza A,B or SARS- GYI8shigemzbyv and should not be used as the sole basis fortreatment or other management decisions. Results from the[employer]bas Madhavi Influenza A/B & COV2 should be interpeted inconjunction with other laboratory and clinical dataavailable to the clinician.False negative results may occur if a specimen is improperlycollected, transported or handled. False negatives may occurif inadequate numbers of organisms are present in thespecimen.This test has not been evaluated for patients without signsand systoms of influenza and SARS-COV-2 infection.This assay has not been evaluated for patients receivingintranasal administered influenza vaccine.This assay has not been evaluated for immunocompromisedindividuals.This test cannot rule out diseases caused by other bacterialor viral pathogens.SARS-CoV-2 RNA Resp Ql CLARI+probe Name Value Range Interpretation Code Description Data Marla rce(s) Supporting Document(s) ID Date Data Source [id number] 06/16/2020 01:36:00 PM [facility] Radha Madhavi is a rapid, automated qualita tive anddifferentiation of Influenza type A,B and TIVN-RGS-8IVCS-RT-PCR testNORMAL VALUE IS "NOT DETECTED".Limitations of the radha madhavi Influenza A/B & JRVL-RUV-7zhwyx method.Modifications to manufacturers recommendation and proceduresmay alter performance of the test.Negative results do not preclude Influenza A,B or SARS- TDF0wcsiknhbir and should not be used as the sole basis fortreatment or other management decisions. Results from the[employer] Madhavi Influenza A/B & COV2 should be interpeted inconjunction with other laboratory and clinical dataavailable to the clinician.False negative results may occur if a specimen is improperlycollected, transported or handled. False negatives may occurif inadequate numbers of organisms are present in thespecimen.This test has not been evaluated for patients without signsand systoms of influenza and SARS-COV-2 infection.This assay has not been evaluated for patients receivingintranasal administered influenza vaccine.This assay has not been evaluated for immunocompromisedindividuals.This test cannot rule out diseases caused by other bacterialor viral pathogens.SARS-CoV-2 RNA Resp Ql CLARI+probe Name Value Range Interpretation Code Description Data Marla rce(s) Supporting Document(s) Extended hours FLU/COV2 NAAT L [facility] ID Date Data Source [id number] 06/16/2020 10:55:00 AM [facility] @Previously received by [facility] on 1 at 0904.@Unreceived by TALHI on 06/16/20 at 0943.CENTRAL LINE START @Previously received by TALHI on 1 at 0904.@Unreceived by TALHI on 06/16/20 at 0943.CENTRAL LINE START @Previously received by TALHI on 1 at 0904.@Unreceived by TALME on 06/16/20 at 0943.CENTRAL LINE START @Previously received by TALHI on 1 at 0904.@Unreceived by TALHI on 06/16/20 at 0943.CENTRAL LINE START Oxygen Delivery Method Room Air Name Value Range Interpretation Code Description Data Marla rce(s) Supporting Document(s) Phosphate [Mass/volume] in Serum or Plasma 2.4 mg/dL 2.4-5.1 N [facility] ID Date Data Source [id number] 06/16/2020 10:55:00 AM [facility] @Previously received by [facility] on 01/01/2 1 at 0904.@Unreceived by TALME on 06/16/20 at 0943.CENTRAL LINE START @Previously received by TALME on 1 at 0904.@Unreceived by TALME on 06/16/20 at 0943.CENTRAL LINE START @Previously received by TALME on 1 at 0904.@Unreceived by TALME on 06/16/20 at 0943.CENTRAL LINE START @Previously received by TALME on 1 at 0904.@Unreceived by TALME on 06/16/20 at 0943.CENTRAL LINE START Oxygen Delivery Method Room Air Name Value Range Interpretation Code Description Data Marla rce(s) Supporting Document(s) Magnesium [Mass/volume] in Serum or Plasma 2.2 mg/dL 1.3-2.7 N [facility] ID Date Data Source [id number] 06/16/2020 10:55:00 AM [facility] @Previously received by TALME on 1 at 0904.@Unreceived by TALME on 06/16/20 at 0943.CENTRAL LINE START @Previously received by TALME on 1 at 0904.@Unreceived by TALME on 06/16/20 at 0943.CENTRAL LINE START @Previously received by TALME on 1 at 0904.@Unreceived by TALME on 06/16/20 at 0943.CENTRAL LINE START @Previously received by TALME on 1 at 0904.@Unreceived by TALME on 06/16/20 at 0943.CENTRAL LINE START Oxygen Delivery Method Room Air Name Value Range Interpretation Code Description Data Marla rce(s) Supporting Document(s) Creatine kinase [Enzymatic activity/volume] in Serum or Plasma 36 U /L 33-211 N [facility] ID Date Data Source [id number] 06/16/2020 10:55:00 AM [facility] @Previously received by TALME on 1 at 0904.@Unreceived by TALME on 06/16/20 at 0943.CENTRAL LINE START @Previously received by TALME on 1 at 0904.@Unreceived by TALME on 06/16/20 at 0943.CENTRAL LINE START @Previously received by TALME on 1 at 0904.@Unreceived by TALME on 06/16/20 at 0943.CENTRAL LINE START @Previously received by TALME on 1 at 0904.@Unreceived by TALME on 06/16/20 at 0943.CENTRAL LINE START Oxygen Delivery Method Room Air Name Value Range Interpretation Code Description Data Marla rce(s) Supporting Document(s) Creatine kinase.MB [Enzymatic activity/volume] in Serum or P lasma Less Than 1.0 0.0-5.0 N [facility] @Report as less than lower limit ID Date Data Source [id number] 06/16/2020 09:24:00 AM EST [facility] @Previously received by TALME on 1 at 0904.@Unreceived by TALME on 06/16/20 at 0943.CENTRAL LINE START @Previously received by TALME on 1 at 0904.@Unreceived by TALME on 06/16/20 at 0943.CENTRAL LINE START @Previously received by TALME on 1 at 0904.@Unreceived by TALME on 06/16/20 at 0943.CENTRAL LINE START @Previously received by TALME on 1 at 0904.@Unreceived by TALME on 06/16/20 at 0943.CENTRAL LINE START Oxygen Delivery Method Room Air Name Value Range Interpretation Code Description Data Marla rce(s) Supporting Document(s) pH of Venous blood 7.48 7.25-7.45 Above high normal [facility] Carbon dioxide [Partial pressure] in Venous blood 39.3 mm[Hg] 41.0-51.0 Below low normal [facility] Oxygen [Partial pressure] in Venous blood 43.1 mm[Hg] 25.0-4 0.0 Above high normal [facility] 78.3 Bicarbonate [Moles/volume] in Venous blood 29.0 mmol/L 22.0- 26.0 Above high normal [facility] Base excess in Venous blood by calculation 5.1 -3.0-3.0 Abov e high [facility] Carbon dioxide, total [Moles/volume] in Venous blood 30.2 mmol/L 23-30 Above high normal [facility] 21@Reenter manual test result: 21@by Estrella Chavez at 06/16/20922. ID Date Data Source [id number] 06/16/2020 10:55:00 AM EST [facility] @Previously received by TALME on 1 at 0904.@Unreceived by TALME on 06/16/20 at 0943.CENTRAL LINE START @Previously received by TALME on 1 at 0904.@Unreceived by TALME on 06/16/20 at 0943.CENTRAL LINE START @Previously received by TALME on 1 at 0904.@Unreceived by TALME on 06/16/20 at 0943.CENTRAL LINE START @06/16/20 0909: MANUAL DIFF added. RFLXG = DIFF. @06/16/20 0909: MANUAL DIFF added. RFLXG = DIFF. Name Value Range Interpretation Code Description Data Marla rce(s) Supporting Document(s) Urea nitrogen [Mass/volume] in Serum or Plasma 40 mg/dL 9-23 Above high normal [facility] Sodium [Moles/volume] in Serum or Plasma 138 mmol/L 132-146 N [facility] Potassium [Moles/volume] in Serum or Plasma 4.4 mmol/L 3.5-5.5 N [facility] Chloride [Moles/volume] in Serum or Plasma 101 mmol/L 99-109 [facility] Carbon dioxide, total [Moles/volume] in Serum or Plasma 26 mmol/L 20 -31 N [facility] Anion gap in Serum or Plasma 15 mmol/L 8-16 N [facility] Glucose [Mass/volume] in Serum or Plasma 330 mg/dL 74-106 Above high normal [facility] Creatinine 4.5 mg/dL 0.5-1.1 Above high normal [facility] Glomerular filtration rate/1.73 sq M.pre dicted [Volume Rate/Area] in Serum or Plasma 10 ml/min ABOVE 60 [facility] ital Alanine aminotransferase [Enzymatic acti vity/volume] in Serum or Plasma by With P-5'-P 37 U/L 10-49 N [facility] ital Aspartate aminotransferase [Enzymatic ac tivity/volume] in Serum or Plasma by With P-5'-P 28 U/L 0-33 N [facility] pital Alkaline phosphatase [Enzymatic activity/volume] in Serum or Plasma 198 U/L 45-129 Above high normal [facility] Calcium [Mass/volume] in Serum or Plasma 8.6 mg/dL 8.5-10.1 [facility] Bilirubin.total [Mass/volume] in Serum or Plasma 0.6 mg/dL 0.3-1.2 [facility] Albumin [Mass/volume] in Serum or Plasma by Bromocresol purple (BCP) dye binding method 3.2 g/dL 3.2-4.8 N [facility] ital Protein [Mass/volume] in Serum or Plasma 7.2 g/dL 5.7-8.2 [facility] ID Date Data Source [id number] 06/16/2020 10:55:00 AM [facility] @Previously received by [facility] on at 0904.@Unreceived by [facility] on 06/16/20 at 0943.CENTRAL LINE START @Previously received by [facility] on 1 at 0904.@Unreceived by [facility] on 06/16/20 at 0943.CENTRAL LINE START @Previously received by [facility] on 1 at 0904.@Unreceived by [facility] on 06/16/20 at 0943.CENTRAL LINE START @06/16/20 0909: MANUAL DIFF added. RFLXG = DIFF. @06/16/20 0909: MANUAL DIFF added. RFLXG = DIFF. Name Value Range Interpretation Code Description Data Marla rce(s) Supporting Document(s) Troponin I.cardiac [Mass/volume] in Serum or Plasma Less Than 0.015 0.00-0.09 [facility] Less than 0.09 NG/ML Negative0.10 - 0.77 NG/ML High Risk0.78 NG/ML or Greater PositiveThe WHO defined the cutoff (definition for diagnosis of NM)for this method as 0.78 ng/ml. ID Date Data Source [id number] 06/16/2020 10:55:00 AM [facility] @Previously received by [facility] on at 0904.@Unreceived by TALME on 06/16/20 at 0943.CENTRAL LINE START @Previously received by TALME on 1 at 0904.@Unreceived by TALME on 06/16/20 at 0943.CENTRAL LINE START @Previously received by TALME on 1 at 0904.@Unreceived by TALME on 06/16/20 at 0943.CENTRAL LINE START @06/16/20 0909: MANUAL DIFF added. RFLXG = DIFF. @06/16/20 0909: MANUAL DIFF added. RFLXG = DIFF. Name Value Range Interpretation Code Description Data Marla rce(s) Supporting Document(s) Natriuretic peptide.B prohormone N-Terminal [Mass/volu me] in Serum or Plasma 62655.00 pg/mL 0.00-175 Above high normal [facility] @Instrument will autodilute@review test & document.Called to JULIAN GALLARDO @ 1053 by Ruth Chavez. Results readback. ID Date Data Source [id number] 06/16/2020 09:37:00 AM EST [facility] @Previously received by TALME on 1 at 0904.@Unreceived by TALME on 06/16/20 at 0943.CENTRAL LINE START @Previously received by TALME on 1 at 0904.@Unreceived by TALME on 06/16/20 at 0943.CENTRAL LINE START @Previously received by TALME on 1 at 0904.@Unreceived by TALME on 06/16/20 at 0943.CENTRAL LINE START @06/16/20 0909: MANUAL DIFF added. RFLXG = DIFF. @06/16/20 0909: MANUAL DIFF added. RFLXG = DIFF. Name Value Range Interpretation Code Description Data Marla rce(s) Supporting Document(s) Leukocytes [#/volume] in Blood by Automated count 12.0 10*3/uL 4.45-10.71 Above high normal [facility] Erythrocytes [#/volume] in Blood by Automated count 2.80 10*6/uL 4.20-5.40 Below low normal [facility] Hemoglobin [Moles/volume] in Blood 9.6 g/dL 10.7-15.4 Below low no rmal [facility] Hematocrit [Volume Fraction] of Blood by Automated count 29.7 % 37-47 Below low normal [facility] Erythrocyte mean corpuscular volume [Ent itic volume] in Cord blood by Automated count 106.1 fL 80-96 Above high normal [facility] Erythrocyte mean corpuscular hemoglobin [Entitic mass] by Automated count 34.3 pg 27-31 Above high normal [facility] Erythrocyte mean corpuscular hemoglobin concentration [Mass/volume] in Cord blood 32.3 g/dL 33-37 Below low normal [facility] Erythrocyte distribution width [Entitic volume] by Automated count 15 % 11-15 N [facility] Platelets [#/volume] in Blood by Automated count 231 10*3/uL 130-472 N [facility] Platelet mean volume [Entitic volume] in Blood 11.7 fL 9.1-13.1 N [facility] Neutrophils/100 leukocytes in Blood by Automated count 88.4 % 41-77 Above high normal [facility] Neutrophils [#/volume] in Blood by Automated count 10.6 U 1.7-7.6 Above high normal [facility] Lymphocytes/100 leukocytes in Blood by Automated count 2.9 % 14-46 Below low normal [facility] Lymphocytes [#/volume] in Blood by Automated count 0.4 U 0.6-4.6 Below low normal [facility] Monocytes/100 leukocytes in Blood by Automated count 7.3 % 4-12 N [facility] Monocytes [#/volume] in Blood by Automated count 0.9 U 0.2-1.2 N [facility] Eosinophils/100 leukocytes in Blood by Automated count 0.7 % 0-7 N [facility] Eosinophils [#/volume] in Blood by Automated count 0.1 U 0.0-0.5 N [facility] Basophils/100 leukocytes in Blood by Automated count 0.4 % 0.4-1 .3 N [facility] Basophils [#/volume] in Blood by Automated count 0.1 U 0.0-0.2 N [facility] NUCLEATED RED BLOOD CELL 0 % [facility] NUCLEATED RED BLOOD CELL# [address] [facility] Immature granulocytes [Presence] in Blood by Automated count 0-2 N [facility] Immature granulocytes [#/volume] in Blood by Automated count 0.0 U 0-0.1 N [facility] Manual Differential panel - Blood Manual Diff Added [facility] ID Date Data Source [id number] 06/16/2020 09:37:00 AM [facility] @Previously received by TALHI on 1 at 0904.@Unreceived by TALME on 06/16/20 at 0943.CENTRAL LINE START @Previously received by TALME on 1 at 0904.@Unreceived by TALME on 06/16/20 at 0943.CENTRAL LINE START @Previously received by TALME on 1 at 0904.@Unreceived by TALME on 06/16/20 at 0943.CENTRAL LINE START @06/16/20 0909: MANUAL DIFF added. RFLXG = DIFF. @06/16/20 0909: MANUAL DIFF added. RFLXG = DIFF. Name Value Range Interpretation Code Description Data Marla rce(s) Supporting Document(s) Cells counted [#] 100 [facility] Neutrophils [#/volume] in Blood by Manual count 90 % 41-77 Above high normal [facility] Lymphocytes [#/volume] in Blood by Manual count 4 % 14-46 Below low normal [facility] Monocytes [#/volume] in Blood by Manual count 6 % 4-12 N [facility] Platelets [#/volume] in Blood by Estimate APPEARS NORMAL NORMAL [facility] Morphology [Interpretation] in Blood Narrative APPEARS NORMAL NORMAL [facility] ID Date Data Source [id number] 06/16/2020 09:36:00 AM [facility] [address] [place] [address] [phone] NAME SEX PT STATUS ACCOUNT NUMBER VALERIO MARSH [facility] ER [id number] ORDERING PHYSICIAN LOCATION MEDICAL RECORD NO. Juan RaiDO ER [id number] ATTENDING PHYSICIAN DATE OF DATE OF EXAM/TIME Grisel Christianson MD 1945 06/16/20901 TYPE / EXAM Xray Chest One View REASON FOR EXAM chest pn, SOB, CKD, 2+ BLE, wheezing Clinical History/Indication for Exam: chest pn, SOB, CKD, 2+ BLE, wheezing RADIOGRAPH OF THE CHEST 1 VIEW INDICATION: chest pn, SOB, CKD, 2+ BLE, wheezing COMPARISON: 03/21/2020. FINDINGS: Lungs: Lesser changes right base. Mild increased interstitial markings. Pleural space: Subsegmental atelectatic changes left costophrenic angle. No pneumothorax. Heart: Unremarkable. No cardiomegaly. Mediastinum: Unremarkable. Bones/joints: Unremarkable. Other findings: Suboptimal inspiration. IMPRESSION: 1. Subsegmental atelectatic changes in the lung bases. 2. Pulmonary vasculature. 3. differentialdiagnosis would include failure as well as infectious etiologies. Question atypical viral pneumonia. REPORT SIGNATURE ON FILE 06/16/2020 (09:36 Eastern Time ) Signed by: Roberto Carlos Caba M.D. Reported By Roberto Carlos Caba MD on 06/16/20935 Signed By Roberto Carlos Caba MD on 06/16/20935 Date Time CC: Roberto Carlos Caba MD; Grisel Christianson MD Techn: MORSA Trans Dt/Tm: Trans by: DT Prt Dt/Tm: [id number]: Total DLP = 0.00 mGy-cm Fluoroscopy Time (in secs): Name Value Range Interpretation Code Description Data Marla rce(s) Supporting Document(s) ID Date Data Source [id number] 06/16/2020 09:24:00 AM [facility] Anticoagulant or Thrombolytic medication : HeparinIs test to R/O PE, DVT or VTE? Y Name Value Range Interpretation Code Description Data Marla rce(s) Supporting Document(s) Fibrin D-dimer [Units/volume] in Platelet poor plasma 2.19 mg/L 0.0-0.50 Above high normal [facility] @ Has QC been run for this test today? Y ESPLEASE NOTE: THIS TEST WAS PERFORMED USING A PARTICLE-ENHANCED, IMMUNOTURBIDIMETRIC ASSAY AND HAS A SINGLE,CLINICALLY DERIVED CUTOFF OF 0.50 MG/L. ID Date Data Source [id number] 06/16/2020 08:30:00 AM [facility] ED Physician Documentation NAME: VALERIO MARSH : 1945 AGE: 75 MR#: [id number] SERVICE DATE: 06/16/[address]: Juan Rai DO PRIMARY CARE DR: Grisel Christianson MD ROOM#: HPI (Adult, General) General Chief Complaint: Chest pain Stated Complaint: CHEST PAIN Time Seen by Provider: 06/16/20 08:07 History of Present Illness Narrative: 75-year-old female here with chief complaint of chest pain starting this morning who is currently on 3 times weekly dialysis with no history of similar chest pain But does note she tends to be somewhat short of breath before her dialysis treatments typically, Had a nuclear stress test in March 2020 with a follow-up scheduled for August with cardiology butno acute concerns, sees nephrology on a regular basis and their last note noted no concerns, she states she has had no other real complaints and that the nitro given in the ambulance did resolve her pain. The pain was not positional, the pain was not exertional.The shortness of breath she is currently having is somewhat different than her typical shortness of breath she has before dialysis and she has noticed no further swelling of her extremities than is typical for her. Allergies/Home Meds Allergies Allergy/AdvReac Type Severity Reaction Status Date / Time tramadol AdvReac Mild Nausea/Vomi Verified 06/16/20 09:08 t/Gastric Home Medications Medication Instructions Recorded Confirmed Last Taken Type One-Per-Day Nisswa-3 3 ea PO BID 09/26/15 06/16/20 03/15/20 History aspirin [Aspirin Low-Strength] 81 mg PO DAILY tab 09/26/15 06/16/20 03/15/20 History esomeprazole magnesium 1 tab PO DAILY 09/15/18 06/16/20 03/15/20 History blood sugar diagnostic #100 each 12/10/18 06/16/20 Unknown Rx Comfort EZ Pen Stanton 31 gauge x #100 each NS 01/25/19 06/16/20 Unknown Rx 1/4" insulin glargine 100 unit/mL (3 10 unit SQ QDAY #15 ml 04/22/19 06/16/20 03/15/20 Rx mL) subcutaneous pen Accu-Chek Evelyn Plus test strp #100 each NS 06/15/19 06/16/20 Unknown Rx glipizide 5 mg tablet 5 mg PO BID 90 Days #180 tab 08/04/19 06/16/20 03/15/20 Rx atorvastatin 40 mg tablet 40 mg PO HS 90 Days #90 tab 08/18/19 06/16/20 03/15/20 Rx albuterol sulfate 90 mcg/actuation 1 inh IH QID PRN #18 gm 08/23/19 06/16/20 03/15/20 Rx aerosol inhaler atenolol 100 mg tablet 150 mg PO HS 90 Days #135 tab 09/07/19 06/16/20 03/15/20 Rx nifedipine 90 mg tablet,extended 90 mg PO QDAY 90 Days #90 tab 01/17/20 06/16/20 03/15/20 Rx release pen needle, diabetic 32 gauge x #100 ea 03/30/20 06/16/20 Unknown Rx " hydralazine 25 mg tablet See Rx Instructions .ROUTE 06/12/20 06/16/20 Unknown Rx .COMPLEX #180 tab PMH (from Triage) Patient Medical History PMH Reviewed/Updated as Needed: Yes PMH/PSH from Triage: Medical History (Updated 04/06/20 @ 12:15 by Grisel Christianson M.D.) CVA (cerebral vascular accident) (Medical) I63.9 Diabetes mellitus (Medical) Hyperlipemia (Medical) Hypertension (Medical) Kidney disease (Medical) Osteoporosis (Medical) Pneumonia due to COVID-19 virus (Medical) U07.1, J12.89 Surgical History (Updated 12/08/18 @ 11:58 by excentos RI) History of - surgery (Surgical) right foot hammer toe History of colonoscopy (Surgical) Hx Drug Resistant Infections Hx MRSA: (Methicillin-resistant Staphylococcus aureus): No Hx VRE (Vancomycin-resistant enterococci): No Hx C.Diff: No Hx CRKP: No Hx Other Resistant Infection?: No Isolation: Standard precautions Hx Recent Travel Out of the country within 10 days (where): No Hx Fever: No Hx Fever with a rash?: No Nurse screening for coronavirus: Recent Travel outside the No country (where) Has patient experienced No coronavirus symptoms Social History Does patient have suicidal/homicidal thoughts or ideation?: No Are you in a relationship with/Does anyone hit you, yell/swear at you, steal from you?: No Substance Use Hx Alcohol Use: No Hx Substance Use: No Hx Substance Use Treatment: No Second Hand Smoke Exposure: No Smoking Status: Never smoker Vaccination History Hx/Date of Tetanus, Diphtheria Vaccination: Yes Hx/Date of Influenza Vaccination: Yes Hx/Date of Pneumococcal Vaccination: Yes ROS Review of Systems ROS Narrative: General: Denies fever, chills. Head: Denies headache, scalp tenderness. Eyes: Denies blurry vision, double vision. Ears: Denies earache, discharge. Nose: Denies nosebleeds, discharge. Neck: Denies pain, masses. Heart:enDorses chest pain, denies palpitations Lungs: Endorses shortness of breath, Denies orthopnea, cough. GI: Denies nausea, vomiting, diarrhea, constipation : Denies dysuria, hematuria. MUSK: Denies weakness, atrophy. Skin: Denies rash, itching. Neurologic: Denies numbness, tingling. Psychiatric: Denies depression, anxiety. Physical Exam General Physical Exam Narrative: General: Patient is alert and oriented to person, place, and time. Appears in no acute distress. Head: Normocephalic and atraumatic. Eyes: Pupils equally round and react to light. Extraocular movements intact. Ears: Gross hearing intact. External ears within normal limits. Nose: No septal deviation. Nasal passages clear. Throat: Moist oral mucosa. No erythema or exudate of the pharynx. Neck: Supple. Trachea midline. Heart: Regular rate and rhythm, 3/6 systolic murmur noted. Lungs: mild crackles heard globally w/ no focal predominance, slightly shallow breathing Abdomen: Soft, non-tender, non- distended, and bowel sounds are present. Genitourinary: Deferred. Rectal: Deferred. Extremities: No cyanosis. 2+ BLE to mid gomes, slightly ttp on l calf which per patient is baseline since her stroke 10+ yrs ago (hyperalgesia of the limb). Skin: Warm and dry. Musculoskeletal: Deferred. Neurologic: Cranial nerves II through XII are grossly intact. Sensation to light touch is intact. Psychiatric: Judgment and insight are seemingly intact. Mood and affect are appropriate for the situation. Vital Signs Vital Signs: Vital Signs 06/16/20 08:06 06/16/20 12:06 Temperature 98.7 F 98.2 F Pulse Rate 94 69 Respiratory Rate 22 20 Blood Pressure 164/90 138/59 O2 Sat by Pulse Oximetry 94 L 92 L MDM (comprehensive) Lab Data Labs: 06/16/20 08:55 06/16/20 10:30 Laboratory Results Last 24 hours 06/16/20 08:55: WBC 12.0 H, RBC 2.80 L, Hgb 9.6 L, Hct 29.7 L, MCV 106.1 H, MCH 34.3 H, MCHC 32.3 L,RDW 15, Plt Count 231, MPV 11.7, Immature Gran % (Auto) 0.3, Neut % (Auto) 88.4 H, Lymph % (Auto) 2.9 L, Rusk % (Auto) 7.3, Eos % (Auto) 0.7, Baso % (Auto) 0.4, Lymph # (Auto) 0.4 L, Abs Immat Gran (auto) 0.0, Add Manual Diff Manual diff added, Total Counted 100, Neutrophils (Manual) 90 H, Absolute Neutrophils 10.6 H, Lymphocytes (Manual) 4 L, Monocytes (Manual) 6, Monocytes # 0.9, Absolute Eosinophils 0.1, Absolute Basophils 0.1, Platelet Estimate Appears normal, RBC Morphology Appears normal 06/16/20 08:55: VBG pH (Temp Correct) 7.48 H, VBG pCO2 (Temp Corrct 39.3 L, VBG pO2 (Temp Corrct) 43.1 H, VBG HCO3 29.0 H, VBG Total CO2 30.2 H, VBG O2 Saturation 78.3 H, VBG Base Excess 5.1 H, [id number] 06/16/20 08:55: D-Dimer 2.19 H 06/16/20 10:30: Sodium 138, Potassium 4.4, Chloride 101, Carbon Dioxide 26, Anion Gap 15, BUN 40 H, Creatinine 4.5 H, GFR Calculation 10, Glucose 330 H, Calcium 8.6, Total Bilirubin 0.6, AST 28, ALT 37, Alkaline Phosphatase 198 H, Troponin I Less than 0.015, Aey-S-Degocseaewc Pept 66127.00 H, SerumTotal Protein 7.2, Albumin 3.2 06/16/20 10:30: Phosphorus 2.4, Magnesium 2.2, Creatine Kinase 36, CK-MB (CK-2) Less than 1.0 06/16/20 14:00: Troponin I Less than 0.015 Microbiology 06/16/20 13:04 Nasopharyngeal Influenza-Like Illness (PCR) - Final No Organisms Detected 06/16/20 13:04 Nasopharyngeal - Final EKG Data EKG comments: EKG: rate 80, regular, normal axis, no st/t wave changes, normal r wave progression (which is not similar to her prior EKG w/ early R wave progression), intervals appropriate w exception of qt slight prolongation of 450-470. Medical Decision Making Free Text/Narative:: 75 yo F w/ CC of SOB and mid sternal chest pain that improved after 2 doses of nitro given in ambulance en route to hospital. Has hx of ESRD on TW (MW) HD, hx of covid 03 apr 2020. no hx of chest pain but has known mitral regurg and drastically elevated PSP (70). Exam notable for 2 + BLE to mid gomes, mild splinting/SOB, HTN, and O2 sat in low-mid 90s. EKG compared toprior actually shows better R wave progression w/ no obvious st changes, regular. lasix was given w/some improvement. i recommended transfer for admission to facility where she can be diuresed, seriallabs, and nephro/cards consult if needed, [facility] accepted. Troponin were negative X 2. I would recommend a VQ scan as well given that we do not have the ability to do that here and her D dimer was > 2.0, her GFR does not allow for CT PE w/ contrast. A repeat echo would likely be beneficial as I highly suspect the underlying etiology of her condition is congestive heart failure although a continued elevation of her PSP could present fairlysimilarly and resolve w/ nitro. Plan Visit Medications Administered ED medications:: Medications Discontinued Medications Generic Name Dose Route Start Last Admin Trade Name Freq PRN Reason Stop Dose Admin Furosemide 20 mg 06/16/20 09:04 06/16/20 10:32 Furosemide 20 Mg/2 Ml Sdv IVP 06/16/20 09:05 20 mg 1T ONE Administration Discharge Plan Admission/Discharge Dx Primary (Admit) Diagnosis: CHF excaerbation, dyspnea, atypical chest pain Primary DC Diagnosis: CHF excaerbation, dyspnea, atypical chest pain ED Provider: Juan Rai ED Status: Ready for Discharge Time Seen by Provider: 06/16/20 08:07 Triaged At: 06/16/20 08:06 Discharge Detail Disposition: Transfer - [facility] Hospital Med Rec New Prescriptions: No Action atorvastatin 40 mg tablet 40 mg PO HS 90 Days Qty: 90 RF: 3 glipizide 5 mg tablet 5 mg PO BID 90 Days Qty: 180 RF: 3 esomeprazole magnesium 20 MG capsule,delayed release(DR/EC) 1 tab PO DAILY RF: 0 aspirin [Aspirin Low-Strength] 81 MG tablet,chewable 81 mg PO DAILY RF: 0 One-Per-Day Nisswa-3 1 EACH capsule,delayed release(DR/EC) 3 ea PO BID RF: 0 (DME) Blood Glucose Test Strip See Dose Instructions .ROUTE .MEDSUPPLY Qty: 100 RF: 1 (DME) pen needle, diabetic [Comfort EZ Pen Stanton] 31 gauge x 1/4" needle See Dose Instructions .ROUTE .MEDSUPPLY Qty: 100 RF: 3 Lantus Solostar U-100 Insulin 100 unit/mL (3 mL) insulin pen 10 unit SQ QDAY Qty: 15 RF: 3 (DME) Accu-Chek Evelyn Plus test strp Strip See Rx Instructions .ROUTE .MEDSUPPLY Qty: 100 RF: 3 albuterol sulfate [ProAir HFA] 90 mcg/actuation HFA aerosol inhaler 1 inh IH QID PRN (Reason: shortness of breath or wheezing) Qty: 18 RF: 3 atenolol 100 mg tablet 150 mg PO HS 90 Days Qty: 135 RF: 3 nifedipine 90 mg tablet extended release 90 mg PO QDAY 90 Days Qty: 90 RF: 3 (DME) pen needle, diabetic [ReliOn Pen Stanton] 32 gauge x 5/32" needle See Rx Instructions .ROUTE .MEDSUPPLY Qty: 100 RF: 3 Report Signers: <Electronically signed by Juan Rai DO> Juan Rai DO 06/16/20 1443 Juan Rai DO SIGNATURE DA Report Cosigners: D: LAURITA 01/07/06 829 T: LAURITA 06/16/20829 CC: Grisel Christianson MD Name Value Range Interpretation Code Description Data Marla rce(s) Supporting Document(s) ID Date Data Source [id number] 06/16/2020 12:00:00 AM EST [facility] Name Value Range Interpretation Code Description Data Marla rce(s) Supporting Document(s) SARS-CoV2 Rapid PCR [facility] This lab was ordered by [facility] and reported by [facility]. ID Date Data Source [id number] 04/30/2020 06:54:00 AM EST [facility] [address] [place], [place] [address] [phone] NAME SEX PT STATUS ACCOUNT NUMBER VALERIO MARSH REG REF [id number] ORDERING PHYSICIAN LOCATION MEDICAL RECORD NO. Grisel Christianson MD MAMMO [id number] ATTENDING PHYSICIAN DATE OF DATE OF EXAM/TIME [...] Trans Dt/Tm: Trans by: DT Prt Dt/Tm: [id number]: Total DLP = 0.00 mGy-cm 9005-5030: Total Radiation Dose = 0.0000 mSv Lifetime Dose: 2.8470 mSv Name Value Range Interpretation Code Description Data Marla rce(s) Supporting Document(s) ID Date Data Source [id number] 04/30/2020 06:40:00 AM EST [facility] [address] [place], [place] [address] [phone] NAME SEX PT STATUS ACCOUNT NUMBER VALERIO MARSH REG REF [id number] ORDERING PHYSICIAN LOCATION MEDICAL RECORD NO. Grisel Christianson MD MAMMO [id number] ATTENDING PHYSICIAN DATE OF DATE OF EXAM/TIME Grisel Christianson MD 1945 04/20/20932 TYPE / EXAM DIG MAMMO DIAG RT 2D ONLY REASON FOR EXAM RT BREAST X VIEWS COMPARISON: 04/04/2020 FINDINGS: There is redemonstration of a group of indeterminate calcifications in the right breast upper outerquadrant posterior depth. IMPRESSION: Redemonstration of a group of indeterminate calcifications in the right breast upper outer quadrantposterior depth. No mass or lesion was identified on screening ultrasound from 04/04/2020. Stereotactic biopsy is recommended. OVERALL FINAL ASSESSMENT OF FINDINGS BI-RADS 4 - Suspicious Abnormality. This mammogram was read with the assistance of M-PostPath, an FDA- approved computer-aided detection system for mammography. Reported By Anand Gore DO on 04/30/20639 Signed By Anand Gore DO on 04/30/2050 Date Time CC: Anand Gore DO; Grisel Christianson MD Techn: PELBU Trans Dt/Tm: Trans by: DT Prt Dt/Tm: [id number]: Total DLP = 0.00 mGy-cm 9169-2432: Total Radiation Dose = 0.0000 mSv Lifetime Dose: 2.8470 mSv Name Value Range Interpretation Code Description Data Marla rce(s) Supporting Document(s) ID Date Data Source [id number] 04/06/2020 10:58:00 AM EDT [facility] Patient Name: VALERIO MARSH Reji OB: 1945 Sex: F Pt Unit #: [id number] Location:[facility] Provider: Visit Date/Time: 04/06/20 Primary Insurance: [employer] Secondary Insurance: Self Pay Intake Vital Signs 04/06/20 10:59 Current Height 5 ft 4 in Current Weight 183 lb Weight Measurement Method Standing Scale BMI 31.4 Intake Visit Reasons: Hospital Discharge Follow-up Nurse Note: ER here tested Pos for COVID and had pneumonia, she was transferred to [facility] because she had to have Dialysis. State she is feeling much better, no further COVID Symptoms... has been cleared by [facility] - Manager [employer] Required: No Accompanied by: Self / Same as Patient Is patient in pain?: No Allergies tramadol Allergy (Mild, Verified 03/16/20 11:46) Nausea/Vomit/Gastric Medications Accu-Chek Evelyn Plus test strp (blood sugar diagnostic) Dx E11.9 - use to test BS BID and PRN NS albuterol sulfate 90 mcg/actuation (ProAir HFA) 1 inh inhalation QID PRN aspirin (Aspirin Low-Strength) 81 mg PO DAILY atenolol 150 mg (1.5 x 100 mg) PO HS 90 days atorvastatin 40 mg PO HS 90 days blood sugar diagnostic (Blood Glucose Test) use one strip to test glucose three times a day Comfort EZ Pen Stanton (pen needle, diabetic) USE ONE PER DAY WITH INSULIN PEN NS esomeprazole magnesium 1 tab PO DAILY glipizide 5 mg PO BID 90 days hydralazine 50 mg (2 x 25 mg) PO TID 30 days insulin glargine (Lantus Solostar U-100 Insulin) 10 units (0.1 mL) subcut QDAY nifedipine ER 90 mg PO QDAY 90 days omega-3 fatty acids-fish oil 684-1,200 mg (One-Per-Day Nisswa-3) 3 ea PO BID pen needle, diabetic (ReliOn Pen Stanton) use one pen needle once daily with Insulin pen Is last menstrual period known: No Post menopausal: Yes Patient : No Fall Risk History of falls: No Ambulatory Aid:: None Gait/Transferring:: Normal Medications:: No High Risk Medications PHQ-2/9 Over the last 2 weeks, how often have you been bothered by any of the following problems? 1. Little interest or pleasure in doing things: not at all 2. Feeling down, depressed, or hopeless: not at all Total score: 0 HIV Testing Offer - ages 13-64 HIV testing Offer: Yes Requirement for HIV testing offer been met?: Not in age range Hep C Testing Offered: Yes Hep C Requirement met: Refuses today SBIRT Annual Questionnaire Are you currently in recovery for alcohol or substance use?: No How many times in the past year have you had 4 or more drinks in a day?: None How many times in the past year have you used a recreational drug or used a prescription medication for nonmedical reasons?: None Do you need a note to return Do you need a note to return to daycare/school/sports/work: No Coronavirus Screening Screening Have you traveled outside of [facility] or [facility] in the last 14 days.: No Has patient experienced coronavirus symptoms: No [facility] Medical History (Updated 04/06/20 @ 12:15 by Grisel Christianson M.D.) CVA (cerebral vascular accident) Diabetes mellitus Hyperlipemia Hypertension Kidney disease Osteoporosis Pneumonia due to COVID-19 virus Surgical History (R juliennewed 03/16/20 @ 12:36 by George King MD) History of - surgery History of colonoscopy Family History Mother Diabetes Father No problems noted. Social History Does the Patient have a Healthcare Proxy: Yes Does Patient have a DNR?: Yes Does Patient have a Living Will?: No Does the Patient have a MOLST?: No Advance Directives on File or in chart?: No Hx Recent Travel (where): No Smoking Status: Never smoker Review of Systems Const Denies chills, Reports fatigue, Denies fever(s), Denies headache(s), Denies night sweats and Denies poor appetite ENT Denies headache(s), Denies nasal congestion and Denies sinus pressure Card Denies chest pain, Denies palpitations and Denies dyspnea Resp Reports cough (much improved), Denies dyspnea and Denies wheezing GI Denies nausea and Denies vomiting Neuro Denies headache(s) Endo Reports fatigue and Denies palpitations Aller/Immun Denies wheezing Exam Const General: cooperative and no acute distress Nutritional Appearance: average body habitus Orientation: alert, awake and oriented x3 Neck Neck mass: No Lymphatic: no lymphadenopathy noted Resp Effort Inspection: normal respiratory effort Auscultation: no rales, no rhonchi and no wheezes Cardio Rate: regular rate Rhythm: regular rhythm Extrem General: no clubbing, cyanosis or edema Assessment Plan Assessment Plan (1) Hospital discharge follow-up: Code(s): Z09 - Encounter for follow-up examination after completed treatment for conditions other than malignant neoplasm (2) Pneumonia due to COVID-19 virus: Status: Acute Code(s): U07.1 - COVID-19; J12.89 - Other viral pneumonia SNOMED Code(s): 906251621676384547 Category: Medical Plan - Grisel Christianson M.D.: meds, records reviewed, much improved, cleared by PH, see as scheduled, labs done by nephrology Orders Other Medications: Discontinued: sitagliptin (Januvia) Discontinued Reason: Completed referral 25 mg PO QDAY 90 days 90 tabs 3RF ciprofloxacin HCl (Cipro) Discontinued Reason: Completed referral 250 mg PO BID 20 tabs 0RF <Electronically signed by Grisel Christianson MD> 04/06/20 1218 Name Value Range Interpretation Code Description Data Marla rce(s) Supporting Document(s) ID Date Data Source [id number] 04/05/2020 08:36:00 AM EDT [facility] [address] [place] [address] [phone] NAME SEX PT STATUS ACCOUNT NUMBER VALERIO MARSH REG REF [id number] ORDERING PHYSICIAN LOCATION MEDICAL RECORD NO. Grisel Christianson MD MAMMO [id number] ATTENDING PHYSICIAN DATE OF DATE OF EXAM/TIME Grisel Christianson MD 1945 04/04/201446 TYPE / EXAM US Breast - Complete Bilat REASON FOR EXAM DENSE BREASTS BILATERAL ABVS 3D SCREENING ULTRASOUND COMPARISON: None FINDINGS: No disturbing-appearing cystic or solid mass identified. IMPRESSION: No sonographic evidence of malignancy. OVERALL FINAL ASSESSMENT OF FINDINGS BI-RADS 2 - Benign findings. Reported By Anand Gore DO on 04/05/20835 Signed By Anand Gore DO on 04/05/20836 Date Time CC: Anand Gore DO; Grisel Christianson MD Techn: NOREM Trans Dt/Tm: Trans by: DT Prt Dt/Tm: 6638-4615: Total DLP = 0.00 mGy-cm 5941-8673: Total Radiation Dose = 0.0000 mSv Lifetime Dose: 2.8470 mSv Name Value Range Interpretation Code Description Data Marla rce(s) Supporting Document(s) ID Date Data Source [id number] 04/05/2020 08:25:00 AM EDT [facility] [address], [place] [id number] [phone] NAME SEX PT STATUS ACCOUNT NUMBER VALERIO MARSH REG REF [id number] ORDERING PHYSICIAN LOCATION MEDICAL RECORD NO. Grisel Christianson MD MAMMO [id number] ATTENDING PHYSICIAN DATE OF DATE OF EXAM/TIME [...] mammogram was read with the assistance of Gregorio, an FDA-approved computer- aided detection system for mammography. Reported By Anand Gore DO on 04/05/20824 Signed By Anand Gore DO on 04/05/20831 Date Time CC: Anand Gore DO; Grisle Christianson MD Techn: PELBU Trans Dt/Tm: Trans by: DT Prt Dt/Tm: 9917-9609: Total DLP = 0.00 mGy-cm 6208-3386: Total Radiation Dose = 0.0000 mSv Lifetime Dose: 2.8470 mSv Name Value Range Interpretation Code Description Data Marla rce(s) Supporting Document(s) ID Date Data Source [id number] 03/21/2020 08:21:08 PM T [facility] Name Value Range Interpretation Code Description Data Marla rce(s) Supporting Document(s) Progress Note [facility] BLFMEr8pVwLPLeQe87/DQUklCWDls7UeZNbrKDb6KKwkFYUmW7FiRVZ6hG9eRHR2TMwEToOpKgGkNSW6 lbm [file] ICAgICAgICAgICAgICAgICAgICAgICAgICAgICAgICAgICAgICAgICAgICAgICAgICAgICAgICAgICAg ICAgICAgICAgICAgICAgICAgICAgICAgICANCiAgIC AgICAgICAgICAgICAgICAgICAgICAgICAgICAgICAgICAgICAgICAgICAgICAgICAgICAgICAgICAgIC AgICAgICAgICAgICAgICAgICAgICAgICAgICAgICAgICAgICANCiAgICAgICAgICAgICAgICAgICAgIC AgICAgICAgICAgICAgICAgICAgICAgICAgICAgICAg ICAgICAgICAgICAgICAgICAgICAgICAgICAgICAgICAgICAgICAgICAgICAgICANCiAgICAgICAgICAg ICAgICAgICAgICAgICAgICAgICAgICAgICAgICAgICAgICAgICAgICAgICAgICAgICAgICAgICAgICAg ICAgICAgICAgICAgICAgICAgICAgICAgICAgICANCi AgICAgICAgICAgICAgICAgICAgICAgICAgICAgICAgICAgICAgICAgICAgICAgICAgICAgICAgICAgIC AgICAgICAgICAgICAgICAgICAgICAgICAgICAgICAgICAgICAgICANCiAgICAgICAgICAgICAgICAgIC AgICAgICAgICAgICAgICAgICAgICAgICAgICAgICAg ICAgICAgICAgICAgICAgICAgICAgICAgICAgICAgICAgICAgICAgICAgICAgICAgICANCiAgICAgICAg ICAgICAgICAgICAgICAgICAgICAgICAgICAgICAgICAgICAgICAgICAgICAgICAgICAgICAgICAgICAg ICAgICAgICAgICAgICAgICAgICAgICAgICAgICAgIC ANCiAgICAgICAgICAgICAgICAgICAgICAgICAgICAgICAgICAgICAgICAgICAgICAgICAgICAgICAgIC AgICAgICAgICAgICAgICAgICAgICAgICAgICAgICAgICAgICAgICAgICANCiAgICAgICAgICAgICAgIC AgICAgICAgICAgICAgICAgICAgICAgICAgICAgICAg ICAgICAgICAgICAgICAgICAgICAgICAgICAgICAgICAgICAgICAgICAgICAgICAgICAgICANCiAgICAg ICAgICAgICAgICAgICAgICAgICAgICAgICAgICAgICAgICAgICAgICAgICAgICAgICAgICAgICAgICAg ICAgICAgICAgICAgICAgICAgICAgICAgICAgICAgIC AgICANCjw/rLGhV4ihjTTdruA9J9gcJg2MJz7PLB2ma0UeBCVnFGbcpdIbTsvHCxPyBQQfTsjAXpy6UN afLO9HoDMwU1HwC9SuHMfpXM4FVRLgVOSfmTNmYERmKKYoOqR8VPXfJOdhHF1FxKWgUUtzEXTwKWEkJT 9VQAOzC537ydDaHJ8NTl2NWsMfBQ2yzx9YWQXfGIBf UljZKsh3JCwrGV8RuJPhwDYiSVCiQKVVGgQfW3kqo3DoKBFwAXHANQxlHJ9Rl3DhtYPhDBt+Gn5MLM5l b3UnOYbfQXOaAC0imd6HFLgSXjVsY7CrxVhtOXXcx7nmVUXsYC7xgFEfYMB1EYRwpoqsFDF7gQKjZDru Gi9sTFYiLKAkNt0vOGZrROX6UtObKDWWBA7KIVUeRD TycLDfCEYaUOTRBH8EPHwdSVJ0UKNiomKwzTEgGRwiRZ6WWYUuxjKaJXFkGENIJSe+Yv7LMB1dt7CuHA exNiSgEY1wfw6CXZhWYpVlD8Q9bRXlC2C2FPioRz7KQUVcDWIzIIKyZSRGFDckQJ9LXG3hdfM2FB3KwG FmWDUiSJJjdKYzKPi8B42ubAEvJGeuTR3VFUD+Luther+ Gc7FABPuILWeJDBiZkEcQBWQFfJkO1ZyN2RKk9FvZ0TqTJ27wDzozcQnOSlfGI9GMS1xSSWgQEIPGO8X jLTubT9lzkYrYQEaOIEJGqTaF33zsWYfIHKfMQMzYHNzBm2VPWSwJ9YbcgCnpBudefJnPGFyWCMJHS1F LHhdkwTryYNmyNcpBB87uLirUL0EVw4HChTgBW4xwy 8ArZDpLv5IBWJkCs5NYBUgIMCtLHEdNRQ7FFWiMtKrEVyfUHSjBKUhUGH3KTAwTXUkQG9TOgVpTETfVY U1TcfdQDTmXSSxib9CCKZpDNCkSgD4IBUwHGTjIQAfLXjxJSNqSNKqBYC5ZATkBKUgLY7BWkPsSVGdUB A4ZmmgDNRoROWlhc2QSRVhMSTdLLarZbCuFJOlYMBy JVniXOQlEDMqGyjtATTdYFKqXD5MRgNsRQArYNQ7PHygFBSkOJBscn6ZYQOvNZPzDdV8TBKxKCIsVKSl DZcdEJZwSFZ0MUI2PZIxUCTrYA3WGgMsOKDcAASsKfrxAWSeFLIvyx1EELXcXHKhESSpJAQrMGHyYGAe AMnvBLNnKQF0XZA7ZZJbJTXbPY2MLcWoDNDqJPNnLE fgNHAtYNHeqs0WIKJtEZKyHaNfBMNjHHCqOQMvEKwtHXKcJOM8FTn6RORtVXBvDR7UXyOxYDgcQRFEUp k6KJtsM4z1JEArYo0NV7Xhd5MbXHXgTEDQLSubKQ3megVoDALqAe5RH5zQHcj5UDNsOZO9PLNzSjLzPl a6OuY2UJV0KoVoORRcYOW0Hh5oCMJ8UsXaRpPjRLZt KSI7WES1YHK3NchzFMLeDYJ4QIQdNiKkDB2LZu6BNeD8VVN7hORqKq1JWkdmDH1GPBNRH1FEIz== ID Date Data Source [id number] 03/21/2020 05:06:00 PM EDT [facility] PATIENT IS BEING TRANFERRED PER MEG03/21 1705 CALLED TO JOHNNY AT BY HINA RIVERA, RESULTSREAD BACKRESULTS CALLED TO JOHNNY AT [facility] AT 1705 BY MAHNAZ, RESULTS READ BACKRODRIGUEZ COVID-19 IS AN ISOTHERMAL CLARI TECHNOLOGYNORMAL VALUE IS "SARS-COV-2 COVID 19 NOT DETECTED"False negative results may occur if a specimen is improperlycollected,transported or handled.False negative results may also occur if amplicationinhibitors are present in the specimen or if inadequatelevels of viruses are present in the specimen.As with any molecular test, if the virus mutates in [facility], Covid-19 may not be detected or may bedetected less predictably.ID NOW COVID-19 is intended for testing a swab directlywithout elution in viral transport media as dilution willresult in decreased detection of low positive samples thatare near the limit of detection of the test.SWAB SAMPLES ELUTED IN VTM ARE NOT APPROPRIATE FOR USE INTHIS TEST.SARS-CoV-2 detected Name Value Range Interpretation Code Description Data Marla rce(s) Supporting Document(s) ID Date Data Source [id number] 03/21/2020 04:12:00 PM EDT [facility] [address], [place] [address] [phone] NAME SEX PT STATUS ACCOUNT NUMBER VALERIO MARSH [facility] [id number] ORDERING PHYSICIAN LOCATION MEDICAL RECORD NO. George Lucero MD [id number] ATTENDING PHYSICIAN DATE OF DATE OF EXAM/TIME Grisel Christianson MD 1945 03/21/201557 TYPE / EXAM CT Thorax without contrast [...] in the lungs bilaterally these findings are compatible with the presence of bilateral areas of pneumonia. Given today's concerns, that would be compatible with the presence of pelaez virus. Fleischner Criteria A. Solid Nodules Nodule Type <6mm 6-8mm >8mm Single Low Risk No routine follow-up CT at 6-[address], [address] at 18-[address] at3 months, PET/CT, or tissue sampling High Risk Optional CT at [address] at 6-12 months, then consider CT at 18-24 months ConsiderCT at 3 months, PET/CT, or tissue sampling Multiple Low Risk No routine follow-up CT at 3-6 months, then consider CT at 18-[address] at 3-6 months, then consider CT at 18-24 months High Risk Optional CT at [address] at 3-6 months, then consider CT at 18-[address] at 3-[address], then [address] CT at 18-24 months B. Subsolid Nodules Single <6mm 6mm or greater Ground Glass No routine follow-up CT at 6-12 months to confirm persistence, then CT every 2 yearsuntil 5 years. Part Solid No routine follow-up [...] reconstruction, automated exposure control, as well as adaptivedose shielding. Reported By Jennifer Payan MD on 03/21/20 1612 Signed By Jennifer Payan MD on 03/21/20 1624 Date Time CC: Jennifer Payan MD; Grisel Christianson MD Techn: MORSA Trans Dt/Tm: Trans by: DT Prt Dt/Tm: 7588-7900: Total DLP = 219.00 mGy-cm 7871-5805: Total Radiation Dose = 2.8470 mSv Lifetime Dose: 2.8470 mSv Name Value Range Interpretation Code Description Data Marla rce(s) Supporting Document(s) ID Date Data Source [id number] 03/21/2020 03:18:00 PM EDT [facility] [address] [place] [address] [phone] NAME SEX PT STATUS ACCOUNT NUMBER VALERIO MARSH [facility] ER [id number] ORDERING PHYSICIAN LOCATION MEDICAL RECORD NO. George Lucero MD ER [id number] ATTENDING PHYSICIAN DATE OF DATE OF EXAM/TIME Grisel Christianson MD 1945 03/21/201444 TYPE / EXAM Xray Chest One View REASON FOR EXAM cough and fever COMPARISON: 09/15/2018 FINDINGS: The heart size and appears stable. The right hilar region appears more prominent on today's study than on previously seen exams. There is a somewhat rounded but poorly defined area of opacity in theright lower lobe that appears new. Subsegmental atelectatic [...] Jennifer Payan MD; Grisel Christianson MD Techn: ABI jain Dt/Tm: Trans by: DT Prt Dt/Tm: 1782-0412: Total DLP = 0.00 mGy-cm Fluoroscopy Time (in secs): Name Value Range Interpretation Code Description Data Marla rce(s) Supporting Document(s) ID Date Data Source [id number] 03/21/2020 03:14:00 PM EDT [facility] Anticoagulant or Thrombolytic medication : Heparin Name Value Range Interpretation Code Description Data Marla rce(s) Supporting Document(s) Leukocytes [#/volume] in Blood by Automated count 5.5 10*3/uL 4.45-10 .71 N [facility] Erythrocytes [#/volume] in Blood by Automated count 3.12 10*6/uL 4.20-5.40 Below low normal [facility] Hemoglobin [Moles/volume] in Blood 10.4 g/dL 10.7-15.4 Below low no rmal [facility] Hematocrit [Volume Fraction] of Blood by Automated count 31.5 % 37-47 Below low normal [facility] Erythrocyte mean corpuscular volume [Ent itic volume] in Cord blood by Automated count 101.0 fL 80-96 Above high normal [facility] Erythrocyte mean corpuscular hemoglobin [Entitic mass] by Automated count 33.3 pg 27-31 Above high normal [facility] spital Erythrocyte mean corpuscular hemoglobin concentration [Mass/volume] in Cord blood 33.0 g/dL 33-37 N [facility] ital Erythrocyte distribution width [Entitic volume] by Automated count 13 % 11-15 N [facility] Platelets [#/volume] in Blood by Automated count 189 10*3/uL 130-472 N [facility] Platelet mean volume [Entitic volume] in Blood 10.6 fL 9.1-13.1 N [facility] Neutrophils/100 leukocytes in Blood by Automated count 75.5 % 41- 77 N [facility] Neutrophils [#/volume] in Blood by Automated count 4.2 U 1.7-7.6 N [facility] Lymphocytes/100 leukocytes in Blood by Automated count 15.0 % 14- 46 N [facility] Lymphocytes [#/volume] in Blood by Automated count 0.8 U 0.6-4.6 N [facility] Monocytes/100 leukocytes in Blood by Automated count 7.6 % 4-12 N [facility] Monocytes [#/volume] in Blood by Automated count 0.4 U 0.2-1.2 N [facility] Eosinophils/100 leukocytes in Blood by Automated count 1.1 % 0-7 N [facility] Eosinophils [#/volume] in Blood by Automated count 0.1 U 0.0-0.5 N [facility] Basophils/100 leukocytes in Blood by Automated count 0.4 % 0.4-1 .3 N [facility] Basophils [#/volume] in Blood by Automated count 0.0 U 0.0-0.2 N [facility] NUCLEATED RED BLOOD CELL 0 % [facility] NUCLEATED RED BLOOD CELL# [address] [facility] Immature granulocytes [Presence] in Blood by Automated count 0-2 N [facility] Immature granulocytes [#/volume] in Blood by Automated count 0.0 U 0-0.1 N [facility] Manual Differential panel - Blood NO [facility] ID Date Data Source [id number] 03/21/2020 03:51:00 PM EDT [facility] Anticoagulant or Thrombolytic medication : Heparin Name Value Range Interpretation Code Description Data Marla rce(s) Supporting Document(s) Urea nitrogen [Mass/volume] in Serum or Plasma 39 mg/dL 9-23 Above high normal [facility] Sodium [Moles/volume] in Serum or Plasma 134 mmol/L 132-146 N [facility] Potassium [Moles/volume] in Serum or Plasma 3.9 mmol/L 3.5-5.5 N [facility] Chloride [Moles/volume] in Serum or Plasma 96 mmol/L 99-109 Belo w low normal [facility] Carbon dioxide, total [Moles/volume] in Serum or Plasma 31 mmol/L 20 -31 N [facility] Anion gap in Serum or Plasma 11 mmol/L 8-16 N [facility] Glucose [Mass/volume] in Serum or Plasma 156 mg/dL 74-106 Above high normal [facility] Creatinine 5.7 mg/dL 0.5-1.1 No range defined, or normal ranges d on't apply [facility] @Review test & document.Called to ELIZABETH ON D@ 1661 by Mariluz Sauer. Results readback.Repeated by: Mariluz Sauer 03/21/20 6640.Result Confirmation: 5.60 mg/dL Glomerular filtration rate/1.73 sq M.pre dicted [Volume Rate/Area] in Serum or Plasma 7 ml/min ABOVE 60 [facility] ital Alanine aminotransferase [Enzymatic acti vity/volume] in Serum or Plasma by With P-5'-P 29 U/L 10-49 N [facility] ital Aspartate aminotransferase [Enzymatic ac tivity/volume] in Serum or Plasma by With P-5'-P 40 U/L 0-33 Above high normal [facility] Alkaline phosphatase [Enzymatic activity/volume] in Serum or Plasma 141 U/L 45-129 Above high normal [facility] Calcium [Mass/volume] in Serum or Plasma 8.8 mg/dL 8.5-10.1 [facility] Bilirubin.total [Mass/volume] in Serum or Plasma 0.3 mg/dL 0.3-1.2 [facility] Albumin [Mass/volume] in Serum or Plasma by Bromocresol purple (BCP) dye binding method 2.9 g/dL 3.2-4.8 Below low normal [facility] Protein [Mass/volume] in Serum or Plasma 8.0 g/dL 5.7-8.2 [facility] ID Date Data Source [id number] 03/21/2020 04:05:00 PM EDT [facility] Anticoagulant or Thrombolytic medication : Heparin Name Value Range Interpretation Code Description Data Marla rce(s) Supporting Document(s) Prothrombin Time (Patient) 10.5 s 9.6-12.3 N [facility] INR 1.0 0.9-1.1 N [facility] THE INR IS OPERATIONALLY DEFINED FOR SANDRA SH PLASMA FROMPATIENTS STABILIZED ON ORAL ANTICOAGULANTS.ROUTINE ANTICOAGULANT THERAPY 2.0-3.0RECURRENT SYSTEMIC EMBOLISM/HEART VALVE REPLACEMENT 2.5-3.5 aPTT.lupus sensitive (LA screen) 22.7-31.6 [facility] EARLY REACTION ERROR,ALTERNATIVE METHOD UNAVAILABLE ID Date Data Source [id number] 03/26[facility]2020 [facility]:11[facility] : Heparin Name Value Range Interpretation Code Description Data Marla rce(s) Supporting Document(s) Bacteria identified in Blood by Culture [facility] NO GROWTH AFTER 5 DAYS ID Date Data Source [id number] 03/21/2020 03:35:[facility] Inst[facility]: Lab may order repe at test if initial test elevatedPhysician If elevated, reflex second test in 4-6 hrs Name Value Range Interpretation Code Description Data Marla rce(s) Supporting Document(s) Lactic w Rfx (if elevated) 1.3 mmol/L 0.5-2.2 N [facility] ID Date Data Source [id number] 03/21/2020 04:23:[facility] Reason for ordering culture: Abnormal fi ndings UA@03/21/20 1618: UA W/ MICRO added. RFLXG = UMIC CIF.Method of Collection:: Voided @03/21/20 1624: Urine culture added. RFL XG = CULT.ADD.25,000 CFU/MLStaph spp. coag negFew gram neg organisms seenProbable contaminants no senst done Reason for ordering culture: Abnormal fi ndings UA@03/21/20 1618: UA W/ MICRO added. RFLXG = UMIC CIF.Method of Collection:: Voided Name Value Range Interpretation Code Description Data Marla rce(s) Supporting Document(s) Color of Urine [facility] Appearance of Urine CLEAR Abnormal (applies to non-nu meric results) [facility] pH of Urine by Test strip 8.5 5-8 [facility] Specific gravity of Urine by Refractometry 1.011 1.005-1.030 [facility] Leukocyte esterase [Presence] in Urine by Test strip NEGAT ABEBA [facility] Nitrite [Presence] in Urine by Test strip NEGATIVE [facility] Protein [Presence] in Urine by Test strip NEGATIVE Above high normal [facility] @DO MICRO!!!! Glucose [Mass/volume] in Urine by Automated test strip 250 mg/dl NEGATIVE Abnormal (applies to non-numeric results) [facility] Ketones [Presence] in Urine by Test strip NEGATIVE [facility] Urobilinogen [Presence] in Urine 0.2-1 EU/dl [facility] Bilirubin.total [Presence] in Urine by Automated test strip NEGATIVE [facility] Erythrocytes [#/volume] in Urine by Test strip TRACE NEGATIV E Above high normal [facility] @DO MICRO!!!! URINE MICROSCOPIC? (CIF) Microscopic Added [facility] ID Date Data Source [id number] 03/22/2020 01:13:00 PM EDT [facility] Reason for ordering culture: Abnormal fi ndings UA@03/21/20 1618: UA W/ MICRO added. RFLXG = UMIC CIF.Method of Collection:: Voided @03/21/20 1624: Urine culture added. RFL XG = CULT.ADD.25,000 CFU/MLStaph spp. coag negFew gram neg organisms seenProbable contaminants no senst done Reason for ordering culture: Abnormal fi ndings UA@03/21/20 1618: UA W/ MICRO added. RFLXG = UMIC CIF.Method of Collection:: Voided Name Value Range Interpretation Code Description Data Marla rce(s) Supporting Document(s) ID Date Data Source [id number] 03/21/2020 04:23:00 PM EDT [facility] Reason for ordering culture: Abnormal fi ndings UA@03/21/20 1618: UA W/ MICRO added. RFLXG = UMIC CIF.Method of Collection:: Voided @03/21/20 1624: Urine culture added. RFL XG = CULT.ADD.25,000 CFU/MLStaph spp. coag negFew gram neg organisms seenProbable contaminants no senst done Reason for ordering culture: Abnormal fi ndings UA@03/21/20 1618: UA W/ MICRO added. RFLXG = UMIC CIF.Method of Collection:: Voided Name Value Range Interpretation Code Description Data Marla rce(s) Supporting Document(s) Erythrocytes [#/volume] in Urine by Manual count 0-1 /hpf 0-5 [facility] Leukocytes [#/volume] in Urine by Manual count 2-4 /hpf 0-5 [facility] Cells [Type] in Urine sediment by Light microscopy [facility] Bacteria [Presence] in Urine sediment by Light microscopy NEGATIVE Above high normal [facility] A Culture has been added to this specime n per established criteria ID Date Data Source [id number] 03/21/2020 02:43:00 PM EDT [facility] ED Physician Documentation NAME: VALERIO MARSH : 1945 AGE: 75 MR#: [id number] SERVICE DATE: 03/21/[address]: George Lucero MD PRIMARY CARE DR: Grisel Christianson MD ROOM#: HPI (Adult, General) General Chief Complaint: Multi system (Adult) Stated Complaint: WEAK,FATIGUE Resident LTC, travel outisde home, exposure to hot tubs:: No Time Seen by Provider: 03/21/20 13:15 Source: patient Exam Limitations: no limitations History of Present Illness Narrative: 75 yo woman with ESRD on HD, s/p dialysis yesterday, seen in the ER 5 days ago for low back pain and treated empirically for UTI. She returns today c/o fatigue,chills and continued low back pain. The urine culture done 1 day prior to the recent ER visit grew out multiple organisms c/w colonization. The patient notes that 3 members of recently visiting family members are now + for COVID. She notes cough with clear sputum and SOB with exertion. Allergies/Home Meds Allergies Allergy/AdvReac Type Severity Reaction Status Date / Time tramadol Allergy Mild Nausea/Vomi Verified 03/16/20 11:46 t/Gastric Home Medications Medication Instructions Recorded Confirmed Last Taken Type One-Per-Day Nisswa-3 3 ea PO BID 09/26/15 03/16/20 03/15/20 History aspirin [Aspirin Low-Strength] 81 mg PO DAILY tab 09/26/15 03/16/20 03/15/20 History esomeprazole magnesium 1 tab PO DAILY 09/15/18 03/16/20 03/15/20 History blood sugar diagnostic #100 each 12/10/18 03/16/20 Unknown Rx Comfort EZ Pen Stanton 31 gauge x #100 each NS 01/25/19 03/16/20 Unknown Rx 1/4" insulin glargine 100 unit/mL (3 10 unit SQ QDAY #15 ml 04/22/19 03/16/20 03/15/20 Rx mL) subcutaneous pen Accu- Chek Evelyn Plus test strp #100 each NS 06/15/19 03/16/20 Unknown Rx hydralazine 25 mg tablet 50 mg PO TID 30 Days #180 tab 07/08/19 03/16/20 03/15/20 Rx glipizide 5 mg tablet 5 mg PO BID 90 Days #180 tab 08/04/19 03/16/20 03/15/20 Rx atorvastatin 40 mg tablet 40 mg PO HS 90 Days #90 tab 08/18/19 03/16/20 03/15/20 Rx albuterol sulfate 90 mcg/actuation 1 inh IH QID PRN #18 gm 08/23/19 03/16/20 03/15/20 Rx aerosol inhaler atenolol 100 mg tablet 150 mg PO HS 90 Days #135 tab 09/07/19 03/16/20 03/15/20 Rx sitagliptin 25 mg tablet 25 mg PO QDAY 90 Days #90 tab 10/27/19 03/16/20 03/15/20 Rx nifedipine 90 mg tablet,extended 90 mg PO QDAY 90 Days #90 tab 01/17/20 03/16/20 03/15/20 Rx release ciprofloxacin HCl [Cipro] 250 mg PO BID #20 tab 03/16/20 Unknown Rx PMH (from Triage) Patient Medic al History PMH Reviewed/Updated as Needed: Yes PMH/PSH from Triage: Medical History (Updated 07/14/19 @ 07:53 by Shantel Ramos NP) CVA (cerebral vascular accident) (Medical) I63.9 Diabetes mellitus (Medical) Hyperlipemia (Medical) Hypertension (Medical) Kidney disease (Medical) Osteoporosis (Medical) Surgical History (Updated 12/08/18 @ 11:58 by excentos RI) History of - surgery (Surgical) right foot hammer toe History of colonoscopy (Surgical) Hx Drug Resistant Infections Hx MRSA: (Methicillin-resistant Staphylococcus aureus): No Hx VRE (Vancomycin-resistant enterococci): No Hx C.Diff: No Hx CRKP: No Hx Other Resistant Infection?: No Isolation: Standard precautions Hx Recent Travel Out of the country within 10 days (where): No Hx Fever: No Hx Fever with a rash?: No Nurse screening for coronavirus: Recent Travel outside the No country (where) Has patient experienced No coronavirus symptoms Social History Does patient have suicidal/homicidal thoughts or ideation?: No Are you in a relationship with/Does anyone hit you, yell/swear at you, steal from you?: No Substance Use Hx Alcohol Use: No Hx Substance Use: No Hx Substance Use Treatment: No Sec ond Hand Smoke Exposure: No Smoking Status: Never smoker Vaccination History Hx/Date of Tetanus, Diphtheria Vaccination: No Hx/Date of Influenza Vaccination: Yes Hx/Date of Pneumococcal Vaccination: Yes PFSH Medical History CVA (cerebral vascular accident) Diabetes mellitus Hyperlipemia Hypertension Kidney disease Osteoporosis Surgical History History of - surgery History of colonoscopy Family History Mother Diabetes Father No problems noted. Social History Does the Patient have a Healthcare Proxy: Yes Does Patient have a DNR?: Yes Does Patient have a Living Will?: No Does the Patient have a MOLST?: No Advance Directives on File or in chart?: No Hx Recent Travel (where): No Smoking Status: Never smoker ROS Review of Systems Constitutional: Reports chills, weakness and malaise; Denies fever Eyes: Denies eye discharge/drng ENT: Denies nasal congestion and throat pain Respiratory: Reports cough, sputum and SOB Cardiovascular: Denies chest pain and palpitations Gastrointestinal: Denies nausea, vomiting, abdominal pain and diarrhea Genitourinary-Female: Denies dysuria and frequency Musculoskeletal: Reports back pain; Denies neck pain Skin/Breasts: Denies rash Neurologic: Denies weakness and numbness Endocrine: Reports Loss of appetite Hematological/Lymphatic: Denies swollen glands Allergic/Immunologic: Denies rash Physical Exam General Physical Exam Narrative: wd elderly woman, awake and alert, comfortable at rest, appears pale Limitations: no limitations General appearance: alert and in no apparent distress Head Head exam: Present atraumatic, normocephalic and normal inspection Eye Eye exam: Present normal apperance and EOMI; Absent scleral icterus and conjunctival injection ENT ENT exam: Present normal exam, normal orophraynx and mucous membranes moist Neck Neck exam: Present normal inspection and full ROM; Absent tenderness Respiratory Respiratory exam: Present rhonchi (b/l) and decreased breath sounds; Absent normal lung sounds bilaterally and respiratory distress Cardiovascular Cardiovascular Exam: Present regular rate and normal rhythm GI/Abdominal GI/Abdominal exam: Present Abd soft, bowel sounds present all quadrents; Absent tenderness Extremities Exam Extremities exam: Present full ROM; Absent normal inspection (R arm fistul a noted) and tenderness Back Exam Back exam: Present normal inspection, full ROM, tenderness (sacral tenderness), paraspinal tenderness and vertebral tenderness Neurological Exam Neurological exam: Present alert and oriented X3; Absent motor sensory deficit Psychiatric Psychiatric exam: Present normal affect and normal mood Skin Skin exam: Present warm, dry, intact and pallor Vital Signs Vital Signs: Vital Signs 03/21/20 12:36 03/21/20 16:36 Temperature 97.4 F L 97.6 F Pulse Rate 70 88 Respiratory Rate 16 16 Blood Pressure 198/80 204/69 O2 Sat by Pulse Oximetry 100 97 MDM (comprehensive) Lab Data Labs: 03/21/20 15:05 03/21/20 15:05 Laboratory Results Last 24 hours 03/21/20 14:45: Urine Color Yellow, Urine Appearance Turbid A, Urine pH 8.5, Ur Specific [place] 1.011, Urine Protein 300 mg/dl H, Urine Ketones Negative, Urine Blood Trace H, Urine Nitrate Negative, Urine Bilirubin Negative, Urine Urobilinogen 0.2 eu/dl, Ur Leukocyte Esterase Negative, Add Ur Microanalysis Microscopic added, Urine RBC 0-1, Urine WBC 2-4, Ur Squamous Epith Cells Many, Urine Bacteria Moderate amount H, Urine Glucose 250 mg/dl A 03/21/20 15:05: WBC 5.5, RBC 3.12 L, Hgb 10.4 L, Hct 31.5 L, MCV 101.0 H, MCH 33.3 H, MCHC 33.0, RDW 13, Plt Count 189, MPV 10.6, Immature Gran % (Auto) 0.4, Neut % (Auto) 75.5, Lymph % (Auto) 15.0, [place] % (Auto) 7.6, Eos % (Auto) 1.1, Baso % (Auto) 0.4, Lymph # (Auto) 0.8, Abs Immat Gran (auto) 0.0, Add Manual Diff No, Absolute Neutrophils 4.2, Monocytes # 0.4, Absolute Eosinophils 0.1, Absolute Basophils 0.0 03/21/20 15:05: PT 10.5, INR 1.0, PTT (Labette) TNP 03/21/20 15:05: Sodium 134, Potassium 3.9, Chloride 96 L, Carbon Dioxide 31, Anion Gap 11, BUN 39 H, Creatinine 5.7 H*, GFR Calculation 7, Glucose 156 H, Calcium 8.8, Total Bilirubin 0.3, AST 40 H, ALT 29, Alkaline Phosphatase 141 H, Serum Total Protein 8.0, Albumin 2.9 L 03/21/20 15:05: Lactic Acid 1.3 Microbiology 03/21/20 16:50 Nasopharyngeal SARS-CoV-2 (PCR) Interpretation - Final SARS-CoV-2 detected EKG Data -: EKG Interpreted by [facility] Rad[facility] Data Radiology results: report re viewed and image reviewed Medical Decision Making Free Text/Narative:: The patient was evaluated for generalized symptoms with known Covid exposure. The PE was significant for normal temperature and lung findings noted. Labs were significant for chronic changes with normal WBC and differential. CXR and Chest CT showed infiltrates. Radiology notes c/w Covid. The patient will be transferred to [facility] due to the need for inpatient dialysis. Plan Plan Plan: Transfer to [facility] Plan of care: Plan of care discussed with patient and or family, Patient encouraged to ask questions about plan and Patient agrees with plan of care Discharge Plan Admission/Discharge Dx Primary DC Diagnosis: Covid Pneumonia ED Provider: George Lucero ED Status: Physician Time Seen by Provider: 03/21/20 13:15 Triaged At: 03/21/20 12:36 Condition Condition: Stable Discharge Detail Disposition: Transfer - [facility] Med Rec New Prescriptions: No Action atorvastatin 40 mg tablet 40 mg PO HS 90 Days Qty: 90 RF: 3 glipizide 5 mg tablet 5 mg PO BID 90 Days Qty: 180 RF: 3 esomeprazole magnesium 20 MG capsule,delayed release(DR/EC) 1 tab PO DAILY RF: 0 ciprofloxacin HCl [Cipro] 250 mg tablet 250 mg PO BID Qty: 20 RF: 0 aspirin [Aspirin Low- Strength] 81 MG tablet,chewable 81 mg PO DAILY RF: 0 One-Per-Day Nisswa-3 1 EACH capsule,delayed release(DR/EC) 3 ea PO BID RF: 0 (DME) Blood Glucose Test Strip See Dose Instructions .ROUTE .MEDSUPPLY Qty: 100 RF: 1 (DME) pen needle, diabetic [Comfort EZ Pen Stanton] 31 gauge x 1/4" needle See Dose Instructions .ROUTE .MEDSUPPLY Qty: 100 RF: 3 Lantus Solostar U- 100 Insulin 100 unit/mL (3 mL) insulin pen 10 unit SQ QDAY Qty: 15 RF: 3 (DME) Accu-Chek Evelyn Plus test strp Strip See Rx Instructions .ROUTE .MEDSUPPLY Qty: 100 RF: 3 hydralazine 25 mg tablet 50 mg PO TID 30 Days Qty: 180 RF: 3 albuterol sulfate [ProAir HFA] 90 mcg/actuation HFA aerosol inhaler 1 inh IH QID PRN (Reason: shortness of breath or wheezing) Qty: 18 RF: 3 atenolol 100 mg tablet 150 mg PO HS 90 Days Qty: 135 RF: 3 Januvia 25 mg tablet 25 mg PO QDAY 90 Days Qty: 90 RF: 3 nifedipine 90 mg tablet extended release 90 mg PO QDAY 90 Days Qty: 90 RF: 3 Medications Medication reconciliation performed by provider at discharge: Yes Interventions Interventions: ED General Adult Last Done: 03/21/20 13:01 Report Signers: <Electronically signed by George Lucero MD> George Lucero MD 03/21/20 1754 George Lucero MD SIGNATURE DA Report Cosigners: D: SKEMI 03/21/20 1443 T: SHILPA 03/21/20 1443 CC: Grisel Christianson MD Name Value Range Interpretation Code Description Data Marla rce(s) Supporting Document(s) ID Date Data Source [id number] 03/21/2020 12:00:00 AM EDT [facility] Name Value Range Interpretation Code Description Data Marla rce(s) Supporting Document(s) SARS-CoV2 Rapid PCR [facility] This lab was ordered by [facility] - ER and reported by [facility]. ID Date Data Source [id number] 03/20/2020 12:00:00 AM EDT [facility] Name Value Range Interpretation Code Description Data Marla rce(s) Supporting Document(s) 2019 Novel Coronavirus RNA [facility] This lab was ordered by Shayy rivera and reported by [facility] soldering inspector [facility]. ID Date Data Source [id number] 03/16/2020 12:31:00 PM EDT [facility] ED Physician Documentation NAME: VALERIO MARSH : 1945 AGE: 75 MR#: [id number] SERVICE DATE: 03/16/[address]: George King MD PRIMARY CARE DR: Grisel Christianson MD ROOM#: HPI (Adult, General) General Chief Complaint: Urogenital Stated Complaint: FATIGUE,CHILLS Resident LT, travel outisde home, exposure to hot tubs:: No Time Seen by Provider: 03/16/20 10:45 Source: patient History of Present Illness Initial Comments: 75-year-old white female complaining of lower back pain yesterday some fatigue for2 days also some urinary urgency. Patient denies any fever chills. Patient does receive dialysis last year still make some urine. Denies any nausea vomiting abdominal pain. No recent urinary tract infections. Patient received dialysis yesterday without any difficulty. At that time blood pressure systolic was 166 according to patient the end of her dialysis. Patient has slight cough nonproductive denies any difficulty breathing or chest pain. Denies any loose stool. Recent travelto [place] patient states he was tested for COVID about 2 weeks ago negative he went to a different facility for dialysis. No other complaints Past Medical History Past Medical History: Nursing Past Medical History Has Been Reviewed Allergies/Home Meds Allergies Allergy/AdvReac Type Severity Reaction Status Date / Time tramadol Allergy Mild Nausea/Vomi Verified 03/16/20 11:46 t/Gastric Home Medications Medication Instructions Recorded Confirmed Last Taken Type One-Per-Day Nisswa-3 3 ea PO BID 09/26/15 03/16/20 03/15/20 History aspirin [Aspirin Low-Strength] 81 mg PO DAILY tab 09/26/15 03/16/20 03/15/20 History esomeprazole magnesium 1 tab PO DAILY 09/15/18 03/16/20 03/15/20 History blood sugar diagnostic #100 each 12/10/18 03/16/20 Unknown Rx Comfort EZ Pen Stanton 31 gauge x #100 each NS 01/25/19 03/16/20 Unknown Rx 1/4" insulin glargine 100 unit/mL (3 10 unit SQ QDAY #15 ml 04/22/19 03/16/20 03/15/20 Rx mL) subcutaneous pen Accu-Chek Evelyn Plus test strp #100 each NS 06/15/19 03/16/20 Unknown Rx hydralazine 25 mg tablet 50 mg PO TID 30 Days #180 tab 07/08/19 03/16/20 03/15/20 Rx glipizide 5 mg tablet 5 mg PO BID 90 Days #180 tab 08/04/19 03/16/20 03/15/20 Rx atorvastatin 40 mg tablet 40 mg PO HS 90 Days #90 tab 08/18/19 03/16/20 03/15/20 Rx albuterol sulfate 90 mcg/actuation 1 inh IH QID PRN #18 gm 08/23/19 03/16/20 03/15/20 Rx aerosol inhaler atenolol 100 mg tablet 150 mg PO HS 90 Days #135 tab 09/07/19 03/16/20 03/15/20 Rx sitagliptin 25 mg tablet 25 mg PO QDAY 90 Days #90 tab 10/27/19 03/16/20 03/15/20 Rx nifedipine 90 mg tablet,extended 90 mg PO QDAY 90 Days #90 tab 01/17/20 03/16/20 03/15/20 Rx release ciprofloxacin HCl [Cipro] 250 mg PO BID #20 tab 03/16/20 Unknown Rx Medication list updated and reviewed:: Yes Pain Assessment Pain Location: Lower back pain Pain Description: Aching ER plan Plan of care and ER treatment: An ER treatment plan was discussed with patient and family, Patient encouraged to ask questions about plan and ER treatments and Patient agrees with ER plan of care PMH (from Triage) Patient Medical History PMH Reviewed/Updated as Needed: Yes PMH/PSH from Triage: Medical History (Updated 07/14/19 @ 07:53 by Shantel Ramos NP) CVA (cerebral vascular accident) (Medical) I63.9 Diabetes mellitus (Medical) Hyperlipemia (Medical) Hypertension (Medical) Kidney disease (Medical) Osteoporosis (Medical) Surgical History (Updated 12/08/18 @ 11:58 by excentos RI) History of - surgery (Surgical) right foot hammer toe History of colonoscopy (Surgical) Female History LMP:: Menopause Hx Drug Resistant Infections Hx MRSA: (Methicillin-resistant Staphylococcus aureus): No Hx VRE (Vancomycin-resistant enterococci): No Hx C.Diff: No Hx CRKP: No Hx Other Resistant Infection?: No Isolation: Standard precautions Hx Recent Travel Out of the country within 10 days (where): No Hx Fever: No Hx Fever with a rash?: No Nurse screening for coronavirus: Recent Travel outside the No country (where) Has patient experienced No coronavirus symptoms Social History Does patient have suicidal/homicidal thoughts or ideation?: No Are you in a relationship with/Does anyone hit you, yell/swear at you, steal from you?: No Substance Use Hx Alcohol Use: No Hx Substance Use: No Hx Substance Use Treatment: No Second Hand Smoke Exposure: No Smoking Status: Never smoker Vaccination History Hx/Date of Tetanus, Diphtheria Vaccination: No Hx/Date of Influenza Vaccination: Yes Hx/Date of Pneumococcal Vaccination: Yes Immunizations Up to Date: No PFSH Medical History CVA (cerebral vascular accident) Diabetes mellitus Hyperlipemia Hypertension Kidney disease Osteoporosis Surgical History History of - surgery History of colonoscopy Family History Mother Diabetes Father No problems noted. Social History Does the Patient have a Healthcare Proxy: Yes Does Patient have a DNR?: Yes Does Patient have a Living Will?: No Does the Patient have a MOLST?: No Advance Directives on File or in chart?: No Hx Recent Travel (where): No Smoking Status: Never smoker Sickle cell No ROS Review of Systems Constitutional: Denies fever and chills Respiratory: Reports cough; Denies sputum, SOB and wheezing Cardiovascular: Denies chest pain and palpitations Gastrointestinal: Denies nausea, vomiting and abdominal pain Genitourinary-Female: Reports urgency Musculoskeletal: Reports back pain Neurologic: Denies weakness and numbness Psychiatric: Reports No Symptoms/Complaints Hematological/Lymphatic: Reports No Symptoms/Complaints Physical Exam General Physical Exam Narrative: 75-year-old white female no acute distress Limitations: no limitations General appearance: alert and in no apparent distress Head Head exam: Present atraumatic and normocephalic Eye Eye exam: Present normal apperance ENT ENT exam: Present mucous membranes moist Neck Neck exam: Present normal inspection, full ROM and supple Respiratory Respiratory exam: Present normal lung sounds bilaterally Cardiovascular Cardiovascular Exam: Present regular rate, normal rhythm and no murmur GI/Abdominal GI/Abdominal exam: Present soft and normal bowel sounds; Absent distended, tenderness, guarding, rebound, rigid, organomegaly, mass and pulsatile mass Extremities Exam Extremities exam: Present other (Leg brace left lower extremity); Absent pedal edema and calf tenderness Back Exam Back exam: Present normal inspection and full ROM; Absent CVA tenderness (R) and CVA tenderness (L) Psychiatric Psychiatric exam: Present normal affect and normal mood Skin Skin exam: Present warm, dry, intact and normal color Vital Signs Vital Signs: Vital Signs 03/16/20 10:53 03/16/20 13:15 03/16/20 14:00 Temperature 100.0 F H Pulse Rate 80 Respiratory Rate 18 Blood Pressure 219/81 203/81 212/84 O2 Sat by Pulse Oximetry 100 MDM (comprehensive) Lab Data Labs: Laboratory Results Last 24 hours 03/16/20 11:45: Urine Color Yellow, Urine Appearance Clear, Urine pH 8.5, Ur Specific [place] 1.011, Urine Protein 300 mg/dl H, Urine Ketones Negative, Urine Blood Negative, Urine Nitrite Negative, Urine Bilirubin Negative, Urine Urobilinogen 0.2 eu/dl, Ur Leukocyte Esterase Trace H, Urine WBC 8-12 H, Ur Squamous Epith Cells Moderate, Urine Bacteria Large amount H, Micro UA Comment Microscopic added, Urine Glucose 250 mg/dl A Urinalysis reviewed positive leukocytes positive WBC positive bacteria Medical Decision Making Free Text/Narative:: 75-year-old white female on dialysis since with urinary urgency some back pain temperature 100 Vital signs elevated blood pressure Urinalysis urinary tract infection We will treat for urinary tract infection However will need to treat blood pressure in the ED prior to discharge Follow-up patient required a second dose of clonidine 0.1 for elevated blood pressure Repeat blood pressure 139/59 We will discharge patient home patient instructed to follow-up with PMD tomorrow for blood pressure recheck Patient also instructed to take her blood pressure at home states he needs to get a new blood pressure cuff Discharge Plan Admission/Discharge Dx Primary DC Diagnosis: Urinary tract infection, hypertension ED Provider: George King ED Status: Results Pending Time Seen by Provider: 03/16/20 10:45 Triaged At: 03/16/20 10:38 Condition Condition: Improved Discharge Detail Disposition: Home, Self-Care Med Rec New Prescriptions: New ciprofloxacin HCl [Cipro] 250 mg tablet 250 mg PO BID Qty: 20 RF: 0 No Action atorvastatin 40 mg tablet 40 mg PO HS 90 Days Qty: 90 RF: 3 glipizide 5 mg tablet 5 mg PO BID 90 Days Qty: 180 RF: 3 esomeprazole magnesium 20 MG capsule,delayed release(DR/EC) 1 tab PO DAILY RF: 0 aspirin [Aspirin Low-Strength] 81 MG tablet,chewable 81 mg PO DAILY RF: 0 One-Per-Day Nisswa-3 1 EACH capsule,delayed release(DR/EC) 3 ea PO BID RF: 0 (DME) Blood Glucose Test Strip See Dose Instructions .ROUTE .MEDSUPPLY Qty: 100 RF: 1 (DME) pen needle, diabetic [Comfort EZ Pen Stanton] 31 gauge x 1/4" needle See Dose Instructions .ROUTE .MEDSUPPLY Qty: 100 RF: 3 Lantus Solostar U-100 Insulin 100 unit/mL (3 mL) insulin pen 10 unit SQ QDAY Qty: 15 RF: 3 (DME) Accu- Chek Evelyn Plus test strp Strip See Rx Instructions .ROUTE .MEDSUPPLY Qty: 100 RF: 3 hydralazine 25 mg tablet 50 mg PO TID 30 Days Qty: 180 RF: 3 albuterol sulfate [ProAir HFA] 90 mcg/actuation HFA aerosol inhaler 1 inh IH QID PRN (Reason: shortness of breath or wheezing) Qty: 18 RF: 3 atenolol 100 mg tablet 150 mg PO HS 90 Days Qty: 135 RF: 3 Januvia 25 mg tablet 25 mg PO QDAY 90 Days Qty: 90 RF: 3 nifedipine 90 mg tablet extended release 90 mg PO QDAY 90 Days Qty: 90 RF: 3 Discharge Education Printouts: Urinary Tract Infection in Women (ED), Hypertension (ED) Medications Medication reconciliation performed by provider at discharge: Yes Follow Up Care/Instructions Diet/Activity/Wound Care..: Take Cipro as directed for urinary tract infection Your blood pressure today was elevated you required 2 doses of clonidine in the ED Follow-up your doctor tomorrow for blood pressure recheck Obtain a blood pressure monitor from home and record your readings Follow-up your doctor 1 week for reevaluation of urinary tract infection *Discharge Patient* Discharge Orders: Discharge Order (Routine); Ordered 03/16/20 Ordered By: George King Interventions Interventions: ED Urogenital Last Done: 03/16/20 10:57 Report Signers: <Electronically signed by George King MD> George King MD 03/16/20 1533 George King MD SIGNATURE DA Report Cosigners: D: KEN 03/16/20 1231 T: KEN 03/16/20 1231 CC: Grisel Christianson MD Name Value Range Interpretation Code Description Data Marla rce(s) Supporting Document(s) ID Date Data Source [id number] 03/16/2020 12:06:00 PM EDT [facility] @03/16/20 1159: UA W/ MICRO added. RFLXG = UMIC.Method of Collection:: Voided @03/16/20 1159: UA W/ MICRO added. RFLXG = UMIC.Method of Collection:: Voided Name Value Range Interpretation Code Description Data Marla rce(s) Supporting Document(s) Color of Urine [facility] Appearance of Urine CLEAR [facility] pH of Urine by Test strip 8.5 5-8 [facility] Specific gravity of Urine by Refractometry 1.011 1.005-1.030 [facility] Leukocyte esterase [Presence] in Urine by Test strip NEGATIVE Above high normal [facility] @DO MICRO!!!! Nitrite [Presence] in Urine by Test strip NEGATIVE [facility] Protein [Presence] in Urine by Test strip NEGATIVE Above high normal [facility] @DO MICRO!!!! Glucose [Mass/volume] in Urine by Automated test strip 250 mg/dl NEGATIVE Abnormal (applies to non-numeric results) [facility] Ketones [Presence] in Urine by Test strip NEGATIVE [facility] Urobilinogen [Presence] in Urine 0.2-1 EU/dl [facility] Bilirubin.total [Presence] in Urine by Automated test strip NEGATIVE [facility] Erythrocytes [#/volume] in Urine by Test strip NEGATIVE NEGATIVE [facility] URINE MICROSCOPIC ADDED Microscopic Added [facility] ID Date Data Source [id number] 03/16/2020 12:06:00 PM EDT [facility] @03/16/20 1159: UA W/ MICRO added. RFLXG = UMIC.Method of Collection:: Voided @03/16/20 1159: UA W/ MICRO added. RFLXG = UMIC.Method of Collection:: Voided Name Value Range Interpretation Code Description Data Marla rce(s) Supporting Document(s) Leukocytes [#/volume] in Urine by Manual count 8-12 /hpf 0-5 Above high normal [facility] Cells [Type] in Urine sediment by Light microscopy [facility] Bacteria [Presence] in Urine sediment by Light microscopy NEGATIVE Above high normal [facility] ID Date Data Source [id number] 03/15/2020 04:12:00 PM EDT [facility] @03/15/20 1559: UA W/ MICRO added. RFLXG = UMIC CIF.Method of Collection:: Clean Catch @03/15/20 1613: Urine culture added. RFL XG = CULT.ADD.Greater than 100,000 CFU/MLStaph spp, Strep spp, Corynebacterium sppProbable contaminants no senst done @03/15/20 1559: UA W/ MICRO added. RFLXG = UMIC CIF.Method of Collection:: Clean Catch Name Value Range Interpretation Code Description Data Marla rce(s) Supporting Document(s) Color of Urine [facility] Appearance of Urine CLEAR Abnormal (applies to non-nu meric results) [facility] pH of Urine by Test strip 7.5 5-8 [facility] Specific gravity of Urine by Refractometry 1.017 1.005-1.030 [facility] Leukocyte esterase [Presence] in Urine by Test strip NEGAT ABEBA [facility] Nitrite [Presence] in Urine by Test strip NEGATIVE [facility] Protein [Presence] in Urine by Test strip NEGATIVE Above high normal [facility] @DO MICRO!!!! Glucose [Mass/volume] in Urine by Automated test strip 250 mg/dl NEGATIVE Abnormal (applies to non-numeric results) [facility] Ketones [Presence] in Urine by Test strip NEGATIVE [facility] Urobilinogen [Presence] in Urine 0.2-1 EU/dl [facility] Bilirubin.total [Presence] in Urine by Automated test strip NEGATIVE [facility] Erythrocytes [#/volume] in Urine by Test strip NEGATIVE NEGATIVE [facility] URINE MICROSCOPIC? (CIF) Microscopic Added [facility] ID Date Data Source [id number] 03/17/2020 07:12:00 AM EDT [facility] @03/15/20 1559: UA W/ MICRO added. RFLXG = UMIC CIF.Method of Collection:: Clean Catch @03/15/20 1613: Urine culture added. RFL XG = CULT.ADD.Greater than 100,000 CFU/MLStaph spp, Strep spp, Corynebacterium sppProbable contaminants no senst done @03/15/20 1559: UA W/ MICRO added. RFLXG = UMIC CIF.Method of Collection:: Clean Catch Name Value Range Interpretation Code Description Data Marla rce(s) Supporting Document(s) ID Date Data Source [id number] 03/15/2020 04:12:00 PM EDT [facility] @03/15/20 1559: UA W/ MICRO added. RFLXG = UMIC CIF.Method of Collection:: Clean Catch @03/15/20 1613: Urine culture added. RFL XG = CULT.ADD.Greater than 100,000 CFU/MLStaph spp, Strep spp, Corynebacterium sppProbable contaminants no senst done @03/15/20 1559: UA W/ MICRO added. RFLXG = UMIC CIF.Method of Collection:: Clean Catch Name Value Range Interpretation Code Description Data Marla rce(s) Supporting Document(s) Leukocytes [#/volume] in Urine by Manual count 2-4 /hpf 0-5 [facility] Cells [Type] in Urine sediment by Light microscopy [facility] Bacteria [Presence] in Urine sediment by Light microscopy NEGATIVE Above high normal [facility] A Culture has been added to this specime n per established criteria ID Date Data Source [id number] 03/02/2020 01:52:00 PM EDT [facility] Patient Name: VALERIO MARSH : 1945 Sex: F Pt Unit #: [id number] Location:[facility] Provider: Visit Date/Time: 03/02/20 Primary Insurance: [employer] Secondary Insurance: Self Pay Intake Vital Signs 03/02/20 13:52 Current Height 5 ft 4 in Current Weight 180 lb 12.465 oz Weight Measurement Method Standing Scale BMI 31.0 BP 142/78 Blood Pressure Location Rt brachial Position Sitting Respiration 12 Pulse 87 Pulse Strength Normal Pulse Source Pulse Oximeter Pulse Oximetry (%) 98 Oxygen Delivery Method room air Intake-Medicare Annual Visit Reasons: Hypertension Follow-up, Medicare Annual Wellness subsequent, Diabetes Nurse Note: Annual Wellness Visit - HTN and Diabetes follow up- Would like to Discuss diabetic medication januvia very expensive, only on 25 mg- No additional concerns Manager Intranet Required: No Accompanied by: Self / Same as Patient Is patient in pain?: No Allergies tramadol Allergy (Mild, Verified 08/19/19 15:32) Nausea/Vomit/Gastric Feel stressed/tense/nervous/anxious/difficulty sleeping: not at all Medications Accu-Chek Evelyn Plus test strp (blood sugar diagnostic) Dx E11.9 - use to test BS BID and PRN NS albut nel sulfate 90 mcg/actuation (ProAir HFA) 1 inh inhalation QID PRN aspirin (Aspirin Low-Strength) 81 mg PO DAILY atenolol 150 mg (1.5 x 100 mg) PO HS 90 days atorvastatin 40 mg PO HS 90 days blood sugar diagnostic (Blood Glucose Test) use one strip to test glucose three times a day Comfort EZ Pen Stanton (pen needle, diabetic) USE ONE PER DAY WITH INSULIN PEN NS esomeprazole magnesium 1 tab PO DAILY glipizide 5 mg PO BID 90 days hydralazine 50 mg (2 x 25 mg) PO TID 30 days insulin glargine (Lantus Solostar U-100 Insulin) 10 units (0.1 mL) subcut QDAY nifedipine ER 90 mg PO QDAY 90 days omega-3 fatty acids- fish oil 684-1,200 mg (One-Per-Day Nisswa-3) 3 ea PO BID sitagliptin (Januvia) 25 mg PO QDAY 90 days Post menopausal: Yes Fall Risk History of falls: No Ambulatory Aid:: None Gait/Transferring:: Normal Medications:: No High Risk Medications How often do you have a drink containing alcohol?: never How often do you have 6 or more drinks on 1 occasion?: never AUDIT-C Alcohol total score: Answ all for result. HIV testing Offer: Yes Requirement for HIV testing offer been met?: Not in age range Hep C Testing Offered: Yes Hep C Requirement met: Refuses today Coronavirus Screening Screening Have you traveled outside of [facility] or [facility] in the last 14 days.: No Has patient experienced coronavirus symptoms: No PFSH Medical History CVA (cerebral vascular accident) Diabetes mellitus Hyperlipemia Hypertension Kidney disease Osteoporosis Surgical History History of - surgery History of colonoscopy Family History Mother Diabetes Father No problems noted. Social History Does the Patient have a Healthcare Proxy: Yes Does Patient have a DNR?: No Does Patient have a Living Will?: No Does the Patient have a MOLST?: No Advance Directives on File or in chart?: No Hx Recent Travel (where): No Smoking Status: Never smoker Medicare Annual Wellness Type Of Examation Type of Exam: Subsequent Wellness Exam EKG EKG Performed: No Medication list Medications Accu-Chek Evelyn Plus rosaline t strp (blood sugar diagnostic) Dx E11.9 - use to test BS BID and PRN NS albuterol sulfate 90 mcg/actuation (ProAir HFA) 1 inh inhalation QID PRN aspirin (Aspirin Low-Strength) 81 mg PO DAILY atenolol 150 mg (1.5 x 100 mg) PO HS 90 days atorvastatin 40 mg PO HS 90 days blood sugar diagnostic (Blood Glucose Test) use one strip to test glucose three times a day Comfort EZ Pen Stanton (pen needle, diabetic) USE ONE PER DAY WITH INSULIN PEN NS esomeprazole magnesium 1 tab PO DAILY glipizide 5 mg PO BID 90 days hydralazine 50 mg (2 x 25 mg) PO TID 30 days insulin glargine (Lantus Solostar U-100 Insulin) 10 units (0.1 mL) subcut QDAY nifedipine ER 90 mg PO QDAY 90 days omega-3 fatty acids-fish oil 684-1,200 mg (One-Per-Day Nisswa-3) 3 ea PO BID sitagliptin (Januvia) 25 mg PO QDAY 90 days Allergies Allergies tramadol Allergy (Mild, Verified 08/19/19 15:32) Nausea/Vomit/Gastric Current Diet Current diet: diabetic PHQ-2/9 Over the last 2 weeks, how often have you been bothered by any of the following problems? 1. Little interest or pleasure in doing things: not at all 2. Feeling down, depressed, or hopeless: not at all Total score: 0 Functional Assessment Bathing: Independent Dressing: Independent Toileting: Independent Transferring: Independent Continence: Independent Feeding: Independent Total Score: 6 Home Safety Home Safety: Reports Bathroom: Grab bars, Lighting: Adequate, [place]: No throw rugs and Stairs: Handrail available Hearing Hearing Left Ear: Normal Hearing Right Ear: Normal Hearing test method: whispered voice IADL Assessment Functional abilities: Up Go test, pt steady, Pt independent w/transportation, Pt independent w/meal preparation and Pt independent w/finances Cognitive Evaluation Oriented to the date:: Yes Oriented to time:: Yes Oriented to place:: Yes Mood: grossly normal Affect: Normal Judgement: normal Needs caregiver for assistance: No HPI Hypertension Followup (Card) * Current neurological symptoms: Denies diplopia, headache(s), numbness or weakness Current cardiovascular symptom: denies chest pain, dyspnea, palpitations, fatigue or dizziness Current endocrine symptoms: denies constipation or weight gain Current renal disease symptoms: denies fatigue, nausea, vomiting or weight loss Most Recent Cardiac Tests: Chest X-Ray 08/18/19 Stress Test 01/18/20 Review of Systems Const Denies chills, Denies fatigue, Denies fever(s), Denies headache(s), Denies night sweats, Denies poorappetite, Denies weakness, Denies weight gain and Denies weight loss Eyes Denies blurry vision, Denies diplopia and Denies eye discharge ENT Denies vertigo, Denies dizziness, Denies otalgia, Denies headache(s), Denies nasal congestion and Denies sore throat Card Denies chest pain, Denies palpitations, Denies dyspnea, Denies orthopnea and Denies paroxysmal nocturnal dyspnea Resp Denies cough, Denies dyspnea and Denies wheezing GI Denies abdominal pain, Denies constipation, Denies diarrhea, Denies nausea and Denies vomiting Genitourinary: Denies abnormal vaginal bleeding or dysuria Musc Denies back pain, Denies arthralgias, Denies limited range of motion and Denies numbness Skin/Breast Denies breast pain, Denies breast mass and Denies rash Neuro Denies vertigo, Denies dizziness, Denies headache(s), Denies numbness and Denies weakness Psych Denies anxiety, Denies depression and Denies irritability Endo Denies fatigue, Denies polydipsia, Denies polyuria and Denies palpitations Lane/Lymph Denies easy bleeding, Denies easy bruising and Denies lymphadenopathy Aller/Immun Denies wheezing Exam Const General: cooperative, healthy appearing and no acute distress Nutritional Appearance: well nourished [facility] Head: normal to inspection, normocephalic and atraumatic Ears: TM's normal bilaterally and EAC's normal General nose exam: external nose normal; no nasal discharge noted Mouth: oral mucosae normal Throat: posterior oropharynx normal and no postnasal drainage Eyes General: appearance normal, both eyes and all related structures Conjunctivae: conjunctivae normal Sclera: sclerae normal Neck Neck: normal visual inspection and full ROM Thyroid: thyroid normal Lymphatic: no lymphadenopathy noted Chest Chest: normal inspection of the chest Resp Effort Inspection: normal respiratory effort Auscultation: no rales, no rhonchi and no wheezes Cardio Rate: regular rate Rhythm: regular rhythm Heart Sounds: no murmurs GI Inspection: Yes normal to inspection Palpation: soft, no masses and nontender Auscultation: normal bowel sounds Musc Cervical Spine: cervical ROM normal Thoracic/Lumbar Spine: thoracic and lumbar spine normal to inspection Neuro General: patient alert and patient awake Cranial Nerves: hearing normal Cognition: normal cognition Motor: muscle tone normal throughout Sensory Exam: no sensory deficits noted Extrem General: normal to inspection and no clubbing, cyanosis or edema Psych Appearance: grossly normal Mental Status: mental status grossly normal Assessment Plan Assessment Plan (1) Medicare annual wellness visit, subsequent: Code(s): Z00.00 - Encounter for general adult medical examination without abnormal findings (2) Hypertension: SNOMED Code(s): 06453803 Category: Medical (3) Diabetes mellitus: SNOMED Code(s): 15173662 Category: Medical Plan - Grisel Christianson M.D.: generally doing well,discussed stopping januvia, monitor BS,additional med if needed, adjust BP medaround dialysis, will schedule mammo Orders Instructions: DASH Eating Plan (GEN) Hypertension (GEN) Follow Up: 6 Months Electronically Signed By: <Electronically signed by Grisel Christianson MD> Date/Time Signed: 03/02/20 1523 Name Value Range Interpretation Code Description Data Marla rce(s) Supporting Document(s) ID Date Data Source [id number] 01/18/2020 04:45:00 PM EDT [facility] [address] [place] [address] [phone] NAME SEX PT STATUS ACCOUNT NUMBER VALERIO MARSH REG REF [id number] ORDERING PHYSICIAN LOCATION MEDICAL RECORD NO. Shannon Brand SOFTWARE ENGINEER DEVELOPER Hamo EKG [id number] ATTENDING PHYSICIAN DATE OF DATE OF EXAM/TIME [...] the rest-stress sequence. Technetium 99m sestamibi was injected intravenously: 8.12 millicuries with rest, 26.2 millicuries with stress. Stress testing dictated under separate cover. FINDINGS: 1. Significant breast attenuation artifact was identified and recognized. There was mild bowel attenuation artifact. 2. Normal myocardial perfusion at rest and stress without evidence of ischemia or infarct. 3. Polar quarter mapping confirmed the above findings. 4. Gated SPECT ejection fraction of 64% without regional wall motion abnormality. IMPRESSION: 1. Normal myocardial perfusion. 2. Normal myocardial function. RECOMMENDATIONS: Follow up with [facility] to discuss valvular heart disease. Results and recommendations communicated directly to the patient. Reported By Rehan Blackwood MD on 01/18/20 1645 Signed By Rehan Blackwood MD on 02/08/20 1022 <<Signature on File>> Date Time CC: Rehan Blackwood M.D.; Grisel Christianson MD Techn: MARII Trans Dt/Tm: 01/18/20 1725 Trans by: EDMAR Prt Dt/Tm: : Total DLP = 0.00 mGy-cm : Total Radiation Dose = 0.0000 mSv Lifetime Dose: 0 mSv Name Value Range Interpretation Code Description Data Marla rce(s) Supporting Document(s) ID Date Data Source [id number] 01/18/2020 09:27:00 AM EDT [facility] TEST CONSULTATION NAME: VALERIO MARSH : 1945 AGE: 75 MR#: [id number] ADMITTING DATE: 01/18/[address]: DISCHARGE DATE: ATTENDING DR: Shannon Mas SOFTWARE ENGINEER DEVELOPER ROOM#: PROCEDURE Lexiscan Cardiolite. INDICATIONS FOR PROCEDURE [...] 6 on a scale of 10. There wereno diagnostic EKG changes. No rhythm disturbances with Lexiscan infusion. IMPRESSION Lexiscan-induced chest pain. No Lexiscan-induced EKG changes. Appropriate hemodynamic response to Lexiscan infusion. Appropriate chronotropic response to Lexiscan infusion. No Lexiscan-induced ectopy. Overall this represented a clinically positive, electrocardiographically negative pharmacologic stress study. RECOMMENDATIONS Await nuclear imaging, submitted separately. CC: Grisel Christianson MD <Electronically signed by Rehan Blackwood MD> Rehan lBackwood MD 02/08/20 1024 Rehan Blackwood M.D. Cosigner: D: ANGEL 01/18/20 0927 T: LOW 01/18/20 1152 CC: Rehan Blackwood M.D.; Grisel Christianson MD LAST EDIT: Name Value Range Interpretation Code Description Data Marla rce(s) Supporting Document(s) ID Date Data Source [id number] 08/27/2019 02:39:00 PM EDT [facility] ([facility] ardi[facility]) Name Value Range Interpretation Code Description Data Marla rce(s) Supporting Document(s) EKG Laboratory test result [facility] ([facility] Cardiology) ID Date Data Source [id number] 08/19/2019 04:38:00 PM [facility] ED Physician Documentation NAME: MARBELLAVALERIO : 1945 AGE: 74 MR#: [id number] SERVICE DATE: 08/19/[address]: George Lucero MD PRIMARY CARE DR: Grisel Christianson MD ROOM#: ADDENDUM Discharge Plan Admission/Discharge Dx Primary DC Diagnosis: Hypertensive Urgency ED Provider: George Lucero ED Status: Discharged Time Seen by Provider: 08/19/19 15:45 Triaged At: 08/19/19 15:11 Condition Condition: Improved Discharge Detail Disposition: Home, Self-Care Med Rec New Prescriptions: No Action atenolol 100 mg tablet 100 mg PO HS Qty: 135 RF: 0 atorvastatin 40 mg tablet 40 mg PO HS 90 Days Q ty: 90 RF: 3 glipizide 5 mg tablet 5 mg PO BID 90 Days Qty: 180 RF: 3 atenolol 50 MG tablet 1 tab PO DAILY RF: 0 esomeprazole magnesium 20 MG capsule,delayed release(DR/EC) 1 tab PO DAILY RF: 0 aspirin [Aspirin Low-Strength] 81 MG tablet,chewable 81 mg PO DAILY RF: 0 One-Per-Day Nisswa-3 1 EACH capsule,delayed release(DR/EC) 3 ea PO BID RF: 0 nifedipine 90 mg tablet extended release 90 mg PO QDAY 90 Days Qty: 90 RF: 3 Januvia 25 mg tablet 25 mg PO HS 90 Days Qty: 90 RF: 3 (DME) blood sugar diagnostic [Blood Glucose Test] Strip See Dose Instructions .ROUTE .MEDSUPPLY Qty: 100 RF: 1 (DME) pen needle, diabetic [Comfort EZ Pen Stanton] 31 gauge x 1/4" needle See Dose Instructions .ROUTE .MEDSUPPLY Qty: 100 RF: 3 Lantus Solostar U-100 Insulin 100 unit/mL (3 mL) insulin pen 10 unit SQ QDAY Qty: 15 RF: 3 (DME) blood sugar diagnostic [Accu-Chek Evelyn Plus test strp] Strip See Rx Instructions .ROUTE .MEDSUPPLY Qty: 100 RF: 3 hydralazine 25 mg tablet 50 mg PO TID 30 Days Qty: 180 RF: 3 albuterol sulfate [ProAir HFA] 90 mcg/actuation HFA aerosol inhaler 1 inh IH QID PRN (Reason: shortness of breath or wheezing) Qty: 18 RF: 3 Medications Medication reconciliation performed by provider at discharge: Yes Follow Up Care/Instructions Diet/Activity/Wound Care..: continue current medications and primary care follow-up *Discharge Patient* Discharge Orders: Discharge Order (Routine); Ordered 08/19/19 Ordered By: George Lucero Discharge Date/Time: 08/19/19 19:33 Interventions Interventions: ED Discharge Instructions Last Done: 08/19/19 19:33 ED Headache Last Done: 08/19/19 15:26 Addendum Addendum Note: The original note contains an error in the ROS section. It states that the patient denies SOBand cough. This is in error. The patient's primary complaint is actually SOB and cough for 3 weeks. Addended by: <Electronically signed by George Lucero MD> 08/28/19152 Addendum Cosigners: D: SHILPA 08/28/19152 T: SHILPA 08/28/19152 CC: Grisel Christianson MD [facility] (Adult, General) General Chief Complaint: Headache Stated Complaint: HEADACHE Resident LTC, travel outisde home, exposure to hot tubs:: No Time Seen by Provider: 08/19/19 15:45 Source: patient Exam Limitations: no limitations History of Present Illness Narrative: 74 yo woman with h/o HTN, ESRD on HD, presents with c/o elevated blood pressure noted today at dialysis associated with headache. She notes recent pneumonia treated at [facility] 3 weeks ago but continues to have c/o cough and SOB. She is pending outpatient Cardiology evaluation. No fevers noted, no vision change, no N/V/D. Allergies/Home Meds Allergies Allergy/AdvReac Type Severity Reaction Status Date / Time tramadol Allergy Mild Nausea/Vomi Verified 08/19/19 15:32 t/Gastric Home Medications Medication Instructions Recorded Confirmed Last Taken Type One-Per-Day Nisswa-3 3 ea PO BID 09/26/15 08/19/19 08/19/19 History aspirin [Aspirin Low-Strength] 81 mg PO DAILY tab 09/26/15 08/19/19 08/19/19 History atenolol 1 tab PO DAILY 09/15/18 08/19/19 08/18/19 History esomeprazole magnesium 1 tab PO DAILY 09/15/18 08/19/19 08/19/19 History nifedipine 90 mg tablet,extended 90 mg PO QDAY 90 Days #90 tab 10/30/18 08/19/19 08/19/19 Rx release sitagliptin 25 mg tablet 25 mg PO HS 90 Days #90 tab 11/24/18 08/19/19 08/18/19 Rx blood sugar diagnostic #100 each 12/10/18 08/19/19 Unknown Rx Comfort EZ Pen Stanton 31 gauge x #100 each NS 01/25/19 08/19/19 Unknown Rx 1/" atenolol 100 mg tablet 100 mg PO HS #135 tab 0910/0208/19/19 08/19/19 History insulin glargine 100 unit/mL (3 10 unit SQ QDAY #15 ml 04/22/19 08/19/19 08/18/19 Rx mL) subcutaneous pen Accu- Chek Evelyn Plus test strp #100 each NS 06/15/19 08/19/19 Unknown Rx hydralazine 25 mg tablet 50 mg PO TID 30 Days #180 tab 07/08/19 08/19/19 08/19/19 Rx glipizide 5 mg tablet 5 mg PO BID 90 Days #180 tab 08/04/19 08/19/19 08/19/19 Rx albuterol sulfate 90 mcg/actuation 1 puff INH PRN PRN #8.5 gm 08/18/19 08/19/19 08/18/19 Rx aerosol inhaler atorvastatin 40 mg tablet 40 mg PO HS 90 Days #90 tab 08/18/19 08/19/19 08/18/19 Rx PMH (from Triage) Patient Medical History PMH Reviewed/Updated as Needed: Yes PMH/PSH from Triage: Medical History (Updated 07/14/19 @ 07:53 by Shantel Ramos NP) CVA (cerebral vascular accident) (Chronic Medical) I63.9 Diabetes mellitus (Medical) Hyperlipemia (Medical) Hypertension (Medical) Kidney disease (Medical) Osteoporosis (Medical) Surgi eli History (Updated 12/08/18 @ 11:58 by excentos RI) History of - surgery (Surgical) right foot hammer toe History of colonoscopy (Surgical) Female History LMP:: Menopause Hx Drug Resistant Infections Hx MRSA: (Methicillin-resistant Staphylococcus aureus): No Hx VRE (Vancomycin-resistant enterococci): No Hx C.Diff: No Hx CRKP: No Hx Other Resistant Infection?: No Isolation: Standard precautions Hx Recent Travel Out of the country within 10 days (where): No Hx Fever: No Hx Fever with a rash?: No Nurse screening for coronavirus: Recent Travel outside the No country (where) Coronavirus risk:travel to [facility];contact w/ high risk person In the last 14 days before symptom onset, does the patient have a history of travel from Located Within [facility]; or close contact with a person who is under investigation for while that person was ill; or in the last 14 days close contact with an laboratory- confirmed ill patient? Social History Does patient have suicidal/homicidal thoughts or ideation?: No Are you in a relationship with/Does anyone hit you, yell/swear at you, steal from you?: No Substance Use Hx Alcohol Use: No Hx Substance Use: No Hx Substance Use Treatment: No Second Hand Smoke Exposure: No Smoking Status: Never smoker Vaccination History Hx/Date of Tetanus, Diphtheria Vaccination: Yes Hx/Date of Influenza Vaccination: Yes Hx/Date of Pneumococcal Vaccination: Yes Immunizations Up to Date: Yes ROS Review of Systems Constitutional: Denies fever, chills, sweats and weakness Eyes: Denies vision change ENT: Denies nasal congestion and throat pain Respiratory: Denies cough and SOB Cardiovascular: Denies chest pain and palpitations Gastrointestinal: Denies nausea, vomiting, abdominal pain and diarrhea Genitourinary-Female: Denies dysuria and frequency Musculoskeletal: Denies muscle pain and joint pain Skin/Breasts: Denies rash Neurologic: Reports headache; Denies weakness, numbness and change in speech Endocrine: Denies Loss of appetite Hematological/Lymphatic: Denies easy bleeding and easy bruising Allergic/Immunologic: Denies rash Physical Exam General Physical Exam Narrative: wd elderly woman, awake and alert, NAD Limitations: no limitations General appearance: alert and in no apparent distress Head Head exam: Present atraumatic Eye Eye exam: Present normal apperance and EOMI ENT ENT exam: Present normal exam and mucous membranes moist Neck Neck exam: Present normal inspection and full ROM Respiratory Respiratory exam: Present normal lung s ounds bilaterally; Absent respiratory distress Cardiovascular Cardiovascular Exam: Present regular rate and normal rhythm GI/Abdominal GI/Abdominal exam: Present Abd soft, bowel sounds present all quadrents; Absent tenderness Rectal Rectal exam: Present deferred Extremities Exam Extremities exam: Present full ROM; Absent normal inspection (RUE fistula noted) and tenderness Back Exam Back exam: Present full ROM Neurological Exam Neurological exam: Present alert; Absent motor sensory deficit Psychiatric Psychiatric exam: Present normal affect and normal mood Skin Skin exam: Present warm, dry, intact and normal color Vital Signs Vital Signs: Vital Signs 08/19/19 15:22 08/19/19 16:45 08/19/19 16:56 Temperature 97.7 F 98.1 F Pulse Rate 68 62 62 Respiratory Rate 18 18 Blood Pressure 156/67 196/84 196/84 O2 Sat by Pulse Oximetry 96 98 08/19/19 17:35 08/19/19 18:25 Temperature Pulse Rate Respi ratory Rate Blood Pressure 188/86 180/80 O2 Sat by Pulse Oximetry MDM (comprehensive) Medical Decision Making Free Text/Narative:: The patient was evaluated for headache and elevated BP that began during dialysis. She completed her session as usual. The PE is remarkable only for the elevated BP noted with no focal findings. She was treated with hydralazine, clonidine and Atenolol and improved. Plan Plan Plan: d/c home Plan of care: Follow up appointments discussed, Plan of care discussed with patient and or family, Patient encouraged to ask questions about plan and Patient agrees with plan of care Discharge Plan Admission/Discharge Dx Primary DC Diagnosis: Hypertensive Urgency ED Provider: George Lucero ED Status: Physician Time Seen by Provider: 08/19/19 15:45 Triaged At: 08/19/19 15:11 Condition Condition: Improved Discharge Detail Disposition: Home, Self-Care Med Rec New Prescriptions: No Action atenolol 100 mg tablet 100 mg PO HS Qty: 135 RF: 0 albuterol sulfate [Proventil HFA] 90 mcg/actuation HFA aerosol inhaler 1 puff INH PRN PRN (Reason: Cough) Qty: 8.5 RF: 3 atorvastatin 40 mg tablet 40 mg PO HS 90 Days Qty: 90 RF: 3 glipizide 5 mg tablet 5 mg PO BID 90 Days Qty: 180 RF: 3 atenolol 50 MG tablet 1 tab PO DAILY RF: 0 esomeprazole magnesium 20 MG capsule,delayed release(DR/EC) 1 tab PO DAILY RF: 0 aspirin [Aspirin Low-Strength] 81 MG tablet,chewable 81 mg PO DAILY RF: 0 One-Per-Day Nisswa-3 1 EACH capsule,delayed release(DR/EC) 3 ea PO BID RF: 0 nifedipine 90 mg tablet extended release 90 mg PO QDAY 90 Days Qty: 90 RF: 3 Januvia 25 mg tablet 25 mg PO HS 90 Days Qty: 90 RF: 3 (DME) blood sugar diagnostic [Blood Glucose Test] Strip See Dose Instructions .ROUTE .MEDSUPPLY Qty: 100 RF: 1 (DME) pen needle, diabetic [Comfort EZ Pen Stanton] 31 gauge x 1/4" needle See Dose Instructions .ROUTE .MEDSUPPLY Qty: 100 RF: 3 Lantus Solostar U-100 Insulin 100 unit/mL (3 mL) insulin pen 10 unit SQ QDAY Qty: 15 RF: 3 (DME) blood sugar diagnostic [Accu-Chek Evelyn Plus test strp] Strip See Rx Instructions .ROUTE .MEDSUPPLY Qty: 100 RF: 3 hydralazine 25 mg tablet 50 mg PO TID 30 Days Qty: 180 RF: 3 Medications Medication reconciliation performed by provider at discharge: Yes Follow Up Care/Instructions Diet/Activity/Wound Care..: continue current medications and primary care follow-up *Discharge Patient* Discharge Orders: Discharge Order (Routine); Ordered 08/19/19 Ordered By: George Lucero Interventions Interventions: ED Headache Last Done: 08/19/19 15:26 Report Signers: <Electronically signed by George Lucero MD> George Lucero MD 08/19/19 1853 George Lucero MD SIGNATURE DA Report Cosigners: D: SHILPA 08/19/19 1638 T: SHILPA 08/19/191637 CC: Grisel Christianson MD Name Value Range Interpretation Code Description Data Marla rce(s) Supporting Document(s) ID Date Data Source [id number] 08/18/2019 02:09:00 PM EST [facility] [address] [id number] [phone] NAME SEX PT STATUS ACCOUNT NUMBER Valerio Marsh REG REF [id number] ORDERING PHYSICIAN LOCATION MEDICAL RECORD NO. Grisel Christianson MD [facility] [id number] ATTENDING PHYSICIAN DATE OF DATE OF EXAM/TIME [...] Trans Dt/Tm: Trans by: DT Prt Dt/Tm: 6845-2759: Total DLP = 0.00 mGy-cm Fluoroscopy Time (in secs): Name Value Range Interpretation Code Description Data Marla rce(s) Supporting Document(s) ID Date Data Source [id number] 08/18/2019 01:11:00 PM [facility] Patient Name: Valerio Marsh : 1945 Sex: F Pt Unit #: [id number] Location:[facility] Provider: Visit Date/Time: 08/18/19 Primary Insurance: [employer] Secondary Insurance: Self Pay Intake Vital Signs 03/04/20 13:11 Current Height 5 ft 3 in Current Weight 189 lb Weight Measurement Method Standing Scale BMI 33.5 BP 126/62 Blood Pressure Location Rt brachial Position Sitting Respiration 12 Pulse 68 Pulse Strength Normal Pulse Source Pulse Oximeter Pulse Oximetry (%) 96 Oxygen Delivery Method room air Intake Visit Reasons: Pneumonia Follow-up, Diabetes follow-up Nurse Note: Hospital Follow up - [facility] - 07/23-07/26 - Pneumonia - states she is not feeling any better really Still has cough and is tired a lot of the time - some SOB and Nausea here and there, Random headache here and there - Also Diabetes follow up- Due for Mammo as well Manager Intranet Required: No Accompanied by: Self / Same as Patient Is patient in pain?: No Allergies tramadol Allergy (Mild, Unverified 09/25/18 09:27) Nausea/Vomit/Gastric Is last menstrual period known: No Post menopausal: Yes Patient : No Fall Risk History of falls: No Ambulatory Aid:: Crutches Cane or Walker Gait/Transferring:: Impaired Medications:: No High Risk Medications PHQ-2/9 Over the last 2 weeks, how often have you been bothered by any of the following problems? 1. Little interest or pleasure in doing things: not at all 2. Feeling down, depressed, or hopeless: not at all Total score: 0 HIV Testing Offer - ages 13-64 HIV testing Offer: Yes Requirement for HIV testing offer been met?: Not in age range Hep C Testing Offered: Yes Hep C Requirement met: Refuses today SBIRT Annual Questionnaire Are you currently in recovery for alcohol or substance use?: No How many times in the past year have you had 4 or more drinks in a day?: None How many times in the past year have you used a recreational drug or used a prescription medication for nonmedical reasons?: None Do you need a note to return Do you need a note to return to daycare/school/sports/work: No PFSH Social History Does the Patient have a Healthcare Proxy: Yes Does Patient have a DNR?: No Does Patient have a Living Will?: No Does the Patient have a MOLST?: No Advance Directives on File or in chart?: No Hx Recent Travel (where): No HPI Adult Diabetic Follow-Up Cardiopulmonary symptoms: Reports dyspnea on exertion GI symptoms: Denies vomiting Pneumonia Follow-up * Current symptoms: Denies chest pain or fever(s) Review of Systems Const Denies chills, Reports fatigue and Denies fever(s) ENT Denies nasal congestion, Denies sinus pressure and Denies sore throat Card Denies chest pain, Denies palpitations, Reports dyspnea on exertion, Reports orthopnea and Denies paroxysmal nocturnal dyspnea Resp Reports cough, Reports dyspnea on exertion and Denies wheezing GI Denies nausea and Denies vomiting Skin/Breast Denies breast skin changes, Denies breast pain and Denies breast mass Psych Reports anxiety Endo Reports fatigue and Denies palpitations Aller/Immun Denies wheezing Exam Const General: cooperative and no acute distress Nutritional Appearance: average body habitus Orientation: alert, awake and oriented x3 Chest Breast/Axilla Inspection: normal inspection of the breasts and normal inspection of the axillae Breast/Axilla Palpation: normal palpation of the breasts and normal palpation of the axillae Resp Effort Inspection: normal respiratory effort Auscultation: no rales, no rhonchi and no wheezes Ca rdio Rate: regular rate Rhythm: regular rhythm Extrem General: no clubbing, cyanosis or edema Assessment Plan Assessment Plan (1) Pneumonia: Code(s): J18.9 - Pneumonia, unspecified organism Qualifiers: Pneumonia type: due to unspecified organism Laterality: unspecified laterality Lung location: unspecified part of lung Qualified Code(s): J18.9 - Pneumonia, unspecified organism Plan - Grisel Christianson M.D.: repeat CXR ordered, has cardiology appt this week,, mammo ordered, see 2 weeks Orders: Orders: Xray Chest 2 view PA/LAT 08/18/19 Additional Comments Additional Comments: still fatigue and some dyspnea, orthopnea, repeat CXR, see cardiology, continuewith nephrology and dialysis, see 2 weeks Orders Other Medications: New: albuterol sulfate 90 mcg/actuation (Proventil HFA) 1 puff INH PRN PRN 8.5 grams 3RF Cough Refilled: atorvastatin 40 mg PO HS 90 days 90 tabs 3RF Other Orders: Orders: 3D DIG MAMMO SCREEN BILAT 1 Month Z12.31 Follow Up: 2 Weeks Electronically Signed By: <Electronically signed by Grisel Christianson MD> Date/Time Signed: 08/19/19 0807 Name Value Range Interpretation Code Description Data Marla rce(s) Supporting Document(s) ID Date Data Source [id number] 08/04/2019 01:05:00 PM [facility] Patient Name: Valerio Marsh : 1945 Sex: F Pt Unit #: [id number] Location:[facility] Provider: Visit Date/Time: 08/04/19 Primary Insurance: Hooja Secondary Insurance: Self Pay Intake Vital Signs 08/04/19 13:05 Current Height 5 ft 3 in Current Weight 189 lb Weight Measurement Method Standing Scale BMI 33.5 BP 128/64 Blood Pressure Location Rt brachial Position Sitting Respiration 12 Pulse 64 Pulse Strength Normal Pulse Source Pulse Oximeter Pulse Oximetry (%) 98 Oxygen Delivery Method room air Intake Visit Reasons: Hospital Discharge Follow-up Nurse Note: Hospital Discharge follow up - [facility] admit 07.24.2019 D/C 07.17.2019 - Dx Pneumonia and Bacteremia - no new meds, but is getting antibiotics with Dialysis - states she feels tired- Still has some congetion - and a cough Manager Intranet Required: No Accompanied by: Self / Same as Patient Is patient in pain?: No Allergies tramadol Allergy (Mild, Unverified 09/25/18 09:27) Nausea/Vomit/Gastric Is last menstrual period known: No Post menopausal: Yes Patient : No Fall Risk History of falls: No Ambulatory Aid:: None Gait/Transferring:: Normal Medications:: No High Risk Medications PHQ-2/9 Over the last 2 weeks, how often have you been bothered by any of the following problems? 1. Little interest or pleasure in doing things: not at all 2. Feeling down, depressed, or hopeless: not at all Total score: 0 HIV Testing Offer - ages 13-64 HIV testing Offer: Yes Requirement for HIV testing offer been met?: Not in age range Hep C Testing Offered: Yes Hep C Requirement met: Patient reports past refusal SBIRT Annual Questionnaire Are you currently in recovery for alcohol or substance use?: No How many times in the past year have you had 4 or more drinks in a day?: None How many times in the past year have you used a recreational drug or used a prescription medication for nonmedical reasons?: None Do you need a note to return Do you need a note to return to daycare/school/sports/work: No PFSH Medical History CVA (cerebral vascular accident) (Chronic) Diabetes mellitus Hyperlipemia Hypertension Kidney disease Osteoporosis Surgical History History of - surgery History of colonoscopy Family History Mother Diabetes Father No problems noted. Social History Does the Patient have a Healthcare Proxy: Yes Does Patient have a DNR?: No Does Patient have a Living Will?: No Does the Patient have a MOLST?: No Advance Directives on File or in chart?: No Hx Recent Travel (where): No Review of Systems Const Denies chills, Reports fatigue, Denies fever(s), Denies headache(s) and Denies poor appetite Eyes Denies blurry vision and Denies diplopia ENT Denies otalgia, Denies headache(s), Denies nasal congestion and Denies sore throat Card Denies chest pain, Denies palpitations, Reports dyspnea on exertion, Reports orthopnea and Denies paroxysmal nocturnal dyspnea Resp Reports cough, Denies excessive phlegm production, Denies pain on inspiration, Reports dyspnea on exertion and Denies wheezing GI Denies nausea and Denies vomiting Neuro Denies headache(s) Endo Reports fatigue and Denies palpitations Aller/Immun Denies wheezing Exam Const General: cooperative and no acute distress Nutritional Appearance: average body habitus Orientation: alert, awake and oriented x3 HENMT Ears: TM's normal bilaterally General nose exam: no nasal discharge Eyes Conjunctivae: conjunctivae normal Pupils: PERRL Neck Carotids: normal carotid upstroke Lymphatic: no lymphadenopathy noted Resp Effort Inspection: normal respiratory effort Auscultation: no rales, no rhonchi and no wheezes Cardio Rate: regular rate Rhythm: regular rhythm GI Palpation: soft and nontender Extrem General: no clubbing, cyanosis or edema Assessment Plan Assessment Plan (1) Hospital discharge follow-up: Code(s): Z09 - Encounter for follow-up examination after completed treatme nt for conditions other than malignant neoplasm (2) Pneumonia: Code(s): J18.9 - Pneumonia, unspecified organism Qualifiers: Pneumonia type: due to unspecified organism Laterality: bilateral Lung location: unspecified part of lung Qualified Code(s): J18.9 - Pneumonia, unspecified organism Plan - Grisel Christianson M.D.: reviewed records, x rays, labs, doing better, still receiving antibiotic, discussed fluid status, difficulty laying down at night, ? cardiac vs pulmonary, cardiac refrral recommended , had echo in hospital, see 2 weeks Orders Other Medications: Refilled: glipizide 5 mg PO BID 90 days 180 tabs 3RF Follow Up: 2 Weeks Electronically Signed By: <Electronically signed by Grisel Christianson MD> Date/Time Signed: 08/05/19727 Name Value Range Interpretation Code Description Data Marla rce(s) Supporting Document(s) ID Date Data Source [id number] 07/22/2019 03:07:00 PM [facility] [address] [place] [address] [phone] NAME SEX PT STATUS ACCOUNT NUMBER Valerio Marsh REG REF [id number] ORDERING PHYSICIAN LOCATION MEDICAL RECORD NO. Josed Alysia Garvey M.D. [facility] [id number] ATTENDING PHYSICIAN DATE OF DATE OF EXAM/TIME Grisel Christianson MD 1945 07/22/191499 TYPE / EXAM Xray Chest 2 view [...] degenerative changes are seen at the right shoulderjoint. IMPRESSION: 1. Platelike atelectasis towards left lung base. Stable elevation of the right hemidiaphragm. Smalleffusion seen on the right. 2. No focal pulmonary consolidation. However, pulmonary vascular congestion. 3. Cardiomegaly . Reported By Lc Solorzano MD on 07/22/19 1507 Signed By Lc Solorzano MD on 07/22/19 1510 Date Time CC: Lc Solorzano MD; Grisel Christianson MD Techn: [facility] Trans Dt/Tm: Trans by: DT Prt Dt/Tm: [id number]: Total DLP = 0.00 mGy-cm Fluoroscopy Time (in secs): Name Value Range Interpretation Code Description Data Marla rce(s) Supporting Document(s) ID Date Data Source [id number] 07/21/2019 07:18:00 AM [facility] PATH SPEC #:: [id number] Name Value Range Interpretation Code Description Data Marla rce(s) Supporting Document(s) Pathology studies (set) See scanned report [facility] ID Date Data Source [id number] 07/14/2019 07:37:00 AM [facility] Patient Name: VALERIO MARSH : 1945 Sex: F Pt Unit #: [id number] Location:[facility] Provider: Visit Date/Time: 07/14/19 Primary Insurance: Hooja Secondary Insurance: Self Pay Intake Vital Signs 07/14/19 07:39 Current Height 5 ft 3 in Current Weight 185 lb Weight Measurement Method Stated by Patient BMI 32.8 BP 186/34 Blood Pressure Location Lt brachial Position Sitting Pulse 74 Pulse Strength Normal Pulse Source Pulse Oximeter Pulse Oximetry (%) 9 L Oxygen Delivery Method room air Intake Visit Reasons: Lesion assessment Accompanied by: Self / Same as Patient Allergies tramadol Allergy (Mild, Unverified 09/25/18 09:27) Nausea/Vomit/Gastric Medications Accu-Chek Evelyn Plus test strp (blood sugar diagnostic) Dx E11.9 - use to test BS BID and PRN NS albuterol sulfate 90 mcg/actuation (Proventil HFA) 1 puff INH PRN PRN aspirin (Aspirin Low-Strength) 81 mg PO DAILY atenolol 100 mg PO HS atenolol 1 tab PO DAILY atorvastatin 40 mg PO HS 90 days blood sugar diagnostic (Blood Glucose Test) use one strip to test glucose three times a day Comfort EZ Pen Stanton (pen needle, diabetic) USE ONE PER DAY WITH INSULIN PEN NS esomeprazole magnesium 1 tab PO DAILY glipizide 5 mg PO BID 90 days hydralazine 50 mg (2 x 25 mg) PO TID 30 days insulin glargine (Lantus Solostar U-100 Insulin) 10 units (0.1 mL) subcut QDAY nifedipine ER 90 mg PO QDAY 90 days omega-3 fatty acids-fish oil 684-1,200 mg (One-Per-Day Nisswa-3) 3 ea PO BID sitagliptin (Januvia) 25 mg PO HS 90 days HIV Testing Offer - ages 13-64 Requirement for HIV testing offer been met?: Not in age range PFSH - Derm Medical History (Updated 07/14/19 @ 07:53 by Shantel Ramos NP) CVA (cerebral vascular accident) (Chronic) Diabetes mellitus Hyperlipemia Hypertension Kidney disease Osteoporosis Surgical History (Updated 12/08/18 @ 11:58 by excentos RI) History of - surgery History of colonoscopy Family History Mother Diabetes Father No problems noted. Social Hx Alcohol Use No Social History Does the Patient have a Healthcare Proxy: Yes Does Patient have a DNR?: No Does Patient have a Living Will?: No Does the Patient have a MOLST?: No Advance Directives on File or in chart?: No Hx Recent Travel (where): No Pertinent Past History Pertinent Past History Previous skin cancer: none Family history of nonmelanoma skin cancer: Yes (Sister) Family history with melanoma: No Pertinent Social History: sunscreen use Dermatology HPI History of Present Illness Details:: New patient presents to the clinic for a spot on her nose and a spot on the top of her head. The spot on her scalp has been present for many years. It is asymptomatic. Current Symptoms Chief Complaint:: Lesion Location: face (Left Nose) Duration: years Symptoms: other (Irritated by her glasses) Current treatment: none Skin care goals for today' visit: None per patient Contacts/family history of similar?: No Dermatology ROS Constituitional Reports system reviewed and no additional complaints, except as documented Psych Reports system reviewed and no additional complaints, except as documented Dermatology Exam Constitutional General appearance: comfortable Orientation Orientation: alert and oriented x 3 Skin Skin exam performed including: hair, scalp, face and nose Face and Body: 1. 0.9cm pearly/pink shiny papule_NEOPLASM 2. 0.7 cm cutaneous horn with pink base_NEOPLASM Psych Appearance: grossly normal Mental Status: mental status grossly normal Speech and Movement: speech and movement normal Mood: congruent mood Affect: normal affect Attitude: cooperative Thought Process: normal Thought Content: normal Insight: insight good Judgment: judgment good Office Procedures Shave Biopsy Details: Shave Biopsy Performed x 2. DDX: BCC, SCC/SK Site: Left inner canthus, vertex scalp Size: 0.9 cm, 0.7 cm Consent: Verbal and Written consent obtained. Treatment options, risks, benefits, and side effects reviewed (including but not limited to: scar, infection, pain, need for repeat treatment). "Time-Out" protocol followed. Clinical photograph obtained. Anesthesia: 2% Lidocaine with epinephrine Procedure: half blade deep tangenti al excision, hemostasis obtained using aluminum chloride and electrocautery, bacitracin and band-aid applied. Specimen sent to pathology. Wound care instructions given. Patient will be contacted in one week with pathology results. Procedure performed by: Shantel Ramos Patient tolerated procedure: well Complications: No Assessment Plan Assessment Plan (1) Neoplasm of uncertain behavior: Status: Acute Code(s): D48.9 - Neoplasm of uncertain behavior, unspecified SNOMED Code(s): 696482362 Category: Medical Plan - Shantel Ramos LABORATORY IMMUNOLOGIST: Left inner canthus and vertex scalp Orders Follow Up: FSE Electronically Signed By: <Electronically signed by Shantel Ramos NP> Date/Time Signed: 07/14/19 0809 Name Value Range Interpretation Code Description Data Marla rce(s) Supporting Document(s) Procedure Social History Code Duration Value Status Description Data Source(s ) 06/16/2020 08:44:16 AM EST No completed No [facility] 06/16/2020 08:44:16 AM EST No completed No [facility] 06/16/2020 08:44:16 AM EST Never smoker completed Never s favian [facility] Smoking 06/16/2020 08:44:00 AM EST Never smoker completed Never s [facility] 03/21/2020 02:45:26 PM EDT No completed [facility] 03/21/2020 02:45:26 PM EDT No completed No [facility] 03/21/2020 02:45:26 PM EDT Never smoker completed Never s [facility] 03/21/2020 02:45:26 PM EDT No completed No [facility] 03/21/2020 02:45:26 PM EDT No completed No [facility] 03/21/2020 02:45:26 PM EDT Never smoker completed Never s [facility] Smoking 03/21/2020 02:45:00 PM EDT Never smoker completed Never s [facility] Smoking 03/21/2020 02:45:00 PM EDT Never smoker completed Never s [facility] 03/16/2020 12:41:46 PM EDT No completed [facility] 03/16/2020 12:41:46 PM EDT No completed [facility] 03/16/2020 12:41:46 PM EDT Never smoker completed Never s [facility] Smoking 03/16/2020 12:41:00 PM EDT Never smoker completed Never s [facility] Smoking 02/03/2020 12:00:00 AM EDT Patient has never smoked co mpleted Patient has never smoked [facility] ([facility]) 11/19/2019 11:35:00 AM EDT No completed [facility] 11/19/2019 11:35:00 AM EDT No completed [facility] 11/19/2019 11:35:00 AM EDT No completed No [facility] 11/19/2019 11:35:00 AM EDT No completed No [facility] 11/19/2019 11:35:00 AM EDT No completed [facility] 11/19/2019 11:35:00 AM EDT No completed [facility] 11/19/2019 11:35:00 AM EDT No completed [facility] 08/19/2019 04:40:17 PM EST Never smoker completed Never s [facility] 08/19/2019 04:40:17 PM EST Never smoker completed Never s [facility] 08/19/2019 04:40:17 PM EST No completed No [facility] 08/19/2019 04:40:17 PM EST No completed No [facility] Smoking 08/19/2019 04:40:00 PM EST Never smoker completed Never s [facility] Smoking 08/19/2019 03:40:00 PM EST Never smoker completed Never s [facility] Vital Signs ID Date Data Source UNK Name Value Range Interpretation Code Description Data Source(s) Body mass index (BMI) [Ratio] 31.6 kg/m2 31.6 k g/m2 [facility]) Body weight 184.00 [lb_av] 184.00 [lb_av] [facility] T ([facility]) Body height 64 [in_i] 64 [in_i] [facility] 5'4" Heart rate 70 /min 70 /min [facility] Diastolic blood pressure 80 mm[Hg] 80 mm[Hg] [facility]) Systolic blood pressure 102 mm[Hg] 102 mm[Hg] [facility] ([facility]) Body temperature 98.4 [degF] 98.4 [degF] [facility]) Body mass index (BMI) [Ratio] 31.8 kg/m2 31.8 k g/m2 [facility]) Body weight 185.00 [lb_av] 185.00 [lb_av] [facility] T ([facility]) Body height 64 [in_i] 64 [in_i] [facility] 5'4" Diastolic blood pressure 48 mm[Hg] 48 mm[Hg] [facility]) Systolic blood pressure 127 mm[Hg] 127 mm[Hg] [facility] ([facility]) Body mass index (BMI) [Ratio] 31.1 kg/m2 31.1 k g/m2 [facility]) Body weight 181.00 [lb_av] 181.00 [lb_av] [facility] T ([facility]) Body height 64 [in_i] 64 [in_i] [facility] 5'4" Heart rate 69 /min 69 /min [facility] Diastolic blood pressure 40 mm[Hg] 40 mm[Hg] [facility]) Systolic blood pressure 170 mm[Hg] 170 mm[Hg] M [facility]) ID Date Data Source [id number] 08/02/2020 05:46:00 PM [facility] Name Value Range Interpretation Code Description Data Source(s) TRANSFER FROM [facility] ID Date Data Source [id number] 04/20/2020 01:31:03 AM [facility] Name Value Range Interpretation Code Description Data Source(s) TRANSFER FROM [facility]
[2020-08-03] MEDS ORDERED: HYDR25TA PO (00:07)
[2020-08-03] MEDS ORDERED: ATEN100T PO (00:07)
[2020-08-03] MEDS ORDERED: ALBUTEROL 90 MCG/ACT 8GM HFA INHALER INH PRN (00:30)
[2020-08-03] MEDS ORDERED: DEXTROSE 50% 50 ML SYRINGE IV PRN (00:30)
[2020-08-03] MEDS ORDERED: GLUCOSE 4GM CHEW TABLET PO PRN (00:30)
[2020-08-03] MEDS ORDERED: GLUCAGON INJ 1MG VIAL SC PRN (00:30)
--- NOTE | 2020-08-03 00:35 | HPEPDOC ---
General Date of Admission Aug 02, 2020 at 23:29 Date of Service: Aug 02, 2020 Chief Complaint The patient is a 75-year-old female admitted with a reason for visit of Hypertensive Urgency. Source: Patient History of Present Illness Mrs. Marsh is a 75 year old female with ESRD on dialysis MWF and history of CVA who was transferred here from [facility] for hypertensive urgency and TIA like symptoms. Today she was in good health and dialysis went well, but right after dialysis she developed severe headache, nausea, and vomited x2. She could not remember her cotton program technician's name. She was taken to [facility] ER. While there, they urgently obtained a CT head without contrast. No acute hemorrhage, only demonstrated chronic lacunar infarction of right thalamus and chronic lacunar infarction of the left elizabeth. There was also mild diffuse cerebral atrophy and chronic white matter microvascular disease. They measured her blood pressure which was 255/118 despite having dialysis that day. They were only able to control blood pressure with a nicardipine drip. Patient reports that the drip did help her headache. They called for transfer as they cannot do dialysis at [facility]. We did not have a PCU bed available and we recommended that they try to use oral medication to control BP before transferring. They gave Nifedipine XL 60mg which did help control BP. SBP between 140s to 160. Patient was transferred here. When she arrive here, her blood pressure was well controlled. She was feeling better but headache was still present. She said the headache was so severe earlier in the day that it impaired her function. She had trouble remembering her cotton program technician's name, but now remembers. Patient will be placed in observation for hypertensive urgency and TIA Home Medications Scheduled Aspirin (Aspirin EC) 81 Mg Tabec, 81 MG PO QHS, (Reported) Atenolol (Atenolol) 100 Mg Tablet, 100 MG PO QHS, (Reported) Atorvastatin Calcium (Atorvastatin Calcium) 40 Mg Tab, 40 MG PO QHS, (Reported) Cholecalciferol (Vitamin D3) (Vitamin D3) 1,000 Unit Tablet, 1,000 UNITS PO QHS, (Reported) Esomeprazole Magnesium (Nexium) 20 Mg Cap, 20 MG PO DAILY, (Reported) Folic Acid/Vit B Complex and C (Gisel-Soraida Tablet) 1 Tab Tab, 1 TAB PO QHS, (Reported) Glipizide (Glipizide) 5 Mg Tab, 5 MG PO BID, (Reported) Hydralazine HCl (Hydralazine HCl) 25 Mg Tablet, 50 MG PO TID, (Reported) ONLY ON DIALYSIS DAYS MON,WED,FRI Insulin Glargine,Hum.rec.anlog (Lantus Solostar) 100 Unit/1 Ml Insuln.pen, 10 UNIT SC DAILY, (Reported) Nifedipine (Procardia Xl) 90 Mg Tab, 90 MG PO 4XWK, (Reported) ONLY TAKES ON NON-DIALYSIS DAYS ,,FRI,SUN Sevelamer Carbonate (Sevelamer Carbonate) 800 Mg Tablet, 800 MG PO TID, (Reported) WITH MEALS Scheduled PRN Albuterol Sulfate (Proair Hfa) 108 Mcg/Act Aer, 2 PUFFS INH Q4H PRN for SHORTNESS OF BREATH, (Reported) Allergies Coded Allergies: tramadol (Verified Adverse Reaction, Mild, VOMITING, 09/15/18) Past Medical History Medical History 1. ESRD on dialysis MWF 2. CVA with residual left sided weakness 3. Diabetes mellitus 4. Hyperlipidemia 5. Hypertension 6. Obesity 7. Diastolic CHF 8. Severe pulmonary hypertension 9. Alexander davies respirations with nocturnal hypoxia Surgical History 1. Right foot hammer toe 2. Left lumpectomy Family History Father: Diabetes Mellitus Mother: Diabetes Mellitus and Congestive Heart Failure Social History * Smoker: Denies Alcohol: Denies Drugs: denies A-FIB/CHADSVASC A-FIB History Current/History of A-Fib/PAF?: No Review of Systems Constitutional: Denies: Chills, Fever Eyes: Denies: Vision change ENT: Reports: Head Aches Skin: Denies: Rash Pulmonary: Denies: Dyspnea Cardiovascular: Denies: Chest Pain Gastrointestinal: Reports: Nausea, Vomiting; Denies: Abdominal Pain Genitourinary: Reports: Other Symptoms (can make urine per patient report); Denies: Dysuria Hematologic: Denies: Bruising Musculoskeletal: Reports: Leg Pain (cramping in foot and calf) Neurological: Reports: Other Symptoms (Neuropathy in legs) Psych: Reports: Memory Issues (now resolved) Physical Examination General Exam: Positive: Alert, Cooperative Eye Exam: Positive: EOMI; Negative: Sclera icteric ENT Exam: Positive: Atraumatic Neck Exam: Positive: Supple Chest Exam: Positive: Clear to auscultation; Negative: Rales, Rhonchi, Wheezing Heart Exam: Positive: Rate Normal, Regular Rhythm Abdomen Exam: Positive: Normal bowel sounds, Soft; Negative: Tenderness Extremity Exam: Negative: Edema Neuro Exam: Positive: Normal Speech Psych Exam: Positive: Mental status NL, Mood NL Vital Signs Vital Signs Date Time Temp Pulse Resp B/P (MAP) Pulse Ox O2 Delivery O2 Flow Rate FiO2 08/02/20 23:26 97.8 75 16 106/51 (69) 97 Room Air Assessment/Plan Mrs. Marsh is a 75 year old female with ESRD on dialysis MWF and history of CVA who was transferred here from [facility] for hypertensive urgency and TIA like symptoms. Blood pressure is now under control. Will start the TIA work up. Will recommend that in the day time to coordinate with nephrology on contrast study for either the CT angio of head or MRA of head. Will order echo with bubble study and US carotids. Plan / VTE VTE Prophylaxis Ordered?: Yes Plan Plan 1. Hypertensive urgency -May be related to headache and vomiting -Blood pressure under control. Continue with antihypertensives -Atenolol, hydralazine, and nifedipine 2. TIA -Ordered for echocardiogram with bubble and US carotid -May need to coordinate with nephrology for contrast study (CT angio head vs MRA head) -Continue aspirin and atorvastatin. Added on Plavix 3. ESRD on dialysis MWF -Electrolytes within normal limits -Continue with regularly scheduled dialysis -Renal diet -Continue sevelamer carbonate 4. Diabetes mellitus -Hold glipizide -Continue Lantus -Add on sliding scale insulin 5. GERD -Continue esomeprazole 6. Hyperlipidemia -Continue atorvastatin 7. DVT ppx -SED and GUADALUPE Alatorre DO Aug 03, 2020 00:35
[2020-08-03] MEDS ORDERED: CALCIUM CARBONATE 500 MG CHEW U/D PO ONE (02:15)
[2020-08-03 06:00] VITALS: BP 121/55
[2020-08-03 06:00] LABS: HEMOGLOBIN 11.7 g/dl (12.0-15.5); MEAN CORPUSCULAR HEMOGLOBIN 32.4 pg (27.0-33.0); MEAN CORPUSCULAR HGB CONC 31.6 g/dl (32.0-36.5); MEAN CORPUSCULAR VOLUME 102.5 fl (80.0-96.0); PLATELET COUNT, AUTOMATED 207 10^3/uL (150-450); RED BLOOD COUNT 3.61 10^6/uL (4.00-5.40); WHITE BLOOD COUNT 8.1 10^3/uL (4.0-10.0)
[2020-08-03 06:24] LABS: CALCIUM LEVEL 8.9 MG/DL (8.8-10.2); CHOLESTEROL RISK RATIO 2.706 (<5); CREATININE FOR GFR 4.51 MG/DL (0.55-1.30); GLOMERULAR FILTRATION RATE 10.1 (>39); POTASSIUM SERUM 4.9 MEQ/L (3.5-5.1)
[2020-08-03 06:41] LABS: HEMOGLOBIN A1c 7.8 %
[2020-08-03] MEDS ORDERED: HumaLOG INSULIN (NovoLOG) PER UNIT SC SCH (07:30)
[2020-08-03] MEDS ORDERED: glipiZIDE (GLUCOTROL) 5 MG TAB PO SCH (07:30)
[2020-08-03] MEDS ORDERED: (RENVELA) SEVELAMER **CARBONate** 800 MG TAB PO SCH (08:00)
[2020-08-03] MEDS ORDERED: ACETAMINOPHEN TAB 650MG DOSE (2X325MG) PO PRN (08:30)
--- NOTE | 2020-08-03 08:49 | REP ---
INDICATION: TIA COMPARISON: None. TECHNIQUE: Real-time ultrasound evaluation and duplex Doppler interrogation of the extracranial carotid vasculature is performed. FINDINGS: Antegrade flow is observed in both vertebral arteries. Right carotid: The right common carotid artery shows diffuse intimal thickening but is otherwise unremarkable. There minimal soft plaquing in the right carotid bulb and proximal ICA on two-dimensional scanning. Color flow and spectral Doppler interrogation are unremarkable on the right. Incidental note is made of a 1.8 cm cyst in the right side of the thyroid gland. Velocity chart right carotid: Right CCA PSV: 126 cm/S Right ICA PSV: 67 cm/S Right ICA EDV: 8.0 cm/S Right ECA PSV: 108 cm/S Right ICA/CCA ratio: 0.53 Left carotid: The left common carotid artery shows diffuse intimal thickening but is otherwise unremarkable. There is minimal soft plaquing in the left carotid bulb and proximal ICA on two-dimensional scanning. Color flow and spectral Doppler interrogation are unremarkable on the left. Velocity chart left carotid: Left CCA PSV: 88 cm/S Left ICA PSV: 64 cm/S Left ICA EDV: 8 cm/S Left ECA PSV: 190 cm/S Left ICA/CCA ratio: 0.7 IMPRESSION: Less than 50% category narrowing in the right internal carotid artery by Doppler velocity criteria. 1.8 cm cyst right lobe of thyroid gland. Less than 50% category narrowing in the left ICA by Doppler velocity criteria. Stenotic flow velocities are observed in the external carotid artery on the left side. <Electronically signed by João Carranza > 08/03/20 0825
[2020-08-03 08:59] VITALS: BP 140/52
[2020-08-03] MEDS ORDERED: NIFEdipine 30 MG XL TAB PO SCH (09:00)
[2020-08-03] MEDS ORDERED: CLOPIDOGREL 75 MG TAB PO SCH (09:00)
[2020-08-03] MEDS ORDERED: PANTOPRAZOLE 20 MG TAB PO SCH (09:00)
[2020-08-03] MEDS ORDERED: LEVEMIR (INSULIN DETEMIR) 1 UNITS/0.01ML SC SCH (09:00)
--- NOTE | 2020-08-03 13:25 | DS.PDOC ---
Discharge Summary General Date of Admission Aug 02, 2020 at 23:29 Date of Discharge 08/03/20 Attending Physician: KAREEN LOGAN MD Discharge Summary PROCEDURES PERFORMED DURING STAY: None. ADMITTING DIAGNOSES: 1. Hypertensive urgency. DISCHARGE DIAGNOSES: 1. Hypertensive urgency. COMPLICATIONS/CHIEF COMPLAINT: Hypertensive Urgency. HISTORY OF PRESENT ILLNESS: 75-year-old female with past medical history of end- stage renal disease on hemodialysis, CVA with residual left-sided weakness, diabetes mellitus and hypertension was admitted for hypertensive urgency. She underwent hemodialysis yesterday, near the end of her session, she developed severe headache and her blood pressure was significantly elevated at the time. Upon arrival to our hospital, her blood pressure had normalized into the low 100s and headache started to improve. She was admitted for evaluation and a ssessment for possible cerebrovascular event. She reports recent episode of diarrhea and removal of 2.7 L during dialysis yesterday. She has no new neurological deficits, has residual mild left-sided weakness from prior strokes. CT head was negative for any acute event. She also underwent carotid ultrasound and an echocardiogram to assess for possible cerebrovascular event. She is currently asymptomatic and her at her baseline health, blood pressure has remained within normal limits throughout her admission. It is unlikely that she had a new neurological event. Based on her presentation. It appears that her blood pressure was reflexive to the headache and normalize once the headache was resolved. Nephrology was consulted, patient has no indication for hemodialysis today, will be discharged and follow-up with hemodialysis unit tomorrow for further dialysis. Patient is clinically and hemodynamically recent for discharge and outpatient follow-up with PCP and nephrology. Patient is agreeable with this plan.. HOSPITAL COURSE: As above. DISCHARGE MEDICATIONS: Please see below. ALLERGIES: Please see below. PHYSICAL EXAMINATION: VITAL SIGNS: Please see below. GENERAL: No distress HEENT: Normocephalic, atraumatic, moist mucous membranes NECK: Supple CARDIOVASCULAR EXAMINATION: S1, S2, no murmurs RESPIRATORY EXAMINATION: Scattered rhonchi, no wheezing ABDOMINAL EXAMINATION: Soft, nontender, nondistended, positive bowel sounds EXTREMITIES: Range of motion intact SKIN: No rash NEUROLOGICAL EXAMINATION: Alert and oriented 3, residual left-sided weakness from prior strokes PSYCHIATRIC EXAMINATION: Calm and cooperative LABORATORY DATA: Please see below. IMAGING: CT head negative for acute pathology, old strokes noted PROGNOSIS: Fair ACTIVITY: As tolerated. DIET: Renal DISCHARGE PLAN: Follow-up with PCP and nephrology post discharge DISPOSITION: Home. DISCHARGE INSTRUCTIONS: 1. As above. DISCHARGE CONDITION: Stable. TIME SPENT ON DISCHARGE: Greater than 15 minutes. Vital Signs/I&Os Vital Signs Date Time Temp Pulse Resp B/P (MAP) Pulse Ox O2 Delivery O2 Flow Rate FiO2 08/03/20 08:59 140/52 08/03/20 06:00 97.8 73 16 95 Room Air I&O- Last 24 Hours up to 6 AM 08/03/20 05:59 Intake Total 60 ml Output Total 30 ml Balance 30 ml Laboratory Data Labs 24H Laboratory Tests 2 08/03/20 05:39: Nucleated Red Blood Cells % (auto) 0.0, Anion Gap 9, Glomerular Filtration Rate 10.1L, Estimated Mean Plasma Glucose 177H, Hemoglobin A1c 7.8, Calcium Level 8.9, Triglycerides Level 145, Total Cholesterol 157, LDL Cholesterol 70, Non-HDL Cholesterol (LDL + VLDL) 99, Total HDL Cholesterol 58, Cholesterol/HDL Ratio 2.706 08/03/20 11:32: Bedside Glucose (Misc Panel) 160H CBC/BMP Laboratory Tests 08/03/20 05:39 FSBS Laboratory Tests Test 08/03/20 11:32 Range/Units Bedside Glucose (Misc Panel) 160 83-110 MG/DL Discharge Medications Scheduled Aspirin (Aspirin EC) 81 Mg Tabec, 81 MG PO QHS, (Reported) Atenolol (Atenolol) 100 Mg Tablet, 100 MG PO QHS, (Reported) Atorvastatin Calcium (Atorvastatin Calcium) 40 Mg Tab, 40 MG PO QHS, (Reported) Cholecalciferol (Vitamin D3) (Vitamin D3) 1,000 Unit Tablet, 1,000 UNITS PO QHS, (Reported) Esomeprazole Magnesium (Nexium) 20 Mg Cap, 20 MG PO DAILY, (Reported) Folic Acid/Vit B Complex and C (Gisel-Soraida Tablet) 1 Tab Tab, 1 TAB PO QHS, (Reported) Glipizide (Glipizide) 5 Mg Tab, 5 MG PO BID, (Reported) Hydralazine HCl (Hydralazine HCl) 25 Mg Tablet, 50 MG PO TID, (Reported) ONLY ON DIALYSIS DAYS MON,WED,FRI Insulin Glargine,Hum.rec.anlog (Lantus Solostar) 100 Unit/1 Ml Insuln.pen, 10 UNIT SC DAILY, (Reported) Nifedipine (Procardia Xl) 90 Mg Tab, 90 MG PO 4XWK, (Reported) ONLY TAKES ON NON-DIALYSIS DAYS GRAY,JAIDEN,SAT,SUN Sevelamer Carbonate (Sevelamer Carbonate) 800 Mg Tablet, 800 MG PO TID, (Reported) WITH MEALS Scheduled PRN Albuterol Sulfate (Proair Hfa) 108 Mcg/Act Aer, 2 PUFFS INH Q4H PRN for SHORTNESS OF BREATH, (Reported) Allergies Coded Allergies: tramadol (Verified Adverse Reaction, Mild, VOMITING, 09/15/18) KAREEN LOGAN MD Aug 03, 2020 13:25
[2020-08-03 14:00] VITALS: BP 142/55
[2020-08-04] MEDS ORDERED: **hydrALAZINE** 50 MG TAB PO SCH (09:00)
--- NOTE | 2020-08-04 13:52 | CR ---
NEPHROLOGY CONSULTATION DATE: 08/03/20 REQUESTING CLINICIAN: Yomi Yoder DO. REASON FOR CONSULTATION: To assist in the management of hypertensive urgency and end-stage renal disease. HISTORY OF PRESENT ILLNESS: Ms. Marsh is a 75-year-old female with known history of long standing hypertension, end-stage renal disease requiring maintenance hemodialysis and prior history of stroke. She is regularly dialyzed on Friday, Friday and Friday schedule at [facility] where she had dialysis on the day of admission. At the end of dialysis her blood pressure went above 200 and she had a severe headache with altered mentation due to which she was sent to the Emergency Room via ambulance. In the Emergency Room a CT scan of the head was done which showed old strokes, but no new hemorrhage or stroke. She was transferred to [facility] due to need for dialysis and further work-up. She was admitted and would be due for dialysis again on August 04. Patient is seen in the morning on the 03 of August. PAST MEDICAL HISTORY: Significant for: 1. Long standing hypertension. 2. Diabetes. 3. History of prior stroke about 30 years ago with minimal left sided weakness. 4. Hyperlipidemia. 5. History of diastolic congestive heart failure. 6. Pulmonary hypertension. 7. History of end-stage renal disease. 8. Anemia of end-stage renal disease. 9. Secondary hyperparathyroidism. PAST SURGICAL HISTORY: Significant for: 1. Right foot hammer toe surgery. 2. Left breast lumpectomy. 3. AV fistula in her left arm. MEDICATIONS: Home medications include: 1. Aspirin 81 mg daily. 2. Atenolol 100 mg daily. 3. Atorvastatin 40 mg daily. 4. Vitamin D 1000 units daily. 5. Nexium 20 mg daily. 6. Multivitamin 1 tablet daily. 7. Glipizide 5 mg twice a day. 8. Hydralazine 25 mg, 2 tablets three times a day. 9. Lantus insulin 10 units daily. 10. Nifedipine XL 90 mg daily. 11. Renvela 800 mg three times a day. ALLERGIES: TRAMADOL PERSONAL AND SOCIAL HISTORY: Patient lives at home and denies any alcohol, tobacco or drug use. FAMILY HISTORY: Significant for diabetes in her parents who are both . REVIEW OF SYSTEMS: Patient is sitting in the chair at the time of my visit. She denies any fever or chills. She has no history of recent fall. She reports severe and sudden headache at the end of dialysis. She was unable to recall the name of her dialysis staff and also felt somewhat altered. Nose and throat: Unremarkable. Cardiovascular system: Significant for diastolic congestive heart failure and hypertension. Respiratory system: Negative for cough or hemoptysis. GI system: Negative for vomiting or diarrhea. system: Negative for dysuria or hematuria. Hematological system: Significant for anemia of chronic kidney disease. She is not on superintendent terminal anticoagulation. Psychosocial system: Negative for depression and anxiety. Neurological system: Significant for prior stroke 30 years ago with some left sided weakness. Endocrine system: Significant for secondary hyperparathyroidism in addition to diabetes. Skin: Negative for rash or ulcers. PHYSICAL EXAMINATION: Patient is awake and alert at the time of my visit. She is sitting in the chair. Temperature 97.8 degrees Fahrenheit, heart rate 68 per minute and respiratory rate 16 per minute. Blood pressure 140/52 mmHg and oxygen saturation 95% on room air. Head: Atraumatic. Neck: Supple and without JVD or thyroid enlargement. Heart: Sounds are regular. Lungs: Clear to auscultation. Abdomen: Soft and nontender and bowel sounds are normal. Extremities: Without any cyanosis or clubbing. AV fistula is patent. Neurologically: She has chronic left sided weakness which is unchanged. Skin: No rash or ulcers. LABORATORY DATA: WBC count 8.1, hemoglobin 11.7 and hematocrit 37. Sodium 135, potassium 4.9, CO2 32, BUN 26, creatinine 4.51, glucose 177 and calcium 8.9. IMAGING STUDIES: She had a carotid ultrasound done to complete the work-up and it showed less than 50% left internal carotid disease. There was less than 50% on the right side also. CT scan of head was done in [facility] prior to transfer and it showed only old stroke without any new hemorrhage or stroke. PROBLEMS AND PLAN: 1. End-stage renal disease: Patient completed her dialysis treatment prior to transfer to . She will be due for dialysis on August 04 and we will schedule her dialysis for August 04 if she is still here in the hospital. 2. Hypertension: Blood pressure seems well controlled on current anti-hypertensive medications. I would recommend to continue her chronic anti-hypertensive meds. We will monitor her blood pressure during dialysis and see how she does. If needed we will make some adjustments. 3. Severe headache and left sided weakness: Patient feels that her left sided weakness is unchanged from prior stroke. It does not look like she has a new stroke. It is possible that she had encephalopathy due to severe hypertension which has already improved. 4. Anemia: Her anemia is mild and stable and related to end-stage renal disease. No urgent intervention is needed. Thank you for involving me in the care of Ms. Marsh. The nephrology service will follow her along with you.
--- NOTE | 2020-08-07 08:18 | ECHO ---
DATE OF PROCEDURE: 08/03/2020 Age: 75 Gender: Female REFERRING PROVIDER: Dr. Yoder PATIENT LOCATION: [place] [id number] REASON FOR THE STUDY: Transient ischemic attack (TIA) MEASUREMENTS: IVS 1.2 cm LV 4.0 cm LVPW 1.2 cm LA 4.5 cm Aorta 3.1 cm IVC 1.6 cm RV 3.3 cm DOPPLER MEASUREMENTS: Peak velocity across the aortic valve 1.5 m/s Peak velocity across the LVOT 0.8 m/s Peak gradient across the aortic valve 9 mmHg Mean gradient across the aortic valve 4 mmHg Mitral E 1.0, mitral A 1.2 with a ratio of 0.9 Maximum tricuspid valve velocity 2.5 m/s 2D COMMENTS: 1. Normal left ventricular size, wall thickness and normal global left ventricular systolic pressure. Estimated left ventricular systolic ejection fraction is 60 to 65%. 2. Mildly dilated left atrium. Normal right atrium and ventricle. 3. The atrial septum appears to be normal without evidence of defect or shunt. 4. Normal aortic root. 5. Trace to small pericardial effusion noted. No evidence of cardiac tamponade. 6. Mildly calcified aortic valve with normal leaflet excursion. Mildly calcified mitral annulus with normal leaflet excursion. Mildly calcified mitral annulus with normal anterior mitral valve leaflet motion. Normal tricuspid valve and pulmonic valve. The proximal pulmonary artery branches were not well visualized. 7. The inferior vena cava was normal in size. Central venous pressure is most likely normal. DOPPLER: It detects mild to moderate mitral regurgitation, trace to mild tricuspid regurgitation and mild pulmonic regurgitation. The calculated pulmonary artery systolic pressure varied between 30 to 40 mmHg. Abnormal relaxation pattern was noted across the mitral valve leaflets, as well as the mitral valve annulus consistent with features of grade left ventricular diastolic dysfunction. IMPRESSION: 1. Normal global left ventricular systolic function. There are some features of grade 1 left ventricular diastolic dysfunction manifested by abnormal relaxation. 2. Aortic valve sclerosis without stenosis or aortic regurgitation. 3. Mitral annulus calcification with mildly enlarged left atrium and mild to moderate mitral regurgitation. 4. Trace to mild tricuspid regurgitation with probably mild pulmonary hypertension 5. Mild pulmonic regurgitation. 6. A trace to small pericardial effusion was noted, no evidence of cardiac tamponade. [facility]
[2020-08-07] MEDS ORDERED: **hydrALAZINE** 50 MG TAB PO SCH (09:00)
[2020-08-09] MEDS ORDERED: **hydrALAZINE** 50 MG TAB PO SCH (09:00)
== END 2020-08-03 15:49 | disposition home or self-care (01) ==
LOC: INTOOBSV 23:29 → M MSPAV 23:29 → UNDOADMOB 23:29 → M MSPAV 23:29 → UNDODISOB 08-03 15:49
PROVIDERS: ADMIT Internal Medicine; ATTEND Internal Medicine
DX: I16.0 Hypertensive urgency (principal); N18.6 End stage renal disease; Z79.899 Other long term (current) drug therapy; E11.9 Type 2 diabetes mellitus without complications; I12.0 Hypertensive chronic kidney disease with stage 5 chronic kidney disease or end stage renal disease; E66.9 Obesity, unspecified; Z86.73 Personal history of transient ischemic attack (TIA), and cerebral infarction without residual deficits; I50.30 Unspecified diastolic (congestive) heart failure; Z79.4 Long term (current) use of insulin; Z79.82 Long term (current) use of aspirin; Z88.5 Allergy status to narcotic agent
CPT/HCPCS: 36415; 80048; 80061; 83036; 85027; 93306; 93880; G0378

== ENCOUNTER 2022-04-08 18:24 | Inpatient (IN) | payer MEDICARE ==
[~2022-04-08] VITALS: Ht 162.6 cm; Wt 86.2 kg
[~2022-04-08 18:24] MED LIST changes: +ASPI-569 PO; -ASPI81TAEC PO; -ASPIRIN 81 MG ENTERIC TAB PO SCH; -ATORVASTATIN 20 MG TAB PO SCH; -D31000TA2 PO; +HYDR25TA PO; -HumaLOG INSULIN (NovoLOG) PER UNIT SC SCH; +LEVO1TAB38 PO; -LEVO250T12 PO; +VITA100093 PO; -VITAMIN D 1,000 INTERNATIONAL UNITS TABLET PO SCH; -atenoloL 50 MG TAB PO SCH
[2022-04-09 02:30] LABS: HEMATOCRIT 29.1 % (36.0-47.0); HEMOGLOBIN 9.8 g/dl (12.0-15.5); MEAN CORPUSCULAR HEMOGLOBIN 33.7 pg (27.0-33.0); MEAN CORPUSCULAR HGB CONC 33.7 g/dl (32.0-36.5); PLATELET COUNT, AUTOMATED 298 10^3/uL (150-450); RED BLOOD COUNT 2.91 10^6/uL (4.00-5.40)
[2022-04-09 02:52] LABS: GLOMERULAR FILTRATION RATE > 60.0 (>39)
[2022-04-09 03:04] LABS: RSV AMPLIFICATION NEGATIVE (NEGATIVE)
[2022-04-09 03:17] LABS: BLOOD UREA NITROGEN 48 MG/DL (7-18); CALCIUM LEVEL 8.9 MG/DL (8.8-10.2); CARBON DIOXIDE LEVEL 29 MEQ/L (21-32); CHLORIDE LEVEL 94 MEQ/L (98-107); CREATININE FOR GFR 5.02 MG/DL (0.55-1.30); GLUCOSE, FASTING 280 MG/DL (70-100); POTASSIUM SERUM 5.1 MEQ/L (3.5-5.1); SODIUM LEVEL 131 MEQ/L (136-145)
[2022-04-09] MEDS ORDERED: ONDANSETRON 4MG 2ML VIAL IM PRN (04:40)
[2022-04-09] MEDS ORDERED: ACETAMINOPHEN TAB 650MG DOSE (2X325MG) PO PRN (04:40)
[2022-04-09] MEDS ORDERED: GABA-1171 PO (05:59)
[2022-04-09] MEDS ORDERED: RENV2TAB PO (05:59)
[2022-04-09] MEDS ORDERED: ALBU8.5H INH (05:59)
[2022-04-09] MEDS ORDERED: NIFE1TAB51 PO (05:59)
[2022-04-09] MEDS ORDERED: LOPR1TAB7 PO (05:59)
[2022-04-09] MEDS ORDERED: HOME MED LIST COMPLETE! XX SCH (06:00)
[2022-04-09] MEDS ORDERED: **hydrALAZINE HCL** 25 MG TAB PO SCH (06:25)
[2022-04-09] MEDS: NIFEdipine 30MG XL TAB PO SCH ×2 (06:52→21:00)
[2022-04-09] MEDS: LIDOCAINE 5% (LIDODERM) PATCH TD SCH (09:00)
[2022-04-09] MEDS ORDERED: GLUCAGON INJ 1MG VIAL SC PRN (11:55)
[2022-04-09] MEDS ORDERED: DEXTROSE 50% 50 ML SYRINGE IV PRN (11:55)
[2022-04-09] MEDS ORDERED: GLUCOSE 4GM CHEW TABLET PO PRN (11:55)
[2022-04-09] MEDS: DICLOFENAC EPOLAMINE 1.3 % PATCH TOP SCH ×2 (12:05→21:50)
[2022-04-09] MEDS: DOCUSATE SODIUM 100MG CAPSULE PO SCH ×4 (12:05→21:56)
[2022-04-09] MEDS: HEPARIN SOD (PORCINE) 5000UNITS/ML 1ML VIAL/SYRINGE SC SCH ×2 (12:07→21:48)
[2022-04-09] MEDS ORDERED: METOPROLOL TART 50 MG TAB PO ONE (12:15)
[2022-04-09] MEDS: **hydrALAZINE** 50 MG TAB PO SCH ×2 (14:00→22:05)
[2022-04-09] MEDS: INSULIN LISPRO (NovoLOG) PER UNIT SC SCH ×3 (17:30→21:37)
[2022-04-09] MEDS ORDERED: METAL LOCK LOOP XX ONE (19:08)
[2022-04-09] MEDS ORDERED: LEVEMIR (INSULIN DETEMIR) 1 UNITS/0.01ML SC SCH (21:00)
[2022-04-09] MEDS: ASPIRIN 81MG ENTERIC TABLET PO SCH (21:48)
[2022-04-09] MEDS: GABAPENTIN 100 MG CAP PO SCH (21:49)
[2022-04-09] MEDS: ATORVASTATIN 20 MG TAB PO SCH (21:50)
[2022-04-09] MEDS: METOPROLOL TART 50 MG TAB PO SCH (21:50)
[2022-04-10 01:28] VITALS: BP 146/73
[2022-04-10 06:03] VITALS: BP 145/72
[2022-04-10] MEDS: METOPROLOL TART 50 MG TAB PO SCH ×2 (06:22→20:43)
[2022-04-10] MEDS: HEPARIN SOD (PORCINE) 5000UNITS/ML 1ML VIAL/SYRINGE SC SCH ×2 (06:23→20:40)
[2022-04-10] MEDS: **hydrALAZINE** 50 MG TAB PO SCH ×3 (06:23→20:39)
[2022-04-10] MEDS ORDERED: SODIUM CHLORIDE 0.9% 1000ML IV PRN (07:20)
[2022-04-10] MEDS ORDERED: LIDOCAINE 1% SDV 5ML VIAL SC PRN (07:20)
[2022-04-10 07:42] LABS: ALBUMIN 2.8 GM/DL (3.2-5.2); CALCIUM LEVEL 9.3 MG/DL (8.8-10.2); CREATININE FOR GFR 7.35 MG/DL (0.55-1.30); GLOMERULAR FILTRATION RATE 5.7 (>39); PHOSPHORUS LEVEL 4.9 MG/DL (2.5-4.9); POTASSIUM SERUM 4.6 MEQ/L (3.5-5.1)
[2022-04-10] MEDS: INSULIN LISPRO (NovoLOG) PER UNIT SC SCH ×4 (08:07→20:41)
[2022-04-10] MEDS: LIDOCAINE 5% (LIDODERM) PATCH TD SCH ×2 (08:07→20:38)
[2022-04-10 08:17] LABS: HEMOGLOBIN 10.7 g/dl (12.0-15.5); MEAN CORPUSCULAR HEMOGLOBIN 33.6 pg (27.0-33.0); MEAN CORPUSCULAR HGB CONC 33.4 g/dl (32.0-36.5); MEAN CORPUSCULAR VOLUME 100.6 fl (80.0-96.0); PLATELET COUNT, AUTOMATED 355 10^3/uL (150-450); RED BLOOD COUNT 3.18 10^6/uL (4.00-5.40); WHITE BLOOD COUNT 7.4 10^3/uL (4.0-10.0)
[2022-04-10] MEDS: DOCUSATE SODIUM 100MG CAPSULE PO SCH (09:00)
[2022-04-10] MEDS ORDERED: PREVNAR-20 VACCINE 0.5ML SYRINGE IM.IMMUN ONE (12:00)
[2022-04-10] MEDS ORDERED: ISOVUE-370 76% 100ML VIAL As Ordered ONE (13:21)
[2022-04-10 14:00] VITALS: BP 128/61
[2022-04-10] MEDS: DICLOFENAC EPOLAMINE 1.3 % PATCH TOP SCH ×2 (14:18→20:39)
[2022-04-10] MEDS: OMEPRAZOLE 20MG CAP PO SCH (18:40)
[2022-04-10 20:00] VITALS: BP 126/70
[2022-04-10] MEDS: ASPIRIN 81MG ENTERIC TABLET PO SCH (20:37)
[2022-04-10] MEDS: NIFEdipine 30MG XL TAB PO SCH (20:38)
[2022-04-10] MEDS: ATORVASTATIN 20 MG TAB PO SCH (20:38)
[2022-04-10] MEDS: LEVEMIR (INSULIN DETEMIR) 1 UNITS/0.01ML SC SCH (20:40)
[2022-04-10] MEDS: GABAPENTIN 100 MG CAP PO SCH (20:41)
[2022-04-11] MEDS: **hydrALAZINE** 50 MG TAB PO SCH ×3 (05:16→21:36)
[2022-04-11 06:00] VITALS: BP 117/73
[2022-04-11 06:31] LABS: HEMOGLOBIN 10.6 g/dl (12.0-15.5); MEAN CORPUSCULAR HEMOGLOBIN 33.9 pg (27.0-33.0); MEAN CORPUSCULAR HGB CONC 33.1 g/dl (32.0-36.5); MEAN CORPUSCULAR VOLUME 102.2 fl (80.0-96.0); PLATELET COUNT, AUTOMATED 357 10^3/uL (150-450); RED BLOOD COUNT 3.13 10^6/uL (4.00-5.40); WHITE BLOOD COUNT 8.1 10^3/uL (4.0-10.0)
[2022-04-11 07:11] LABS: ALBUMIN 2.7 GM/DL (3.2-5.2); CALCIUM LEVEL 9.1 MG/DL (8.8-10.2); CREATININE FOR GFR 5.17 MG/DL (0.55-1.30); GLOMERULAR FILTRATION RATE 8.6 (>39); PHOSPHORUS LEVEL 4.8 MG/DL (2.5-4.9); POTASSIUM SERUM 4.5 MEQ/L (3.5-5.1)
[2022-04-11 08:00] VITALS: BP 112/55
[2022-04-11] MEDS: DOCUSATE SODIUM 100MG CAPSULE PO SCH ×2 (08:24→21:33)
[2022-04-11] MEDS: INSULIN LISPRO (NovoLOG) PER UNIT SC SCH ×4 (08:24→21:00)
[2022-04-11] MEDS: OMEPRAZOLE 20MG CAP PO SCH (08:24)
[2022-04-11] MEDS: METOPROLOL TART 50 MG TAB PO SCH ×2 (08:24→21:48)
[2022-04-11] MEDS: DICLOFENAC EPOLAMINE 1.3 % PATCH TOP SCH ×2 (08:25→21:32)
[2022-04-11] MEDS: HEPARIN SOD (PORCINE) 5000UNITS/ML 1ML VIAL/SYRINGE SC SCH ×2 (08:25→21:32)
[2022-04-11 14:00] VITALS: BP 138/62
[2022-04-11 20:09] VITALS: BP 133/75
[2022-04-11] MEDS: GABAPENTIN 100 MG CAP PO SCH (21:32)
[2022-04-11] MEDS: LEVEMIR (INSULIN DETEMIR) 1 UNITS/0.01ML SC SCH (21:32)
[2022-04-11] MEDS: ASPIRIN 81MG ENTERIC TABLET PO SCH (21:32)
[2022-04-11] MEDS: ATORVASTATIN 20 MG TAB PO SCH (21:33)
[2022-04-11] MEDS: NIFEdipine 30MG XL TAB PO SCH (21:46)
[2022-04-12 06:00] VITALS: BP 129/59
[2022-04-12] MEDS: DOCUSATE SODIUM 100MG CAPSULE PO SCH ×2 (06:00→21:11)
[2022-04-12] MEDS: OMEPRAZOLE 20MG CAP PO SCH (06:00)
[2022-04-12] MEDS: HEPARIN SOD (PORCINE) 5000UNITS/ML 1ML VIAL/SYRINGE SC SCH ×2 (06:01→21:12)
[2022-04-12] MEDS: **hydrALAZINE** 50 MG TAB PO SCH ×3 (06:02→21:14)
[2022-04-12] MEDS: METOPROLOL TART 50 MG TAB PO SCH ×2 (06:02→21:14)
[2022-04-12] MEDS: LIDOCAINE 5% (LIDODERM) PATCH TD SCH (06:02)
[2022-04-12] MEDS: DICLOFENAC EPOLAMINE 1.3 % PATCH TOP SCH ×2 (06:03→21:16)
[2022-04-12 06:18] LABS: HEMATOCRIT 29.6 % (36.0-47.0); HEMOGLOBIN 9.6 g/dl (12.0-15.5); MEAN CORPUSCULAR HGB CONC 32.4 g/dl (32.0-36.5); MEAN CORPUSCULAR VOLUME 101.7 fl (80.0-96.0); PLATELET COUNT, AUTOMATED 344 10^3/uL (150-450); RED BLOOD COUNT 2.91 10^6/uL (4.00-5.40); WHITE BLOOD COUNT 7.6 10^3/uL (4.0-10.0)
[2022-04-12 06:46] LABS: ALBUMIN 2.6 GM/DL (3.2-5.2); CALCIUM LEVEL 8.5 MG/DL (8.8-10.2); CREATININE FOR GFR 6.97 MG/DL (0.55-1.30); GLOMERULAR FILTRATION RATE 6.1 (>39); PHOSPHORUS LEVEL 5.1 MG/DL (2.5-4.9); POTASSIUM SERUM 4.6 MEQ/L (3.5-5.1)
[2022-04-12] MEDS ORDERED: LIDOCAINE 1% SDV 5ML VIAL SC PRN (07:10)
[2022-04-12] MEDS ORDERED: SODIUM CHLORIDE 0.9% 1000ML IV PRN (07:30)
[2022-04-12 07:47] LABS: PERCENT SATURATION 80.4 % (13.2-45.0)
[2022-04-12] MEDS: INSULIN LISPRO (NovoLOG) PER UNIT SC SCH ×4 (08:16→20:58)
[2022-04-12] MEDS: DARBEPOETIN 100 MCG/0.5 ML *DIALYSIS* SYRINGE (J0882) IV SCH (14:57)
[2022-04-12] MEDS: ASPIRIN 81MG ENTERIC TABLET PO SCH (21:12)
[2022-04-12] MEDS: GABAPENTIN 100 MG CAP PO SCH (21:13)
[2022-04-12] MEDS: ATORVASTATIN 20 MG TAB PO SCH (21:13)
[2022-04-12] MEDS: NIFEdipine 30MG XL TAB PO SCH (21:15)
[2022-04-12] MEDS: LEVEMIR (INSULIN DETEMIR) 1 UNITS/0.01ML SC SCH (21:15)
[2022-04-13 05:52] VITALS: BP 140/75
[2022-04-13] MEDS: **hydrALAZINE** 50 MG TAB PO SCH ×3 (05:56→21:05)
[2022-04-13 06:52] LABS: HEMATOCRIT 31.8 % (36.0-47.0); HEMOGLOBIN 10.3 g/dl (12.0-15.5); MEAN CORPUSCULAR HEMOGLOBIN 33.4 pg (27.0-33.0); MEAN CORPUSCULAR HGB CONC 32.4 g/dl (32.0-36.5); MEAN CORPUSCULAR VOLUME 103.2 fl (80.0-96.0); PLATELET COUNT, AUTOMATED 348 10^3/uL (150-450); RED BLOOD COUNT 3.08 10^6/uL (4.00-5.40)
[2022-04-13 07:40] LABS: ALBUMIN 2.7 GM/DL (3.2-5.2); CALCIUM LEVEL 9.2 MG/DL (8.8-10.2); CREATININE FOR GFR 5.15 MG/DL (0.55-1.30); GLOMERULAR FILTRATION RATE 8.7 (>39); PHOSPHORUS LEVEL 3.7 MG/DL (2.5-4.9); POTASSIUM SERUM 5.1 MEQ/L (3.5-5.1)
[2022-04-13] MEDS: DICLOFENAC EPOLAMINE 1.3 % PATCH TOP SCH ×2 (08:14→21:05)
[2022-04-13] MEDS: LIDOCAINE 5% (LIDODERM) PATCH TD SCH (08:15)
[2022-04-13] MEDS: DOCUSATE SODIUM 100MG CAPSULE PO SCH ×2 (08:15→20:59)
[2022-04-13] MEDS: OMEPRAZOLE 20MG CAP PO SCH (08:16)
[2022-04-13] MEDS: INSULIN LISPRO (NovoLOG) PER UNIT SC SCH ×4 (08:16→20:44)
[2022-04-13] MEDS: HEPARIN SOD (PORCINE) 5000UNITS/ML 1ML VIAL/SYRINGE SC SCH ×2 (08:16→21:00)
[2022-04-13] MEDS: METOPROLOL TART 50 MG TAB PO SCH ×2 (08:17→21:04)
[2022-04-13 10:00] VITALS: BP 141/71
[2022-04-13 13:30] VITALS: BP 139/69
[2022-04-13 13:40] VITALS: BP 139/69
[2022-04-13] MEDS: ATORVASTATIN 20 MG TAB PO SCH (21:00)
[2022-04-13] MEDS: GABAPENTIN 100 MG CAP PO SCH (21:00)
[2022-04-13] MEDS: ASPIRIN 81MG ENTERIC TABLET PO SCH (21:00)
[2022-04-13] MEDS: LEVEMIR (INSULIN DETEMIR) 1 UNITS/0.01ML SC SCH (21:01)
[2022-04-13] MEDS: NIFEdipine 30MG XL TAB PO SCH (21:03)
[2022-04-14 04:53] VITALS: BP 154/86
[2022-04-14] MEDS: **hydrALAZINE** 50 MG TAB PO SCH ×3 (05:43→21:14)
[2022-04-14 05:47] LABS: HEMATOCRIT 31.1 % (36.0-47.0); HEMOGLOBIN 10.1 g/dl (12.0-15.5); MEAN CORPUSCULAR HEMOGLOBIN 33.3 pg (27.0-33.0); MEAN CORPUSCULAR HGB CONC 32.5 g/dl (32.0-36.5); MEAN CORPUSCULAR VOLUME 102.6 fl (80.0-96.0); PLATELET COUNT, AUTOMATED 332 10^3/uL (150-450); RED BLOOD COUNT 3.03 10^6/uL (4.00-5.40); WHITE BLOOD COUNT 8.7 10^3/uL (4.0-10.0)
[2022-04-14 07:34] LABS: ALBUMIN 2.5 GM/DL (3.2-5.2); CALCIUM LEVEL 8.9 MG/DL (8.8-10.2); CREATININE FOR GFR 7.1 MG/DL (0.55-1.30); PHOSPHORUS LEVEL 4.2 MG/DL (2.5-4.9); POTASSIUM SERUM 5.2 MEQ/L (3.5-5.1)
[2022-04-14] MEDS: HEPARIN SOD (PORCINE) 5000UNITS/ML 1ML VIAL/SYRINGE SC SCH ×2 (08:00→21:13)
[2022-04-14] MEDS: DOCUSATE SODIUM 100MG CAPSULE PO SCH ×2 (08:00→21:14)
[2022-04-14] MEDS: OMEPRAZOLE 20MG CAP PO SCH (08:00)
[2022-04-14] MEDS: METOPROLOL TART 50 MG TAB PO SCH ×2 (08:00→21:15)
[2022-04-14] MEDS: LIDOCAINE 5% (LIDODERM) PATCH TD SCH (08:01)
[2022-04-14] MEDS: INSULIN LISPRO (NovoLOG) PER UNIT SC SCH ×4 (08:01→21:13)
[2022-04-14] MEDS: DICLOFENAC EPOLAMINE 1.3 % PATCH TOP SCH ×2 (08:01→21:15)
[2022-04-14 13:04] VITALS: BP 160/85
[2022-04-14] MEDS: ASPIRIN 81MG ENTERIC TABLET PO SCH (21:14)
[2022-04-14] MEDS: GABAPENTIN 100 MG CAP PO SCH (21:14)
[2022-04-14] MEDS: ATORVASTATIN 20 MG TAB PO SCH (21:14)
[2022-04-14] MEDS: LEVEMIR (INSULIN DETEMIR) 1 UNITS/0.01ML SC SCH (21:15)
[2022-04-14] MEDS: NIFEdipine 30MG XL TAB PO SCH (21:18)
[2022-04-15] MEDS: DOCUSATE SODIUM 100MG CAPSULE PO SCH ×2 (05:08→21:30)
[2022-04-15] MEDS: OMEPRAZOLE 20MG CAP PO SCH (05:09)
[2022-04-15] MEDS: HEPARIN SOD (PORCINE) 5000UNITS/ML 1ML VIAL/SYRINGE SC SCH ×2 (05:09→21:29)
[2022-04-15] MEDS: METOPROLOL TART 50 MG TAB PO SCH ×2 (05:09→21:31)
[2022-04-15] MEDS: **hydrALAZINE** 50 MG TAB PO SCH ×3 (05:09→21:31)
[2022-04-15] MEDS: DICLOFENAC EPOLAMINE 1.3 % PATCH TOP SCH ×2 (05:10→21:29)
[2022-04-15] MEDS: LIDOCAINE 5% (LIDODERM) PATCH TD SCH (05:10)
[2022-04-15 06:00] VITALS: BP 161/82
[2022-04-15] MEDS ORDERED: SODIUM CHLORIDE 0.9% 1000ML IV PRN (06:00)
[2022-04-15] MEDS ORDERED: LIDOCAINE 1% SDV 5ML VIAL SC PRN (06:00)
[2022-04-15 06:42] LABS: HEMATOCRIT 30.4 % (36.0-47.0); HEMOGLOBIN 9.9 g/dl (12.0-15.5); MEAN CORPUSCULAR HEMOGLOBIN 33.8 pg (27.0-33.0); MEAN CORPUSCULAR HGB CONC 32.6 g/dl (32.0-36.5); MEAN CORPUSCULAR VOLUME 103.8 fl (80.0-96.0); PLATELET COUNT, AUTOMATED 354 10^3/uL (150-450); RED BLOOD COUNT 2.93 10^6/uL (4.00-5.40); WHITE BLOOD COUNT 8.1 10^3/uL (4.0-10.0)
[2022-04-15 07:20] LABS: ALBUMIN 2.8 GM/DL (3.2-5.2); CREATININE FOR GFR 8.03 MG/DL (0.55-1.30); GLOMERULAR FILTRATION RATE 5.2 (>39); PHOSPHORUS LEVEL 3.8 MG/DL (2.5-4.9); POTASSIUM SERUM 5.7 MEQ/L (3.5-5.1)
[2022-04-15] MEDS ORDERED: INSULIN LISPRO (NovoLOG) PER UNIT SC SCH (07:30)
[2022-04-15] MEDS: INSULIN LISPRO (NovoLOG) PER UNIT SC SCH ×6 (07:45→21:00)
[2022-04-15 14:53] VITALS: BP 104/56
[2022-04-15] MEDS: ATORVASTATIN 20 MG TAB PO SCH (21:29)
[2022-04-15] MEDS: LEVEMIR (INSULIN DETEMIR) 1 UNITS/0.01ML SC SCH (21:29)
[2022-04-15] MEDS: NIFEdipine 30MG XL TAB PO SCH (21:30)
[2022-04-15] MEDS: ASPIRIN 81MG ENTERIC TABLET PO SCH (21:30)
[2022-04-15] MEDS: GABAPENTIN 100 MG CAP PO SCH (21:31)
[2022-04-16] MEDS: **hydrALAZINE** 50 MG TAB PO SCH ×3 (05:33→21:43)
[2022-04-16 06:00] VITALS: BP 155/79
[2022-04-16] MEDS: HEPARIN SOD (PORCINE) 5000UNITS/ML 1ML VIAL/SYRINGE SC SCH ×2 (08:17→21:44)
[2022-04-16] MEDS: INSULIN LISPRO (NovoLOG) PER UNIT SC SCH ×6 (08:17→21:00)
[2022-04-16] MEDS: DICLOFENAC EPOLAMINE 1.3 % PATCH TOP SCH ×2 (08:17→21:44)
[2022-04-16] MEDS: LIDOCAINE 5% (LIDODERM) PATCH TD SCH (08:18)
[2022-04-16] MEDS: DOCUSATE SODIUM 100MG CAPSULE PO SCH ×2 (08:18→21:42)
[2022-04-16] MEDS: METOPROLOL TART 50 MG TAB PO SCH ×2 (08:18→21:43)
[2022-04-16] MEDS: OMEPRAZOLE 20MG CAP PO SCH (08:18)
[2022-04-16] MEDS: ASPIRIN 81MG ENTERIC TABLET PO SCH (21:42)
[2022-04-16] MEDS: ATORVASTATIN 20 MG TAB PO SCH (21:43)
[2022-04-16] MEDS: NIFEdipine 30MG XL TAB PO SCH (21:43)
[2022-04-16] MEDS: GABAPENTIN 100 MG CAP PO SCH (21:43)
[2022-04-16] MEDS: LEVEMIR (INSULIN DETEMIR) 1 UNITS/0.01ML SC SCH (21:44)
[2022-04-17 06:00] VITALS: BP 158/81
[2022-04-17] MEDS ORDERED: LIDOCAINE 1% SDV 5ML VIAL SC PRN (06:00)
[2022-04-17] MEDS ORDERED: SODIUM CHLORIDE 0.9% 1000ML IV PRN (06:00)
[2022-04-17] MEDS: **hydrALAZINE** 50 MG TAB PO SCH ×3 (06:18→22:03)
[2022-04-17] MEDS: HEPARIN SOD (PORCINE) 5000UNITS/ML 1ML VIAL/SYRINGE SC SCH ×2 (06:18→22:04)
[2022-04-17] MEDS: DOCUSATE SODIUM 100MG CAPSULE PO SCH ×2 (06:18→22:03)
[2022-04-17] MEDS: OMEPRAZOLE 20MG CAP PO SCH (06:18)
[2022-04-17] MEDS: METOPROLOL TART 50 MG TAB PO SCH ×2 (06:19→22:04)
[2022-04-17] MEDS: DICLOFENAC EPOLAMINE 1.3 % PATCH TOP SCH ×2 (07:47→22:04)
[2022-04-17] MEDS: INSULIN LISPRO (NovoLOG) PER UNIT SC SCH ×6 (07:47→20:20)
[2022-04-17] MEDS: LIDOCAINE 5% (LIDODERM) PATCH TD SCH (07:47)
[2022-04-17] MEDS: NIFEdipine 30MG XL TAB PO SCH (20:19)
[2022-04-17] MEDS: GABAPENTIN 100 MG CAP PO SCH (22:03)
[2022-04-17] MEDS: ASPIRIN 81MG ENTERIC TABLET PO SCH (22:03)
[2022-04-17] MEDS: ATORVASTATIN 20 MG TAB PO SCH (22:03)
[2022-04-17] MEDS: LEVEMIR (INSULIN DETEMIR) 1 UNITS/0.01ML SC SCH (22:04)
[2022-04-18] MEDS ORDERED: CALCIUM CARBONATE 500 MG CHEW U/D PO PRN (03:00)
[2022-04-18] MEDS ORDERED: MAALOX 30 ML SUSP *UDC PO ONE (03:00)
[2022-04-18] MEDS: **hydrALAZINE** 50 MG TAB PO SCH ×3 (06:09→21:40)
[2022-04-18] MEDS: INSULIN LISPRO (NovoLOG) PER UNIT SC SCH ×6 (09:03→21:00)
[2022-04-18] MEDS: DICLOFENAC EPOLAMINE 1.3 % PATCH TOP SCH ×2 (09:03→21:40)
[2022-04-18] MEDS: LIDOCAINE 5% (LIDODERM) PATCH TD SCH (09:03)
[2022-04-18] MEDS: DOCUSATE SODIUM 100MG CAPSULE PO SCH ×2 (09:04→21:39)
[2022-04-18] MEDS: METOPROLOL TART 50 MG TAB PO SCH ×2 (09:04→21:40)
[2022-04-18] MEDS: OMEPRAZOLE 20MG CAP PO SCH (09:04)
[2022-04-18] MEDS: HEPARIN SOD (PORCINE) 5000UNITS/ML 1ML VIAL/SYRINGE SC SCH ×2 (09:05→21:38)
[2022-04-18] MEDS: ASPIRIN 81MG ENTERIC TABLET PO SCH (21:39)
[2022-04-18] MEDS: LEVEMIR (INSULIN DETEMIR) 1 UNITS/0.01ML SC SCH (21:39)
[2022-04-18] MEDS: ATORVASTATIN 20 MG TAB PO SCH (21:39)
[2022-04-18] MEDS: GABAPENTIN 100 MG CAP PO SCH (21:39)
[2022-04-18] MEDS: NIFEdipine 30MG XL TAB PO SCH (21:44)
[2022-04-19 05:39] VITALS: BP 175/87
[2022-04-19] MEDS ORDERED: SODIUM CHLORIDE 0.9% 1000ML IV PRN (06:00)
[2022-04-19] MEDS ORDERED: LIDOCAINE 1% SDV 5ML VIAL SC PRN (06:00)
[2022-04-19] MEDS: OMEPRAZOLE 20MG CAP PO SCH (06:02)
[2022-04-19] MEDS: METOPROLOL TART 50 MG TAB PO SCH ×2 (06:02→21:52)
[2022-04-19] MEDS: **hydrALAZINE** 50 MG TAB PO SCH ×3 (06:02→21:51)
[2022-04-19] MEDS: HEPARIN SOD (PORCINE) 5000UNITS/ML 1ML VIAL/SYRINGE SC SCH (06:03)
[2022-04-19] MEDS: DOCUSATE SODIUM 100MG CAPSULE PO SCH ×2 (06:03→21:51)
[2022-04-19] MEDS: INSULIN LISPRO (NovoLOG) PER UNIT SC SCH ×6 (07:27→21:00)
[2022-04-19] MEDS: DICLOFENAC EPOLAMINE 1.3 % PATCH TOP SCH ×2 (07:30→21:53)
[2022-04-19] MEDS: LIDOCAINE 5% (LIDODERM) PATCH TD SCH (07:30)
[2022-04-19] MEDS: DARBEPOETIN 100 MCG/0.5 ML *DIALYSIS* SYRINGE (J0882) IV SCH (09:27)
[2022-04-19] MEDS ORDERED: VANCOMYCIN HCL 750 MG, VIAL MATE ADAPTER 1 EACH in NS 250 ML IV SCH (17:55)
[2022-04-19] MEDS ORDERED: VANCOMYCIN HCL 1,000 MG, VIAL MATE ADAPTER 1 EACH in D5W 250 ML IV ONE (19:00)
[2022-04-19] MEDS: ATORVASTATIN 20 MG TAB PO SCH (21:50)
[2022-04-19] MEDS: GABAPENTIN 100 MG CAP PO SCH (21:50)
[2022-04-19] MEDS: ASPIRIN 81MG ENTERIC TABLET PO SCH (21:51)
[2022-04-19] MEDS: NIFEdipine 30MG XL TAB PO SCH (21:52)
[2022-04-19] MEDS: LEVEMIR (INSULIN DETEMIR) 1 UNITS/0.01ML SC SCH (21:53)
[2022-04-20] MEDS: HEPARIN SOD (PORCINE) 5000UNITS/ML 1ML VIAL/SYRINGE SC SCH ×3 (00:53→17:01)
[2022-04-20 05:34] VITALS: BP 144/76
[2022-04-20] MEDS: **hydrALAZINE** 50 MG TAB PO SCH ×3 (05:38→21:16)
[2022-04-20 08:00] VITALS: BP 143/72
[2022-04-20] MEDS ORDERED: VANCOMYCIN HCL 1,000 MG, VIAL MATE ADAPTER 1 EACH in D5W 250 ML IV ONE (08:00)
[2022-04-20] MEDS: LIDOCAINE 5% (LIDODERM) PATCH TD SCH (08:11)
[2022-04-20] MEDS: INSULIN LISPRO (NovoLOG) PER UNIT SC SCH ×6 (08:12→20:24)
[2022-04-20] MEDS: DICLOFENAC EPOLAMINE 1.3 % PATCH TOP SCH ×2 (08:13→21:14)
[2022-04-20] MEDS: DOCUSATE SODIUM 100MG CAPSULE PO SCH ×2 (10:06→21:13)
[2022-04-20] MEDS: METOPROLOL TART 50 MG TAB PO SCH ×2 (10:06→21:15)
[2022-04-20] MEDS: OMEPRAZOLE 20MG CAP PO SCH (10:06)
[2022-04-20 14:16] VITALS: BP 144/74
[2022-04-20] MEDS: GABAPENTIN 100 MG CAP PO SCH (21:13)
[2022-04-20] MEDS: ATORVASTATIN 20 MG TAB PO SCH (21:14)
[2022-04-20] MEDS: ASPIRIN 81MG ENTERIC TABLET PO SCH (21:14)
[2022-04-20] MEDS: LEVEMIR (INSULIN DETEMIR) 1 UNITS/0.01ML SC SCH (21:15)
[2022-04-20] MEDS: NIFEdipine 30MG XL TAB PO SCH (21:16)
[2022-04-21] MEDS: HEPARIN SOD (PORCINE) 5000UNITS/ML 1ML VIAL/SYRINGE SC SCH ×3 (01:28→17:19)
[2022-04-21 05:46] VITALS: BP 152/82
[2022-04-21] MEDS: **hydrALAZINE** 50 MG TAB PO SCH ×3 (05:49→21:34)
[2022-04-21] MEDS: OMEPRAZOLE 20MG CAP PO SCH (08:24)
[2022-04-21] MEDS: DOCUSATE SODIUM 100MG CAPSULE PO SCH ×2 (08:24→21:33)
[2022-04-21] MEDS: INSULIN LISPRO (NovoLOG) PER UNIT SC SCH ×6 (08:25→21:00)
[2022-04-21] MEDS: METOPROLOL TART 50 MG TAB PO SCH ×2 (08:25→21:34)
[2022-04-21] MEDS: DICLOFENAC EPOLAMINE 1.3 % PATCH TOP SCH ×2 (08:26→21:34)
[2022-04-21] MEDS: LIDOCAINE 5% (LIDODERM) PATCH TD SCH (08:26)
[2022-04-21] MEDS: ATORVASTATIN 20 MG TAB PO SCH (21:33)
[2022-04-21] MEDS: GABAPENTIN 100 MG CAP PO SCH (21:33)
[2022-04-21] MEDS: ASPIRIN 81MG ENTERIC TABLET PO SCH (21:33)
[2022-04-21] MEDS: LEVEMIR (INSULIN DETEMIR) 1 UNITS/0.01ML SC SCH (21:34)
[2022-04-21] MEDS: NIFEdipine 30MG XL TAB PO SCH (21:34)
[2022-04-22] MEDS: HEPARIN SOD (PORCINE) 5000UNITS/ML 1ML VIAL/SYRINGE SC SCH ×3 (00:17→16:59)
[2022-04-22 05:00] VITALS: BP 159/78
[2022-04-22] MEDS: METOPROLOL TART 50 MG TAB PO SCH ×2 (05:37→21:43)
[2022-04-22] MEDS: **hydrALAZINE** 50 MG TAB PO SCH ×3 (05:38→21:43)
[2022-04-22] MEDS: OMEPRAZOLE 20MG CAP PO SCH (05:38)
[2022-04-22] MEDS: DOCUSATE SODIUM 100MG CAPSULE PO SCH ×2 (05:38→21:42)
[2022-04-22] MEDS ORDERED: LIDOCAINE 1% SDV 5ML VIAL SC PRN (06:40)
[2022-04-22] MEDS ORDERED: SODIUM CHLORIDE 0.9% 1000ML IV PRN (06:40)
[2022-04-22] MEDS: INSULIN LISPRO (NovoLOG) PER UNIT SC SCH ×6 (07:45→21:44)
[2022-04-22] MEDS: LIDOCAINE 5% (LIDODERM) PATCH TD SCH (07:46)
[2022-04-22] MEDS: DICLOFENAC EPOLAMINE 1.3 % PATCH TOP SCH ×2 (07:46→21:45)
[2022-04-22 13:06] LABS: HEMATOCRIT 34.8 % (36.0-47.0); HEMOGLOBIN 11.5 g/dl (12.0-15.5); MEAN CORPUSCULAR HEMOGLOBIN 34.6 pg (27.0-33.0); MEAN CORPUSCULAR VOLUME 104.8 fl (80.0-96.0); PLATELET COUNT, AUTOMATED 266 10^3/uL (150-450); RED BLOOD COUNT 3.32 10^6/uL (4.00-5.40); WHITE BLOOD COUNT 8.3 10^3/uL (4.0-10.0)
[2022-04-22 14:25] LABS: CREATININE FOR GFR 3.77 MG/DL (0.55-1.30); GLOMERULAR FILTRATION RATE 12.4 (>39); POTASSIUM SERUM 4.3 MEQ/L (3.5-5.1)
[2022-04-22] MEDS: MUPIROCIN 2% OINT 22 GM TUBE TOP SCH ×2 (15:22→21:44)
[2022-04-22] MEDS ORDERED: VANCOMYCIN HCL 1,000 MG, VIAL MATE ADAPTER 1 EACH in D5W 250 ML IV SCH (16:00)
[2022-04-22] MEDS: ASPIRIN 81MG ENTERIC TABLET PO SCH (21:42)
[2022-04-22] MEDS: ATORVASTATIN 20 MG TAB PO SCH (21:42)
[2022-04-22] MEDS: GABAPENTIN 100 MG CAP PO SCH (21:42)
[2022-04-22] MEDS: NIFEdipine 30MG XL TAB PO SCH (21:43)
[2022-04-22] MEDS: LEVEMIR (INSULIN DETEMIR) 1 UNITS/0.01ML SC SCH (21:44)
[2022-04-23] VITALS (8 sets, daily range): BP systolic 115–160; BP diastolic 64–82
[2022-04-23] MEDS: HEPARIN SOD (PORCINE) 5000UNITS/ML 1ML VIAL/SYRINGE SC SCH ×3 (02:18→17:00)
[2022-04-23 06:18] LABS: HEMATOCRIT 31.2 % (36.0-47.0); HEMOGLOBIN 10.1 g/dl (12.0-15.5); MEAN CORPUSCULAR HEMOGLOBIN 34.2 pg (27.0-33.0); MEAN CORPUSCULAR HGB CONC 32.4 g/dl (32.0-36.5); MEAN CORPUSCULAR VOLUME 105.8 fl (80.0-96.0); PLATELET COUNT, AUTOMATED 248 10^3/uL (150-450); RED BLOOD COUNT 2.95 10^6/uL (4.00-5.40); WHITE BLOOD COUNT 6.7 10^3/uL (4.0-10.0)
[2022-04-23] MEDS: **hydrALAZINE** 50 MG TAB PO SCH ×3 (06:22→21:56)
[2022-04-23 06:30] LABS: INR 0.96
[2022-04-23 06:31] LABS: PARTIAL THROMBOPLASTIN TIME 35.7 SECONDS (24.8-34.2)
[2022-04-23] MEDS: INSULIN LISPRO (NovoLOG) PER UNIT SC SCH ×6 (07:30→21:00)
[2022-04-23 07:31] LABS: CALCIUM LEVEL 8.8 MG/DL (8.8-10.2); CREATININE FOR GFR 5.42 MG/DL (0.55-1.30); GLOMERULAR FILTRATION RATE 8.2 (>39); POTASSIUM SERUM 5.1 MEQ/L (3.5-5.1)
[2022-04-23] MEDS: OMEPRAZOLE 20MG CAP PO SCH (07:39)
[2022-04-23] MEDS: DOCUSATE SODIUM 100MG CAPSULE PO SCH ×2 (07:39→21:56)
[2022-04-23] MEDS: LIDOCAINE 5% (LIDODERM) PATCH TD SCH (08:07)
[2022-04-23] MEDS: DICLOFENAC EPOLAMINE 1.3 % PATCH TOP SCH ×2 (08:07→21:00)
[2022-04-23] MEDS: MUPIROCIN 2% OINT 22 GM TUBE TOP SCH ×3 (08:08→21:57)
[2022-04-23] MEDS: METOPROLOL TART 50 MG TAB PO SCH ×2 (08:09→21:56)
[2022-04-23] MEDS ORDERED: ISOVUE-300 61% 50ML VIAL As Ordered ONE ×2 (16:32→17:54)
[2022-04-23] MEDS ORDERED: LIDOCAINE 1% MDV 20ML VIAL As Ordered ONE ×2 (16:33→17:20)
[2022-04-23] MEDS ORDERED: MIDAZOLAM INJ 2MG/2ML VIAL (J2250 PER 1MG) As Ordered ONE ×2 (16:39→17:25)
[2022-04-23] MEDS ORDERED: fentaNYL 100 MCG/2 ML INJECTION As Ordered ONE ×2 (16:39→17:25)
[2022-04-23] MEDS ORDERED: hydrALAZINE 20MG/ML 1ML VIAL (J0360 PER 20MG) As Ordered ONE ×2 (17:01→17:21)
[2022-04-23] MEDS ORDERED: LABETALOL 100MG/20ML VIAL As Ordered ONE (17:22)
[2022-04-23] MEDS: NIFEdipine 30MG XL TAB PO SCH (21:00)
[2022-04-23] MEDS: GABAPENTIN 100 MG CAP PO SCH (21:56)
[2022-04-23] MEDS: ATORVASTATIN 20 MG TAB PO SCH (21:56)
[2022-04-23] MEDS: ASPIRIN 81MG ENTERIC TABLET PO SCH (21:56)
[2022-04-23] MEDS: LEVEMIR (INSULIN DETEMIR) 1 UNITS/0.01ML SC SCH (21:56)
[2022-04-24] VITALS: BP 156/76
[2022-04-24] MEDS: HEPARIN SOD (PORCINE) 5000UNITS/ML 1ML VIAL/SYRINGE SC SCH ×3 (02:07→18:49)
[2022-04-24] MEDS: **hydrALAZINE** 50 MG TAB PO SCH ×3 (05:39→23:47)
[2022-04-24] MEDS ORDERED: ONDANSETRON 4MG 2ML VIAL IV PRN ×2 (06:35→14:35)
[2022-04-24] MEDS ORDERED: ACETAMINOPHEN TAB 650MG DOSE (2X325MG) PO PRN (06:35)
[2022-04-24] MEDS ORDERED: LIDOCAINE 1% SDV 5ML VIAL SC PRN (06:40)
[2022-04-24] MEDS ORDERED: SODIUM CHLORIDE 0.9% 1000ML IV PRN (06:40)
[2022-04-24] MEDS: INSULIN LISPRO (NovoLOG) PER UNIT SC SCH ×6 (07:06→21:00)
[2022-04-24] MEDS: DOCUSATE SODIUM 100MG CAPSULE PO SCH ×2 (08:44→21:00)
[2022-04-24] MEDS: LIDOCAINE 5% (LIDODERM) PATCH TD SCH (08:44)
[2022-04-24] MEDS: METOPROLOL TART 50 MG TAB PO SCH ×2 (08:44→21:02)
[2022-04-24] MEDS: DICLOFENAC EPOLAMINE 1.3 % PATCH TOP SCH ×2 (08:44→21:27)
[2022-04-24] MEDS: OMEPRAZOLE 20MG CAP PO SCH (08:44)
[2022-04-24] MEDS: MUPIROCIN 2% OINT 22 GM TUBE TOP SCH ×3 (08:44→21:03)
[2022-04-24 09:15] LABS: BASO # 0.1 10^3/uL (0.0-0.2); BASO % 0.8 % (0.0-1.0); EOS # 0.2 10^3/uL (0.0-0.5); EOS % 1.8 % (0.0-3.0); HEMATOCRIT 33.5 % (36.0-47.0); HEMOGLOBIN 10.7 g/dl (12.0-15.5); LYMPH % 11.9 % (24.0-44.0); MEAN CORPUSCULAR HEMOGLOBIN 34.1 pg (27.0-33.0); MEAN CORPUSCULAR HGB CONC 31.9 g/dl (32.0-36.5); MEAN CORPUSCULAR VOLUME 106.7 fl (80.0-96.0); MONO # 0.9 10^3/uL (0.0-0.8); MONO % 10.5 % (2.0-8.0); NEUTROPHILS # 6.5 10^3/uL (1.5-8.5); NEUTROPHILS % 74.1 % (36.0-66.0); PLATELET COUNT, AUTOMATED 272 10^3/uL (150-450); RED BLOOD COUNT 3.14 10^6/uL (4.00-5.40); WHITE BLOOD COUNT 8.8 10^3/uL (4.0-10.0)
[2022-04-24 09:47] LABS: ALBUMIN 2.8 GM/DL (3.2-5.2); BILIRUBIN,TOTAL 0.4 MG/DL (0.2-1.0); CALCIUM LEVEL 8.6 MG/DL (8.8-10.2); CREATININE FOR GFR 7.1 MG/DL (0.55-1.30); POTASSIUM SERUM 5.8 MEQ/L (3.5-5.1)
[2022-04-24 10:00] VITALS: BP 144/93
[2022-04-24] MEDS ORDERED: hydrALAZINE 20MG/ML 1ML VIAL (J0360 PER 20MG) As Ordered ONE (11:17)
[2022-04-24] MEDS ORDERED: fentaNYL 100 MCG/2 ML INJECTION As Ordered ONE (11:18)
[2022-04-24] MEDS ORDERED: ISOVUE-300 61% 50ML VIAL As Ordered ONE ×2 (11:18→11:19)
[2022-04-24] MEDS ORDERED: MIDAZOLAM INJ 2MG/2ML VIAL (J2250 PER 1MG) As Ordered ONE (11:19)
[2022-04-24] MEDS ORDERED: LIDOCAINE 1% MDV 20ML VIAL As Ordered ONE (11:20)
[2022-04-24] MEDS ORDERED: LABETALOL 100MG/20ML VIAL As Ordered ONE (11:43)
[2022-04-24] MEDS ORDERED: SODIUM BICARBONATE 8.4% INJ 50ML SYRINGE IV STA (12:21)
[2022-04-24] MEDS ORDERED: VERAPAMIL 5MG/2ML VIAL As Ordered ONE (12:24)
[2022-04-24] MEDS ORDERED: NITROGLYCERIN IN D5W 25MG/250ML (100MCG/ML) As Ordered ONE (12:24)
[2022-04-24] MEDS ORDERED: CALCIUM GLUCONATE 1,000 MG in D5W MINI-BAG PLUS 100 ML IV ONE (12:30)
[2022-04-24] MEDS ORDERED: ONDANSETRON 4MG 2ML VIAL As Ordered ONE (13:18)
[2022-04-24 13:59] VITALS: BP 149/67
[2022-04-24] MEDS ORDERED: PERCOCET 5MG/325MG TAB PO PRN (14:35)
[2022-04-24] MEDS: LEVEMIR (INSULIN DETEMIR) 1 UNITS/0.01ML SC SCH (20:59)
[2022-04-24] MEDS: ASPIRIN 81MG ENTERIC TABLET PO SCH (21:00)
[2022-04-24] MEDS: GABAPENTIN 100 MG CAP PO SCH (21:00)
[2022-04-24] MEDS: ATORVASTATIN 20 MG TAB PO SCH (21:01)
[2022-04-24] MEDS: NIFEdipine 30MG XL TAB PO SCH (21:24)
[2022-04-24 22:00] VITALS: BP 137/55
[2022-04-25] VITALS (8 sets, daily range): BP systolic 123–160; BP diastolic 57–80
[2022-04-25] MEDS: HEPARIN SOD (PORCINE) 5000UNITS/ML 1ML VIAL/SYRINGE SC SCH ×3 (01:41→16:58)
[2022-04-25] MEDS: **hydrALAZINE** 50 MG TAB PO SCH ×3 (05:48→22:22)
[2022-04-25] MEDS: INSULIN LISPRO (NovoLOG) PER UNIT SC SCH ×6 (07:09→20:14)
[2022-04-25] MEDS: OMEPRAZOLE 20MG CAP PO SCH (08:47)
[2022-04-25] MEDS: METOPROLOL TART 50 MG TAB PO SCH ×2 (08:48→20:03)
[2022-04-25] MEDS: DICLOFENAC EPOLAMINE 1.3 % PATCH TOP SCH ×2 (08:48→20:04)
[2022-04-25 08:54] LABS: BASO # 0.1 10^3/uL (0.0-0.2); BASO % 0.6 % (0.0-1.0); EOS # 0.2 10^3/uL (0.0-0.5); EOS % 1.9 % (0.0-3.0); HEMATOCRIT 33.5 % (36.0-47.0); HEMOGLOBIN 10.7 g/dl (12.0-15.5); LYMPH # 0.9 10^3/uL (1.5-5.0); LYMPH % 9.3 % (24.0-44.0); MEAN CORPUSCULAR HEMOGLOBIN 34.6 pg (27.0-33.0); MEAN CORPUSCULAR HGB CONC 31.9 g/dl (32.0-36.5); MEAN CORPUSCULAR VOLUME 108.4 fl (80.0-96.0); MONO # 0.9 10^3/uL (0.0-0.8); MONO % 9.4 % (2.0-8.0); NEUTROPHILS # 7.3 10^3/uL (1.5-8.5); NEUTROPHILS % 78.3 % (36.0-66.0); PLATELET COUNT, AUTOMATED 261 10^3/uL (150-450); RED BLOOD COUNT 3.09 10^6/uL (4.00-5.40); WHITE BLOOD COUNT 9.4 10^3/uL (4.0-10.0)
[2022-04-25] MEDS: LIDOCAINE 5% (LIDODERM) PATCH TD SCH (09:06)
[2022-04-25] MEDS: MUPIROCIN 2% OINT 22 GM TUBE TOP SCH ×3 (09:06→20:03)
[2022-04-25] MEDS: DOCUSATE SODIUM 100MG CAPSULE PO SCH ×2 (09:06→20:02)
[2022-04-25 09:32] LABS: ALBUMIN 2.9 GM/DL (3.2-5.2); BILIRUBIN,TOTAL 0.4 MG/DL (0.2-1.0); CALCIUM LEVEL 8.7 MG/DL (8.8-10.2); CREATININE FOR GFR 5.49 MG/DL (0.55-1.30); MAGNESIUM LEVEL 1.8 MG/DL (1.8-2.4); POTASSIUM SERUM 5.2 MEQ/L (3.5-5.1); TOTAL PROTEIN 7.3 GM/DL (6.4-8.2)
[2022-04-25] MEDS: ASPIRIN 81MG ENTERIC TABLET PO SCH (20:02)
[2022-04-25] MEDS: ATORVASTATIN 20 MG TAB PO SCH (20:02)
[2022-04-25] MEDS: GABAPENTIN 100 MG CAP PO SCH (20:02)
[2022-04-25] MEDS: NIFEdipine 30MG XL TAB PO SCH (20:02)
[2022-04-25] MEDS: LEVEMIR (INSULIN DETEMIR) 1 UNITS/0.01ML SC SCH (20:09)
[2022-04-26] MEDS: HEPARIN SOD (PORCINE) 5000UNITS/ML 1ML VIAL/SYRINGE SC SCH ×3 (00:36→18:02)
[2022-04-26] MEDS: **hydrALAZINE** 50 MG TAB PO SCH ×3 (05:27→21:33)
[2022-04-26 06:00] VITALS: BP 165/84
[2022-04-26] MEDS: DOCUSATE SODIUM 100MG CAPSULE PO SCH ×2 (06:31→21:32)
[2022-04-26] MEDS: OMEPRAZOLE 20MG CAP PO SCH (06:32)
[2022-04-26] MEDS: METOPROLOL TART 50 MG TAB PO SCH ×2 (06:33→21:32)
[2022-04-26] MEDS: LIDOCAINE 5% (LIDODERM) PATCH TD SCH (06:33)
[2022-04-26] MEDS: DICLOFENAC EPOLAMINE 1.3 % PATCH TOP SCH ×2 (06:34→21:33)
[2022-04-26] MEDS ORDERED: SODIUM CHLORIDE 0.9% 1000ML IV PRN (06:50)
[2022-04-26] MEDS ORDERED: LIDOCAINE 1% SDV 5ML VIAL SC PRN (06:50)
[2022-04-26] MEDS: INSULIN LISPRO (NovoLOG) PER UNIT SC SCH ×6 (07:01→21:00)
[2022-04-26] MEDS: MUPIROCIN 2% OINT 22 GM TUBE TOP SCH ×3 (07:30→21:34)
[2022-04-26] MEDS: DARBEPOETIN 100 MCG/0.5 ML *DIALYSIS* SYRINGE (J0882) IV SCH (09:09)
[2022-04-26 14:00] VITALS: BP 152/77
[2022-04-26] MEDS: ASPIRIN 81MG ENTERIC TABLET PO SCH (21:32)
[2022-04-26] MEDS: ATORVASTATIN 20 MG TAB PO SCH (21:32)
[2022-04-26] MEDS: GABAPENTIN 100 MG CAP PO SCH (21:32)
[2022-04-26] MEDS: LEVEMIR (INSULIN DETEMIR) 1 UNITS/0.01ML SC SCH (21:35)
[2022-04-26] MEDS: NIFEdipine 30MG XL TAB PO SCH (21:40)
[2022-04-27] MEDS: HEPARIN SOD (PORCINE) 5000UNITS/ML 1ML VIAL/SYRINGE SC SCH ×3 (01:32→18:10)
[2022-04-27] MEDS: **hydrALAZINE** 50 MG TAB PO SCH ×3 (05:31→20:56)
[2022-04-27 06:00] VITALS: BP 145/73
[2022-04-27 08:13] VITALS: BP 132/66
[2022-04-27] MEDS: INSULIN LISPRO (NovoLOG) PER UNIT SC SCH ×6 (08:20→20:57)
[2022-04-27] MEDS: OMEPRAZOLE 20MG CAP PO SCH (09:12)
[2022-04-27] MEDS: METOPROLOL TART 50 MG TAB PO SCH ×2 (09:13→20:56)
[2022-04-27] MEDS: DOCUSATE SODIUM 100MG CAPSULE PO SCH ×2 (09:13→20:55)
[2022-04-27] MEDS: MUPIROCIN 2% OINT 22 GM TUBE TOP SCH ×3 (09:15→20:58)
[2022-04-27] MEDS: DICLOFENAC EPOLAMINE 1.3 % PATCH TOP SCH ×2 (09:15→20:55)
[2022-04-27] MEDS: LIDOCAINE 5% (LIDODERM) PATCH TD SCH (09:15)
[2022-04-27] MEDS: LEVEMIR (INSULIN DETEMIR) 1 UNITS/0.01ML SC SCH (20:54)
[2022-04-27] MEDS: GABAPENTIN 100 MG CAP PO SCH (20:55)
[2022-04-27] MEDS: ASPIRIN 81MG ENTERIC TABLET PO SCH (20:56)
[2022-04-27] MEDS: ATORVASTATIN 20 MG TAB PO SCH (20:56)
[2022-04-27] MEDS: NIFEdipine 30MG XL TAB PO SCH (20:57)
[2022-04-27 22:00] VITALS: BP 150/89
[2022-04-28] MEDS: HEPARIN SOD (PORCINE) 5000UNITS/ML 1ML VIAL/SYRINGE SC SCH ×3 (00:46→18:31)
[2022-04-28] MEDS: **hydrALAZINE** 50 MG TAB PO SCH ×3 (05:45→22:57)
[2022-04-28 06:00] VITALS: BP 155/86
[2022-04-28] MEDS: INSULIN LISPRO (NovoLOG) PER UNIT SC SCH ×6 (07:24→21:00)
[2022-04-28] MEDS: DICLOFENAC EPOLAMINE 1.3 % PATCH TOP SCH ×2 (08:16→21:01)
[2022-04-28] MEDS: LIDOCAINE 5% (LIDODERM) PATCH TD SCH (08:16)
[2022-04-28] MEDS: DOCUSATE SODIUM 100MG CAPSULE PO SCH ×2 (08:17→21:00)
[2022-04-28] MEDS: OMEPRAZOLE 20MG CAP PO SCH (08:17)
[2022-04-28] MEDS: METOPROLOL TART 50 MG TAB PO SCH ×2 (08:17→21:00)
[2022-04-28] MEDS: MUPIROCIN 2% OINT 22 GM TUBE TOP SCH ×3 (08:18→21:02)
[2022-04-28] MEDS: ASPIRIN 81MG ENTERIC TABLET PO SCH (20:59)
[2022-04-28] MEDS: NIFEdipine 30MG XL TAB PO SCH (20:59)
[2022-04-28] MEDS: GABAPENTIN 100 MG CAP PO SCH (21:00)
[2022-04-28] MEDS: ATORVASTATIN 20 MG TAB PO SCH (21:00)
[2022-04-28] MEDS: LEVEMIR (INSULIN DETEMIR) 1 UNITS/0.01ML SC SCH (21:01)
[2022-04-28 22:00] VITALS: BP 157/97
[2022-04-29] MEDS: HEPARIN SOD (PORCINE) 5000UNITS/ML 1ML VIAL/SYRINGE SC SCH ×3 (01:47→17:04)
[2022-04-29] MEDS: DICLOFENAC EPOLAMINE 1.3 % PATCH TOP SCH ×2 (06:03→20:33)
[2022-04-29] MEDS: **hydrALAZINE** 50 MG TAB PO SCH ×3 (06:04→22:58)
[2022-04-29] MEDS: DOCUSATE SODIUM 100MG CAPSULE PO SCH ×2 (06:04→20:32)
[2022-04-29] MEDS: LIDOCAINE 5% (LIDODERM) PATCH TD SCH (06:04)
[2022-04-29] MEDS: OMEPRAZOLE 20MG CAP PO SCH (06:05)
[2022-04-29] MEDS: METOPROLOL TART 50 MG TAB PO SCH ×2 (06:05→20:37)
[2022-04-29] MEDS: MUPIROCIN 2% OINT 22 GM TUBE TOP SCH (06:07)
[2022-04-29] MEDS: NIFEdipine 30MG XL TAB PO SCH ×2 (06:20→20:38)
[2022-04-29] MEDS ORDERED: LIDOCAINE 1% SDV 5ML VIAL SC PRN (07:30)
[2022-04-29] MEDS ORDERED: SODIUM CHLORIDE 0.9% 1000ML IV PRN (07:45)
[2022-04-29] MEDS: INSULIN LISPRO (NovoLOG) PER UNIT SC SCH ×6 (07:46→21:00)
[2022-04-29 18:57] VITALS: BP 148/86
[2022-04-29] MEDS: ATORVASTATIN 20 MG TAB PO SCH (20:32)
[2022-04-29] MEDS: ASPIRIN 81MG ENTERIC TABLET PO SCH (20:32)
[2022-04-29] MEDS: GABAPENTIN 100 MG CAP PO SCH (20:33)
[2022-04-29] MEDS: LEVEMIR (INSULIN DETEMIR) 1 UNITS/0.01ML SC SCH (20:33)
[2022-04-30] MEDS: HEPARIN SOD (PORCINE) 5000UNITS/ML 1ML VIAL/SYRINGE SC SCH ×3 (02:17→17:59)
[2022-04-30 06:00] VITALS: BP 128/70
[2022-04-30] MEDS: **hydrALAZINE** 50 MG TAB PO SCH ×3 (06:28→22:38)
[2022-04-30] MEDS: INSULIN LISPRO (NovoLOG) PER UNIT SC SCH ×6 (07:14→22:40)
[2022-04-30] MEDS: METOPROLOL TART 50 MG TAB PO SCH ×2 (09:48→22:37)
[2022-04-30] MEDS: OMEPRAZOLE 20MG CAP PO SCH (09:48)
[2022-04-30] MEDS: DOCUSATE SODIUM 100MG CAPSULE PO SCH ×2 (09:48→21:57)
[2022-04-30] MEDS: LIDOCAINE 5% (LIDODERM) PATCH TD SCH (09:48)
[2022-04-30] MEDS: DICLOFENAC EPOLAMINE 1.3 % PATCH TOP SCH ×2 (09:49→21:59)
[2022-04-30] MEDS: ONDANSETRON 4MG ORAL DISINTEGRATING TAB PO PRN (17:58)
[2022-04-30 19:47] VITALS: BP 159/84
[2022-04-30] MEDS: ATORVASTATIN 20 MG TAB PO SCH (21:56)
[2022-04-30] MEDS: GABAPENTIN 100 MG CAP PO SCH (21:57)
[2022-04-30] MEDS: ASPIRIN 81MG ENTERIC TABLET PO SCH (21:57)
[2022-04-30] MEDS: LEVEMIR (INSULIN DETEMIR) 1 UNITS/0.01ML SC SCH (21:58)
[2022-04-30 22:29] VITALS: BP 184/80
[2022-04-30] MEDS: NIFEdipine 30MG XL TAB PO SCH (22:38)
[2022-05-01 01:10] VITALS: BP 182/80
[2022-05-01] MEDS: HEPARIN SOD (PORCINE) 5000UNITS/ML 1ML VIAL/SYRINGE SC SCH ×3 (01:29→17:41)
[2022-05-01] MEDS ORDERED: METOPROLOL TART 50 MG TAB PO ONE (02:00)
[2022-05-01 03:14] VITALS: BP 170/92
[2022-05-01] MEDS: **hydrALAZINE** 50 MG TAB PO SCH ×3 (03:48→22:22)
[2022-05-01 05:30] VITALS: BP 153/88
[2022-05-01] MEDS ORDERED: LIDOCAINE 1% SDV 5ML VIAL SC PRN (06:00)
[2022-05-01] MEDS ORDERED: SODIUM CHLORIDE 0.9% 1000ML IV PRN (06:00)
[2022-05-01] MEDS: INSULIN LISPRO (NovoLOG) PER UNIT SC SCH ×6 (07:30→20:23)
[2022-05-01] MEDS: OMEPRAZOLE 20MG CAP PO SCH (07:43)
[2022-05-01] MEDS: DOCUSATE SODIUM 100MG CAPSULE PO SCH ×2 (07:44→20:31)
[2022-05-01 07:45] VITALS: BP_SYST 148; BP_DIAS 58; BP_DIAS 88
[2022-05-01] MEDS: LIDOCAINE 5% (LIDODERM) PATCH TD SCH (08:03)
[2022-05-01] MEDS: DICLOFENAC EPOLAMINE 1.3 % PATCH TOP SCH ×2 (08:03→20:37)
[2022-05-01] MEDS: METOPROLOL TART 50 MG TAB PO SCH ×2 (09:00→20:36)
[2022-05-01] MEDS: GABAPENTIN 100 MG CAP PO SCH (20:31)
[2022-05-01] MEDS: LEVEMIR (INSULIN DETEMIR) 1 UNITS/0.01ML SC SCH (20:31)
[2022-05-01] MEDS: ATORVASTATIN 20 MG TAB PO SCH (20:31)
[2022-05-01] MEDS: ASPIRIN 81MG ENTERIC TABLET PO SCH (20:32)
[2022-05-01] MEDS: NIFEdipine 30MG XL TAB PO SCH (20:37)
[2022-05-02] MEDS: HEPARIN SOD (PORCINE) 5000UNITS/ML 1ML VIAL/SYRINGE SC SCH ×3 (01:47→17:58)
[2022-05-02 05:40] VITALS: BP 166/90
[2022-05-02] MEDS: **hydrALAZINE** 50 MG TAB PO SCH ×3 (05:40→22:09)
[2022-05-02 06:44] VITALS: BP 162/88
[2022-05-02] MEDS: INSULIN LISPRO (NovoLOG) PER UNIT SC SCH ×6 (08:21→20:24)
[2022-05-02] MEDS: OMEPRAZOLE 20MG CAP PO SCH (08:22)
[2022-05-02] MEDS: DOCUSATE SODIUM 100MG CAPSULE PO SCH ×2 (08:22→20:24)
[2022-05-02] MEDS: LIDOCAINE 5% (LIDODERM) PATCH TD SCH (08:22)
[2022-05-02] MEDS: METOPROLOL TART 50 MG TAB PO SCH ×2 (08:22→20:24)
[2022-05-02] MEDS: DICLOFENAC EPOLAMINE 1.3 % PATCH TOP SCH ×2 (08:22→20:25)
[2022-05-02] MEDS: LEVEMIR (INSULIN DETEMIR) 1 UNITS/0.01ML SC SCH (20:24)
[2022-05-02] MEDS: ASPIRIN 81MG ENTERIC TABLET PO SCH (20:24)
[2022-05-02] MEDS: ATORVASTATIN 20 MG TAB PO SCH (20:24)
[2022-05-02] MEDS: GABAPENTIN 100 MG CAP PO SCH (20:24)
[2022-05-02] MEDS: NIFEdipine 30MG XL TAB PO SCH (20:24)
[2022-05-03] MEDS: HEPARIN SOD (PORCINE) 5000UNITS/ML 1ML VIAL/SYRINGE SC SCH ×3 (01:13→17:24)
[2022-05-03 05:10] VITALS: BP 128/83
[2022-05-03] MEDS ORDERED: LIDOCAINE 1% SDV 5ML VIAL SC PRN (06:00)
[2022-05-03] MEDS ORDERED: SODIUM CHLORIDE 0.9% 500 ML IV PRN (06:00)
[2022-05-03] MEDS: LIDOCAINE 5% (LIDODERM) PATCH TD SCH (06:18)
[2022-05-03] MEDS: DICLOFENAC EPOLAMINE 1.3 % PATCH TOP SCH ×2 (06:18→19:26)
[2022-05-03] MEDS: OMEPRAZOLE 20MG CAP PO SCH (06:19)
[2022-05-03] MEDS: DOCUSATE SODIUM 100MG CAPSULE PO SCH ×2 (06:19→19:25)
[2022-05-03] MEDS: **hydrALAZINE** 50 MG TAB PO SCH ×3 (06:19→20:22)
[2022-05-03] MEDS: METOPROLOL TART 50 MG TAB PO SCH ×2 (06:19→19:25)
[2022-05-03] MEDS: INSULIN LISPRO (NovoLOG) PER UNIT SC SCH ×6 (07:25→20:19)
[2022-05-03] MEDS: DARBEPOETIN 100 MCG/0.5 ML *DIALYSIS* SYRINGE (J0882) IV SCH (09:36)
[2022-05-03] MEDS: ATORVASTATIN 20 MG TAB PO SCH (19:25)
[2022-05-03] MEDS: NIFEdipine 30MG XL TAB PO SCH (19:25)
[2022-05-03] MEDS: GABAPENTIN 100 MG CAP PO SCH (19:25)
[2022-05-03] MEDS: ASPIRIN 81MG ENTERIC TABLET PO SCH (19:25)
[2022-05-03] MEDS: LEVEMIR (INSULIN DETEMIR) 1 UNITS/0.01ML SC SCH (20:22)
[2022-05-04] MEDS: HEPARIN SOD (PORCINE) 5000UNITS/ML 1ML VIAL/SYRINGE SC SCH ×3 (00:27→17:24)
[2022-05-04 05:30] VITALS: BP 147/90
[2022-05-04] MEDS: **hydrALAZINE** 50 MG TAB PO SCH ×3 (05:32→21:19)
[2022-05-04] MEDS: LIDOCAINE 5% (LIDODERM) PATCH TD SCH (08:16)
[2022-05-04] MEDS: DICLOFENAC EPOLAMINE 1.3 % PATCH TOP SCH ×2 (08:16→21:17)
[2022-05-04] MEDS: INSULIN LISPRO (NovoLOG) PER UNIT SC SCH ×6 (08:17→20:51)
[2022-05-04] MEDS: OMEPRAZOLE 20MG CAP PO SCH (08:17)
[2022-05-04] MEDS: DOCUSATE SODIUM 100MG CAPSULE PO SCH ×2 (08:17→21:17)
[2022-05-04] MEDS: METOPROLOL TART 50 MG TAB PO SCH ×2 (08:18→21:19)
[2022-05-04 11:00] LABS: HEMATOCRIT 36.6 % (36.0-47.0); HEMOGLOBIN 11.2 g/dl (12.0-15.5); MEAN CORPUSCULAR HEMOGLOBIN 34.3 pg (27.0-33.0); MEAN CORPUSCULAR HGB CONC 30.6 g/dl (32.0-36.5); MEAN CORPUSCULAR VOLUME 111.9 fl (80.0-96.0); PLATELET COUNT, AUTOMATED 273 10^3/uL (150-450); RED BLOOD COUNT 3.27 10^6/uL (4.00-5.40); WHITE BLOOD COUNT 5.8 10^3/uL (4.0-10.0)
[2022-05-04 11:41] LABS: BILIRUBIN,TOTAL 0.3 MG/DL (0.3-1.2); CALCIUM LEVEL 8.5 MG/DL (8.3-10.6); CREATININE FOR GFR 4.94 MG/DL (0.55-1.30); GLOMERULAR FILTRATION RATE 9.1 (>39); POTASSIUM SERUM 5.1 MMOL/L (3.5-5.1); TOTAL PROTEIN 7.1 G/DL (5.7-8.2)
[2022-05-04] MEDS: ASPIRIN 81MG ENTERIC TABLET PO SCH (21:17)
[2022-05-04] MEDS: GABAPENTIN 100 MG CAP PO SCH (21:17)
[2022-05-04] MEDS: ATORVASTATIN 20 MG TAB PO SCH (21:18)
[2022-05-04] MEDS: NIFEdipine 30MG XL TAB PO SCH (21:18)
[2022-05-04] MEDS: LEVEMIR (INSULIN DETEMIR) 1 UNITS/0.01ML SC SCH (21:20)
[2022-05-05] MEDS: HEPARIN SOD (PORCINE) 5000UNITS/ML 1ML VIAL/SYRINGE SC SCH ×2 (01:46→08:13)
[2022-05-05 06:00] VITALS: BP 114/75
[2022-05-05] MEDS ORDERED: LIDOCAINE 1% SDV 5ML VIAL SC PRN (06:10)
[2022-05-05] MEDS ORDERED: SODIUM CHLORIDE 0.9% 1000ML IV PRN (06:10)
[2022-05-05] MEDS: INSULIN LISPRO (NovoLOG) PER UNIT SC SCH ×6 (07:04→21:00)
[2022-05-05] MEDS: DOCUSATE SODIUM 100MG CAPSULE PO SCH ×2 (07:05→21:41)
[2022-05-05] MEDS: **hydrALAZINE** 50 MG TAB PO SCH ×3 (07:05→21:49)
[2022-05-05] MEDS: OMEPRAZOLE 20MG CAP PO SCH (07:05)
[2022-05-05] MEDS: LIDOCAINE 5% (LIDODERM) PATCH TD SCH (07:06)
[2022-05-05] MEDS: METOPROLOL TART 50 MG TAB PO SCH ×2 (07:06→21:49)
[2022-05-05] MEDS: DICLOFENAC EPOLAMINE 1.3 % PATCH TOP SCH ×2 (07:07→21:43)
[2022-05-05] MEDS: HEPARIN SOD (PORCINE) 5000UNITS/ML 1ML VIAL/SYRINGE SQ SCH ×2 (13:55→21:42)
[2022-05-05] MEDS: ASPIRIN 81MG ENTERIC TABLET PO SCH (21:41)
[2022-05-05] MEDS: GABAPENTIN 100 MG CAP PO SCH (21:41)
[2022-05-05] MEDS: LEVEMIR (INSULIN DETEMIR) 1 UNITS/0.01ML SC SCH (21:42)
[2022-05-05] MEDS: ATORVASTATIN 20 MG TAB PO SCH (21:42)
[2022-05-05] MEDS: NIFEdipine 30MG XL TAB PO SCH (21:49)
[2022-05-05 23:37] VITALS: BP 152/96
[2022-05-06 05:28] VITALS: BP 147/92
[2022-05-06] MEDS: **hydrALAZINE** 50 MG TAB PO SCH ×3 (05:29→22:01)
[2022-05-06] MEDS: HEPARIN SOD (PORCINE) 5000UNITS/ML 1ML VIAL/SYRINGE SQ SCH ×3 (05:30→21:55)
[2022-05-06] MEDS: INSULIN LISPRO (NovoLOG) PER UNIT SC SCH ×6 (07:30→21:56)
[2022-05-06] MEDS: OMEPRAZOLE 20MG CAP PO SCH (08:32)
[2022-05-06] MEDS: DOCUSATE SODIUM 100MG CAPSULE PO SCH ×2 (08:32→21:57)
[2022-05-06] MEDS: METOPROLOL TART 50 MG TAB PO SCH ×2 (08:33→22:02)
[2022-05-06] MEDS: DICLOFENAC EPOLAMINE 1.3 % PATCH TOP SCH ×2 (08:33→21:58)
[2022-05-06] MEDS: LIDOCAINE 5% (LIDODERM) PATCH TD SCH (08:33)
[2022-05-06] MEDS: LEVEMIR (INSULIN DETEMIR) 1 UNITS/0.01ML SC SCH (21:56)
[2022-05-06] MEDS: GABAPENTIN 100 MG CAP PO SCH (21:57)
[2022-05-06] MEDS: ATORVASTATIN 20 MG TAB PO SCH (21:57)
[2022-05-06] MEDS: ASPIRIN 81MG ENTERIC TABLET PO SCH (21:57)
[2022-05-06] MEDS: NIFEdipine 30MG XL TAB PO SCH (22:02)
[2022-05-07] MEDS: DOCUSATE SODIUM 100MG CAPSULE PO SCH ×2 (05:38→21:45)
[2022-05-07] MEDS: HEPARIN SOD (PORCINE) 5000UNITS/ML 1ML VIAL/SYRINGE SQ SCH ×3 (05:39→21:44)
[2022-05-07] MEDS: **hydrALAZINE** 50 MG TAB PO SCH ×3 (05:39→22:00)
[2022-05-07] MEDS: METOPROLOL TART 50 MG TAB PO SCH ×2 (05:39→22:00)
[2022-05-07] MEDS: OMEPRAZOLE 20MG CAP PO SCH (05:40)
[2022-05-07] MEDS: DICLOFENAC EPOLAMINE 1.3 % PATCH TOP SCH ×2 (05:40→18:15)
[2022-05-07] MEDS: LIDOCAINE 5% (LIDODERM) PATCH TD SCH ×2 (05:41→18:15)
[2022-05-07 05:48] VITALS: BP 145/74
[2022-05-07] MEDS ORDERED: SODIUM CHLORIDE 0.9% 1000ML IV PRN (06:25)
[2022-05-07] MEDS ORDERED: LIDOCAINE 1% SDV 5ML VIAL SC PRN (06:25)
[2022-05-07] MEDS: INSULIN LISPRO (NovoLOG) PER UNIT SC SCH ×6 (07:30→21:00)
[2022-05-07] MEDS: ASPIRIN 81MG ENTERIC TABLET PO SCH (21:45)
[2022-05-07] MEDS: GABAPENTIN 100 MG CAP PO SCH (21:45)
[2022-05-07] MEDS: ATORVASTATIN 20 MG TAB PO SCH (21:45)
[2022-05-07] MEDS: LEVEMIR (INSULIN DETEMIR) 1 UNITS/0.01ML SC SCH (21:46)
[2022-05-07] MEDS: NIFEdipine 30MG XL TAB PO SCH (21:59)
[2022-05-08] MEDS: ONDANSETRON 4MG ORAL DISINTEGRATING TAB PO PRN ×2 (01:27→11:28)
[2022-05-08 03:07] VITALS: BP 167/90
[2022-05-08] MEDS: HEPARIN SOD (PORCINE) 5000UNITS/ML 1ML VIAL/SYRINGE SQ SCH ×3 (05:47→21:18)
[2022-05-08] MEDS: **hydrALAZINE** 50 MG TAB PO SCH ×3 (05:48→21:18)
[2022-05-08 06:00] VITALS: BP 162/87
[2022-05-08] MEDS: INSULIN LISPRO (NovoLOG) PER UNIT SC SCH ×6 (07:30→20:56)
[2022-05-08] MEDS: DOCUSATE SODIUM 100MG CAPSULE PO SCH ×2 (08:34→21:18)
[2022-05-08] MEDS: DICLOFENAC EPOLAMINE 1.3 % PATCH TOP SCH ×2 (08:35→21:00)
[2022-05-08] MEDS: OMEPRAZOLE 20MG CAP PO SCH (08:35)
[2022-05-08] MEDS: METOPROLOL TART 50 MG TAB PO SCH ×2 (08:35→21:18)
[2022-05-08] MEDS ORDERED: HYDR50TA PO (12:57)
[2022-05-08] MEDS ORDERED: NIFE1TAB51 PO (12:57)
[2022-05-08] MEDS ORDERED: LANTINJ4 SC (12:57)
[2022-05-08] MEDS ORDERED: HUMA100I5 SC (12:57)
[2022-05-08] MEDS ORDERED: ASPI-569 PO (12:57)
[2022-05-08] MEDS ORDERED: ATOR40TA75 PO (12:57)
[2022-05-08] MEDS: LEVEMIR (INSULIN DETEMIR) 1 UNITS/0.01ML SC SCH (21:17)
[2022-05-08] MEDS: NIFEdipine 30MG XL TAB PO SCH (21:17)
[2022-05-08] MEDS: ATORVASTATIN 20 MG TAB PO SCH (21:18)
[2022-05-08] MEDS: ASPIRIN 81MG ENTERIC TABLET PO SCH (21:18)
[2022-05-08] MEDS: GABAPENTIN 100 MG CAP PO SCH (21:18)
[2022-05-09] VITALS (15 sets, daily range): BP systolic 131–163; BP diastolic 65–97
[2022-05-09] MEDS: **hydrALAZINE** 50 MG TAB PO SCH ×3 (06:58→21:37)
[2022-05-09] MEDS: HEPARIN SOD (PORCINE) 5000UNITS/ML 1ML VIAL/SYRINGE SQ SCH ×3 (06:58→21:36)
[2022-05-09] MEDS: INSULIN LISPRO (NovoLOG) PER UNIT SC SCH ×5 (07:30→21:00)
[2022-05-09] MEDS: DOCUSATE SODIUM 100MG CAPSULE PO SCH ×2 (08:48→21:37)
[2022-05-09] MEDS: METOPROLOL TART 50 MG TAB PO SCH ×2 (08:48→21:37)
[2022-05-09] MEDS: OMEPRAZOLE 20MG CAP PO SCH (08:48)
[2022-05-09] MEDS: LIDOCAINE 5% (LIDODERM) PATCH TD SCH (08:49)
[2022-05-09] MEDS: DICLOFENAC EPOLAMINE 1.3 % PATCH TOP SCH ×3 (08:49→21:36)
[2022-05-09] MEDS ORDERED: ISOVUE-370 76% 100ML VIAL As Ordered ONE (19:56)
[2022-05-09] MEDS ORDERED: SODIUM CHLORIDE 0.9% INJ 10 ML SYR IV ONE ×2 (20:30)
[2022-05-09] MEDS ORDERED: TENECTEPLASE 50 MG KIT (TNKase) (J3101 PER 1MG) IVP ONE (20:30)
[2022-05-09 21:09] LABS: HEMATOCRIT 35.5 % (36.0-47.0); HEMOGLOBIN 11.2 g/dl (12.0-15.5); MEAN CORPUSCULAR HGB CONC 31.5 g/dl (32.0-36.5); MEAN CORPUSCULAR VOLUME 107.9 fl (80.0-96.0); PLATELET COUNT, AUTOMATED 248 10^3/uL (150-450); RED BLOOD COUNT 3.29 10^6/uL (4.00-5.40); WHITE BLOOD COUNT 8.4 10^3/uL (4.0-10.0)
[2022-05-09 21:24] LABS: INR 0.88; PARTIAL THROMBOPLASTIN TIME 29.9 SECONDS (24.8-34.2); PROTHROMBIN TIME 12.1 SECONDS (12.5-14.5)
[2022-05-09] MEDS: ASPIRIN 81MG ENTERIC TABLET PO SCH (21:36)
[2022-05-09] MEDS: ATORVASTATIN 20 MG TAB PO SCH (21:37)
[2022-05-09] MEDS: GABAPENTIN 100 MG CAP PO SCH (21:37)
[2022-05-09 21:41] LABS: ALBUMIN 3.2 G/DL (3.2-5.2); ALKALINE PHOSPHATASE 261 U/L (46-116); ALT/SGPT 17 U/L (7.0-40); AST/SGOT 23 U/L (<34); BILIRUBIN,TOTAL < 0.2 MG/DL (0.3-1.2); BLOOD UREA NITROGEN 77 MG/DL (9-23); CALCIUM LEVEL 8.5 MG/DL (8.3-10.6); CARBON DIOXIDE LEVEL 16 MMOL/L (20-31); CHLORIDE LEVEL 103 MMOL/L (98-107); CHOLESTEROL LEVEL 129 MG/DL (<200); CHOLESTEROL RISK RATIO 2.16 (<5); CREATININE FOR GFR 7.38 MG/DL (0.55-1.30); GLOMERULAR FILTRATION RATE 5.7 (>39); GLUCOSE, FASTING 124 MG/DL (74-106); HDL CHOLESTEROL 59.5 MG/DL (>40); LDL CHOLESTEROL 35.5 MG/DL (<100); NON-HDL-C 70 MG/DL; POTASSIUM SERUM 5.8 MMOL/L (3.5-5.1); SODIUM LEVEL 136 MMOL/L (136-145); TOTAL PROTEIN 7.3 G/DL (5.7-8.2); TRIGLYCERIDES LEVEL 170 MG/DL (<150)
[2022-05-09] MEDS: LEVEMIR (INSULIN DETEMIR) 1 UNITS/0.01ML SC SCH (21:42)
[2022-05-09] MEDS: NIFEdipine 30MG XL TAB PO SCH (22:27)
[2022-05-10] VITALS (26 sets, daily range): BP systolic 111–205; BP diastolic 55–91
[2022-05-10] MEDS ORDERED: ROCURONIUM BROMIDE 50 MG/5 ML VIAL IV ONE (00:04)
[2022-05-10] MEDS ORDERED: propofoL 200 MG/20 ML VIAL IV ONE (00:04)
[2022-05-10] MEDS ORDERED: MIDAZOLAM 100MG/100ML-0.9%NACL 100 MG in IV 1 EA IV STA (00:23)
[2022-05-10] MEDS ORDERED: MIDAZOLAM 100MG/100ML-0.9%NACL 100 MG in IV 1 EA IV SCH (00:27)
[2022-05-10] MEDS ORDERED: niCARdipine IV 40 MG in IV 1 EA IV SCH (00:35)
[2022-05-10 00:57] LABS: ABG BASE EXCESS -8.8 (-2.0-2.0); ABG HCO3 17.5 MEQ/L (22.0-26.0); ABG O2 SATURATION 98.8 % (95.0-99.0); ABG PARTIAL PRESSURE CO2 39.1 mmHg (35.0-45.0); ABG PARTIAL PRESSURE O2 318.8 mmHg (75.0-100.0); ABG STANDARD HCO3 17.4 MEQ/L (22.0-26.0); ABG TOTAL CO2 18.7 MEQ/L (23.0-31.0); ABG pH (ARTERIAL) 7.268 UNITS (7.350-7.450)
[2022-05-10] MEDS ORDERED: TRANEXAMIC ACID INJection 1,000 MG in D5W 100 ML IV ONE (01:10)
[2022-05-10] MEDS ORDERED: ROCURONIUM BROMIDE 50 MG/5 ML VIAL ONE (01:43)
[2022-05-10] MEDS ORDERED: propofoL 200 MG/20 ML VIAL ONE (01:43)
[2022-05-10] MEDS ORDERED: CHLORHEXIDINE GLUCONATE 0.12 % 15ML UDC (PERIDEX ORAL RINSE) MT SCH (09:00)
== END 2022-05-10 02:10 | disposition short-term general hospital (02) | DRG 562 ==
LOC: M ED 18:24 → M ED INP 18:25 → M MSPAV 04-10 01:27 → OBSVTOIN 04-10 11:09 → M ICU 05-09 20:03
PROVIDERS: ADMIT Internal Medicine; ATTEND Family Medicine
PROC: 5A1D70Z Performance of Urinary Filtration, Intermittent, Less than 6 Hours Per Day (ICD-10-PCS; principal; 2022-04-10)
PROC: B41DYZZ Fluoroscopy of Aorta and Bilateral Lower Extremity Arteries using Other Contrast (ICD-10-PCS; 2022-04-23)
PROC: B41GYZZ Fluoroscopy of Left Lower Extremity Arteries using Other Contrast (ICD-10-PCS; 2022-04-24)
PROC: 0HBNXZZ Excision of Left Foot Skin, External Approach (ICD-10-PCS; 2022-04-26)
PROC: B246ZZZ Ultrasonography of Right and Left Heart (ICD-10-PCS; 2022-04-27)
PROC: 02HV33Z Insertion of Infusion Device into Superior Vena Cava, Percutaneous Approach (ICD-10-PCS; 2022-05-09)
PROC: 0BH17EZ Insertion of Endotracheal Airway into Trachea, Via Natural or Artificial Opening (ICD-10-PCS; 2022-05-10)
PROC: 5A1935Z Respiratory Ventilation, Less than 24 Consecutive Hours (ICD-10-PCS; 2022-05-10)
DX: S82.145A Nondisplaced bicondylar fracture of left tibia, initial encounter for closed fracture (principal); N18.6 End stage renal disease; I63.9 Cerebral infarction, unspecified; I13.2 Hypertensive heart and chronic kidney disease with heart failure and with stage 5 chronic kidney disease, or end stage renal disease; N25.81 Secondary hyperparathyroidism of renal origin; I69.354 Hemiplegia and hemiparesis following cerebral infarction affecting left non-dominant side; L97.429 Non-pressure chronic ulcer of left heel and midfoot with unspecified severity; L97.528 Non-pressure chronic ulcer of other part of left foot with other specified severity; E87.1 Hypo-osmolality and hyponatremia; E11.52 Type 2 diabetes mellitus with diabetic peripheral angiopathy with gangrene; E11.22 Type 2 diabetes mellitus with diabetic chronic kidney disease; E11.42 Type 2 diabetes mellitus with diabetic polyneuropathy; I25.10 Atherosclerotic heart disease of native coronary artery without angina pectoris; E78.5 Hyperlipidemia, unspecified; K21.9 Gastro-esophageal reflux disease without esophagitis; M19.90 Unspecified osteoarthritis, unspecified site; I50.9 Heart failure, unspecified; D63.1 Anemia in chronic kidney disease; W19.XXXA Unspecified fall, initial encounter; Y92.9 Unspecified place or not applicable; Y93.9 Activity, unspecified; M25.462 Effusion, left knee; L89.622 Pressure ulcer of left heel, stage 2; E11.65 Type 2 diabetes mellitus with hyperglycemia; E11.621 Type 2 diabetes mellitus with foot ulcer; I70.244 Atherosclerosis of native arteries of left leg with ulceration of heel and midfoot; E87.5 Hyperkalemia; R53.1 Weakness; Z53.09 Procedure and treatment not carried out because of other contraindication; Z95.1 Presence of aortocoronary bypass graft; Z79.82 Long term (current) use of aspirin; Z79.899 Other long term (current) drug therapy; Z88.5 Allergy status to narcotic agent; Z79.4 Long term (current) use of insulin; Z99.2 Dependence on renal dialysis